=== PATIENT | male | born 1950 | race Caucasian/White ===

== ENCOUNTER 2016-08-09 08:21 | Outpatient (RCR) | payer MEDICARE ==
--- OUTSIDE RECORDS SUMMARY | 2016-05-23 09:03 | XMS REPORT | Continuity of Care Document ---
Author Author [facility] Organization [facility] Address Unknown Phone Unavailable Care Team Providers Care Clinical Rehabilitation Liaison Name Role Phone Pipe Shruthi PCP [phone] Source Comments Some departments are not documenting in the electronic medical record. If you do not see the information that you expected, contact Release of Information in the Health Information Management department at [phone] for further assistance in locating additional records.[facility] Active Allergies and Adverse Reactions No Known Allergies Current Medications Prescription Sig. Disp. Refills Start End Date Status Date fluticasone-salmeterol Inhale 1 Puff by mouth Active (ADVAIR DISKUS) 250-50 every 12 hours. mcg inhalation disk alendronate (FOSAMAX) 70 Take 70 mg by mouth every Active mg tablet 7 days. albuterol (VENTOLIN HFA, Inhale 2 Puffs by mouth Active PROAIR HFA) 90 every 6 hours as needed. mcg/actuation inhaler LORazepam (ATIVAN) 0.5 mg Take 0.5 mg by mouth Active tablet every 4 hours as needed. gabapentin (NEURONTIN) Take 300 mg by mouth four Active 300 mg capsule times daily. aspirin EC 81 mg tablet Take 81 mg by mouth Active daily. atenolol (TENORMIN) 25 mg Take 25 mg by mouth Active tablet daily. levETIRAcetam (KEPPRA) Take 500 mg by mouth Active 500 mg tablet twice daily. simvastatin (ZOCOR) 40 mg Take 40 mg by mouth at Active tablet bedtime daily. esomeprazole DR(+) Take 40 mg by mouth every Active (NEXIUM) 40 mg capsule morning. etodolac SR (LODINE XL) Take 600 mg by mouth Active 600 mg tablet daily. Active Problems Not on file Social History Tobacco Use Types Packs/Day Years Used Date Never Assessed Last Filed Vital Signs Vital Sign Reading Time Taken Blood Pressure 105/72 10/14/2013 1:05 PM PLUCK SEPARATOR Pulse 94 10/14/2013 1:05 PM PLUCK SEPARATOR Temperature - - Respiratory Rate - - Height 1.715 m (5' 7.5") 10/14/2013 1:05 PM PLUCK SEPARATOR Weight 71.85 kg (158 lb 6.4 oz) 10/14/2013 1:05 PM PLUCK SEPARATOR Body Mass Index 24.43 10/14/2013 1:05 PM PLUCK SEPARATOR Oxygen Saturation 100% 10/14/2013 1:05 PM PLUCK SEPARATOR Plan of Care Health Maintenance Due Date Last Done Comments Physical (Comprehensive) 1957 Exam Pertussis Vaccine 1960 Tetanus Vaccine 1966 Colorectal Cancer 1999 Screening Shingles Vaccine 2009 Prevnar/Pneumovax (#1) 2014 Influenza Vaccine 04/21/2016 Results from Last 3 Months Not on file
[2016-05-23 09:19] LABS: BASOPHILS % (AUTO) 1 % (0-10); EOSINOPHILS # (AUTO) 0.1 10^3/uL (0.0-0.3); EOSINOPHILS % (AUTO) 1 % (0-10); LYMPHOCYTES # (AUTO) 2.2 X 10^3 (1.0-4.0); LYMPHOCYTES % (AUTO) 36 % (12-44); MEAN CORPUSCULAR HEMOGLOBIN 26 PG (25-34); MEAN CORPUSCULAR HGB CONC 32 G/DL (32-36); MEAN CORPUSCULAR VOLUME 80 FL (80-99); MEAN PLATELET VOLUME 10.9 FL (7.4-10.4); MONOCYTES # (AUTO) 0.9 X 10^3 (0.0-1.0); MONOCYTES % (AUTO) 15 % (0-12); NEUTROPHILS % (AUTO) 48 % (42-75); PLATELET COUNT 236 10^3/uL (130-400); RED BLOOD COUNT 4.38 10^6/uL (4.35-5.85); RED CELL DISTRIBUTION WIDTH 21.7 % (10.0-14.5); WHITE BLOOD COUNT 6.3 10^3/uL (4.3-11.0)
[2016-05-23 09:47] LABS: ALANINE AMINOTRANSFERASE 15 U/L (0-55); ALBUMIN 3.2 G/DL (3.2-4.5); ANION GAP 12 MMOL/L (5-14); ASPARTATE AMINO TRANSFERASE 23 U/L (5-34); BILIRUBIN,TOTAL 0.4 MG/DL (0.1-1.0); BLOOD UREA NITROGEN 11 MG/DL (7-18); BUN/CREATININE RATIO 15; CALCIUM 8.1 MG/DL (8.5-10.1); CARBON DIOXIDE 18 MMOL/L (21-32); CHLORIDE 108 MMOL/L (98-107); CREATININE SERUM 0.75 MG/DL (0.60-1.30); GFR ESTIMATED > 60; GLUCOSE 99 MG/DL (70-105); MAGNESIUM 1.8 MG/DL (1.8-2.4); POTASSIUM 3.6 MMOL/L (3.6-5.0); SODIUM 138 MMOL/L (135-145); TOTAL PROTEIN 6.1 G/DL (6.4-8.2)
[2016-05-23 10:31] LABS: PROTEIN/CREATININE RATIO 0.17
[2016-05-31 11:05] LABS: BASOPHILS % (AUTO) 1 % (0-10); EOSINOPHILS % (AUTO) 1 % (0-10); LYMPHOCYTES % (AUTO) 34 % (12-44); MEAN CORPUSCULAR HEMOGLOBIN 26 PG (25-34); MEAN CORPUSCULAR HGB CONC 32 G/DL (32-36); MEAN CORPUSCULAR VOLUME 80 FL (80-99); MEAN PLATELET VOLUME 10.6 FL (7.4-10.4); MONOCYTES # (AUTO) 0.9 X 10^3 (0.0-1.0); MONOCYTES % (AUTO) 14 % (0-12); NEUTROPHILS % (AUTO) 51 % (42-75); PLATELET COUNT 216 10^3/uL (130-400); RED BLOOD COUNT 4.36 10^6/uL (4.35-5.85); RED CELL DISTRIBUTION WIDTH 22.1 % (10.0-14.5); WHITE BLOOD COUNT 5.9 10^3/uL (4.3-11.0)
[2016-05-31 11:37] LABS: ANION GAP 11 MMOL/L (5-14); BLOOD UREA NITROGEN 11 MG/DL (7-18); BUN/CREATININE RATIO 15; CALCIUM 8.3 MG/DL (8.5-10.1); CARBON DIOXIDE 20 MMOL/L (21-32); CHLORIDE 109 MMOL/L (98-107); CREATININE SERUM 0.74 MG/DL (0.60-1.30); GFR ESTIMATED > 60; GLUCOSE 102 MG/DL (70-105); POTASSIUM 3.9 MMOL/L (3.6-5.0); SODIUM 140 MMOL/L (135-145)
[2016-06-06 09:21] LABS: BASOPHILS % (AUTO) 0 % (0-10); EOSINOPHILS # (AUTO) 0.1 10^3/uL (0.0-0.3); EOSINOPHILS % (AUTO) 1 % (0-10); LYMPHOCYTES # (AUTO) 1.7 X 10^3 (1.0-4.0); LYMPHOCYTES % (AUTO) 24 % (12-44); MEAN CORPUSCULAR HEMOGLOBIN 26 PG (25-34); MEAN CORPUSCULAR HGB CONC 32 G/DL (32-36); MEAN CORPUSCULAR VOLUME 80 FL (80-99); MEAN PLATELET VOLUME 11.1 FL (7.4-10.4); MONOCYTES % (AUTO) 13 % (0-12); NEUTROPHILS # (AUTO) 4.4 X 10^3 (1.8-7.8); NEUTROPHILS % (AUTO) 62 % (42-75); PLATELET COUNT 200 10^3/uL (130-400); RED BLOOD COUNT 4.43 10^6/uL (4.35-5.85); RED CELL DISTRIBUTION WIDTH 21.5 % (10.0-14.5); WHITE BLOOD COUNT 7.2 10^3/uL (4.3-11.0)
[2016-06-06 09:47] LABS: ALANINE AMINOTRANSFERASE 18 U/L (0-55); ALBUMIN 3.2 G/DL (3.2-4.5); ANION GAP 8 MMOL/L (5-14); ASPARTATE AMINO TRANSFERASE 22 U/L (5-34); BILIRUBIN,TOTAL 0.4 MG/DL (0.1-1.0); BLOOD UREA NITROGEN 8 MG/DL (7-18); BUN/CREATININE RATIO 10; CALCIUM 8.6 MG/DL (8.5-10.1); CARBON DIOXIDE 24 MMOL/L (21-32); CHLORIDE 105 MMOL/L (98-107); CREATININE SERUM 0.77 MG/DL (0.60-1.30); GFR ESTIMATED > 60; GLUCOSE 146 MG/DL (70-105); MAGNESIUM 1.8 MG/DL (1.8-2.4); SODIUM 137 MMOL/L (135-145); TOTAL PROTEIN 6.2 G/DL (6.4-8.2)
[2016-06-06 09:57] LABS: PROTEIN/CREATININE RATIO 0.17
[2016-06-13 09:00] LABS: BASOPHILS % (AUTO) 1 % (0-10); EOSINOPHILS # (AUTO) 0.1 10^3/uL (0.0-0.3); EOSINOPHILS % (AUTO) 1 % (0-10); LYMPHOCYTES # (AUTO) 2.3 X 10^3 (1.0-4.0); LYMPHOCYTES % (AUTO) 43 % (12-44); MEAN CORPUSCULAR HEMOGLOBIN 25 PG (25-34); MEAN CORPUSCULAR HGB CONC 32 G/DL (32-36); MEAN CORPUSCULAR VOLUME 80 FL (80-99); MEAN PLATELET VOLUME 11.4 FL (7.4-10.4); MONOCYTES # (AUTO) 0.9 X 10^3 (0.0-1.0); MONOCYTES % (AUTO) 17 % (0-12); NEUTROPHILS % (AUTO) 38 % (42-75); PLATELET COUNT 204 10^3/uL (130-400); RED BLOOD COUNT 4.34 10^6/uL (4.35-5.85); RED CELL DISTRIBUTION WIDTH 21.3 % (10.0-14.5); WHITE BLOOD COUNT 5.4 10^3/uL (4.3-11.0)
[2016-06-13 09:26] LABS: ANION GAP 10 MMOL/L (5-14); BLOOD UREA NITROGEN 12 MG/DL (7-18); BUN/CREATININE RATIO 16; CALCIUM 8.1 MG/DL (8.5-10.1); CARBON DIOXIDE 21 MMOL/L (21-32); CHLORIDE 106 MMOL/L (98-107); CREATININE SERUM 0.74 MG/DL (0.60-1.30); GFR ESTIMATED > 60; GLUCOSE 140 MG/DL (70-105); POTASSIUM 3.8 MMOL/L (3.6-5.0); SODIUM 137 MMOL/L (135-145)
[2016-06-20 09:32] LABS: BASOPHILS % (AUTO) 0 % (0-10); EOSINOPHILS # (AUTO) 0.1 10^3/uL (0.0-0.3); EOSINOPHILS % (AUTO) 1 % (0-10); LYMPHOCYTES # (AUTO) 2.2 X 10^3 (1.0-4.0); LYMPHOCYTES % (AUTO) 36 % (12-44); MEAN CORPUSCULAR HEMOGLOBIN 26 PG (25-34); MEAN CORPUSCULAR HGB CONC 32 G/DL (32-36); MEAN CORPUSCULAR VOLUME 80 FL (80-99); MEAN PLATELET VOLUME 10.4 FL (7.4-10.4); MONOCYTES # (AUTO) 0.6 X 10^3 (0.0-1.0); MONOCYTES % (AUTO) 9 % (0-12); NEUTROPHILS # (AUTO) 3.2 X 10^3 (1.8-7.8); NEUTROPHILS % (AUTO) 53 % (42-75); PLATELET COUNT 215 10^3/uL (130-400); RED BLOOD COUNT 4.44 10^6/uL (4.35-5.85); RED CELL DISTRIBUTION WIDTH 21.7 % (10.0-14.5); WHITE BLOOD COUNT 6.1 10^3/uL (4.3-11.0)
[2016-06-20 10:42] LABS: ANION GAP 9 MMOL/L (5-14); BLOOD UREA NITROGEN 11 MG/DL (7-18); BUN/CREATININE RATIO 14; CALCIUM 8.3 MG/DL (8.5-10.1); CARBON DIOXIDE 25 MMOL/L (21-32); CHLORIDE 106 MMOL/L (98-107); CREATININE SERUM 0.77 MG/DL (0.60-1.30); GFR ESTIMATED > 60; GLUCOSE 172 MG/DL (70-105); POTASSIUM 4.2 MMOL/L (3.6-5.0); SODIUM 140 MMOL/L (135-145)
[2016-06-27 10:54] LABS: BASOPHILS % (AUTO) 0 % (0-10); EOSINOPHILS % (AUTO) 1 % (0-10); LYMPHOCYTES # (AUTO) 2.1 X 10^3 (1.0-4.0); LYMPHOCYTES % (AUTO) 25 % (12-44); MEAN CORPUSCULAR HEMOGLOBIN 26 PG (25-34); MEAN CORPUSCULAR HGB CONC 32 G/DL (32-36); MEAN CORPUSCULAR VOLUME 81 FL (80-99); MEAN PLATELET VOLUME 11.1 FL (7.4-10.4); MONOCYTES % (AUTO) 11 % (0-12); NEUTROPHILS # (AUTO) 5.3 X 10^3 (1.8-7.8); NEUTROPHILS % (AUTO) 63 % (42-75); PLATELET COUNT 241 10^3/uL (130-400); RED BLOOD COUNT 4.32 10^6/uL (4.35-5.85); RED CELL DISTRIBUTION WIDTH 21.4 % (10.0-14.5); WHITE BLOOD COUNT 8.4 10^3/uL (4.3-11.0)
[2016-06-27 11:26] LABS: ALANINE AMINOTRANSFERASE 19 U/L (0-55); ALBUMIN 3.3 G/DL (3.2-4.5); ANION GAP 9 MMOL/L (5-14); ASPARTATE AMINO TRANSFERASE 23 U/L (5-34); BILIRUBIN,TOTAL 0.6 MG/DL (0.1-1.0); BLOOD UREA NITROGEN 14 MG/DL (7-18); BUN/CREATININE RATIO 18; CALCIUM 8.7 MG/DL (8.5-10.1); CARBON DIOXIDE 23 MMOL/L (21-32); CHLORIDE 104 MMOL/L (98-107); GFR ESTIMATED > 60; GLUCOSE 123 MG/DL (70-105); MAGNESIUM 1.6 MG/DL (1.8-2.4); POTASSIUM 3.9 MMOL/L (3.6-5.0); SODIUM 136 MMOL/L (135-145); TOTAL PROTEIN 6.1 G/DL (6.4-8.2)
[2016-07-25 10:55] LABS: BASOPHILS % (AUTO) 0 % (0-10); EOSINOPHILS # (AUTO) 0.1 10^3/uL (0.0-0.3); EOSINOPHILS % (AUTO) 2 % (0-10); LYMPHOCYTES # (AUTO) 2.1 X 10^3 (1.0-4.0); LYMPHOCYTES % (AUTO) 27 % (12-44); MEAN CORPUSCULAR HEMOGLOBIN 26 PG (25-34); MEAN CORPUSCULAR HGB CONC 32 G/DL (32-36); MEAN CORPUSCULAR VOLUME 81 FL (80-99); MEAN PLATELET VOLUME 10.9 FL (7.4-10.4); MONOCYTES % (AUTO) 12 % (0-12); NEUTROPHILS # (AUTO) 4.7 X 10^3 (1.8-7.8); NEUTROPHILS % (AUTO) 59 % (42-75); PLATELET COUNT 244 10^3/uL (130-400); RED BLOOD COUNT 4.36 10^6/uL (4.35-5.85); RED CELL DISTRIBUTION WIDTH 19.8 % (10.0-14.5); WHITE BLOOD COUNT 7.9 10^3/uL (4.3-11.0)
[2016-07-25 11:32] LABS: ALANINE AMINOTRANSFERASE 15 U/L (0-55); ALBUMIN 3.2 G/DL (3.2-4.5); ANION GAP 9 MMOL/L (5-14); ASPARTATE AMINO TRANSFERASE 22 U/L (5-34); BILIRUBIN,TOTAL 0.4 MG/DL (0.1-1.0); BLOOD UREA NITROGEN 13 MG/DL (7-18); BUN/CREATININE RATIO 17; CALCIUM 8.4 MG/DL (8.5-10.1); CARBON DIOXIDE 22 MMOL/L (21-32); CHLORIDE 108 MMOL/L (98-107); CREATININE SERUM 0.76 MG/DL (0.60-1.30); GFR ESTIMATED > 60; GLUCOSE 72 MG/DL (70-105); POTASSIUM 3.7 MMOL/L (3.6-5.0); SODIUM 139 MMOL/L (135-145)
[~2016-08-09] VITALS: Ht 167.6 cm; Wt 64.4 kg
[~2016-08-09 08:21] MED LIST: ADV1DS IH; ALN70T PO; AMOX500C2 PO; ASPI-875 PO; ATEN-147 PO; BEVACIZUMAB IV SCH; D5W 500 ML IV (CANCER CTR) 500 ML IV SCH; FAMOTIDINE 20MG/2ML IV (CANCER CTR) IV SCH; FOSAPREPITANT DIMEGLUMINE 150 MG in NS (IVPB) CANCER CENTER ONLY 150 ML IV PRN; GABA300C PO; HYDR-3714 PO; LEUCOVORIN CALCIUM 350 MG, LEUCOVORIN CALCIUM 50 MG in D5W 250 ML IVPB (CANCER CTR) 250 ML IV SCH; LEVE500T PO; LORA-794 PO; NF-ESOM40C PO; NS IV SCH; ONDA8TAB6 PO; OXALIPLATIN 100 MG, OXALIPLATIN (GENERIC) 40 MG in D5W 250 ML IVPB (CANCER CTR) 250 ML IV SCH; PALONOSETRON HCL 0.25 MG, DEXAMETHASONE PF INJ (CANCER C 10 MG in NS (IVPB) CANCER CENT... IV PRN; RT-ALBUINH IH; SIMV40TA2 PO; [UNRECOGNIZED DRUG - CODE] PO
[2016-08-09 08:46] LABS: BASOPHILS # (AUTO) 0.1 10^3/uL (0.0-0.1); BASOPHILS % (AUTO) 1 % (0-10); EOSINOPHILS # (AUTO) 0.2 10^3/uL (0.0-0.3); EOSINOPHILS % (AUTO) 2 % (0-10); LYMPHOCYTES # (AUTO) 2.5 X 10^3 (1.0-4.0); LYMPHOCYTES % (AUTO) 32 % (12-44); MEAN CORPUSCULAR HEMOGLOBIN 26 PG (25-34); MEAN CORPUSCULAR HGB CONC 32 G/DL (32-36); MEAN CORPUSCULAR VOLUME 80 FL (80-99); MEAN PLATELET VOLUME 11.2 FL (7.4-10.4); MONOCYTES # (AUTO) 0.8 X 10^3 (0.0-1.0); MONOCYTES % (AUTO) 10 % (0-12); NEUTROPHILS # (AUTO) 4.2 X 10^3 (1.8-7.8); NEUTROPHILS % (AUTO) 55 % (42-75); PLATELET COUNT 269 10^3/uL (130-400); RED BLOOD COUNT 4.39 10^6/uL (4.35-5.85); RED CELL DISTRIBUTION WIDTH 19.1 % (10.0-14.5); WHITE BLOOD COUNT 7.6 10^3/uL (4.3-11.0)
[2016-08-09 09:10] LABS: ALANINE AMINOTRANSFERASE 24 U/L (0-55); ALBUMIN 3.3 G/DL (3.2-4.5); ANION GAP 7 MMOL/L (5-14); ASPARTATE AMINO TRANSFERASE 26 U/L (5-34); BILIRUBIN,TOTAL 0.4 MG/DL (0.1-1.0); BLOOD UREA NITROGEN 15 MG/DL (7-18); BUN/CREATININE RATIO 20; CALCIUM 8.8 MG/DL (8.5-10.1); CARBON DIOXIDE 24 MMOL/L (21-32); CHLORIDE 105 MMOL/L (98-107); CREATININE SERUM 0.74 MG/DL (0.60-1.30); GFR ESTIMATED > 60; GLUCOSE 127 MG/DL (70-105); SODIUM 136 MMOL/L (135-145); TOTAL PROTEIN 6.1 G/DL (6.4-8.2)
== END 2016-08-21 | disposition home or self-care (01) ==
LOC: ONC 08:21
PROVIDERS: ATTEND Internal Medicine Hematology & Oncology
DX: Z51.11 Encounter for antineoplastic chemotherapy (principal); C18.2 Malignant neoplasm of ascending colon; C78.7 Secondary malignant neoplasm of liver and intrahepatic bile duct; R91.8 Other nonspecific abnormal finding of lung field
CPT/HCPCS: 36415; 36591; 80048; 80053; 82378; 82570; 83735; 84156; 85025; 96367; 96368; 96375; 96411; 96413; 96521; 99213

== ENCOUNTER → 2016-11-15 | Outpatient (CLI) | payer MEDICARE ==
[~2016-11-15] MED LIST changes: +BARIUM SUSPENSION 2.1% (VANILLA SILQ) 450 ML PO ONE; -BEVACIZUMAB IV SCH; +CATHETER FLUSH 10 ML SYR IV PRN; -D5W 500 ML IV (CANCER CTR) 500 ML IV SCH; -FAMOTIDINE 20MG/2ML IV (CANCER CTR) IV SCH; -FOSAPREPITANT DIMEGLUMINE 150 MG in NS (IVPB) CANCER CENTER ONLY 150 ML IV PRN; +IOHEXOL 350 MG/ML 100 ML (OMNIPAQUE 350) VIAL IV ONE; -LEUCOVORIN CALCIUM 350 MG, LEUCOVORIN CALCIUM 50 MG in D5W 250 ML IVPB (CANCER CTR) 250 ML IV SCH; +NS 100 ML (IVPB) BAG IV ONE; -NS IV SCH; -OXALIPLATIN 100 MG, OXALIPLATIN (GENERIC) 40 MG in D5W 250 ML IVPB (CANCER CTR) 250 ML IV SCH; -PALONOSETRON HCL 0.25 MG, DEXAMETHASONE PF INJ (CANCER C 10 MG in NS (IVPB) CANCER CENT... IV PRN
--- NOTE | 2016-11-15 11:03 | Diagnostic Imaging Report ---
PROCEDURE: CT chest, abdomen, and pelvis with contrast. TECHNIQUE: Multiple contiguous axial images were obtained through the chest, abdomen, and pelvis after the administration of intravenous contrast. INDICATION: Colon cancer followup. 100 mL of Omnipaque 350 is administered intravenously. COMPARISON: Comparison with 06/21/2016. FINDINGS: CT CHEST: There are multiple subcentimeter pulmonary nodules up to 8 mm in size again seen without significant change from prior exam. These are indeterminate in etiology but could be metastatic. There is background upper lobe predominant emphysema. No significant consolidation or mass. No significant pleural or pericardial effusion. The mediastinum demonstrates no mass or lymphadenopathy. No hilar lymphadenopathy is seen. There is no axillary lymphadenopathy. Osseous structures demonstrate degenerative changes and scoliosis convex to the left in the lumbar spine with compensatory curvature seen in the thoracic spine. CT ABDOMEN AND PELVIS: There is unfortunately significant enlargement and increased in number of liver metastasis. The largest mass at this point is 4.6 x 4.6 cm compared to 2.2 x 2 cm previously. There is suggestion of a few new lesions about 1.5 cm in size mostly in the right hepatic lobe. The gallbladder, the spleen, the pancreas, and the adrenal glands appear unremarkable. The kidneys have symmetric enhancement and contrast excretion. There is no hydronephrosis. The abdominal aorta is normal in caliber. There is a small fat-containing ventral hernia above the umbilicus to the left of the midline. Periaortic significantly enlarged lymph nodes seen. Mesenteric enlarged lymph nodes measuring 1 cm in size seen on axial image 75 is slightly larger compared to the prior exam. There is no iliac lymphadenopathy. No significant free fluid or fluid collection in the abdomen or pelvis. Surgical clips in the right groin and suggestion of a mesh repair of the abdominal wall is seen. IMPRESSION: CT CHEST: Multiple pulmonary nodules up to 8 mm in size stable from prior exams. These remain indeterminate in etiology. CT ABDOMEN AND PELVIS: 1. Interval increase in the number and size of hepatic metastasis. 2. Minimal enlargement in the right mesenteric lymph nodes. 3. Supraumbilical left paramedian ventral hernia containing fat. Dictated by: Dictated on workstation # [id number]
== END ==
LOC: RAD 09:49
PROVIDERS: ATTEND Nurse Practitioner Adult Health
DX: C18.2 Malignant neoplasm of ascending colon (principal)
CPT/HCPCS: 71260; 74177

== ENCOUNTER → 2016-11-21 | Outpatient (RCR) | payer MEDICARE ==
--- OUTSIDE RECORDS SUMMARY | 2016-08-23 10:11 | XMS REPORT | Continuity of Care Document ---
Author Author [facility] Organization [facility] Address Unknown Phone Unavailable Care Team Providers Care Chemical Compounder Helper Name Role Phone Pipe Shruthi PCP [phone] Source Comments Some departments are not documenting in the electronic medical record. If you do not see the information that you expected, contact Release of Information in the Health Information Management department at [phone] for further assistance in locating additional records.[facility] Active Allergies and Adverse Reactions No Known [...] Taken Blood Pressure 105/72 10/14/2013 1:05 PM CRAB FISHERMAN Pulse 94 10/14/2013 1:05 PM CRAB FISHERMAN Temperature - - Respiratory Rate - - Height 1.715 m (5' 7.5") 10/14/2013 1:05 PM CRAB FISHERMAN Weight 71.85 kg (158 lb 6.4 oz) 10/14/2013 1:05 PM CRAB FISHERMAN Body Mass Index 24.43 10/14/2013 1:05 PM CRAB FISHERMAN Oxygen Saturation 100% 10/14/2013 1:05 PM CRAB FISHERMAN Plan of Care Health Maintenance Due Date Last Done Comments Hepatitis C Screening 1949 Physical (Comprehensive) 1956 Exam Pertussis Vaccine 1960 Tetanus Vaccine 1966 Colorectal Cancer 1999 Screening Shingles Vaccine 2009 Prevnar/Pneumovax (#1) 2014 Influenza Vaccine 04/21/2016 Results from Last 3 Months Not on file
[2016-08-23 10:42] LABS: BASOPHILS % (AUTO) 0 % (0-10); EOSINOPHILS # (AUTO) 0.1 10^3/uL (0.0-0.3); EOSINOPHILS % (AUTO) 1 % (0-10); LYMPHOCYTES % (AUTO) 26 % (12-44); MEAN CORPUSCULAR HEMOGLOBIN 25 PG (25-34); MEAN CORPUSCULAR HGB CONC 32 G/DL (32-36); MEAN CORPUSCULAR VOLUME 79 FL (80-99); MEAN PLATELET VOLUME 9.9 FL (7.4-10.4); MONOCYTES # (AUTO) 0.5 X 10^3 (0.0-1.0); MONOCYTES % (AUTO) 6 % (0-12); NEUTROPHILS # (AUTO) 5.2 X 10^3 (1.8-7.8); NEUTROPHILS % (AUTO) 68 % (42-75); PLATELET COUNT 299 10^3/uL (130-400); RED BLOOD COUNT 4.59 10^6/uL (4.35-5.85); RED CELL DISTRIBUTION WIDTH 19.1 % (10.0-14.5); WHITE BLOOD COUNT 7.7 10^3/uL (4.3-11.0)
[2016-08-23 11:43] LABS: ANION GAP 12 MMOL/L (5-14); BLOOD UREA NITROGEN 13 MG/DL (7-18); BUN/CREATININE RATIO 15; CALCIUM 9.3 MG/DL (8.5-10.1); CARBON DIOXIDE 23 MMOL/L (21-32); CHLORIDE 105 MMOL/L (98-107); CREATININE SERUM 0.87 MG/DL (0.60-1.30); GFR ESTIMATED > 60; GLUCOSE 76 MG/DL (70-105); POTASSIUM 4.3 MMOL/L (3.6-5.0); SODIUM 140 MMOL/L (135-145)
[2016-08-30 10:35] LABS: BASOPHILS % (AUTO) 0 % (0-10); EOSINOPHILS # (AUTO) 0.1 10^3/uL (0.0-0.3); EOSINOPHILS % (AUTO) 1 % (0-10); LYMPHOCYTES # (AUTO) 1.1 X 10^3 (1.0-4.0); LYMPHOCYTES % (AUTO) 29 % (12-44); MEAN CORPUSCULAR HEMOGLOBIN 25 PG (25-34); MEAN CORPUSCULAR HGB CONC 32 G/DL (32-36); MEAN CORPUSCULAR VOLUME 79 FL (80-99); MEAN PLATELET VOLUME 10.4 FL (7.4-10.4); MONOCYTES # (AUTO) 0.1 X 10^3 (0.0-1.0); MONOCYTES % (AUTO) 3 % (0-12); NEUTROPHILS # (AUTO) 2.6 X 10^3 (1.8-7.8); NEUTROPHILS % (AUTO) 66 % (42-75); PLATELET COUNT 215 10^3/uL (130-400); RED BLOOD COUNT 4.03 10^6/uL (4.35-5.85); RED CELL DISTRIBUTION WIDTH 18.4 % (10.0-14.5); WHITE BLOOD COUNT 3.9 10^3/uL (4.3-11.0)
[2016-08-30 10:54] LABS: ANION GAP 7 MMOL/L (5-14); BLOOD UREA NITROGEN 15 MG/DL (7-18); BUN/CREATININE RATIO 18; CALCIUM 8.5 MG/DL (8.5-10.1); CARBON DIOXIDE 24 MMOL/L (21-32); CHLORIDE 105 MMOL/L (98-107); CREATININE SERUM 0.84 MG/DL (0.60-1.30); GFR ESTIMATED > 60; GLUCOSE 104 MG/DL (70-105); POTASSIUM 3.6 MMOL/L (3.6-5.0); SODIUM 136 MMOL/L (135-145)
[2016-09-08 09:17] LABS: BASOPHILS % (AUTO) 0 % (0-10); EOSINOPHILS % (AUTO) 1 % (0-10); LYMPHOCYTES # (AUTO) 1.7 X 10^3 (1.0-4.0); LYMPHOCYTES % (AUTO) 60 % (12-44); MEAN CORPUSCULAR HEMOGLOBIN 26 PG (25-34); MEAN CORPUSCULAR HGB CONC 32 G/DL (32-36); MEAN CORPUSCULAR VOLUME 80 FL (80-99); MEAN PLATELET VOLUME 10.1 FL (7.4-10.4); MONOCYTES # (AUTO) 0.4 X 10^3 (0.0-1.0); MONOCYTES % (AUTO) 13 % (0-12); NEUTROPHILS # (AUTO) 0.7 X 10^3 (1.8-7.8); NEUTROPHILS % (AUTO) 26 % (42-75); PLATELET COUNT 271 10^3/uL (130-400); RED BLOOD COUNT 4.09 10^6/uL (4.35-5.85); RED CELL DISTRIBUTION WIDTH 19.9 % (10.0-14.5); WHITE BLOOD COUNT 2.8 10^3/uL (4.3-11.0)
[2016-09-08 10:00] LABS: ALANINE AMINOTRANSFERASE 19 U/L (0-55); ALBUMIN 3.5 G/DL (3.2-4.5); ANION GAP 10 MMOL/L (5-14); ASPARTATE AMINO TRANSFERASE 19 U/L (5-34); BILIRUBIN,TOTAL 0.4 MG/DL (0.1-1.0); BLOOD UREA NITROGEN 18 MG/DL (7-18); BUN/CREATININE RATIO 21; CALCIUM 8.5 MG/DL (8.5-10.1); CARBON DIOXIDE 22 MMOL/L (21-32); CHLORIDE 106 MMOL/L (98-107); CREATININE SERUM 0.86 MG/DL (0.60-1.30); GFR ESTIMATED > 60; GLUCOSE 98 MG/DL (70-105); SODIUM 138 MMOL/L (135-145); TOTAL PROTEIN 6.4 G/DL (6.4-8.2)
[2016-09-15 13:08] LABS: BASOPHILS % (AUTO) 0 % (0-10); EOSINOPHILS % (AUTO) 0 % (0-10); LYMPHOCYTES # (AUTO) 2.5 X 10^3 (1.0-4.0); LYMPHOCYTES % (AUTO) 48 % (12-44); MEAN CORPUSCULAR HEMOGLOBIN 25 PG (25-34); MEAN CORPUSCULAR HGB CONC 31 G/DL (32-36); MEAN CORPUSCULAR VOLUME 81 FL (80-99); MEAN PLATELET VOLUME 9.5 FL (7.4-10.4); MONOCYTES # (AUTO) 0.9 X 10^3 (0.0-1.0); MONOCYTES % (AUTO) 16 % (0-12); NEUTROPHILS # (AUTO) 1.8 X 10^3 (1.8-7.8); NEUTROPHILS % (AUTO) 35 % (42-75); PLATELET COUNT 267 10^3/uL (130-400); RED BLOOD COUNT 4.42 10^6/uL (4.35-5.85); RED CELL DISTRIBUTION WIDTH 20.4 % (10.0-14.5); WHITE BLOOD COUNT 5.2 10^3/uL (4.3-11.0)
[2016-09-15 13:41] LABS: ANION GAP 10 MMOL/L (5-14); BLOOD UREA NITROGEN 16 MG/DL (7-18); BUN/CREATININE RATIO 16; CALCIUM 8.5 MG/DL (8.5-10.1); CARBON DIOXIDE 23 MMOL/L (21-32); CHLORIDE 105 MMOL/L (98-107); CREATININE SERUM 0.97 MG/DL (0.60-1.30); GFR ESTIMATED > 60; POTASSIUM 4.5 MMOL/L (3.6-5.0); SODIUM 138 MMOL/L (135-145)
[2016-09-15 13:43] LABS: GLUCOSE 57 MG/DL (70-105)
[2016-09-21 11:05] LABS: BASOPHILS # (AUTO) 0.1 10^3/uL (0.0-0.1); BASOPHILS % (AUTO) 1 % (0-10); EOSINOPHILS % (AUTO) 0 % (0-10); LYMPHOCYTES # (AUTO) 2.2 X 10^3 (1.0-4.0); LYMPHOCYTES % (AUTO) 32 % (12-44); MEAN CORPUSCULAR HEMOGLOBIN 26 PG (25-34); MEAN CORPUSCULAR HGB CONC 32 G/DL (32-36); MEAN CORPUSCULAR VOLUME 81 FL (80-99); MEAN PLATELET VOLUME 10.4 FL (7.4-10.4); MONOCYTES # (AUTO) 0.8 X 10^3 (0.0-1.0); MONOCYTES % (AUTO) 12 % (0-12); NEUTROPHILS # (AUTO) 3.7 X 10^3 (1.8-7.8); NEUTROPHILS % (AUTO) 55 % (42-75); PLATELET COUNT 220 10^3/uL (130-400); RED BLOOD COUNT 4.31 10^6/uL (4.35-5.85); RED CELL DISTRIBUTION WIDTH 20.4 % (10.0-14.5); WHITE BLOOD COUNT 6.7 10^3/uL (4.3-11.0)
[2016-09-21 11:41] LABS: ANION GAP 9 MMOL/L (5-14); BLOOD UREA NITROGEN 17 MG/DL (7-18); BUN/CREATININE RATIO 18; CALCIUM 8.5 MG/DL (8.5-10.1); CARBON DIOXIDE 24 MMOL/L (21-32); CHLORIDE 105 MMOL/L (98-107); CREATININE SERUM 0.96 MG/DL (0.60-1.30); GFR ESTIMATED > 60; GLUCOSE 74 MG/DL (70-105); POTASSIUM 4.2 MMOL/L (3.6-5.0); SODIUM 138 MMOL/L (135-145)
[2016-09-28 11:02] LABS: BASOPHILS % (AUTO) 0 % (0-10); EOSINOPHILS % (AUTO) 1 % (0-10); LYMPHOCYTES # (AUTO) 1.6 X 10^3 (1.0-4.0); LYMPHOCYTES % (AUTO) 27 % (12-44); MEAN CORPUSCULAR HEMOGLOBIN 26 PG (25-34); MEAN CORPUSCULAR HGB CONC 31 G/DL (32-36); MEAN CORPUSCULAR VOLUME 82 FL (80-99); MEAN PLATELET VOLUME 9.6 FL (7.4-10.4); MONOCYTES # (AUTO) 0.2 X 10^3 (0.0-1.0); MONOCYTES % (AUTO) 4 % (0-12); NEUTROPHILS # (AUTO) 4.1 X 10^3 (1.8-7.8); NEUTROPHILS % (AUTO) 68 % (42-75); PLATELET COUNT 244 10^3/uL (130-400); RED BLOOD COUNT 3.99 10^6/uL (4.35-5.85); RED CELL DISTRIBUTION WIDTH 20.3 % (10.0-14.5)
[2016-09-28 11:46] LABS: ANION GAP 10 MMOL/L (5-14); BLOOD UREA NITROGEN 13 MG/DL (7-18); BUN/CREATININE RATIO 15; CALCIUM 8.7 MG/DL (8.5-10.1); CARBON DIOXIDE 24 MMOL/L (21-32); CHLORIDE 106 MMOL/L (98-107); CREATININE SERUM 0.85 MG/DL (0.60-1.30); GFR ESTIMATED > 60; GLUCOSE 100 MG/DL (70-105); SODIUM 140 MMOL/L (135-145)
[2016-10-05 12:00] LABS: BASOPHILS % (AUTO) 0 % (0-10); EOSINOPHILS % (AUTO) 1 % (0-10); LYMPHOCYTES # (AUTO) 2.3 X 10^3 (1.0-4.0); LYMPHOCYTES % (AUTO) 53 % (12-44); MEAN CORPUSCULAR HEMOGLOBIN 26 PG (25-34); MEAN CORPUSCULAR HGB CONC 32 G/DL (32-36); MEAN CORPUSCULAR VOLUME 81 FL (80-99); MEAN PLATELET VOLUME 9.8 FL (7.4-10.4); MONOCYTES # (AUTO) 0.1 X 10^3 (0.0-1.0); MONOCYTES % (AUTO) 3 % (0-12); NEUTROPHILS # (AUTO) 1.9 X 10^3 (1.8-7.8); NEUTROPHILS % (AUTO) 43 % (42-75); PLATELET COUNT 184 10^3/uL (130-400); RED BLOOD COUNT 3.97 10^6/uL (4.35-5.85); RED CELL DISTRIBUTION WIDTH 19.8 % (10.0-14.5); WHITE BLOOD COUNT 4.4 10^3/uL (4.3-11.0)
[2016-10-05 12:41] LABS: ANION GAP 8 MMOL/L (5-14); BLOOD UREA NITROGEN 13 MG/DL (7-18); BUN/CREATININE RATIO 15; CALCIUM 8.4 MG/DL (8.5-10.1); CARBON DIOXIDE 25 MMOL/L (21-32); CHLORIDE 104 MMOL/L (98-107); CREATININE SERUM 0.88 MG/DL (0.60-1.30); GFR ESTIMATED > 60; GLUCOSE 117 MG/DL (70-105); POTASSIUM 4.2 MMOL/L (3.6-5.0); SODIUM 137 MMOL/L (135-145)
[2016-10-12 11:07] LABS: BASOPHILS % (AUTO) 0 % (0-10); EOSINOPHILS % (AUTO) 1 % (0-10); LYMPHOCYTES # (AUTO) 1.3 X 10^3 (1.0-4.0); LYMPHOCYTES % (AUTO) 66 % (12-44); MEAN CORPUSCULAR HEMOGLOBIN 26 PG (25-34); MEAN CORPUSCULAR HGB CONC 32 G/DL (32-36); MEAN CORPUSCULAR VOLUME 82 FL (80-99); MEAN PLATELET VOLUME 9.6 FL (7.4-10.4); MONOCYTES # (AUTO) 0.2 X 10^3 (0.0-1.0); MONOCYTES % (AUTO) 10 % (0-12); NEUTROPHILS # (AUTO) 0.4 X 10^3 (1.8-7.8); NEUTROPHILS % (AUTO) 23 % (42-75); PLATELET COUNT 219 10^3/uL (130-400); RED BLOOD COUNT 3.79 10^6/uL (4.35-5.85); RED CELL DISTRIBUTION WIDTH 21.4 % (10.0-14.5); WHITE BLOOD COUNT 1.9 10^3/uL (4.3-11.0)
[2016-10-12 12:34] LABS: ALANINE AMINOTRANSFERASE 18 U/L (0-55); ALBUMIN 3.5 G/DL (3.2-4.5); ANION GAP 11 MMOL/L (5-14); ASPARTATE AMINO TRANSFERASE 21 U/L (5-34); BILIRUBIN,TOTAL 0.4 MG/DL (0.1-1.0); BLOOD UREA NITROGEN 10 MG/DL (7-18); BUN/CREATININE RATIO 12; CALCIUM 8.3 MG/DL (8.5-10.1); CARBON DIOXIDE 21 MMOL/L (21-32); CHLORIDE 106 MMOL/L (98-107); CREATININE SERUM 0.83 MG/DL (0.60-1.30); GFR ESTIMATED > 60; GLUCOSE 122 MG/DL (70-105); POTASSIUM 3.7 MMOL/L (3.6-5.0); SODIUM 138 MMOL/L (135-145); TOTAL PROTEIN 6.3 G/DL (6.4-8.2)
[2016-10-19 11:13] LABS: BASOPHILS % (AUTO) 0 % (0-10); EOSINOPHILS % (AUTO) 0 % (0-10); LYMPHOCYTES % (AUTO) 48 % (12-44); MEAN CORPUSCULAR HEMOGLOBIN 26 PG (25-34); MEAN CORPUSCULAR HGB CONC 32 G/DL (32-36); MEAN CORPUSCULAR VOLUME 83 FL (80-99); MEAN PLATELET VOLUME 9.3 FL (7.4-10.4); MONOCYTES # (AUTO) 0.6 X 10^3 (0.0-1.0); MONOCYTES % (AUTO) 14 % (0-12); NEUTROPHILS # (AUTO) 1.5 X 10^3 (1.8-7.8); NEUTROPHILS % (AUTO) 37 % (42-75); PLATELET COUNT 246 10^3/uL (130-400); RED BLOOD COUNT 3.91 10^6/uL (4.35-5.85); RED CELL DISTRIBUTION WIDTH 23.3 % (10.0-14.5)
[2016-10-19 11:57] LABS: ALANINE AMINOTRANSFERASE 18 U/L (0-55); ALBUMIN 3.3 G/DL (3.2-4.5); ANION GAP 11 MMOL/L (5-14); ASPARTATE AMINO TRANSFERASE 26 U/L (5-34); BILIRUBIN,TOTAL 0.4 MG/DL (0.1-1.0); BLOOD UREA NITROGEN 12 MG/DL (7-18); BUN/CREATININE RATIO 14; CALCIUM 8.8 MG/DL (8.5-10.1); CARBON DIOXIDE 23 MMOL/L (21-32); CHLORIDE 102 MMOL/L (98-107); CREATININE SERUM 0.88 MG/DL (0.60-1.30); GFR ESTIMATED > 60; GLUCOSE 118 MG/DL (70-105); POTASSIUM 4.3 MMOL/L (3.6-5.0); SODIUM 136 MMOL/L (135-145); TOTAL PROTEIN 6.2 G/DL (6.4-8.2)
[2016-11-01 10:05] LABS: BASOPHILS % (AUTO) 0 % (0-10); EOSINOPHILS % (AUTO) 1 % (0-10); LYMPHOCYTES # (AUTO) 1.6 X 10^3 (1.0-4.0); LYMPHOCYTES % (AUTO) 23 % (12-44); MEAN CORPUSCULAR HEMOGLOBIN 28 PG (25-34); MEAN CORPUSCULAR HGB CONC 32 G/DL (32-36); MEAN CORPUSCULAR VOLUME 85 FL (80-99); MEAN PLATELET VOLUME 9.8 FL (7.4-10.4); MONOCYTES # (AUTO) 0.3 X 10^3 (0.0-1.0); MONOCYTES % (AUTO) 5 % (0-12); NEUTROPHILS # (AUTO) 4.8 X 10^3 (1.8-7.8); NEUTROPHILS % (AUTO) 71 % (42-75); PLATELET COUNT 271 10^3/uL (130-400); RED CELL DISTRIBUTION WIDTH 23.1 % (10.0-14.5); WHITE BLOOD COUNT 6.7 10^3/uL (4.3-11.0)
[2016-11-01 10:32] LABS: ANION GAP 10 MMOL/L (5-14); BLOOD UREA NITROGEN 18 MG/DL (7-18); BUN/CREATININE RATIO 20; CALCIUM 8.8 MG/DL (8.5-10.1); CARBON DIOXIDE 23 MMOL/L (21-32); CHLORIDE 104 MMOL/L (98-107); CREATININE SERUM 0.92 MG/DL (0.60-1.30); GFR ESTIMATED > 60; GLUCOSE 85 MG/DL (70-105); POTASSIUM 4.4 MMOL/L (3.6-5.0); SODIUM 137 MMOL/L (135-145)
[2016-11-08 10:32] LABS: BASOPHILS % (AUTO) 0 % (0-10); EOSINOPHILS % (AUTO) 1 % (0-10); LYMPHOCYTES # (AUTO) 1.4 X 10^3 (1.0-4.0); LYMPHOCYTES % (AUTO) 38 % (12-44); MEAN CORPUSCULAR HEMOGLOBIN 27 PG (25-34); MEAN CORPUSCULAR HGB CONC 32 G/DL (32-36); MEAN CORPUSCULAR VOLUME 85 FL (80-99); MEAN PLATELET VOLUME 9.5 FL (7.4-10.4); MONOCYTES # (AUTO) 0.2 X 10^3 (0.0-1.0); MONOCYTES % (AUTO) 5 % (0-12); NEUTROPHILS % (AUTO) 56 % (42-75); PLATELET COUNT 155 10^3/uL (130-400); RED BLOOD COUNT 3.49 10^6/uL (4.35-5.85); RED CELL DISTRIBUTION WIDTH 22.5 % (10.0-14.5); WHITE BLOOD COUNT 3.7 10^3/uL (4.3-11.0)
[2016-11-08 11:01] LABS: ANION GAP 9 MMOL/L (5-14); BLOOD UREA NITROGEN 11 MG/DL (7-18); BUN/CREATININE RATIO 13; CALCIUM 8.7 MG/DL (8.5-10.1); CARBON DIOXIDE 24 MMOL/L (21-32); CHLORIDE 106 MMOL/L (98-107); CREATININE SERUM 0.87 MG/DL (0.60-1.30); GFR ESTIMATED > 60; GLUCOSE 109 MG/DL (70-105); POTASSIUM 4.8 MMOL/L (3.6-5.0); SODIUM 139 MMOL/L (135-145)
[2016-11-15 11:13] LABS: BASOPHILS % (AUTO) 0 % (0-10); EOSINOPHILS # (AUTO) 0.1 10^3/uL (0.0-0.3); EOSINOPHILS % (AUTO) 2 % (0-10); LYMPHOCYTES # (AUTO) 1.9 X 10^3 (1.0-4.0); LYMPHOCYTES % (AUTO) 55 % (12-44); MEAN CORPUSCULAR HEMOGLOBIN 28 PG (25-34); MEAN CORPUSCULAR HGB CONC 33 G/DL (32-36); MEAN CORPUSCULAR VOLUME 85 FL (80-99); MEAN PLATELET VOLUME 9.9 FL (7.4-10.4); MONOCYTES # (AUTO) 0.3 X 10^3 (0.0-1.0); MONOCYTES % (AUTO) 9 % (0-12); NEUTROPHILS # (AUTO) 1.2 X 10^3 (1.8-7.8); NEUTROPHILS % (AUTO) 34 % (42-75); PLATELET COUNT 237 10^3/uL (130-400); RED BLOOD COUNT 3.75 10^6/uL (4.35-5.85); RED CELL DISTRIBUTION WIDTH 22.9 % (10.0-14.5); WHITE BLOOD COUNT 3.4 10^3/uL (4.3-11.0)
[2016-11-15 11:47] LABS: ANION GAP 10 MMOL/L (5-14); BLOOD UREA NITROGEN 11 MG/DL (7-18); BUN/CREATININE RATIO 13; CARBON DIOXIDE 24 MMOL/L (21-32); CHLORIDE 102 MMOL/L (98-107); CREATININE SERUM 0.88 MG/DL (0.60-1.30); GFR ESTIMATED > 60; GLUCOSE 101 MG/DL (70-105); SODIUM 136 MMOL/L (135-145)
[~2016-11-21] MED LIST changes: -BARIUM SUSPENSION 2.1% (VANILLA SILQ) 450 ML PO ONE; -CATHETER FLUSH 10 ML SYR IV PRN; -IOHEXOL 350 MG/ML 100 ML (OMNIPAQUE 350) VIAL IV ONE; -NS 100 ML (IVPB) BAG IV ONE
[2016-11-21 09:33] LABS: BASOPHILS % (AUTO) 1 % (0-10); EOSINOPHILS % (AUTO) 1 % (0-10); LYMPHOCYTES # (AUTO) 1.4 X 10^3 (1.0-4.0); LYMPHOCYTES % (AUTO) 51 % (12-44); MEAN CORPUSCULAR HEMOGLOBIN 28 PG (25-34); MEAN CORPUSCULAR HGB CONC 32 G/DL (32-36); MEAN CORPUSCULAR VOLUME 87 FL (80-99); MEAN PLATELET VOLUME 10.2 FL (7.4-10.4); MONOCYTES # (AUTO) 0.5 X 10^3 (0.0-1.0); MONOCYTES % (AUTO) 16 % (0-12); NEUTROPHILS # (AUTO) 0.9 X 10^3 (1.8-7.8); NEUTROPHILS % (AUTO) 31 % (42-75); PLATELET COUNT 273 10^3/uL (130-400); RED CELL DISTRIBUTION WIDTH 22.8 % (10.0-14.5); WHITE BLOOD COUNT 2.8 10^3/uL (4.3-11.0)
[2016-11-21 10:00] LABS: ALANINE AMINOTRANSFERASE 24 U/L (0-55); ALBUMIN 3.4 G/DL (3.2-4.5); ANION GAP 8 MMOL/L (5-14); ASPARTATE AMINO TRANSFERASE 33 U/L (5-34); BILIRUBIN,TOTAL 0.5 MG/DL (0.1-1.0); BLOOD UREA NITROGEN 12 MG/DL (7-18); BUN/CREATININE RATIO 13; CALCIUM 8.3 MG/DL (8.5-10.1); CARBON DIOXIDE 23 MMOL/L (21-32); CHLORIDE 104 MMOL/L (98-107); CREATININE SERUM 0.93 MG/DL (0.60-1.30); GFR ESTIMATED > 60; GLUCOSE 148 MG/DL (70-105); POTASSIUM 4.4 MMOL/L (3.6-5.0); SODIUM 135 MMOL/L (135-145); TOTAL PROTEIN 6.4 G/DL (6.4-8.2)
== END | disposition home or self-care (01) ==
LOC: ONC 08-23 10:08
PROVIDERS: ATTEND Internal Medicine Hematology & Oncology
DX: C18.2 Malignant neoplasm of ascending colon (principal); C78.7 Secondary malignant neoplasm of liver and intrahepatic bile duct; R91.8 Other nonspecific abnormal finding of lung field
CPT/HCPCS: 36415; 36591; 80048; 80053; 82378; 82728; 83540; 85025; 99213

== ENCOUNTER 2017-02-02 09:16 | Outpatient (RCR) | payer MEDICARE ==
[2016-12-06 15:04] LABS: BASOPHILS % (AUTO) 0 % (0-10); EOSINOPHILS # (AUTO) 0.2 10^3/uL (0.0-0.3); EOSINOPHILS % (AUTO) 2 % (0-10); LYMPHOCYTES # (AUTO) 2.2 X 10^3 (1.0-4.0); LYMPHOCYTES % (AUTO) 29 % (12-44); MEAN CORPUSCULAR HEMOGLOBIN 28 PG (25-34); MEAN CORPUSCULAR HGB CONC 32 G/DL (32-36); MEAN CORPUSCULAR VOLUME 88 FL (80-99); MEAN PLATELET VOLUME 10.9 FL (7.4-10.4); MONOCYTES # (AUTO) 0.9 X 10^3 (0.0-1.0); MONOCYTES % (AUTO) 11 % (0-12); NEUTROPHILS # (AUTO) 4.4 X 10^3 (1.8-7.8); NEUTROPHILS % (AUTO) 57 % (42-75); PLATELET COUNT 220 10^3/uL (130-400); RED BLOOD COUNT 3.74 10^6/uL (4.35-5.85); RED CELL DISTRIBUTION WIDTH 20.5 % (10.0-14.5); WHITE BLOOD COUNT 7.7 10^3/uL (4.3-11.0)
[2016-12-06 15:27] LABS: ALANINE AMINOTRANSFERASE 21 U/L (0-55); ALBUMIN 3.5 G/DL (3.2-4.5); ANION GAP 9 MMOL/L (5-14); ASPARTATE AMINO TRANSFERASE 42 U/L (5-34); BILIRUBIN,TOTAL 0.7 MG/DL (0.1-1.0); BLOOD UREA NITROGEN 15 MG/DL (7-18); BUN/CREATININE RATIO 16; CALCIUM 8.6 MG/DL (8.5-10.1); CARBON DIOXIDE 24 MMOL/L (21-32); CHLORIDE 102 MMOL/L (98-107); CREATININE SERUM 0.94 MG/DL (0.60-1.30); GFR ESTIMATED > 60; GLUCOSE 99 MG/DL (70-105); POTASSIUM 4.4 MMOL/L (3.6-5.0); SODIUM 135 MMOL/L (135-145); TOTAL PROTEIN 6.3 G/DL (6.4-8.2)
[2016-12-13 10:16] LABS: BASOPHILS % (AUTO) 0 % (0-10); EOSINOPHILS # (AUTO) 0.3 10^3/uL (0.0-0.3); EOSINOPHILS % (AUTO) 4 % (0-10); LYMPHOCYTES # (AUTO) 1.3 X 10^3 (1.0-4.0); LYMPHOCYTES % (AUTO) 19 % (12-44); MEAN CORPUSCULAR HEMOGLOBIN 29 PG (25-34); MEAN CORPUSCULAR HGB CONC 33 G/DL (32-36); MEAN CORPUSCULAR VOLUME 89 FL (80-99); MEAN PLATELET VOLUME 10.9 FL (7.4-10.4); MONOCYTES # (AUTO) 0.9 X 10^3 (0.0-1.0); MONOCYTES % (AUTO) 14 % (0-12); NEUTROPHILS # (AUTO) 4.4 X 10^3 (1.8-7.8); NEUTROPHILS % (AUTO) 63 % (42-75); PLATELET COUNT 215 10^3/uL (130-400); RED BLOOD COUNT 3.82 10^6/uL (4.35-5.85); RED CELL DISTRIBUTION WIDTH 18.4 % (10.0-14.5)
[2016-12-13 10:34] LABS: ANION GAP 11 MMOL/L (5-14); BLOOD UREA NITROGEN 18 MG/DL (7-18); BUN/CREATININE RATIO 20; CALCIUM 8.8 MG/DL (8.5-10.1); CARBON DIOXIDE 23 MMOL/L (21-32); CHLORIDE 102 MMOL/L (98-107); GFR ESTIMATED > 60; GLUCOSE 120 MG/DL (70-105); POTASSIUM 4.4 MMOL/L (3.6-5.0); SODIUM 136 MMOL/L (135-145)
[2016-12-22 13:02] LABS: BASOPHILS # (AUTO) 0.1 10^3/uL (0.0-0.1); BASOPHILS % (AUTO) 1 % (0-10); EOSINOPHILS # (AUTO) 0.2 10^3/uL (0.0-0.3); EOSINOPHILS % (AUTO) 2 % (0-10); LYMPHOCYTES % (AUTO) 24 % (12-44); MEAN CORPUSCULAR HEMOGLOBIN 28 PG (25-34); MEAN CORPUSCULAR HGB CONC 33 G/DL (32-36); MEAN CORPUSCULAR VOLUME 87 FL (80-99); MEAN PLATELET VOLUME 10.5 FL (7.4-10.4); MONOCYTES # (AUTO) 0.9 X 10^3 (0.0-1.0); MONOCYTES % (AUTO) 11 % (0-12); NEUTROPHILS # (AUTO) 4.9 X 10^3 (1.8-7.8); NEUTROPHILS % (AUTO) 62 % (42-75); PLATELET COUNT 258 10^3/uL (130-400); RED BLOOD COUNT 3.98 10^6/uL (4.35-5.85); RED CELL DISTRIBUTION WIDTH 17.3 % (10.0-14.5)
[2016-12-22 13:43] LABS: ALANINE AMINOTRANSFERASE 23 U/L (0-55); ALBUMIN 3.3 G/DL (3.2-4.5); ANION GAP 8 MMOL/L (5-14); ASPARTATE AMINO TRANSFERASE 47 U/L (5-34); BILIRUBIN,TOTAL 0.7 MG/DL (0.1-1.0); BLOOD UREA NITROGEN 14 MG/DL (7-18); BUN/CREATININE RATIO 17; CALCIUM 8.6 MG/DL (8.5-10.1); CARBON DIOXIDE 26 MMOL/L (21-32); CHLORIDE 105 MMOL/L (98-107); CREATININE SERUM 0.84 MG/DL (0.60-1.30); GFR ESTIMATED > 60; GLUCOSE 114 MG/DL (70-105); MAGNESIUM 1.6 MG/DL (1.8-2.4); POTASSIUM 4.1 MMOL/L (3.6-5.0); SODIUM 139 MMOL/L (135-145); TOTAL PROTEIN 6.6 G/DL (6.4-8.2)
[2016-12-28 11:24] LABS: BASOPHILS # (AUTO) 0.1 10^3/uL (0.0-0.1); BASOPHILS % (AUTO) 1 % (0-10); EOSINOPHILS # (AUTO) 0.3 10^3/uL (0.0-0.3); EOSINOPHILS % (AUTO) 4 % (0-10); LYMPHOCYTES # (AUTO) 2.3 X 10^3 (1.0-4.0); LYMPHOCYTES % (AUTO) 27 % (12-44); MEAN CORPUSCULAR HEMOGLOBIN 28 PG (25-34); MEAN CORPUSCULAR HGB CONC 33 G/DL (32-36); MEAN CORPUSCULAR VOLUME 85 FL (80-99); MEAN PLATELET VOLUME 11.4 FL (7.4-10.4); MONOCYTES % (AUTO) 12 % (0-12); NEUTROPHILS # (AUTO) 4.9 X 10^3 (1.8-7.8); NEUTROPHILS % (AUTO) 57 % (42-75); PLATELET COUNT 260 10^3/uL (130-400); RED CELL DISTRIBUTION WIDTH 16.8 % (10.0-14.5); WHITE BLOOD COUNT 8.6 10^3/uL (4.3-11.0)
[2016-12-28 11:42] LABS: ANION GAP 10 MMOL/L (5-14); BLOOD UREA NITROGEN 12 MG/DL (7-18); BUN/CREATININE RATIO 15; CALCIUM 8.5 MG/DL (8.5-10.1); CARBON DIOXIDE 25 MMOL/L (21-32); CHLORIDE 103 MMOL/L (98-107); CREATININE SERUM 0.81 MG/DL (0.60-1.30); GFR ESTIMATED > 60; GLUCOSE 84 MG/DL (70-105); POTASSIUM 3.7 MMOL/L (3.6-5.0); SODIUM 138 MMOL/L (135-145)
[2017-01-03 10:03] LABS: BASOPHILS % (AUTO) 0 % (0-10); EOSINOPHILS # (AUTO) 0.2 10^3/uL (0.0-0.3); EOSINOPHILS % (AUTO) 2 % (0-10); LYMPHOCYTES # (AUTO) 1.3 X 10^3 (1.0-4.0); LYMPHOCYTES % (AUTO) 14 % (12-44); MEAN CORPUSCULAR HEMOGLOBIN 27 PG (25-34); MEAN CORPUSCULAR HGB CONC 32 G/DL (32-36); MEAN CORPUSCULAR VOLUME 85 FL (80-99); MONOCYTES # (AUTO) 1.1 X 10^3 (0.0-1.0); MONOCYTES % (AUTO) 12 % (0-12); NEUTROPHILS # (AUTO) 6.7 X 10^3 (1.8-7.8); NEUTROPHILS % (AUTO) 72 % (42-75); PLATELET COUNT 287 10^3/uL (130-400); RED BLOOD COUNT 4.25 10^6/uL (4.35-5.85); RED CELL DISTRIBUTION WIDTH 16.9 % (10.0-14.5); WHITE BLOOD COUNT 9.3 10^3/uL (4.3-11.0)
[2017-01-03 10:38] LABS: ALANINE AMINOTRANSFERASE 27 U/L (0-55); ALBUMIN 3.2 G/DL (3.2-4.5); ANION GAP 9 MMOL/L (5-14); ASPARTATE AMINO TRANSFERASE 51 U/L (5-34); BILIRUBIN,TOTAL 0.9 MG/DL (0.1-1.0); BLOOD UREA NITROGEN 12 MG/DL (7-18); BUN/CREATININE RATIO 15; CALCIUM 8.4 MG/DL (8.5-10.1); CARBON DIOXIDE 25 MMOL/L (21-32); CHLORIDE 103 MMOL/L (98-107); CREATININE SERUM 0.79 MG/DL (0.60-1.30); GFR ESTIMATED > 60; GLUCOSE 147 MG/DL (70-105); MAGNESIUM 1.7 MG/DL (1.8-2.4); SODIUM 137 MMOL/L (135-145); TOTAL PROTEIN 6.6 G/DL (6.4-8.2)
[2017-01-10 10:10] LABS: BASOPHILS # (AUTO) 0.1 10^3/uL (0.0-0.1); BASOPHILS % (AUTO) 1 % (0-10); EOSINOPHILS # (AUTO) 0.3 10^3/uL (0.0-0.3); EOSINOPHILS % (AUTO) 3 % (0-10); LYMPHOCYTES # (AUTO) 1.5 X 10^3 (1.0-4.0); LYMPHOCYTES % (AUTO) 18 % (12-44); MEAN CORPUSCULAR HEMOGLOBIN 27 PG (25-34); MEAN CORPUSCULAR HGB CONC 32 G/DL (32-36); MEAN CORPUSCULAR VOLUME 84 FL (80-99); MEAN PLATELET VOLUME 10.5 FL (7.4-10.4); MONOCYTES # (AUTO) 1.3 X 10^3 (0.0-1.0); MONOCYTES % (AUTO) 16 % (0-12); NEUTROPHILS % (AUTO) 62 % (42-75); PLATELET COUNT 278 10^3/uL (130-400); RED BLOOD COUNT 3.97 10^6/uL (4.35-5.85); RED CELL DISTRIBUTION WIDTH 16.9 % (10.0-14.5); WHITE BLOOD COUNT 8.1 10^3/uL (4.3-11.0)
[2017-01-10 10:52] LABS: ANION GAP 10 MMOL/L (5-14); BLOOD UREA NITROGEN 9 MG/DL (7-18); BUN/CREATININE RATIO 12; CALCIUM 8.5 MG/DL (8.5-10.1); CARBON DIOXIDE 26 MMOL/L (21-32); CHLORIDE 103 MMOL/L (98-107); CREATININE SERUM 0.78 MG/DL (0.60-1.30); GFR ESTIMATED > 60; GLUCOSE 95 MG/DL (70-105); POTASSIUM 3.7 MMOL/L (3.6-5.0); SODIUM 139 MMOL/L (135-145)
[2017-01-17 09:59] LABS: BASOPHILS # (AUTO) 0.1 10^3/uL (0.0-0.1); BASOPHILS % (AUTO) 1 % (0-10); EOSINOPHILS # (AUTO) 0.3 10^3/uL (0.0-0.3); EOSINOPHILS % (AUTO) 4 % (0-10); LYMPHOCYTES # (AUTO) 1.4 X 10^3 (1.0-4.0); LYMPHOCYTES % (AUTO) 14 % (12-44); MEAN CORPUSCULAR HEMOGLOBIN 26 PG (25-34); MEAN CORPUSCULAR HGB CONC 31 G/DL (32-36); MEAN CORPUSCULAR VOLUME 83 FL (80-99); MEAN PLATELET VOLUME 10.5 FL (7.4-10.4); MONOCYTES # (AUTO) 0.9 X 10^3 (0.0-1.0); MONOCYTES % (AUTO) 9 % (0-12); NEUTROPHILS # (AUTO) 6.9 X 10^3 (1.8-7.8); NEUTROPHILS % (AUTO) 73 % (42-75); PLATELET COUNT 305 10^3/uL (130-400); RED BLOOD COUNT 4.27 10^6/uL (4.35-5.85); RED CELL DISTRIBUTION WIDTH 16.7 % (10.0-14.5); WHITE BLOOD COUNT 9.5 10^3/uL (4.3-11.0)
[2017-01-17 11:09] LABS: ANION GAP 10 MMOL/L (5-14); BLOOD UREA NITROGEN 13 MG/DL (7-18); BUN/CREATININE RATIO 16; CALCIUM 8.7 MG/DL (8.5-10.1); CARBON DIOXIDE 24 MMOL/L (21-32); CHLORIDE 104 MMOL/L (98-107); CREATININE SERUM 0.82 MG/DL (0.60-1.30); GFR ESTIMATED > 60; GLUCOSE 175 MG/DL (70-105); POTASSIUM 5.5 MMOL/L (3.6-5.0); SODIUM 138 MMOL/L (135-145)
[2017-01-26 09:48] LABS: BASOPHILS # (AUTO) 0.1 10^3/uL (0.0-0.1); BASOPHILS % (AUTO) 1 % (0-10); EOSINOPHILS # (AUTO) 0.4 10^3/uL (0.0-0.3); EOSINOPHILS % (AUTO) 3 % (0-10); LYMPHOCYTES # (AUTO) 1.6 X 10^3 (1.0-4.0); LYMPHOCYTES % (AUTO) 15 % (12-44); MEAN CORPUSCULAR HEMOGLOBIN 25 PG (25-34); MEAN CORPUSCULAR HGB CONC 32 G/DL (32-36); MEAN CORPUSCULAR VOLUME 80 FL (80-99); MEAN PLATELET VOLUME 10.7 FL (7.4-10.4); MONOCYTES # (AUTO) 1.2 X 10^3 (0.0-1.0); MONOCYTES % (AUTO) 11 % (0-12); NEUTROPHILS # (AUTO) 7.1 X 10^3 (1.8-7.8); NEUTROPHILS % (AUTO) 70 % (42-75); PLATELET COUNT 363 10^3/uL (130-400); RED BLOOD COUNT 4.64 10^6/uL (4.35-5.85); RED CELL DISTRIBUTION WIDTH 17.2 % (10.0-14.5); WHITE BLOOD COUNT 10.2 10^3/uL (4.3-11.0)
[2017-01-26 10:23] LABS: ALANINE AMINOTRANSFERASE 29 U/L (0-55); ANION GAP 9 MMOL/L (5-14); ASPARTATE AMINO TRANSFERASE 65 U/L (5-34); BILIRUBIN,TOTAL 1.2 MG/DL (0.1-1.0); BLOOD UREA NITROGEN 14 MG/DL (7-18); BUN/CREATININE RATIO 17; CALCIUM 8.9 MG/DL (8.5-10.1); CARBON DIOXIDE 25 MMOL/L (21-32); CHLORIDE 103 MMOL/L (98-107); CREATININE SERUM 0.81 MG/DL (0.60-1.30); GFR ESTIMATED > 60; GLUCOSE 158 MG/DL (70-105); MAGNESIUM 1.6 MG/DL (1.8-2.4); POTASSIUM 5.4 MMOL/L (3.6-5.0); SODIUM 137 MMOL/L (135-145)
--- NOTE | 2017-01-26 17:13 | Diagnostic Imaging Report ---
EXAMINATION: PA and lateral views of the chest. INDICATION: Shortness of breath and cough. FINDINGS: The lungs are clear. The heart size is normal. No effusion or pneumothorax. The mediastinum and andrea appear unremarkable. There is an infusion port with the tip at the SVC level. IMPRESSION: Unremarkable exam. Dictated by: Dictated on workstation # [id number]
[2017-02-02 09:48] LABS: BASOPHILS # (AUTO) 0.1 10^3/uL (0.0-0.1); BASOPHILS % (AUTO) 1 % (0-10); EOSINOPHILS # (AUTO) 0.3 10^3/uL (0.0-0.3); EOSINOPHILS % (AUTO) 3 % (0-10); LYMPHOCYTES # (AUTO) 1.7 X 10^3 (1.0-4.0); LYMPHOCYTES % (AUTO) 14 % (12-44); MEAN CORPUSCULAR HEMOGLOBIN 25 PG (25-34); MEAN CORPUSCULAR HGB CONC 32 G/DL (32-36); MEAN CORPUSCULAR VOLUME 78 FL (80-99); MONOCYTES # (AUTO) 1.8 X 10^3 (0.0-1.0); MONOCYTES % (AUTO) 16 % (0-12); NEUTROPHILS # (AUTO) 7.9 X 10^3 (1.8-7.8); NEUTROPHILS % (AUTO) 67 % (42-75); PLATELET COUNT 345 10^3/uL (130-400); RED BLOOD COUNT 4.45 10^6/uL (4.35-5.85); RED CELL DISTRIBUTION WIDTH 17.5 % (10.0-14.5); WHITE BLOOD COUNT 11.8 10^3/uL (4.3-11.0)
[2017-02-02 10:07] LABS: ALANINE AMINOTRANSFERASE 33 U/L (0-55); ALBUMIN 2.9 GM/DL (3.2-4.5); ANION GAP 10 MMOL/L (5-14); ASPARTATE AMINO TRANSFERASE 85 U/L (5-34); BLOOD UREA NITROGEN 11 MG/DL (7-18); BUN/CREATININE RATIO 15 (0-20); CALCIUM 8.7 MG/DL (8.5-10.1); CARBON DIOXIDE 23 MMOL/L (21-32); CHLORIDE 103 MMOL/L (98-107); CREATININE SERUM 0.74 MG/DL (0.60-1.30); GFR ESTIMATED > 60; GLUCOSE 96 MG/DL (70-105); POTASSIUM 4.2 MMOL/L (3.6-5.0); SODIUM 136 MMOL/L (135-145); TOTAL PROTEIN 5.8 GM/DL (6.4-8.2)
[2017-02-27] MEDS ORDERED: FLUT1DIS28 IH (15:47)
[2017-02-27] MEDS ORDERED: SENN-1 PO (15:47)
[2017-02-27] MEDS ORDERED: MORP20SY PO (15:47)
[2017-02-27] MEDS ORDERED: IPRA3AMP IH (15:47)
[2017-02-27] MEDS ORDERED: ACYC400T PO (15:47)
[2017-02-27] MEDS ORDERED: HYOS0.1283 SL (15:47)
[2017-02-27] MEDS ORDERED: ASPI-983 PO (15:47)
[2017-02-27] MEDS ORDERED: LEVE10006 PO (15:47)
[2017-02-27] MEDS ORDERED: LORA-404 PO (15:47)
[2017-02-27] MEDS ORDERED: GABA-488 PO (15:47)
[2017-02-27] MEDS ORDERED: LORA10TA7 PO (15:47)
== END 2017-02-27 | disposition home or self-care (01) ==
LOC: ONC 09:16
PROVIDERS: ATTEND Internal Medicine Hematology & Oncology
DX: C18.2 Malignant neoplasm of ascending colon (principal); C78.7 Secondary malignant neoplasm of liver and intrahepatic bile duct; J44.9 Chronic obstructive pulmonary disease, unspecified; I10 Essential (primary) hypertension; D70.9 Neutropenia, unspecified; D64.9 Anemia, unspecified; G40.909 Epilepsy, unspecified, not intractable, without status epilepticus; Z72.0 Tobacco use; Z79.899 Other long term (current) drug therapy
CPT/HCPCS: 36415; 36591; 71020; 80048; 80053; 82378; 83735; 85025; 99213

== ENCOUNTER 2017-02-27 10:50 | Inpatient (IN) | payer OTHER, MEDICARE ==
[~2017-02-27] VITALS: Ht 172.7 cm; Wt 63.7 kg
[2017-02-27] MEDS ORDERED: morphine INJ 10 MG/ML 1ML (SYR OR VIAL) ONE (11:00)
--- NOTE | 2017-02-27 11:14 | ED General ---
General Stated Complaint: LOC PAIN Source of Information: Patient Exam Limitations: No Limitations History of Present Illness Time Seen by Provider: 11:10 Initial Comments To ER from home per EMS after a neighbor found him on his floor unresponsive and he been incontinent of dark stool. Patient's initial blood pressure was found to be 60s over 30s. Patient has known colon cancer with metastasis to the liver. He was placed on [facility] hospice one month ago. Upon arrival to ER he is jaundiced, blood pressure of 80/57, heart rate 110 and he is found to have what looks like coffee-ground emesis on his legs. Timing/Duration: 1-2 Days Severity: Moderate Allergies and Home Medications Allergies Coded Allergies: No Known Drug Allergies (Unverified , 10/18/13) Home Medications Albuterol Sulfate 1 Puff Puff, 2 PUFF IH QID PRN for SHORTNESS OF BREATH, ( Reported) NEEDED FOR SHORTNESS OF BREATH Alendronate Sodium 70 Mg Tab, 70 MG PO WEEKLY, (Reported) Amoxicillin 500 Mg Capsule, 2 EACH PO TID, #84 Prescribed by: CODEY SANCHEZ on 08/05/14 1620 Atenolol 25 Mg Tab, 25 MG PO DAILY, (Reported) Esomeprazole Mag Trihydrate 40 Mg Capsule.dr, 40 MG PO BEFORE EVENING MEAL, ( Reported) Etodolac 600 Mg Tab.sr.24h, 600 MG PO DAILY, (Reported) Etodolac 600 Mg Tab.sr.24h, 300 MG PO HS, (Reported) TAKES 1/2 (600MG) TABLET Fluticasone/Salmeterol 250 Mcg/50 Mcg Inh, 1 PUFF IH BID, (Reported) Gabapentin 300 Mg Capsule, 300 MG PO QID, (Reported) Hydrocodone Bit/Acetaminophen 1 Each Tablet, 1-2 TAB PO EVERY 4-6 HOURS PRN for PAIN, (Reported) NEEDED FOR PAIN 5-325MG TABLET Levetiracetam 500 Mg Tab, 500 MG PO BID for 30 Days, Ref 0 Prescribed by: NGHIA MCELROY on 09/26/13 1443 Lorazepam 0.5 Mg Tablet, 0.5-1 TAB PO Q8H PRN for ANXIETY, (Reported) TAKES 1/2 TO 1 (0.5MG) TABLET NEEDED FOR ANXIETY Ondansetron Hcl 8 Mg Tablet, 8 MG PO Q8H PRN for NAUSEA, (Reported) NEEDED FOR NAUSEA Simvastatin 40 Mg Tablet, 40 MG PO HS, (Reported) Constitutional: see HPI EENTM: see HPI Respiratory: no symptoms reported Cardiovascular: no symptoms reported Genitourinary: no symptoms reported Musculoskeletal: no symptoms reported Skin: no symptoms reported Psychiatric/Neurological: No Symptoms Reported Hematologic/Lymphatic: No Symptoms Reported Immunological/Allergic: no symptoms reported Past Waxepwr-Fqnagf-Xbztev Hx Surgeries HX Surgeries: Yes (INFUSAPORT, COLON) Respiratory Hx Respiratory Disorders: Yes Respiratory Disorders: COPD Cardiovascular Hx Cardiac Disorders: Yes Neurological Hx Neurological Disorders: Yes (SEIZURES) Reproductive System Hx Reproductive Disorders: No Genitourinary Hx Genitourinary Disorders: No Gastrointestinal Hx Gastrointestinal Disorders: Yes (COLON CA) Musculoskeletal Hx Musculoskeletal Disorders: Yes Musculoskeletal Disorders: Arthritis, Chronic Back Pain Endocrine Hx Endocrine Disorders: No HEENT HX ENT Disorders: No Cancer Hx Cancer: Yes Cancer: Colon Integumentary HX Skin/Integumentary Disorder: No Blood Transfusions Hx Blood Disorders: No Family Medical History Family Medial History: Cancer 03 FATHER (TESTICULAR) 09 BROTHER (LIVER) Cancer of colon 09 BROTHER Chest pain 09 BROTHER Congestive heart failure 09 BROTHER Family history: Cardiovascular disease 09 BROTHER Family history: Diabetes mellitus 09 BROTHER Family history: Hypertension 03 MOTHER Hypercholesterolemia 09 BROTHER Myocardial infarction 09 BROTHER No Family History of: Abdominal aortic aneurysm Farhan's disease Alcoholism Aphasia Cataract Congenital heart disease Cystic fibrosis Dementia Dysphagia Family history: Allergy Family history: Alzheimer's disease Family history: Arthritis Family history: Asthma Family history: Breast disease Family history: Coronary thrombosis Family history: Gastrointestinal disease Family history: Glaucoma Family history: Osteoporosis Family history: Thyroid disorder Headache Hearing loss Heart disease Hereditary disease History of - anemia History of - disorder History of - respiratory disease History of drug abuse Human immunodeficiency virus (HIV) seropositivity Infertile Kidney disease Malignant neoplasm of lung Parkinson's disease Prostate cancer Psychotic disorder Seizure disorder Stroke Tuberculosis Visual impairment Physical Exam Vital Signs Vital Sign - Last 12Hours 02/27/17 11:10 Temp 96.9 Pulse 108 Resp 14 B/P (MAP) 81/54 Pulse Ox 100 O2 Delivery Nasal Cannula O2 Flow Rate 4.00 Capillary Refill : General Appearance: No Apparent Distress, WD/WN, Chronically ill, Moderate Distress, Other (dyspneic, hypotensive, tachycardic.) Eyes: Bilateral Eye EOMI, Bilateral Eye Normal Inspection, Bilateral Eye PERRL HEENT: PERRL/EOMI, TMs Normal Neck: Full Range of Motion, Normal Inspection Respiratory: No Accessory Muscle Use, No Respiratory Distress Gastrointestinal: Normal Bowel Sounds, Non Tender, Soft Extremity: Normal Capillary Refill, Normal Inspection, Normal Range of Motion Neurologic/Psychiatric: Alert, Oriented x3, No Motor/Sensory Deficits Skin: Normal Color, Warm/Dry, Jaundice Focused Exam Lactic Acid Level Laboratory Tests Test 02/27/17 11:07 Lactic Acid Level 12.76 MMOL/L (0.50-2.00) *H Progress/Results/Core Measures Results/Orders Lab Results Laboratory Tests Test 02/27/17 11:07 Range/Units White Blood Count 20.5 H 4.3-11.0 10^3/uL Red Blood Count 3.49 L 4.35-5.85 10^6/uL Hemoglobin 8.1 L 13.3-17.7 G/DL Hematocrit 26 L 40-54 % Mean Corpuscular Volume 73 L 80-99 FL Mean Corpuscular Hemoglobin 23 L 25-34 PG Mean Corpuscular Hemoglobin Concent 32 32-36 G/DL Red Cell Distribution Width 19.9 H 10.0-14.5 % Platelet Count 445 H 130-400 10^3/uL Mean Platelet Volume 11.6 H 7.4-10.4 FL Neutrophils (%) (Auto) 89 H 42-75 % Lymphocytes (%) (Auto) 4 L 12-44 % Monocytes (%) (Auto) 8 0-12 % Eosinophils (%) (Auto) 0 0-10 % Basophils (%) (Auto) 0 0-10 % Neutrophils # (Auto) 18.2 H 1.8-7.8 X 10^3 Lymphocytes # (Auto) 0.7 L 1.0-4.0 X 10^3 Monocytes # (Auto) 1.5 H 0.0-1.0 X 10^3 Eosinophils # (Auto) 0.0 0.0-0.3 10^3/uL Basophils # (Auto) 0.0 0.0-0.1 10^3/uL Neutrophils % (Manual) 88 % Lymphocytes % (Manual) 2 % Monocytes % (Manual) 3 % Eosinophils % (Manual) 0 % Basophils % (Manual) 0 % Myelocytes % 2 % Band Neutrophils 5 % Polychromasia SLIGHT Anisocytosis SLIGHT Target Cells MODERATE Prothrombin Time 35.5 H 12.2-14.7 SEC INR Comment 3.5 H 0.8-1.4 Activated Partial Thromboplast Time 60 H 24-35 SEC Sodium Level 131 L 135-145 MMOL/L Potassium Level 6.2 H 3.6-5.0 MMOL/L Chloride Level 98 98-107 MMOL/L Carbon Dioxide Level 10 L 21-32 MMOL/L Anion Gap 23 H 5-14 MMOL/L Blood Urea Nitrogen 74 H 7-18 MG/DL Creatinine 1.80 H 0.60-1.30 MG/DL Estimat Glomerular Filtration Rate 38 BUN/Creatinine Ratio 41 Glucose Level 97 70-105 MG/DL Lactic Acid Level 12.76 *H 0.50-2.00 MMOL/L Calcium Level 8.1 L 8.5-10.1 MG/DL Total Bilirubin 9.0 H 0.1-1.0 MG/DL Aspartate Amino Transf (AST/SGOT) 281 H 5-34 U/L Alanine Aminotransferase (ALT/SGPT) 95 H 0-55 U/L Alkaline Phosphatase 621 H 40-136 U/L Total Protein 4.9 L 6.4-8.2 GM/DL Albumin 2.0 L 3.2-4.5 GM/DL My Orders Orders - TELLY HUMMEL APRN Lactic Acid Analyzer (02/27/17 10:58) Blood Culture (02/27/17 10:58) Type And Screen (02/27/17 10:58) Cbc With Automated Diff (02/27/17 11:08) Comprehensive Metabolic Panel (02/27/17 11:08) Ua Culture If Indicated (02/27/17 11:08) Protime With Inr (02/27/17 11:08) Partial Thromboplastin Time (02/27/17 11:08) Chest 1 View, Ap/Pa Only (02/27/17 11:08) Morphine Injection (Morphine Injection (02/27/17 11:15) Manual Differential (02/27/17 11:07) Morphine Injection (Morphine Injection (02/27/17 12:15) Morphine Injection (Morphine Injection (02/27/17 12:15) Medications Given in ED Current Medications Medications Dose Ordered Sig/Donal Route Start Time Stop Time Status Last Admin Dose Admin Morphine Sulfate 2 mg ONCE ONCE IVP 02/27/17 12:15 02/27/17 12:16 DC 02/27/17 11:24 2 MG Morphine Sulfate 2 mg ONCE ONCE IVP 02/27/17 12:15 02/27/17 12:16 DC 02/27/17 12:32 2 MG Morphine Sulfate 2 mg PRN ONCE IVP 02/27/17 11:15 02/27/17 11:16 DC 02/27/17 10:50 2 MG Vital Signs/I&O Vital Sign - Last 12Hours 02/27/17 02/27/17 11:10 11:10 Temp 96.9 96.9 Pulse 108 108 Resp 14 B/P (MAP) 81/54 81/54 Pulse Ox 100 100 O2 Delivery Nasal Cannula O2 Flow Rate 4.00 4.00 Progress Note : Progress Note 1158-the patient is on [facility] hospice. I do discuss with the family the treatment plan. I offered inpatient admission under GIP status pending hospice approval. Half of the family in the room with preferred this route, the other half would prefer treatment at home. I discussed with the family that I would expect Fuad to pass within the next 24-48 hours, however, if he does not that his care could be transferred to home Departure Communication Progress Notes I did discuss with RN from hospice. They will have the social media specialist from hospice come out to visit with the family to discuss placing him in the hospital versus continuing comfort care measures at home. Impression Impression: Primary Impression: End of life care Additional Impressions: Metastatic colon cancer to liver Hypotension GI bleed Dyspnea Back pain Abdominal pain Disposition: ADMITTED INPATIENT Condition: Critical Decision to Admit Reason: Admit from ER (General) Decision to Admit/Date: Feb 27, 2017 Time/Decision to Admit Time: 11:14 Departure-Patient Inst. Referrals: INDIA STEPHENS MD (PCP) Primary Care Physician CHAYITO ROBLEDO (Family) Primary Care Physician TELLY HUMMEL APRN Feb 27, 2017 11:14
[2017-02-27] MEDS ORDERED: morphine INJ 10 MG/ML 1ML (SYR OR VIAL) IVP ONE ×3 (11:15→12:15)
[2017-02-27 11:25] LABS: BASOPHILS % (AUTO) 0 % (0-10); EOSINOPHILS % (AUTO) 0 % (0-10); LYMPHOCYTES # (AUTO) 0.7 X 10^3 (1.0-4.0); LYMPHOCYTES % (AUTO) 4 % (12-44); MEAN CORPUSCULAR HEMOGLOBIN 23 PG (25-34); MEAN CORPUSCULAR HGB CONC 32 G/DL (32-36); MEAN CORPUSCULAR VOLUME 73 FL (80-99); MEAN PLATELET VOLUME 11.6 FL (7.4-10.4); MONOCYTES # (AUTO) 1.5 X 10^3 (0.0-1.0); MONOCYTES % (AUTO) 8 % (0-12); NEUTROPHILS # (AUTO) 18.2 X 10^3 (1.8-7.8); NEUTROPHILS % (AUTO) 89 % (42-75); PLATELET COUNT 445 10^3/uL (130-400); RED BLOOD COUNT 3.49 10^6/uL (4.35-5.85); RED CELL DISTRIBUTION WIDTH 19.9 % (10.0-14.5); WHITE BLOOD COUNT 20.5 10^3/uL (4.3-11.0)
[2017-02-27 11:42] LABS: CALCIUM 8.1 MG/DL (8.5-10.1); CREATININE SERUM 1.8 MG/DL (0.60-1.30); POTASSIUM 6.2 MMOL/L (3.6-5.0); TOTAL PROTEIN 4.9 GM/DL (6.4-8.2)
--- NOTE | 2017-02-27 11:45 | Diagnostic Imaging Report ---
INDICATION: Patient was found unresponsive. EXAMINATION: Portable chest at 11:31 AM. FINDINGS: The patient has a left subclavian Port-A-Cath which appears to be accessed with a Cates needle. The heart size is normal. There is some faint infiltrate in the left upper lobe. The right lung is clear. There are no effusions or pneumothoraces. IMPRESSION: Faint left upper lobe infiltrate. Dictated by: Dictated on workstation # [id number]
[2017-02-27 11:49] LABS: BAND NEUTROPHILS 5 %; LYMPHOCYTES % (MANUAL) 2 %; NEUTROPHILS % (MANUAL) 88 %
[2017-02-27 11:50] LABS: ANISOCYTOSIS SLIGHT; BASOPHILS % (MANUAL) 0 %; EOSINOPHILS % (MANUAL) 0 %; MYELOCYTES % 2 %; POLYCHROMASIA SLIGHT; TARGET CELLS MODERATE
[2017-02-27 12:30] LABS: INR 3.5 (0.8-1.4); PROTHROMBIN TIME PATIENT 35.5 SEC (12.2-14.7)
[2017-02-27] MEDS ORDERED: ONDANSETRON 4 MG/2 ML (SDV) Z0FRAN IVP ONE (13:15)
[2017-02-27 14:02] VITALS: BP 78/54
[2017-02-27] MEDS ORDERED: SALIVA STIMULANT MOUTH SPRAY (BIOTENE) 1.5 OZ MM PRN (14:45)
[2017-02-27] MEDS ORDERED: ATROPINE 1% OPHTHALMIC SOLN 2 ML SL PRN (14:45)
[2017-02-27] MEDS ORDERED: BISACODYL 10 MG SUPP (DULCOLAX) PR PRN (14:45)
[2017-02-27] MEDS ORDERED: PROMETHAZINE INJ 25 MG/ML (PHENERGAN) AMP IV PRN (14:45)
[2017-02-27] MEDS ORDERED: ACETAMINOPHEN 650 MG SUPP (TYLENOL) PR PRN (14:45)
[2017-02-27] MEDS ORDERED: GLYCOPYRROLATE 0.2 MG/ML (ROBINUL) 2 ML VIAL IV PRN (14:45)
[2017-02-27] MEDS ORDERED: LORazepam INJ 2 MG/ML (ATIVAN) VIAL IV PRN (14:45)
[2017-02-27] MEDS ORDERED: NS IV 1000 ML 1,000 ML IV SCH (14:45)
[2017-02-27] MEDS ORDERED: ONDANSETRON 4 MG/2 ML (SDV) Z0FRAN IV PRN (14:45)
[2017-02-27] MEDS ORDERED: ARTIFICAL TEARS 0.4 ML UNIT DOSE (REFRESH PLUS) OU PRN (15:00)
[2017-02-27] MEDS: CATHETER FLUSH 10 ML SYR IV PRN ×2 (15:12→15:27)
[2017-02-27] MEDS: morphine INJ 4 MG/ML 1 ML (VIAL/SYRINGE) IV PRN ×2 (15:27→16:56)
[2017-02-27] MEDS ORDERED: ASPI-983 PO (15:47)
[2017-02-27] MEDS ORDERED: GABA-488 PO (15:47)
[2017-02-27] MEDS ORDERED: FLUT1DIS28 IH (15:47)
[2017-02-27] MEDS ORDERED: LORA10TA7 PO (15:47)
[2017-02-27] MEDS ORDERED: LEVE10006 PO (15:47)
[2017-02-27] MEDS ORDERED: MORP20SY PO (15:47)
[2017-02-27] MEDS ORDERED: SENN-1 PO (15:47)
[2017-02-27] MEDS ORDERED: HYOS0.1283 SL (15:47)
[2017-02-27] MEDS ORDERED: LORA-404 PO (15:47)
[2017-02-27] MEDS ORDERED: ACYC400T PO (15:47)
[2017-02-27] MEDS ORDERED: IPRA3AMP IH (15:47)
--- NOTE | 2017-02-28 08:04 | HISTORY AND PHYSICAL ---
DATE OF ADMISSION: 02/27/2017 The patient is admitted to room 420. Mr. Cuba is a 66-year-old male with a history of metastatic colon cancer diagnosed in August 2013 and underwent a left hemicolectomy. He has been on palliative chemotherapy with various agents since then. In January 2017, he was noted to have progressive disease with no good treatment options. At this point it was recommended to continue best supportive care with hospice. The patient agreed to this and he was on hospice care on an outpatient basis. Today he was found on the floor of his apartment by a neighbor and EMS service was called who brought him to the emergency room. A work-up was initiated and he was found to be in liver failure with a significantly elevated bilirubin level. Once the emergency room physician realized that the patient was on hospice care, hospice was contacted. The patient was living by himself at an apartment. Because of this, it was decided to admit him to the hospital to [facility] for palliative care. The patient was unresponsive and hypotensive at the time of admission. He did receive a fluid bolus in the emergency room and the fluids were continued at the time of admission. His blood pressure has improved but he continues to be unresponsive. I will decrease the fluids to 30 mL per hour. Continuous palliative care order set. He will be maintained as a DNR. His lab work was reviewed. His white count was elevated at 20.5, hemoglobin 8.1, and platelet count of 445,000 with neutrophil count of 18.2. Chemistry panel had shown BUN of 74 and creatinine of 1.8, potassium was 6.2, total bilirubin was 9.0, AST 281, ALT 95 and alkaline phosphatase 621, with albumin level of 2. Prothrombin time was 35.5 with INR of 3.5. Lactic acid was elevated at 12.76. Chest x-ray showed faint left upper lobe infiltrate. Because of his poor prognosis from the underlying malignancy, which is metastatic to the liver with liver failure, we will proceed with best supportive care. His brothers and the rest of the family members were present in the room at the time of interview. They agree with best supportive care. The patient is considered terminal. Job ID: [id number] Dictated Date: 02/27/2017 17:00:18 Green Prize Packer Date: 02/28/2017 07:53:58/chidi IGLESIAS
--- OUTSIDE RECORDS SUMMARY | 2017-02-28 17:40 | XMS REPORT | Continuity of Care Document ---
Author Author [facility] Organization [facility] Address Unknown Phone Unavailable Care Team Providers Care Currency Machine Operator Name Role Phone Pipe Shruthi PCP [phone] Source Comments Some departments are not documenting in the electronic medical record. If you do not see the information that you expected, contact Release of Information in the Health Information Management department at [phone] for further assistance in locating additional records.[facility] Active Allergies and Adverse Reactions No Known [...] Taken Blood Pressure 105/72 10/14/2013 1:05 PM PAID SEARCH MANAGER Pulse 94 10/14/2013 1:05 PM PAID SEARCH MANAGER Temperature - - Respiratory Rate - - Height 1.715 m (5' 7.5") 10/14/2013 1:05 PM PAID SEARCH MANAGER Weight 71.85 kg (158 lb 6.4 oz) 10/14/2013 1:05 PM PAID SEARCH MANAGER Body Mass Index 24.43 10/14/2013 1:05 PM PAID SEARCH MANAGER Oxygen Saturation 100% 10/14/2013 1:05 PM PAID SEARCH MANAGER Plan of Care Health Maintenance Due Date Last Done Comments Hepatitis C Screening 1949 Physical (Comprehensive) 1956 Exam Pertussis Vaccine 1960 Tetanus Vaccine 1966 Colorectal Cancer 1999 Screening Shingles Vaccine 2009 Prevnar/Pneumovax (#1) 2014 Influenza Vaccine 04/21/2017 Results from Last 3 Months Not on file
--- OUTSIDE RECORDS SUMMARY | 2017-02-28 17:45 | XMS REPORT | Continuity of Care Document ---
Author Author [facility] Organization [facility] Address Unknown Phone Unavailable Allergies Active Description Code Type Severity Reaction Onset Reported/Identified Relationship to Patient Clinical Status Yes No Known Drug Allergies [id number] Drug Allergy Unknown N/ A 09/23/2013 Medications Problems Date Dx Coded Attending Type Code Diagnosis Diagnosed By CHAYITO ROBLEDO Ot C18.2 MALIGNANT NEOPLASM OF ASCENDING COLON CHAYITO ROBLEDO Ot C78.7 SECONDARY MALIG NEOPLASM OF LIVER AND IN CHAYITO ROBLEDO Ot Z51.11 ENCOUNTER FOR ANTINEOPLASTIC CHEMOTHERAP 09/26/2013 Ot 153.9 MALIGNANT HERNÁN COLON NOS 09/26/2013 Ot 197.7 SECOND MALIG HERNÁN LIVER 09/26/2013 Ot 300.00 ANXIETY STATE NOS 09/26/2013 Ot 338.29 OTHER CHRONIC PAIN 09/26/2013 Ot 345.90 EPILEPSY UNSPEC W/O MENTION INTRACTABLE 09/26/2013 Ot 356.9 IDIO PERIPH NEURPTHY NOS 09/26/2013 Ot 496 CHR AIRWAY OBSTRUCT NEC 09/26/2013 Ot 716.90 ARTHROPATHY NOS-UNSPEC 09/26/2013 Ot 724.5 BACKACHE NOS 09/26/2013 Ot 733.90 BONE CARTILAGE DIS NOS 09/26/2013 Ot V15.82 HISTORY OF TOBACCO USE 10/18/2013 Ot 153.9 MALIGNANT HERNÁN COLON NOS 10/18/2013 Ot 197.7 SECOND MALIG HERNÁN LIVER 01/19/2014 CHAYITO ROBLEDO Ot 153.9 MALIGNANT HERNÁN COLON NOS 01/19/2014 CHAYITO ROBLEDO Ot 197.7 SECOND MALIG HERNÁN LIVER 01/19/2014 CHAYITO ROBLEDO Ot 345.90 EPILEPSY UNSPEC W/O MENTION INTRACTABLE 01/19/2014 CHAYITO ROBLEDO Ot V58.11 ENCOUNTER FOR ANTINEOPLASTIC CHEMOTHERAP 01/19/2014 CHAYITO ROBLEDO Ot V58.69 OTH MED,LT,CURRENT USE 04/20/2014 MEENA BOBAN N Ot 153.9 MALIGNANT HERNÁN COLON NOS 04/20/2014 MEENA, BOBAN N Ot 197.7 SECOND MALIG HERNÁN LIVER 04/20/2014 MEENA, BOBAN N Ot 345.90 EPILEPSY UNSPEC W/O MENTION INTRACTABLE 04/20/2014 MEENA, BOBAN N Ot V58.11 ENCOUNTER FOR ANTINEOPLASTIC CHEMOTHERAP 04/20/2014 MEENA BOBAN N Ot V58.69 OTH MED,LT,CURRENT USE 07/03/2014 EDOUARDMADDY S VESSEL OPERATOR Ot 153.9 07/03/2014 EDOUARDWINAH S VESSEL OPERATOR Ot 197.7 07/03/2014 EDOUARD HILAH S VESSEL OPERATOR Ot 345.90 07/03/2014 EDOUARD HILAH S VESSEL OPERATOR Ot V58.69 07/22/2014 MEENA, BOBAN N Ot 153.9 07/22/2014 MEENA, BOBAN N Ot 197.7 07/22/2014 MEENA BOBAN N Ot 345.90 07/22/2014 MEENA BOBAN N Ot V58.11 07/22/2014 MEENA BOBAN N Ot V58.69 07/27/2014 MEENA BOBAN N Ot 153.9 MALIGNANT HERNÁN COLON NOS 07/27/2014 MEENA BOBAN N Ot 197.7 SECOND MALIG HERNÁN LIVER 07/27/2014 MEENA, BOBAN N Ot 345.90 EPILEPSY UNSPEC W/O MENTION INTRACTABLE 07/27/2014 MEENA BOBAN N Ot V58.11 ENCOUNTER FOR ANTINEOPLASTIC CHEMOTHERAP 07/27/2014 MEENA BOBAN N Ot V58.69 OTH MED,LT,CURRENT USE 08/04/2014 EDOUARDMADDY S VESSEL OPERATOR Ot 153.9 08/04/2014 EDOUARDWINAH S VESSEL OPERATOR Ot 197.7 08/04/2014 EDOUARDWINAH S VESSEL OPERATOR Ot 345.90 08/04/2014 EDOUARDWINAH S VESSEL OPERATOR Ot V58.69 08/04/2014 EDOUARDWINAH S VESSEL OPERATOR Ot 786.05 08/04/2014 MADDY EDOUARD S VESSEL OPERATOR Ot 786.2 08/05/2014 CODEY ESCOBAR MD Ot 473.9 CHRONIC SINUSITIS NOS 08/05/2014 BRUEGGEMANN MD, CODEY T Ot 780.2 SYNCOPE AND COLLAPSE 08/08/2014 MADDY EDOUARD S VESSEL OPERATOR Ot 153.9 08/08/2014 EDOUARDMADDY Matthews S VESSEL OPERATOR Ot 197.7 08/08/2014 EDOUARDMADDY Matthews S VESSEL OPERATOR Ot 345.90 08/08/2014 EDOUARDMADDY Matthews S VESSEL OPERATOR Ot 528.9 08/08/2014 EDOUARDMADDY S VESSEL OPERATOR Ot V58.69 08/08/2014 EDOUARDMADDY Matthews S VESSEL OPERATOR Ot V87.41 08/19/2014 MEENA, BOBAN N Ot 153.9 08/19/2014 MEENA, BOBAN N Ot 197.7 08/19/2014 MEENA, BOBAN N Ot 345.90 08/19/2014 MEENA, BOBAN N Ot V58.11 08/19/2014 MEENA, BOBAN N Ot V58.69 08/19/2014 MEENA, BOBAN N Ot 153.9 08/19/2014 MEENA, BOBAN N Ot 197.7 08/19/2014 MEENA, BOBAN N Ot 345.90 08/19/2014 MEENA, BOBAN N Ot V58.11 08/19/2014 MEENA, BOBAN N Ot V58.69 08/19/2014 MEENA, BOBAN N Ot 153.9 08/19/2014 MEENA, BOBAN N Ot 197.7 08/19/2014 MEENA, BOBAN N Ot 345.90 08/19/2014 MEENA, BOBAN N Ot V58.11 08/19/2014 MEENA, BOBAN N Ot V58.69 08/20/2014 MEENA, BOBAN N Ot 153.9 08/20/2014 MEENA, BOBAN N Ot 197.7 08/20/2014 MEENA, BOBAN N Ot 345.90 08/20/2014 MEENA, BOBAN N Ot V58.11 08/20/2014 MEENA, BOBAN N Ot V58.69 09/11/2014 EDOUARDMADDY Matthews S VESSEL OPERATOR Ot 153.9 09/11/2014 SILKE MADDY S VESSEL OPERATOR Ot 197.7 09/11/2014 EDOUARD, MADDY S VESSEL OPERATOR Ot 305.1 09/11/2014 EDOUARD, MADDY S VESSEL OPERATOR Ot 345.90 09/11/2014 EDOUARDMADDY S VESSEL OPERATOR Ot V58.69 09/15/2014 MEENA, CHAYITO N Ot 153.9 09/15/2014 MEENA, BOBAN N Ot 197.7 09/15/2014 MEENA, GAROAN N Ot 345.90 09/15/2014 MEENA, GAROAN N Ot V58.11 09/15/2014 MEENA, CHAYITO N Ot V58.69 09/19/2014 MEENA, GAROAN N Ot 153.9 09/19/2014 MEENA, BOBAN N Ot 197.7 09/19/2014 MEENA, GAROAN N Ot 345.90 09/19/2014 MEENA, CHAYITO N Ot V58.11 09/19/2014 MEENA, CHAYITO N Ot V58.69 09/30/2014 SILKE WINAH S VESSEL OPERATOR Ot 153.9 09/30/2014 EDOUARD, HILAH S VESSEL OPERATOR Ot 197.7 09/30/2014 SILKE HILAH S VESSEL OPERATOR Ot 305.1 09/30/2014 SILKE HILAH S VESSEL OPERATOR Ot 345.90 09/30/2014 EDOUARD HILAH S VESSEL OPERATOR Ot V58.69 10/14/2014 EDOUARD HILAH S VESSEL OPERATOR Ot 153.9 10/14/2014 SILKE HILAH S VESSEL OPERATOR Ot 197.7 10/14/2014 SILKE HILAH S VESSEL OPERATOR Ot 305.1 10/14/2014 EDOUARD, HILAH S VESSEL OPERATOR Ot 345.90 10/14/2014 SILKE HILAH S VESSEL OPERATOR Ot V58.69 11/10/2014 MEENA, GAROAN N Ot 153.9 11/10/2014 MEENA, GAROAN N Ot 197.7 11/10/2014 MEENA, GAROAN N Ot 345.90 11/10/2014 MEENA, GAROAN N Ot V58.11 11/10/2014 MEENA, GAROAN N Ot V58.69 11/10/2014 Ot 787.02 11/10/2014 Ot 787.3 11/10/2014 Ot 787.91 11/10/2014 Ot 153.9 11/10/2014 Ot 197.7 11/10/2014 MEENA, GAROAN N Ot 359.0 11/10/2014 EDOUARD, HILAH S VESSEL OPERATOR Ot 153.9 11/10/2014 EDOUARD, HILAH S VESSEL OPERATOR Ot 197.7 11/10/2014 EDOUARDWINAH S VESSEL OPERATOR Ot 345.90 11/10/2014 EDOUARDMADDY S VESSEL OPERATOR Ot V58.69 11/10/2014 EDOUARDMADDY S VESSEL OPERATOR Ot 153.9 11/10/2014 EDOUARDMADDY Matthews S VESSEL OPERATOR Ot 197.7 11/10/2014 EDOUARDWINAH S VESSEL OPERATOR Ot 345.90 11/10/2014 EDOUARDWIN S VESSEL OPERATOR Ot V58.69 11/10/2014 EDOUARDWIN S VESSEL OPERATOR Ot 153.9 11/10/2014 EDOUARDMADDY S VESSEL OPERATOR Ot 197.7 11/10/2014 EDOUARDMADDY S VESSEL OPERATOR Ot 345.90 11/10/2014 EDOUARDMADDY S VESSEL OPERATOR Ot V58.69 11/10/2014 MEENACHAYITO RAMOS N Ot 153.9 11/10/2014 EDOUARDWIN S VESSEL OPERATOR Ot 153.9 11/10/2014 SILKE WIN S VESSEL OPERATOR Ot 197.7 11/10/2014 EDOUARDMADDY S VESSEL OPERATOR Ot 345.90 11/10/2014 EDOUARDMADDY Matthews S VESSEL OPERATOR Ot V58.69 11/10/2014 EDOUARDMADDY S VESSEL OPERATOR Ot 153.9 11/10/2014 EDOUARDMADDY S VESSEL OPERATOR Ot 197.7 11/10/2014 EDOUARDMADDY S VESSEL OPERATOR Ot 345.90 11/10/2014 EDOUARDMADDY S VESSEL OPERATOR Ot V58.69 11/10/2014 SILKE WIN S VESSEL OPERATOR Ot 153.9 11/10/2014 SILKE WIN S VESSEL OPERATOR Ot 197.7 11/10/2014 EDOUARDWIN S VESSEL OPERATOR Ot 345.90 11/10/2014 EDOUARDWIN S VESSEL OPERATOR Ot V58.69 11/10/2014 SILKE WINAH S VESSEL OPERATOR Ot 153.9 11/10/2014 EDOUARD WINAH S VESSEL OPERATOR Ot 197.7 11/10/2014 EDOUARDWINAH S VESSEL OPERATOR Ot 345.90 11/10/2014 EDOUARD WINAH S VESSEL OPERATOR Ot V58.69 11/10/2014 EDOUARD WIN S VESSEL OPERATOR Ot 153.9 11/10/2014 EDOUARD, MADDY S VESSEL OPERATOR Ot 197.7 11/10/2014 SILKEWIN S VESSEL OPERATOR Ot 345.90 11/10/2014 SILKEMADDY S VESSEL OPERATOR Ot V58.69 11/10/2014 EDOUARDMADDY S VESSEL OPERATOR Ot 153.9 11/10/2014 EDOUARDMADDY S VESSEL OPERATOR Ot 197.7 11/10/2014 EDOUARD, WIN S VESSEL OPERATOR Ot 345.90 11/10/2014 SILKE WIN S VESSEL OPERATOR Ot V58.69 11/10/2014 EDOUARDWIN S VESSEL OPERATOR Ot 153.9 11/10/2014 SILKE WIN S VESSEL OPERATOR Ot 197.7 11/10/2014 SILKE WIN S VESSEL OPERATOR Ot 345.90 11/10/2014 SILKEWIN S VESSEL OPERATOR Ot V58.69 11/10/2014 MEENACHAYITO N Ot 153.9 11/10/2014 SILKE WIN S VESSEL OPERATOR Ot 153.9 11/10/2014 SILKE WIN S VESSEL OPERATOR Ot 197.7 11/10/2014 SILKE WIN S VESSEL OPERATOR Ot 345.90 11/10/2014 SILKE MADDY S VESSEL OPERATOR Ot V58.69 11/10/2014 SILKE WIN S VESSEL OPERATOR Ot 153.9 11/10/2014 SILKE WIN S VESSEL OPERATOR Ot 197.7 11/10/2014 EDOUARDWIN S VESSEL OPERATOR Ot 345.90 11/10/2014 EDOUARDMADDY S VESSEL OPERATOR Ot V58.69 11/10/2014 SILKE WIN S VESSEL OPERATOR Ot 153.9 11/10/2014 SILKE WIN S VESSEL OPERATOR Ot 197.7 11/10/2014 SILKE [facility] S VESSEL OPERATOR Ot 345.90 11/10/2014 SILKE WIN S VESSEL OPERATOR Ot V58.69 11/10/2014 SILKE WIN S VESSEL OPERATOR Ot 153.9 11/10/2014 SILKE WIN S VESSEL OPERATOR Ot 197.7 11/10/2014 EDOUARDWIN S VESSEL OPERATOR Ot 345.90 11/10/2014 EDOUARD, WIN S VESSEL OPERATOR Ot V58.69 11/10/2014 SILKE WIN S VESSEL OPERATOR Ot 153.9 11/10/2014 SILKE WIN S VESSEL OPERATOR Ot 197.7 11/10/2014 EDOUARDMADDY Matthews S VESSEL OPERATOR Ot 345.90 11/10/2014 EDOUARDMADDY Matthews S VESSEL OPERATOR Ot V58.69 11/10/2014 MADDY EDOUARD S VESSEL OPERATOR Ot 786.05 11/10/2014 MADDY EDOUARD S VESSEL OPERATOR Ot 786.2 11/10/2014 EDOUARDMADDY Matthews S VESSEL OPERATOR Ot 153.9 11/10/2014 EDOUARDMADDY Matthews S VESSEL OPERATOR Ot 197.7 11/10/2014 EDOUARDMADDY Matthews S VESSEL OPERATOR Ot 345.90 11/10/2014 EDOUARDMADDY Matthews S VESSEL OPERATOR Ot 528.9 11/10/2014 EDOUARDMADDY Matthews S VESSEL OPERATOR Ot V58.69 11/10/2014 MADDY EDOUARD S VESSEL OPERATOR Ot V87.41 11/10/2014 MEENA, BOBAN N Ot 153.9 11/10/2014 MEENAGARO RAMOSAN N Ot 197.7 11/10/2014 MEENA, GAROAN N Ot 345.90 11/10/2014 MEENA, BOBAN N Ot V58.11 11/10/2014 MEENA, BOBAN N Ot V58.69 11/10/2014 EDOUARDMADDY Matthews S VESSEL OPERATOR Ot 153.9 11/10/2014 EDOUARDMADDY Matthews S VESSEL OPERATOR Ot 197.7 11/10/2014 EDOUARDMADDY Matthews S VESSEL OPERATOR Ot 305.1 11/10/2014 EDOUARDMADDY Matthews S VESSEL OPERATOR Ot 345.90 11/10/2014 EDOUARDMADDY Matthews S VESSEL OPERATOR Ot V58.69 11/10/2014 EDOUARDMADDY Matthews S VESSEL OPERATOR Ot 153.9 11/10/2014 EDOUARDMADDY Matthews S VESSEL OPERATOR Ot 197.7 11/10/2014 EDOUARDMADDY S VESSEL OPERATOR Ot 305.1 11/10/2014 EDOUARDMADDY S VESSEL OPERATOR Ot 345.90 11/10/2014 EDOUARDMADDY S VESSEL OPERATOR Ot V58.69 11/10/2014 EDOUARDMADDY S VESSEL OPERATOR Ot 153.9 11/10/2014 EDOUARDMADDY S VESSEL OPERATOR Ot 197.7 11/10/2014 EDOUARD MADDY S VESSEL OPERATOR Ot 305.1 11/10/2014 EDOUARD MADDY S VESSEL OPERATOR Ot 345.90 11/10/2014 MADDY EDOUARD S VESSEL OPERATOR Ot V58.69 11/10/2014 Ot 787.02 11/10/2014 Ot 787.3 11/10/2014 Ot 787.91 11/10/2014 Ot 153.9 11/10/2014 Ot 197.7 11/10/2014 CHAYITO ROBLEDO N Ot 359.0 11/10/2014 EDOUARDMADDY Matthews S VESSEL OPERATOR Ot 153.9 11/10/2014 EDOUARDWINAH S VESSEL OPERATOR Ot 197.7 11/10/2014 EDOUARDWINAH S VESSEL OPERATOR Ot 345.90 11/10/2014 EDOUARDMADDY S VESSEL OPERATOR Ot V58.69 11/10/2014 EDOUARDWINAH S VESSEL OPERATOR Ot 153.9 11/10/2014 EDOUARD WINAH S VESSEL OPERATOR Ot 197.7 11/10/2014 EDOUARDWINAH S VESSEL OPERATOR Ot 345.90 11/10/2014 EDOUARD IWNAH S VESSEL OPERATOR Ot V58.69 11/10/2014 EDOUARD, MADDY S VESSEL OPERATOR Ot 153.9 11/10/2014 EDOUARD MADDY S VESSEL OPERATOR Ot 197.7 11/10/2014 EDOUARD MADDY S VESSEL OPERATOR Ot 345.90 11/10/2014 SILKE MADDY S VESSEL OPERATOR Ot V58.69 11/10/2014 MEENAGARO RAMOSENRIKE N Ot 153.9 11/10/2014 EDOUARDMADDY Matthews S VESSEL OPERATOR Ot 153.9 11/10/2014 EDOUARD, MADDY S VESSEL OPERATOR Ot 197.7 11/10/2014 EDOUARD, MADDY S VESSEL OPERATOR Ot 345.90 11/10/2014 EDOUARD MADDY S VESSEL OPERATOR Ot V58.69 11/10/2014 EDOUARDWINAH S VESSEL OPERATOR Ot 153.9 11/10/2014 EDOUARD WINAH S VESSEL OPERATOR Ot 197.7 11/10/2014 EDOUARD WINAH S VESSEL OPERATOR Ot 345.90 11/10/2014 EDOUARD WINAH S VESSEL OPERATOR Ot V58.69 11/10/2014 EDOUARD, HILAH S VESSEL OPERATOR Ot 153.9 11/10/2014 EDOUARD WINAH S VESSEL OPERATOR Ot 197.7 11/10/2014 EDOUARD WINAH S VESSEL OPERATOR Ot 345.90 11/10/2014 EDOUARD WINAH S VESSEL OPERATOR Ot V58.69 11/10/2014 SILKEMADDY S VESSEL OPERATOR Ot 153.9 11/10/2014 SILKE MADDY S VESSEL OPERATOR Ot 197.7 11/10/2014 SILKE WINAH S VESSEL OPERATOR Ot 345.90 11/10/2014 EDOUARDWINAH S VESSEL OPERATOR Ot V58.69 11/10/2014 SILKE WINAH S VESSEL OPERATOR Ot 153.9 11/10/2014 SILKE WINAH S VESSEL OPERATOR Ot 197.7 11/10/2014 SILKE WINAH S VESSEL OPERATOR Ot 345.90 11/10/2014 SILKE WINAH S VESSEL OPERATOR Ot V58.69 11/10/2014 SILKE WIN S VESSEL OPERATOR Ot 153.9 11/10/2014 SILKE WINAH S VESSEL OPERATOR Ot 197.7 11/10/2014 SILKE WINAH S VESSEL OPERATOR Ot 345.90 11/10/2014 SILKE MADDY S VESSEL OPERATOR Ot V58.69 11/10/2014 SILKE WIN S VESSEL OPERATOR Ot 153.9 11/10/2014 SILKE WIN S VESSEL OPERATOR Ot 197.7 11/10/2014 SILKE MADDY S VESSEL OPERATOR Ot 345.90 11/10/2014 SILKE WIN S VESSEL OPERATOR Ot V58.69 11/10/2014 CHAYITO ROBLEDO N Ot 153.9 11/10/2014 EDOUARDWIN S VESSEL OPERATOR Ot 153.9 11/10/2014 SILKE MADDY S VESSEL OPERATOR Ot 197.7 11/10/2014 SILKE MADDY S VESSEL OPERATOR Ot 345.90 11/10/2014 SILKE MADDY S VESSEL OPERATOR Ot V58.69 11/10/2014 SILKE WIN S VESSEL OPERATOR Ot 153.9 11/10/2014 SILKE WIN S VESSEL OPERATOR Ot 197.7 11/10/2014 SILKE WIN S VESSEL OPERATOR Ot 345.90 11/10/2014 SILKE MADDY S VESSEL OPERATOR Ot V58.69 11/10/2014 SILKE WINAH S VESSEL OPERATOR Ot 153.9 11/10/2014 SILKE WINAH S VESSEL OPERATOR Ot 197.7 11/10/2014 SILKE WIN S VESSEL OPERATOR Ot 345.90 11/10/2014 SILKE WINAH S VESSEL OPERATOR Ot V58.69 11/10/2014 MADDY EDOUARD S VESSEL OPERATOR Ot 153.9 11/10/2014 EDOUARDMADDY Matthews S VESSEL OPERATOR Ot 197.7 11/10/2014 EDOUARDMADDY Matthews S VESSEL OPERATOR Ot 345.90 11/10/2014 EDOUARDMADDY Matthews S VESSEL OPERATOR Ot V58.69 11/10/2014 EDOUARDMADDY Matthews S VESSEL OPERATOR Ot 153.9 11/10/2014 EDOUARDMADDY Matthews S VESSEL OPERATOR Ot 197.7 11/10/2014 EDOUARDMADDY S VESSEL OPERATOR Ot 345.90 11/10/2014 EDOUARDMADDY S VESSEL OPERATOR Ot V58.69 11/10/2014 EDOUARDMADDY Matthews S VESSEL OPERATOR Ot 786.05 11/10/2014 EDOUARDMADDY S VESSEL OPERATOR Ot 786.2 11/10/2014 EDOUARDMADDY Matthews S VESSEL OPERATOR Ot 153.9 11/10/2014 MADDY EDOUARD S VESSEL OPERATOR Ot 197.7 11/10/2014 EDOUARDMADDY Matthews S VESSEL OPERATOR Ot 345.90 11/10/2014 MADDY EDOUARD S VESSEL OPERATOR Ot 528.9 11/10/2014 MADDY EDOUARD S VESSEL OPERATOR Ot V58.69 11/10/2014 MADDY EDOUARD S VESSEL OPERATOR Ot V87.41 11/10/2014 MEENA, BOBAN N Ot 153.9 11/10/2014 MEENA, BOBAN N Ot 197.7 11/10/2014 MEENA, BOBAN N Ot 345.90 11/10/2014 MEENA, BOBAN N Ot V58.11 11/10/2014 MEENA, BOBAN N Ot V58.69 11/10/2014 MADDY EDOUARD S VESSEL OPERATOR Ot 153.9 11/10/2014 EDOUARDMADDY Matthews S VESSEL OPERATOR Ot 197.7 11/10/2014 EDOUARDMADDY S VESSEL OPERATOR Ot 305.1 11/10/2014 EDOUARDMADDY S VESSEL OPERATOR Ot 345.90 11/10/2014 EDOUARDMADDY Matthews S VESSEL OPERATOR Ot V58.69 11/10/2014 EDOUARDMADDY S VESSEL OPERATOR Ot 153.9 11/10/2014 EDOUARDMADDY S VESSEL OPERATOR Ot 197.7 11/10/2014 EDOUARDMADDY S VESSEL OPERATOR Ot 305.1 11/10/2014 EDOUARDMADDY Matthews S VESSEL OPERATOR Ot 345.90 11/10/2014 EDOUARDMADDY Matthews S VESSEL OPERATOR Ot V58.69 11/10/2014 MADDY EDOUARD S VESSEL OPERATOR Ot 153.9 11/10/2014 MADDY EDOUARD S VESSEL OPERATOR Ot 197.7 11/10/2014 MADDY EDOURAD VESSEL OPERATOR Ot 305.1 11/10/2014 EDOUARDMADDY Matthews S VESSEL OPERATOR Ot 345.90 11/10/2014 EDOUARDMADDY Matthews S VESSEL OPERATOR Ot V58.69 11/10/2014 MEENA, BOBAN N Ot 153.9 11/10/2014 MEENA, BOBAN N Ot 197.7 11/10/2014 MEENA, BOBAN N Ot 345.90 11/10/2014 MEENA, BOBAN N Ot V58.11 11/10/2014 MEENA, BOBAN N Ot V58.69 11/17/2014 MEENA, BOBAN N Ot 153.9 MALIGNANT HERNÁN COLON NOS 11/17/2014 MEENA, BOBAN N Ot 197.7 SECOND MALIG HERNÁN LIVER 11/17/2014 MEENA, BOBAN N Ot 345.90 EPILEPSY UNSPEC W/O MENTION INTRACTABLE 11/17/2014 MEENA, BOBAN N Ot V58.11 ENCOUNTER FOR ANTINEOPLASTIC CHEMOTHERAP 11/17/2014 MEENA, BOBAN N Ot V58.69 OT MED,LT,CURRENT USE 11/20/2014 MEENA, BOBAN N Ot 153.9 11/20/2014 MEENA, BOBAN N Ot 197.7 11/20/2014 MEENA, BOBAN N Ot 345.90 11/20/2014 MEENA, BOBAN N Ot V58.11 11/20/2014 MEENA, BOBAN N Ot V58.69 11/24/2014 MEENA, BOBAN N Ot 153.9 11/24/2014 MEENA, BOBAN N Ot 197.7 11/24/2014 MEENA, BOBAN N Ot 345.90 11/24/2014 MEENA, BOBAN N Ot V58.11 11/24/2014 MEENA, BOBAN N Ot V58.69 11/24/2014 MEENA, BOBAN N Ot 153.9 11/24/2014 MEENA, BOBAN N Ot 197.7 11/24/2014 MEENA, BOBAN N Ot 345.90 11/24/2014 CHAYITO ROBLEDO N Ot V58.11 11/24/2014 CHAYITO ROBLEDO N Ot V58.69 11/25/2014 CHAYITO ROBLEDO N Ot 153.9 11/25/2014 CHAYITO ROBLEDO N Ot 197.7 11/25/2014 CHAYITO ROBLEDO N Ot 345.90 11/25/2014 CHAYITO ROBLEDO N Ot V58.11 11/25/2014 CHAYITO ROBLEDO N Ot V58.69 12/01/2014 Ot 787.02 12/01/2014 Ot 787.3 12/01/2014 Ot 787.91 12/01/2014 Ot 153.9 12/01/2014 Ot 197.7 12/01/2014 CHAYITO ROBLEDO N Ot 359.0 12/01/2014 MADDY EDOUARD S VESSEL OPERATOR Ot 153.9 12/01/2014 WIN EDOUARDAH S VESSEL OPERATOR Ot 197.7 12/01/2014 MADDY EDOUARD S VESSEL OPERATOR Ot 345.90 12/01/2014 WIN EDOUARDAH S VESSEL OPERATOR Ot V58.69 12/01/2014 EDOUARD, HILAH S VESSEL OPERATOR Ot 153.9 12/01/2014 EDOUARD, HILAH S VESSEL OPERATOR Ot 197.7 12/01/2014 EDOUARD, HILAH S VESSEL OPERATOR Ot 345.90 12/01/2014 EDOUARD, HILAH S VESSEL OPERATOR Ot V58.69 12/01/2014 WIN EDOUARDAH S VESSEL OPERATOR Ot 153.9 12/01/2014 WIN EDOUARDAH S VESSEL OPERATOR Ot 197.7 12/01/2014 EDOUARD, HILAH S VESSEL OPERATOR Ot 345.90 12/01/2014 EDOUARD, HILAH S VESSEL OPERATOR Ot V58.69 12/01/2014 CHAYITO ROBLEDO N Ot 153.9 12/01/2014 EDOUARD HILAH S VESSEL OPERATOR Ot 153.9 12/01/2014 SILKE HILAH S VESSEL OPERATOR Ot 197.7 12/01/2014 EDOUARD, HILAH S VESSEL OPERATOR Ot 345.90 12/01/2014 EDOUARD, HILAH S VESSEL OPERATOR Ot V58.69 12/01/2014 WIN EDOUARDAH S VESSEL OPERATOR Ot 153.9 12/01/2014 SILKE HILAH S VESSEL OPERATOR Ot 197.7 12/01/2014 MADDY EDOUARD S VESSEL OPERATOR Ot 345.90 12/01/2014 SILKEMADDY S VESSEL OPERATOR Ot V58.69 12/01/2014 SILKE WINAH S VESSEL OPERATOR Ot 153.9 12/01/2014 EDOUARDWINAH S VESSEL OPERATOR Ot 197.7 12/01/2014 EDOUARDMADDY S VESSEL OPERATOR Ot 345.90 12/01/2014 SILKE MADDY S VESSEL OPERATOR Ot V58.69 12/01/2014 EDOUARDWINAH S VESSEL OPERATOR Ot 153.9 12/01/2014 EDOUARDWINAH S VESSEL OPERATOR Ot 197.7 12/01/2014 EDOUARD, WINAH S VESSEL OPERATOR Ot 345.90 12/01/2014 SILKE WINAH S VESSEL OPERATOR Ot V58.69 12/01/2014 SILKEMADDY S VESSEL OPERATOR Ot 153.9 12/01/2014 SILKE WIN S VESSEL OPERATOR Ot 197.7 12/01/2014 SILKE WIN S VESSEL OPERATOR Ot 345.90 12/01/2014 SILKE WIN S VESSEL OPERATOR Ot V58.69 12/01/2014 SILKE WIN S VESSEL OPERATOR Ot 153.9 12/01/2014 SILKE WIN S VESSEL OPERATOR Ot 197.7 12/01/2014 SILKE WIN S VESSEL OPERATOR Ot 345.90 12/01/2014 SILKEMADDY S VESSEL OPERATOR Ot V58.69 12/01/2014 SILKEMADDY S VESSEL OPERATOR Ot 153.9 12/01/2014 SILKE WIN S VESSEL OPERATOR Ot 197.7 12/01/2014 SILKE WIN S VESSEL OPERATOR Ot 345.90 12/01/2014 SILKE WIN S VESSEL OPERATOR Ot V58.69 12/01/2014 CHAYITO ROBLEDO N Ot 153.9 12/01/2014 EDOUARD, WIN S VESSEL OPERATOR Ot 153.9 12/01/2014 SILKE WIN S VESSEL OPERATOR Ot 197.7 12/01/2014 SILKE MADDY S VESSEL OPERATOR Ot 345.90 12/01/2014 SILKE MADDY S VESSEL OPERATOR Ot V58.69 12/01/2014 SILKE WINAH S VESSEL OPERATOR Ot 153.9 12/01/2014 SILKE WINAH S VESSEL OPERATOR Ot 197.7 12/01/2014 SILKE WINAH S VESSEL OPERATOR Ot 345.90 12/01/2014 EDOUARDMADDY Matthews S VESSEL OPERATOR Ot V58.69 12/01/2014 EDOUARDMADDY Matthews S VESSEL OPERATOR Ot 153.9 12/01/2014 EDOUARDMADDY Matthews S VESSEL OPERATOR Ot 197.7 12/01/2014 EDOUARDMADDY S VESSEL OPERATOR Ot 345.90 12/01/2014 EDOUARDMADDY Matthews S VESSEL OPERATOR Ot V58.69 12/01/2014 EDOUARDMADDY S VESSEL OPERATOR Ot 153.9 12/01/2014 EDOUARD, HIL S VESSEL OPERATOR Ot 197.7 12/01/2014 EDOUARDWIN S VESSEL OPERATOR Ot 345.90 12/01/2014 EDOUARDMADDY S VESSEL OPERATOR Ot V58.69 12/01/2014 EDOUARDMADDY Matthews S VESSEL OPERATOR Ot 153.9 12/01/2014 EDOUARDMADDY S VESSEL OPERATOR Ot 197.7 12/01/2014 SILKE WIN S VESSEL OPERATOR Ot 345.90 12/01/2014 SILKEWIN S VESSEL OPERATOR Ot V58.69 12/01/2014 EDOUARD, HIL S VESSEL OPERATOR Ot 786.05 12/01/2014 EDOUARD, HIL S VESSEL OPERATOR Ot 786.2 12/01/2014 EDOUARD, HIL S VESSEL OPERATOR Ot 153.9 12/01/2014 EDOUARD, HIL S VESSEL OPERATOR Ot 197.7 12/01/2014 EDOUARDWIN S VESSEL OPERATOR Ot 345.90 12/01/2014 EDOUARD, HIL S VESSEL OPERATOR Ot 528.9 12/01/2014 SILKEWIN S VESSEL OPERATOR Ot V58.69 12/01/2014 EDOUARD, [facility] S VESSEL OPERATOR Ot V87.41 12/01/2014 EDOUARDWIN S VESSEL OPERATOR Ot 153.9 12/01/2014 SILKE [facility] S VESSEL OPERATOR Ot 197.7 12/01/2014 SILKE WIN S VESSEL OPERATOR Ot 305.1 12/01/2014 EDOUARDWIN S VESSEL OPERATOR Ot 345.90 12/01/2014 SILKEMADDY S VESSEL OPERATOR Ot V58.69 12/01/2014 SILKE WIN S VESSEL OPERATOR Ot 153.9 12/01/2014 SILKE WIN S VESSEL OPERATOR Ot 197.7 12/01/2014 MADDY EDOUARD VESSEL OPERATOR Ot 305.1 12/01/2014 MADDY EDOUARD VESSEL OPERATOR Ot 345.90 12/01/2014 MADDY EDOUARD VESSEL OPERATOR Ot V58.69 12/01/2014 MADDY EDOUARD VESSEL OPERATOR Ot 153.9 12/01/2014 MADDY EDOUARD VESSEL OPERATOR Ot 197.7 12/01/2014 MADDY EDOUARD VESSEL OPERATOR Ot 305.1 12/01/2014 MADDY EDOUARD VESSEL OPERATOR Ot 345.90 12/01/2014 MADDY EDOUARD VESSEL OPERATOR Ot V58.69 12/01/2014 MEENA, BOBAN N Ot 153.9 12/01/2014 MEENA, BOBAN N Ot 197.7 12/01/2014 MEENA, BOBAN N Ot 345.90 12/01/2014 MEENA, BOBAN N Ot V58.11 12/01/2014 MEENA, BOBAN N Ot V58.69 12/03/2014 MEENA, BOBAN N Ot 153.9 12/30/2014 MENEA, BOBAN N Ot 153.9 12/30/2014 MEENA, BOBAN N Ot 197.7 12/30/2014 MEENA, BOBAN N Ot 345.90 12/30/2014 MEENA, BOBAN N Ot V58.11 12/30/2014 MEENA, BOBAN N Ot V58.69 01/16/2015 MEENA, BOBAN N Ot 153.9 01/16/2015 MEENA, BOBAN N Ot 197.7 01/16/2015 MEENA, BOBAN N Ot 345.90 01/16/2015 MEENA, BOBAN N Ot V58.11 01/16/2015 MEENA, BOBAN N Ot V58.69 02/06/2015 MEENA, BOBAN N Ot 153.9 02/22/2015 MEENA, BOBAN N Ot 153.9 MALIGNANT HERNÁN COLON NOS 02/22/2015 MEENA, BOBAN N Ot 197.7 SECOND MALIG HERNÁN LIVER 02/22/2015 MEENA, BOBAN N Ot 345.90 EPILEPSY UNSPEC W/O MENTION INTRACTABLE 02/22/2015 MEENA, BOBAN N Ot V58.11 ENCOUNTER FOR ANTINEOPLASTIC CHEMOTHERAP 02/22/2015 MEENA BOBAN N Ot V58.69 OT MED,LT,CURRENT USE 02/27/2015 MEENA, BOBAN N Ot 153.9 02/27/2015 MEENA, BOBAN N Ot 197.7 02/27/2015 MEENA, BOBAN N Ot 345.90 02/27/2015 MEENA, BOBAN N Ot V58.11 02/27/2015 MEENA, BOBAN N Ot V58.69 02/27/2015 MEENA, BOBAN N Ot 153.9 02/27/2015 MEENA, BOBAN N Ot 197.7 02/27/2015 MEENA, BOBAN N Ot 345.90 02/27/2015 MEENA, BOBAN N Ot V58.11 02/27/2015 MEENA, BOBAN N Ot V58.69 03/09/2015 MEENA, BOBAN N Ot 153.9 03/09/2015 MEENA, BOBAN N Ot 197.7 03/09/2015 MEENA, BOBAN N Ot 345.90 03/09/2015 MEENA, BOBAN N Ot V58.11 03/09/2015 MEENA, BOBAN N Ot V58.69 03/10/2015 MEENA, BOBAN N Ot 153.9 03/10/2015 MEENA, BOBAN N Ot 197.7 03/10/2015 MEENA, BOBAN N Ot 345.90 03/10/2015 MEENA, BOBAN N Ot V58.11 03/10/2015 MEENA, BOBAN N Ot V58.69 03/20/2015 JOSE BURR, NADJA Ot 153.9 03/20/2015 JOSE BURR, JOALBERTO Ot 197.7 03/20/2015 JOSE BURR, [facility] Ot 345.90 03/20/2015 JOSE BURR, SANDRO-ALBERTO Ot V58.69 04/14/2015 MEENA, BOBAN N Ot 153.9 04/14/2015 MEENA, BOBAN N Ot 197.7 04/14/2015 MEENA, BOBAN N Ot 345.90 04/14/2015 MEENA, BOBAN N Ot V58.11 04/14/2015 MEENA, BOBAN N Ot V58.69 04/14/2015 MEENA, BOBAN N Ot 153.9 04/14/2015 MEENA, BOBAN N Ot 197.7 04/14/2015 MEENA, BOBAN N Ot 345.90 04/14/2015 MEENA, BOBAN N Ot V58.11 04/14/2015 CHAYITO ROBLEDO N Ot V58.69 04/16/2015 EDOUARDMADDY S VESSEL OPERATOR Ot 153.9 04/16/2015 SILKE MADDY S VESSEL OPERATOR Ot 197.7 04/16/2015 SILKE MADDY S VESSEL OPERATOR Ot 345.90 04/16/2015 SILKE MADDY S VESSEL OPERATOR Ot V58.69 04/16/2015 EDOUARD WINAH S VESSEL OPERATOR Ot 153.9 04/16/2015 EDOUARD WINAH S VESSEL OPERATOR Ot 197.7 04/16/2015 EDOUARD WINAH S VESSEL OPERATOR Ot 345.90 04/16/2015 SILKE WINAH S VESSEL OPERATOR Ot V58.69 04/16/2015 EDOUARD WINAH S VESSEL OPERATOR Ot 153.9 04/16/2015 EDOUARD WINAH S VESSEL OPERATOR Ot 197.7 04/16/2015 SILKE WINAH S VESSEL OPERATOR Ot 345.90 04/16/2015 SILKE MADDY S VESSEL OPERATOR Ot V58.69 04/20/2015 EDOUARD WINAH S VESSEL OPERATOR Ot 153.9 04/20/2015 EDOUARD MADDY S VESSEL OPERATOR Ot 197.7 04/20/2015 SILKE MADDY S VESSEL OPERATOR Ot 345.90 04/20/2015 SILKE MADDY S VESSEL OPERATOR Ot V58.69 05/18/2015 EDOUARDWINAH S VESSEL OPERATOR Ot 153.9 05/18/2015 EDOUARD WINAH S VESSEL OPERATOR Ot 197.7 05/18/2015 EDOUARD, WINAH S VESSEL OPERATOR Ot 345.90 05/18/2015 SILKE MADDY S VESSEL OPERATOR Ot V58.69 05/20/2015 CHAYITO ROBLEDO N Ot 153.9 MALIGNANT HERNÁN COLON NOS 05/20/2015 CHAYITO ROBLEDO N Ot 197.7 SECOND MALIG HERNÁN LIVER 05/20/2015 CHAYITO ROBLEDO N Ot 345.90 EPILEPSY UNSPEC W/O MENTION INTRACTABLE 05/20/2015 CHAYITO ROBLEDO N Ot V58.11 ENCOUNTER FOR ANTINEOPLASTIC CHEMOTHERAP 05/20/2015 CHAYITO ROBLEDO N Ot V58.69 OT MED,LT,CURRENT USE 05/22/2015 CHAYITO ROBLEDO N Ot 153.9 05/22/2015 MEENA, BOBAN N Ot 197.7 05/22/2015 MEENA, BOBAN N Ot 345.90 05/22/2015 MEENA, BOBAN N Ot V58.11 05/22/2015 MEENA, BOBAN N Ot V58.69 06/02/2015 MEENA, BOBAN N Ot 153.9 06/02/2015 MEENA, BOBAN N Ot 197.7 06/02/2015 MEENA, BOBAN N Ot 345.90 06/02/2015 MEENA, BOBAN N Ot V58.11 06/02/2015 MEENA, BOBAN N Ot V58.69 06/02/2015 MADDY EDOUARD VESSEL OPERATOR Ot 153.9 06/02/2015 MADDY EDOUARD VESSEL OPERATOR Ot 197.7 06/03/2015 ISAIAS BURR, RENATE Pierson Ot I25.10 06/03/2015 RENATE ESPARZA MD Ot J44.9 06/03/2015 ISAIAS BURR, RENATE Pierson Ot M47.812 06/15/2015 MEENA, BOBAN N Ot 153.9 06/15/2015 MEENA, BOBAN N Ot 197.7 06/15/2015 MEENA, BOBAN N Ot 345.90 06/15/2015 MEENA, BOBAN N Ot V58.11 06/15/2015 MEENA, BOBAN N Ot V58.69 06/23/2015 MADDY EDOUARD VESSEL OPERATOR Ot C18.9 06/23/2015 MADDY EDOUARD VESSEL OPERATOR Ot C78.7 06/23/2015 MADDY EDOUARD VESSEL OPERATOR Ot Z92.21 06/26/2015 INDIA STEPHENS MD Ot M25.511 06/29/2015 MEENA, BOBAN N Ot 153.9 06/29/2015 MEENA, BOBAN N Ot 197.7 06/29/2015 MEENA, BOBAN N Ot 345.90 06/29/2015 MEENA, BOBAN N Ot V58.11 06/29/2015 MEENA, BOBAN N Ot V58.69 06/29/2015 MEENA, BOBAN N Ot 153.9 06/29/2015 MEENA, BOBAN N Ot 197.7 06/29/2015 MEENA, BOBAN N Ot 345.90 06/29/2015 MEENA, BOBAN N Ot V58.11 06/29/2015 MEENA, BOBAN N Ot V58.69 07/06/2015 TOBIN CHAPMAN TUGBOAT MATE Ot M25.511 07/07/2015 MADDY EDOUARD S VESSEL OPERATOR Ot C18.9 07/07/2015 MADDY EDOUARD S VESSEL OPERATOR Ot C78.7 07/07/2015 MADDY EDOUARD S VESSEL OPERATOR Ot Z92.21 07/24/2015 TOBIN CHAPMAN TUGBOAT MATE Ot M25.511 08/11/2015 TOBIN CHAPMAN TUGBOAT MATE Ot M25.511 PAIN IN RIGHT SHOULDER 08/11/2015 MEENA, BOBAN N Ot C18.9 08/11/2015 MEENA, BOBAN N Ot C78.7 08/11/2015 MEENA, BOBAN N Ot Z51.11 08/18/2015 MADDY EDOUARD S VESSEL OPERATOR Ot C18.9 08/18/2015 MADDY EDOUARD S VESSEL OPERATOR Ot C78.7 08/18/2015 MADDY EDOUARD S VESSEL OPERATOR Ot Z92.21 08/23/2015 MEENA, BOBAN N Ot C18.9 MALIGNANT NEOPLASM OF COLON, UNSPECIFIED 08/23/2015 MEENA, BOBAN N Ot C78.7 SECONDARY MALIG NEOPLASM OF LIVER AND IN 08/23/2015 MEENA, BOBAN N Ot Z51.11 ENCOUNTER FOR ANTINEOPLASTIC CHEMOTHERAP 08/24/2015 MEENA, BOBAN N Ot C18.9 08/24/2015 MEENA, BOBAN N Ot C78.7 08/24/2015 MEENA, BOBAN N Ot Z51.11 09/09/2015 MEENA, BOBAN N Ot C18.9 09/09/2015 MEENA, BOBAN N Ot C78.7 09/09/2015 MEENA, BOBAN N Ot Z51.11 09/21/2015 MEENA, BOBAN N Ot C18.9 09/21/2015 MEENA, BOBAN N Ot C78.7 09/21/2015 MEENA, BOBAN N Ot Z51.11 09/29/2015 Ot 153.9 09/29/2015 Ot 197.7 09/29/2015 MEENA, BOBAN N Ot 359.0 09/29/2015 MADDY EDOUARD S VESSEL OPERATOR Ot 153.9 09/29/2015 EDOUARD, HILAH S VESSEL OPERATOR Ot 197.7 09/29/2015 EDOUARD, HIL S VESSEL OPERATOR Ot 345.90 09/29/2015 EDOUARDMADDY S VESSEL OPERATOR Ot V58.69 09/29/2015 EDOUARDMADDY S VESSEL OPERATOR Ot 153.9 09/29/2015 EDOUARDMADDY S VESSEL OPERATOR Ot 197.7 09/29/2015 EDOUARDWINAH S VESSEL OPERATOR Ot 345.90 09/29/2015 EDOUARDWIN S VESSEL OPERATOR Ot V58.69 09/29/2015 EDOUARDWIN S VESSEL OPERATOR Ot 153.9 09/29/2015 EDOUARDWIN S VESSEL OPERATOR Ot 197.7 09/29/2015 EDOUARDWIN S VESSEL OPERATOR Ot 345.90 09/29/2015 EDOUARDWIN S VESSEL OPERATOR Ot V58.69 09/29/2015 MEENACHAYITO RAMOS N Ot 153.9 09/29/2015 EDOUARDWIN S VESSEL OPERATOR Ot 153.9 09/29/2015 EDOUARD, HIL S VESSEL OPERATOR Ot 197.7 09/29/2015 EDOUARD, HIL S VESSEL OPERATOR Ot 345.90 09/29/2015 EDOUARDMADDY S VESSEL OPERATOR Ot V58.69 09/29/2015 EDOUARDWIN S VESSEL OPERATOR Ot 153.9 09/29/2015 EDOUARDWIN S VESSEL OPERATOR Ot 197.7 09/29/2015 EDOUARDWIN S VESSEL OPERATOR Ot 345.90 09/29/2015 EDOUARDMADDY S VESSEL OPERATOR Ot V58.69 09/29/2015 EDOUARDWIN S VESSEL OPERATOR Ot 153.9 09/29/2015 EDOUARDWIN S VESSEL OPERATOR Ot 197.7 09/29/2015 EDOUARDWIN S VESSEL OPERATOR Ot 345.90 09/29/2015 EDOUARDWIN S VESSEL OPERATOR Ot V58.69 09/29/2015 EDOUARDWIN S VESSEL OPERATOR Ot 153.9 09/29/2015 EDOUARD, WIN S VESSEL OPERATOR Ot 197.7 09/29/2015 EDOUARDWINAH S VESSEL OPERATOR Ot 345.90 09/29/2015 EDOUARD, WIN S VESSEL OPERATOR Ot V58.69 09/29/2015 EDOUARD, WIN S VESSEL OPERATOR Ot 153.9 09/29/2015 EDOUARD, [facility] S VESSEL OPERATOR Ot 197.7 09/29/2015 EDOUARD, HIL S VESSEL OPERATOR Ot 345.90 09/29/2015 EDOUARD, HIL S VESSEL OPERATOR Ot V58.69 09/29/2015 EDOUARDMADDY S VESSEL OPERATOR Ot 153.9 09/29/2015 EDOUARDWIN S VESSEL OPERATOR Ot 197.7 09/29/2015 EDOUARDWIN S VESSEL OPERATOR Ot 345.90 09/29/2015 EDOUARD [facility] S VESSEL OPERATOR Ot V58.69 09/29/2015 EDOUARD [facility] S VESSEL OPERATOR Ot 153.9 09/29/2015 EDOUARD [facility] S VESSEL OPERATOR Ot 197.7 09/29/2015 EDOUARD [facility] S VESSEL OPERATOR Ot 345.90 09/29/2015 EDOUARD [facility] S VESSEL OPERATOR Ot V58.69 09/29/2015 MEENACHAYITO RAMOS N Ot 153.9 09/29/2015 EDOUARDWIN S VESSEL OPERATOR Ot 153.9 09/29/2015 EDOUARD [facility] S VESSEL OPERATOR Ot 197.7 09/29/2015 EDOUARD, [facility] S VESSEL OPERATOR Ot 345.90 09/29/2015 EDOUARD, HIL S VESSEL OPERATOR Ot V58.69 09/29/2015 EDOUARDWIN S VESSEL OPERATOR Ot 153.9 09/29/2015 EDOUARD, HIL S VESSEL OPERATOR Ot 197.7 09/29/2015 EDOUARDWIN S VESSEL OPERATOR Ot 345.90 09/29/2015 EDOUARDWIN S VESSEL OPERATOR Ot V58.69 09/29/2015 EDOUARD [facility] S VESSEL OPERATOR Ot 153.9 09/29/2015 EDOUARD [facility] S VESSEL OPERATOR Ot 197.7 09/29/2015 EDOUARD [facility] S VESSEL OPERATOR Ot 345.90 09/29/2015 EDOUARD [facility] S VESSEL OPERATOR Ot V58.69 09/29/2015 EDOUARD [facility] S VESSEL OPERATOR Ot 153.9 09/29/2015 EDOUARD [facility] S VESSEL OPERATOR Ot 197.7 09/29/2015 EDOUARD [facility] S VESSEL OPERATOR Ot 345.90 09/29/2015 EDOUARD [facility] S VESSEL OPERATOR Ot V58.69 09/29/2015 EDOUARD, [facility] S VESSEL OPERATOR Ot 153.9 09/29/2015 EDOUARD [facility] S VESSEL OPERATOR Ot 197.7 09/29/2015 EDOUARDMADDY Matthews S VESSEL OPERATOR Ot 345.90 09/29/2015 EDOUARDMADDY Matthews S VESSEL OPERATOR Ot V58.69 09/29/2015 EDOUARDMADDY Matthews S VESSEL OPERATOR Ot 786.05 09/29/2015 EDOUARDMADDY Matthews S VESSEL OPERATOR Ot 786.2 09/29/2015 EDOUARDMADDY S VESSEL OPERATOR Ot 153.9 09/29/2015 EDOUARDWIN S VESSEL OPERATOR Ot 197.7 09/29/2015 EDOUARDWIN S VESSEL OPERATOR Ot 345.90 09/29/2015 EDOUARDMADDY S VESSEL OPERATOR Ot 528.9 09/29/2015 EDOUARD [facility] S VESSEL OPERATOR Ot V58.69 09/29/2015 MADDY EDOUARD S VESSEL OPERATOR Ot V87.41 09/29/2015 EDOUARDMADDY Matthews S VESSEL OPERATOR Ot 153.9 09/29/2015 EDOUARDWIN S VESSEL OPERATOR Ot 197.7 09/29/2015 EDOUARD, HIL S VESSEL OPERATOR Ot 305.1 09/29/2015 EDOUARDMADDY Matthews S VESSEL OPERATOR Ot 345.90 09/29/2015 EDOUARDMADDY Matthews S VESSEL OPERATOR Ot V58.69 09/29/2015 EDOUARDMADDY Matthews S VESSEL OPERATOR Ot 153.9 09/29/2015 EDOUARDMADDY Matthews S VESSEL OPERATOR Ot 197.7 09/29/2015 EDOUARDMADDY Matthews S VESSEL OPERATOR Ot 305.1 09/29/2015 EDOUARDMADDY S VESSEL OPERATOR Ot 345.90 09/29/2015 EDOUARDMADDY S VESSEL OPERATOR Ot V58.69 09/29/2015 EDOUARDMADYD S VESSEL OPERATOR Ot 153.9 09/29/2015 EDOUARDWIN S VESSEL OPERATOR Ot 197.7 09/29/2015 EDOUARD [facility] S VESSEL OPERATOR Ot 305.1 09/29/2015 EDOUARD [facility] S VESSEL OPERATOR Ot 345.90 09/29/2015 EDOUARDMADDY S VESSEL OPERATOR Ot V58.69 09/29/2015 EDOUARDWIN S VESSEL OPERATOR Ot 153.9 09/29/2015 EDOUARDWIN S VESSEL OPERATOR Ot 197.7 09/29/2015 EDOUARD [facility] S VESSEL OPERATOR Ot 345.90 09/29/2015 EDOUARDMADDY S VESSEL OPERATOR Ot V58.69 09/29/2015 CHAYITO ROBLEDO Ot 153.9 09/29/2015 JOSE BURR, NADJA Ot 153.9 09/29/2015 JOSE BURR, NADJA Ot 197.7 09/29/2015 JOSE BURR, NADJA Ot 345.90 09/29/2015 JOSE BURR, NADJA Ot V58.69 09/29/2015 EDOUARD, HILAH S VESSEL OPERATOR Ot 153.9 09/29/2015 EDOUARD, HILAH S VESSEL OPERATOR Ot 197.7 09/29/2015 EDOUARD, HILAH S VESSEL OPERATOR Ot 345.90 09/29/2015 EDOUARD, HILAH S VESSEL OPERATOR Ot V58.69 09/29/2015 EDOUARD, HILAH S VESSEL OPERATOR Ot 153.9 09/29/2015 EDOUARD, HILAH S VESSEL OPERATOR Ot 197.7 09/29/2015 EDOUARD, HILAH S VESSEL OPERATOR Ot 345.90 09/29/2015 EDOUARD, HILLINH S VESSEL OPERATOR Ot V58.69 09/29/2015 EDOUARD, HILAH S VESSEL OPERATOR Ot 153.9 09/29/2015 EDOUARD, MADDY S VESSEL OPERATOR Ot 197.7 09/29/2015 ISAIAS BURR, RENATE Pierson Ot I25.10 09/29/2015 ISAIAS BURR, RENATE Pierson Ot J44.9 09/29/2015 ISAIAS BURR, RENATE Pierson Ot M47.812 09/29/2015 EDOUARD, MADDY S VESSEL OPERATOR Ot C18.9 09/29/2015 EDOUARD, MADDY S VESSEL OPERATOR Ot C78.7 09/29/2015 EDOUARD, HILLINH S VESSEL OPERATOR Ot Z92.21 09/29/2015 ANGELO BURR, [place] Warner Ot M25.511 09/29/2015 EDOUARD, HILAH S VESSEL OPERATOR Ot C18.9 09/29/2015 EDOUARD, HILAH S VESSEL OPERATOR Ot C78.7 09/29/2015 EDOUARD, HILAH S VESSEL OPERATOR Ot Z92.21 09/29/2015 EDOUARD, HILAH S VESSEL OPERATOR Ot C18.9 09/29/2015 EDOUARD, HILAH S VESSEL OPERATOR Ot C78.7 09/29/2015 EDOUARD, HILAH S VESSEL OPERATOR Ot Z92.21 09/29/2015 EDOUARD, HILAH S VESSEL OPERATOR Ot C18.9 09/29/2015 EDOUARD, HILAH S VESSEL OPERATOR Ot C78.7 09/29/2015 EDOUARD, HILAH S VESSEL OPERATOR Ot Z92.21 09/29/2015 MEENA, BOBAN N Ot C18.9 09/29/2015 MEENA, BOBAN N Ot C78.7 09/29/2015 MEENA, BOBAN N Ot Z51.11 09/29/2015 EDOUARD, HILAH S VESSEL OPERATOR Ot C18.9 09/29/2015 EDOUARD, HILAH S VESSEL OPERATOR Ot C78.7 09/29/2015 EDOUARD, HILAH S VESSEL OPERATOR Ot Z92.21 10/08/2015 MEENA, BOBAN N Ot C18.2 10/08/2015 MEENA, BOBAN N Ot C78.7 10/15/2015 MEENA, BOBAN N Ot C18.9 10/15/2015 MEENA, BOBAN N Ot C78.7 10/15/2015 MEENA, BOBAN N Ot Z51.11 10/19/2015 MEENA, BOBAN N Ot C18.9 10/19/2015 MEENA, BOBAN N Ot C78.7 10/19/2015 MEENA, BOBAN N Ot Z51.11 10/30/2015 MEENA, BOBAN N Ot C18.9 10/30/2015 MEENA, BOBAN N Ot C78.7 10/30/2015 MEENA, BOBAN N Ot Z51.11 11/02/2015 EDOUARD, WINAH S VESSEL OPERATOR Ot C18.2 11/02/2015 EDOUARD, HILAH S VESSEL OPERATOR Ot C78.7 11/03/2015 EDOUARD, HILAH S VESSEL OPERATOR Ot C18.2 11/03/2015 EDOUARD, HILAH S VESSEL OPERATOR Ot C78.7 11/03/2015 MEENA, BOBAN N Ot C18.9 11/03/2015 MEENA, BOBAN N Ot C78.7 11/03/2015 MEENA, BOBAN N Ot Z51.11 11/08/2015 EDOUARD, HILAH S VESSEL OPERATOR Ot C18.2 11/08/2015 EDOUARD, HILAH S VESSEL OPERATOR Ot C78.7 11/12/2015 MEENA, BOBAN N Ot C18.9 11/12/2015 MEENA, BOBAN N Ot C78.7 11/12/2015 MEENA, BOBAN N Ot Z51.11 11/13/2015 MADDY EDOUARD VESSEL OPERATOR Ot R26.9 11/16/2015 MADDY EDOUARD VESSEL OPERATOR Ot C18.2 11/16/2015 MADDY EDOUARD S VESSEL OPERATOR Ot C78.7 11/22/2015 MEENACHAYITO RAMOS N Ot C18.2 MALIGNANT NEOPLASM OF ASCENDING COLON 11/22/2015 MEENACHAYITO RAMOS N Ot C18.9 11/22/2015 MEENACHAYITO RAMOS N Ot C78.7 SECONDARY MALIG NEOPLASM OF LIVER AND IN 11/22/2015 MEENACHAYITO RAMOS N Ot Z51.11 ENCOUNTER FOR ANTINEOPLASTIC CHEMOTHERAP 11/24/2015 MEENA, BOBAN N Ot C18.2 11/24/2015 MEENA, BOBAN N Ot C78.7 11/24/2015 MEENA BOBAN N Ot Z51.11 11/24/2015 MEENA, BOBAN N Ot C18.2 11/24/2015 MEENA BOBAN N Ot C78.7 11/24/2015 MEENA, BOBAN N Ot Z51.11 11/25/2015 MADDY EDOUARD S VESSEL OPERATOR Ot C18.2 11/25/2015 MADDY EDOUARD VESSEL OPERATOR Ot C78.7 11/25/2015 MADDY EDOUARD VESSEL OPERATOR Ot R26.9 12/02/2015 MEENA, BOBAN N Ot C18.9 12/02/2015 MEENA, BOBAN N Ot C78.7 12/02/2015 MEENAGARO RAMOSAN N Ot Z51.11 12/16/2015 MEENACHAYITO RAMOS N Ot C18.9 MALIGNANT NEOPLASM OF COLON, UNSPECIFIED 12/16/2015 MEENACHAYITO RAMOS N Ot C78.7 SECONDARY MALIG NEOPLASM OF LIVER AND IN 12/16/2015 GARO ROBLEDOAN N Ot Z51.11 ENCOUNTER FOR ANTINEOPLASTIC CHEMOTHERAP 12/16/2015 MEENA, GAROAN N Ot C18.9 MALIGNANT NEOPLASM OF COLON, UNSPECIFIED 12/16/2015 MEENA, BOBAN N Ot C78.7 SECONDARY MALIG NEOPLASM OF LIVER AND IN 12/16/2015 MEENAGARO RAMOSAN N Ot Z51.11 ENCOUNTER FOR ANTINEOPLASTIC CHEMOTHERAP 01/07/2016 MADDY EDOUARD S VESSEL OPERATOR Ot C18.2 MALIGNANT NEOPLASM OF ASCENDING COLON 01/07/2016 MADDY EDOUARD S VESSEL OPERATOR Ot C78.7 SECONDARY MALIG NEOPLASM OF LIVER AND IN 01/07/2016 MADDY EDOUARD S VESSEL OPERATOR Ot Z92.21 PERSONAL HISTORY OF ANTINEOPLASTIC CHEMO 01/13/2016 CHAYITO ROBLEDO N Ot C18.9 MALIGNANT NEOPLASM OF COLON, UNSPECIFIED 01/13/2016 MEENA GAROENRIKE N Ot C78.7 SECONDARY MALIG NEOPLASM OF LIVER AND IN 01/13/2016 MEENAGAROENRIKE N Ot Z51.11 ENCOUNTER FOR ANTINEOPLASTIC CHEMOTHERAP 01/14/2016 ANGELO BURR, [place] A Ot E78.5 HYPERLIPIDEMIA, UNSPECIFIED 01/20/2016 MADDY EDOUARD S VESSEL OPERATOR Ot C18.2 MALIGNANT NEOPLASM OF ASCENDING COLON 01/20/2016 MADDY EDOUARD S VESSEL OPERATOR Ot C78.7 SECONDARY MALIG NEOPLASM OF LIVER AND IN 01/20/2016 MADDY EDOUARD S VESSEL OPERATOR Ot Z92.21 PERSONAL HISTORY OF ANTINEOPLASTIC CHEMO 02/05/2016 INDIA STEPHENS MD Ot E78.5 HYPERLIPIDEMIA, UNSPECIFIED 02/08/2016 MADDY EDOUARD S VESSEL OPERATOR Ot C18.2 MALIGNANT NEOPLASM OF ASCENDING COLON 02/08/2016 MADDY EDOUARD VESSEL OPERATOR Ot C78.7 SECONDARY MALIG NEOPLASM OF LIVER AND IN 02/08/2016 MADDY EDOUARD S VESSEL OPERATOR Ot Z92.21 PERSONAL HISTORY OF ANTINEOPLASTIC CHEMO 02/10/2016 MEENA GAROENRIKE N Ot C18.2 MALIGNANT NEOPLASM OF ASCENDING COLON 02/10/2016 MEENA GAROENRIKE N Ot C78.7 SECONDARY MALIG NEOPLASM OF LIVER AND IN 02/10/2016 MEENAGAROENRIKE N Ot Z51.11 ENCOUNTER FOR ANTINEOPLASTIC CHEMOTHERAP 02/15/2016 MEENA GAROENRIKE N Ot C18.2 MALIGNANT NEOPLASM OF ASCENDING COLON 02/15/2016 MEENA GAROENRIKE N Ot C78.7 SECONDARY MALIG NEOPLASM OF LIVER AND IN 02/15/2016 CHAYITO ROBLEDO N Ot Z51.11 ENCOUNTER FOR ANTINEOPLASTIC CHEMOTHERAP 02/16/2016 MADDY EDOUARD S VESSEL OPERATOR Ot C18.2 MALIGNANT NEOPLASM OF ASCENDING COLON 02/16/2016 MADDY EDOUARD S VESSEL OPERATOR Ot C78.7 SECONDARY MALIG NEOPLASM OF LIVER AND IN 02/16/2016 MADDY EDOUARD S VESSEL OPERATOR Ot Z92.21 PERSONAL HISTORY OF ANTINEOPLASTIC CHEMO 02/23/2016 CHAYITO ROBLEDO N Ot C18.2 MALIGNANT NEOPLASM OF ASCENDING COLON 02/23/2016 CHAYITO ROBLEDO N Ot C78.7 SECONDARY MALIG NEOPLASM OF LIVER AND IN 02/23/2016 CHAYITO ROBLEDO N Ot Z51.11 ENCOUNTER FOR ANTINEOPLASTIC CHEMOTHERAP 02/25/2016 CHAYITO ROBLEDO N Ot C18.2 MALIGNANT NEOPLASM OF ASCENDING COLON 02/25/2016 CHAYITO ROBLEDO N Ot C78.7 SECONDARY MALIG NEOPLASM OF LIVER AND IN 02/25/2016 CHAYITO ROBLEDO N Ot Z51.11 ENCOUNTER FOR ANTINEOPLASTIC CHEMOTHERAP 03/03/2016 MADDY EDOUARD S VESSEL OPERATOR Ot 153.9 MALIGNANT HERNÁN COLON NOS 03/03/2016 MADDY EDOUARD S VESSEL OPERATOR Ot 197.7 SECOND MALIG HERNÁN LIVER 03/03/2016 MADDY EDOUARD S VESSEL OPERATOR Ot 345.90 EPILEPSY UNSPEC W/O MENTION INTRACTABLE 03/03/2016 MADDY EDOUARD VESSEL OPERATOR Ot V58.69 OT MED,LT,CURRENT USE 03/03/2016 MADDY EDOUARD S VESSEL OPERATOR Ot C18.2 MALIGNANT NEOPLASM OF ASCENDING COLON 03/03/2016 MADDY EDOUARD S VESSEL OPERATOR Ot C78.7 SECONDARY MALIG NEOPLASM OF LIVER AND IN 03/03/2016 MADDY EDOUARD S VESSEL OPERATOR Ot Z92.21 PERSONAL HISTORY OF ANTINEOPLASTIC CHEMO 03/15/2016 MADDY EDOUARD S VESSEL OPERATOR Ot C18.2 MALIGNANT NEOPLASM OF ASCENDING COLON 03/15/2016 MADDY EDOUARD S VESSEL OPERATOR Ot C78.7 SECONDARY MALIG NEOPLASM OF LIVER AND IN 03/15/2016 MADDY EDOUARD S VESSEL OPERATOR Ot Z92.21 PERSONAL HISTORY OF ANTINEOPLASTIC CHEMO 03/28/2016 CHAYITO ROBLEDO N Ot C18.2 MALIGNANT NEOPLASM OF ASCENDING COLON 03/28/2016 CHAYITO ROBLEDO N Ot C78.7 SECONDARY MALIG NEOPLASM OF LIVER AND IN 03/28/2016 CHAYITO ROBLEDO N Ot Z51.11 ENCOUNTER FOR ANTINEOPLASTIC CHEMOTHERAP 03/29/2016 MADDY EDOUARD S VESSEL OPERATOR Ot C18.2 MALIGNANT NEOPLASM OF ASCENDING COLON 03/29/2016 MADDY EDOUARD S VESSEL OPERATOR Ot C78.7 SECONDARY MALIG NEOPLASM OF LIVER AND IN 03/29/2016 MADDY EDOUARD S VESSEL OPERATOR Ot Z92.21 PERSONAL HISTORY OF ANTINEOPLASTIC CHEMO 04/01/2016 CHAYITO ROBLEDO N Ot C18.2 MALIGNANT NEOPLASM OF ASCENDING COLON 04/01/2016 MEENA GAROENRIKE N Ot C78.7 SECONDARY MALIG NEOPLASM OF LIVER AND IN 04/01/2016 MEENA CHAYITO N Ot Z51.11 ENCOUNTER FOR ANTINEOPLASTIC CHEMOTHERAP 04/11/2016 MADDY EDOUARD S VESSEL OPERATOR Ot C18.2 MALIGNANT NEOPLASM OF ASCENDING COLON 04/11/2016 MADDY EDOUARD S VESSEL OPERATOR Ot C78.7 SECONDARY MALIG NEOPLASM OF LIVER AND IN 04/11/2016 MEENA CHAYITO N Ot C18.2 MALIGNANT NEOPLASM OF ASCENDING COLON 04/11/2016 MEENACHAYITO N Ot C78.7 SECONDARY MALIG NEOPLASM OF LIVER AND IN 04/11/2016 MEENACHAYITO N Ot Z51.11 ENCOUNTER FOR ANTINEOPLASTIC CHEMOTHERAP 04/11/2016 MADDY EDOUARD S VESSEL OPERATOR Ot C18.2 MALIGNANT NEOPLASM OF ASCENDING COLON 04/11/2016 MADDY EDOUARD S VESSEL OPERATOR Ot C78.7 SECONDARY MALIG NEOPLASM OF LIVER AND IN 04/11/2016 MADDY EDOUARD S VESSEL OPERATOR Ot Z92.21 PERSONAL HISTORY OF ANTINEOPLASTIC CHEMO 04/19/2016 MADDY EDOUARD S VESSEL OPERATOR Ot C18.2 MALIGNANT NEOPLASM OF ASCENDING COLON 04/19/2016 MADDY EDOUARD S VESSEL OPERATOR Ot C78.7 SECONDARY MALIG NEOPLASM OF LIVER AND IN 05/18/2016 MEENA CHAYITO N Ot C18.2 MALIGNANT NEOPLASM OF ASCENDING COLON 05/18/2016 MEENACHAYITO N Ot C78.7 SECONDARY MALIG NEOPLASM OF LIVER AND IN 05/18/2016 MEENA, CHAYITO N Ot Z51.11 ENCOUNTER FOR ANTINEOPLASTIC CHEMOTHERAP 05/23/2016 MEENA CHAYITO N Ot C18.2 MALIGNANT NEOPLASM OF ASCENDING COLON 05/23/2016 MEENA, CHAYITO N Ot C78.7 SECONDARY MALIG NEOPLASM OF LIVER AND IN 05/23/2016 MEENACHAYITO N Ot Z51.11 ENCOUNTER FOR ANTINEOPLASTIC CHEMOTHERAP 06/13/2016 MEENA CHAYITO N Ot C18.2 MALIGNANT NEOPLASM OF ASCENDING COLON 06/13/2016 MEENACHAYITO N Ot C78.7 SECONDARY MALIG NEOPLASM OF LIVER AND IN 06/13/2016 CHAYITO ROBLEDO Ot Z51.11 ENCOUNTER FOR ANTINEOPLASTIC CHEMOTHERAP 06/21/2016 Ot 153.9 MALIGNANT HERNÁN COLON NOS 06/21/2016 Ot 197.7 SECOND MALIG HERNÁN LIVER 06/21/2016 CHAYITO ROBLEDO Ot 359.0 CAROLYN HERED MUSC DYSTRPHY 06/21/2016 EDOUARDMADDY Matthews S VESSEL OPERATOR Ot 153.9 MALIGNANT HERNÁN COLON NOS 06/21/2016 EDOUARDWINAH S VESSEL OPERATOR Ot 197.7 SECOND MALIG HERNÁN LIVER 06/21/2016 EDOUARD HILAH S VESSEL OPERATOR Ot 345.90 EPILEPSY UNSPEC W/O MENTION INTRACTABLE 06/21/2016 EDOUARDWINAH S VESSEL OPERATOR Ot V58.69 OTH MED,LT,CURRENT USE 06/21/2016 EDOUARD HILAH S VESSEL OPERATOR Ot 153.9 MALIGNANT HERNÁN COLON NOS 06/21/2016 EDOUARD, HILAH S VESSEL OPERATOR Ot 197.7 SECOND MALIG HERNÁN LIVER 06/21/2016 EDOUARD, HILAH S VESSEL OPERATOR Ot 345.90 EPILEPSY UNSPEC W/O MENTION INTRACTABLE 06/21/2016 EDOUARDWINAH S VESSEL OPERATOR Ot V58.69 OTH MED,LT,CURRENT USE 06/21/2016 EDOUARD HILAH S VESSEL OPERATOR Ot 153.9 MALIGNANT HERNÁN COLON NOS 06/21/2016 EDOUARD HILAH S VESSEL OPERATOR Ot 197.7 SECOND MALIG HERNÁN LIVER 06/21/2016 EDOUARD, HILAH S VESSEL OPERATOR Ot 345.90 EPILEPSY UNSPEC W/O MENTION INTRACTABLE 06/21/2016 EDOUARDWINAH S VESSEL OPERATOR Ot V58.69 OTH MED,LT,CURRENT USE 06/21/2016 CHAYITO ROBLEDO Ot 153.9 MALIGNANT HERNÁN COLON NOS 06/21/2016 EDOUARD HILAH S VESSEL OPERATOR Ot 153.9 MALIGNANT HERNÁN COLON NOS 06/21/2016 EDOUARD HILAH S VESSEL OPERATOR Ot 197.7 SECOND MALIG HERNÁN LIVER 06/21/2016 EDOUARD, HILAH S VESSEL OPERATOR Ot 345.90 EPILEPSY UNSPEC W/O MENTION INTRACTABLE 06/21/2016 EDOUARD, HILAH S VESSEL OPERATOR Ot V58.69 OTH MED,LT,CURRENT USE 06/21/2016 EDOUARD HILAH S VESSEL OPERATOR Ot 153.9 MALIGNANT HERNÁN COLON NOS 06/21/2016 EDOUARD HILAH S VESSEL OPERATOR Ot 197.7 SECOND MALIG HERNÁN LIVER 06/21/2016 MADDY EDOUARD S VESSEL OPERATOR Ot 345.90 EPILEPSY UNSPEC W/O MENTION INTRACTABLE 06/21/2016 MADDY EDOUARD VESSEL OPERATOR Ot V58.69 OTH MED,LT,CURRENT USE 06/21/2016 MADDY EDOUARD S VESSEL OPERATOR Ot 153.9 MALIGNANT HERNÁN COLON NOS 06/21/2016 MADDY EDOUARD S VESSEL OPERATOR Ot 197.7 SECOND MALIG HERNÁN LIVER 06/21/2016 EDOUARDMADDY Matthews S VESSEL OPERATOR Ot 345.90 EPILEPSY UNSPEC W/O MENTION INTRACTABLE 06/21/2016 MADDY EDOUARD S VESSEL OPERATOR Ot V58.69 OTH MED,LT,CURRENT USE 06/21/2016 MADDY EDOUARD S VESSEL OPERATOR Ot 153.9 MALIGNANT HERNÁN COLON NOS 06/21/2016 MADDY EDOUARD S VESSEL OPERATOR Ot 197.7 SECOND MALIG HERNÁN LIVER 06/21/2016 MADDY EDOUARD S VESSEL OPERATOR Ot 345.90 EPILEPSY UNSPEC W/O MENTION INTRACTABLE 06/21/2016 MADDY EDOUARD VESSEL OPERATOR Ot V58.69 OTH MED,LT,CURRENT USE 06/21/2016 MADDY EDOUARD S VESSEL OPERATOR Ot 153.9 MALIGNANT HERNÁN COLON NOS 06/21/2016 MADDY EDOUARD S VESSEL OPERATOR Ot 197.7 SECOND MALIG HERNÁN LIVER 06/21/2016 MADDY EDOUARD S VESSEL OPERATOR Ot 345.90 EPILEPSY UNSPEC W/O MENTION INTRACTABLE 06/21/2016 MADDY EDOUARD VESSEL OPERATOR Ot V58.69 OTH MED,LT,CURRENT USE 06/21/2016 MADDY EDOUARD VESSEL OPERATOR Ot 153.9 MALIGNANT HERNÁN COLON NOS 06/21/2016 MADDY EDOUARD S VESSEL OPERATOR Ot 197.7 SECOND MALIG HERNÁN LIVER 06/21/2016 MADDY EDOUARD S VESSEL OPERATOR Ot 345.90 EPILEPSY UNSPEC W/O MENTION INTRACTABLE 06/21/2016 MADDY EDOUARD S VESSEL OPERATOR Ot V58.69 OTH MED,LT,CURRENT USE 06/21/2016 MADDY EDOUARD S VESSEL OPERATOR Ot 153.9 MALIGNANT HERNÁN COLON NOS 06/21/2016 MADDY EDOUARD S VESSEL OPERATOR Ot 197.7 SECOND MALIG HERNÁN LIVER 06/21/2016 EDOUARDWINAH S VESSEL OPERATOR Ot 345.90 EPILEPSY UNSPEC W/O MENTION INTRACTABLE 06/21/2016 MADDY EDOUARD S VESSEL OPERATOR Ot V58.69 OTH MED,LT,CURRENT USE 06/21/2016 CHAYITO ROBLEDO Ellis Ot 153.9 MALIGNANT HERNÁN COLON NOS 06/21/2016 EDOUARDMADDY Matthews S VESSEL OPERATOR Ot 153.9 MALIGNANT HERNÁN COLON NOS 06/21/2016 MADDY EDOUARD S VESSEL OPERATOR Ot 197.7 SECOND MALIG HERNÁN LIVER 06/21/2016 EDOUARD, HILAH S VESSEL OPERATOR Ot 345.90 EPILEPSY UNSPEC W/O MENTION INTRACTABLE 06/21/2016 MADDY EDOUARD S VESSEL OPERATOR Ot V58.69 OTH MED,LT,CURRENT USE 06/21/2016 MADDY EDOUARD S VESSEL OPERATOR Ot 153.9 MALIGNANT HERNÁN COLON NOS 06/21/2016 EDOUARDMADDY Matthews S VESSEL OPERATOR Ot 197.7 SECOND MALIG HERNÁN LIVER 06/21/2016 MADDY EDOUARD S VESSEL OPERATOR Ot 345.90 EPILEPSY UNSPEC W/O MENTION INTRACTABLE 06/21/2016 MADDY EDOUARD S VESSEL OPERATOR Ot V58.69 OTH MED,LT,CURRENT USE 06/21/2016 MADDY EDOUARD S VESSEL OPERATOR Ot 153.9 MALIGNANT HERNÁN COLON NOS 06/21/2016 MADDY EDOUARD S VESSEL OPERATOR Ot 197.7 SECOND MALIG HERNÁN LIVER 06/21/2016 MADDY EDOUARD S VESSEL OPERATOR Ot 345.90 EPILEPSY UNSPEC W/O MENTION INTRACTABLE 06/21/2016 MADDY EDOUARD VESSEL OPERATOR Ot V58.69 OTH MED,LT,CURRENT USE 06/21/2016 MADDY EDOUARD VESSEL OPERATOR Ot 153.9 MALIGNANT HERNÁN COLON NOS 06/21/2016 MADDY EDOUARD S VESSEL OPERATOR Ot 197.7 SECOND MALIG HERNÁN LIVER 06/21/2016 MADDY EDOUARD S VESSEL OPERATOR Ot 345.90 EPILEPSY UNSPEC W/O MENTION INTRACTABLE 06/21/2016 MADDY EDOUARD S VESSEL OPERATOR Ot V58.69 OTH MED,LT,CURRENT USE 06/21/2016 MADDY EDOUARD S VESSEL OPERATOR Ot 153.9 MALIGNANT HERNÁN COLON NOS 06/21/2016 EDOUARDMADDY Matthews S VESSEL OPERATOR Ot 197.7 SECOND MALIG HERNÁN LIVER 06/21/2016 EDOUARDMADDY Matthews S VESSEL OPERATOR Ot 345.90 EPILEPSY UNSPEC W/O MENTION INTRACTABLE 06/21/2016 MADDY EDOUARD S VESSEL OPERATOR Ot V58.69 OTH MED,LT,CURRENT USE 06/21/2016 MADDY EDOUARD VESSEL OPERATOR Ot 786.05 SHORTNESS OF BREATH 06/21/2016 MADDY EDOUARD VESSEL OPERATOR Ot 786.2 COUGH 06/21/2016 MADDY EDOUARD S VESSEL OPERATOR Ot 153.9 MALIGNANT HERNÁN COLON NOS 06/21/2016 MADDY EDOUARD S VESSEL OPERATOR Ot 197.7 SECOND MALIG HERNÁN LIVER 06/21/2016 MADDY EDOUARD S VESSEL OPERATOR Ot 345.90 EPILEPSY UNSPEC W/O MENTION INTRACTABLE 06/21/2016 MADDY EDOUARD VESSEL OPERATOR Ot 528.9 ORAL SOFT TISSUE DIS NEC 06/21/2016 MADDY EDOUARD VESSEL OPERATOR Ot V58.69 OTH MED,LT,CURRENT USE 06/21/2016 MADDY EDOUARD VESSEL OPERATOR Ot V87.41 PERSONAL HISTORY OF ANTINEOPLASTIC CHEMO 06/21/2016 MADDY EDOUARD S VESSEL OPERATOR Ot 153.9 MALIGNANT HERNÁN COLON NOS 06/21/2016 MADDY EDOUARD S VESSEL OPERATOR Ot 197.7 SECOND MALIG HERNÁN LIVER 06/21/2016 MADDY EDOUARD S VESSEL OPERATOR Ot 305.1 TOBACCO USE DISORDER 06/21/2016 MADDY EDOUARD S VESSEL OPERATOR Ot 345.90 EPILEPSY UNSPEC W/O MENTION INTRACTABLE 06/21/2016 MADDY EDOUARD S VESSEL OPERATOR Ot V58.69 OTH MED,LT,CURRENT USE 06/21/2016 MADDY EDOUARD S VESSEL OPERATOR Ot 153.9 MALIGNANT HERNÁN COLON NOS 06/21/2016 MADDY EDOUARD S VESSEL OPERATOR Ot 197.7 SECOND MALIG HERNÁN LIVER 06/21/2016 MADDY EDOUARD S VESSEL OPERATOR Ot 305.1 TOBACCO USE DISORDER 06/21/2016 MADDY EDOUARD S VESSEL OPERATOR Ot 345.90 EPILEPSY UNSPEC W/O MENTION INTRACTABLE 06/21/2016 MADDY EDOUARD S VESSEL OPERATOR Ot V58.69 OTH MED,LT,CURRENT USE 06/21/2016 MADDY EDOUARD S VESSEL OPERATOR Ot 153.9 MALIGNANT HERNÁN COLON NOS 06/21/2016 MADDY EDOUARD S VESSEL OPERATOR Ot 197.7 SECOND MALIG HERNÁN LIVER 06/21/2016 WIN EDOUARDAH S VESSEL OPERATOR Ot 305.1 TOBACCO USE DISORDER 06/21/2016 MADDY EDOUARD S VESSEL OPERATOR Ot 345.90 EPILEPSY UNSPEC W/O MENTION INTRACTABLE 06/21/2016 EDOUARD, HILAH S VESSEL OPERATOR Ot V58.69 OTH MED,LT,CURRENT USE 06/21/2016 EDOUARDWINAH S VESSEL OPERATOR Ot 153.9 MALIGNANT HERNÁN COLON NOS 06/21/2016 EDOUARDWINAH S VESSEL OPERATOR Ot 197.7 SECOND MALIG HERNÁN LIVER 06/21/2016 EDOUARD HILAH S VESSEL OPERATOR Ot 345.90 EPILEPSY UNSPEC W/O MENTION INTRACTABLE 06/21/2016 EDOUARDMADDY S VESSEL OPERATOR Ot V58.69 OTH MED,LT,CURRENT USE 06/21/2016 CHAYITO ROBLEDO Ot 153.9 MALIGNANT HERNÁN COLON NOS 06/21/2016 JOSE BURR, NADJA Ot 153.9 MALIGNANT HERNÁN COLON NOS 06/21/2016 JOSE BURR, NADJA Ot 197.7 SECOND MALIG HERNÁN LIVER 06/21/2016 JOSE BURR, NADJA Ot 345.90 EPILEPSY UNSPEC W/O MENTION INTRACTABLE 06/21/2016 JOSE BURR, NADJA Ot V58.69 OTH MED,LT,CURRENT USE 06/21/2016 MADDY EDOUARD S VESSEL OPERATOR Ot 153.9 MALIGNANT HERNÁN COLON NOS 06/21/2016 EDOUARDWINAH S VESSEL OPERATOR Ot 197.7 SECOND MALIG HERNÁN LIVER 06/21/2016 EDOUARD HILAH S VESSEL OPERATOR Ot 345.90 EPILEPSY UNSPEC W/O MENTION INTRACTABLE 06/21/2016 EDOUARDMADDY S VESSEL OPERATOR Ot V58.69 OTH MED,LT,CURRENT USE 06/21/2016 EDOUARDMADDY S VESSEL OPERATOR Ot 153.9 MALIGNANT HERNÁN COLON NOS 06/21/2016 EDOUARDWINAH S VESSEL OPERATOR Ot 197.7 SECOND MALIG HERNÁN LIVER 06/21/2016 EDOUARDWINAH S VESSEL OPERATOR Ot 345.90 EPILEPSY UNSPEC W/O MENTION INTRACTABLE 06/21/2016 EDOUARDMADDY S VESSEL OPERATOR Ot V58.69 OTH MED,LT,CURRENT USE 06/21/2016 EDOUARDMADDY S VESSEL OPERATOR Ot 153.9 MALIGNANT HERNÁN COLON NOS 06/21/2016 EDOUARDMADDY Matthews S VESSEL OPERATOR Ot 197.7 SECOND MALIG HERNÁN LIVER 06/21/2016 RENATE ESPARZA MD Ot I25.10 ATHSCL HEART DISEASE OF [place] CORONARY 06/21/2016 RENATE ESPARZA MD Ot J44.9 CHRONIC OBSTRUCTIVE PULMONARY DISEASE, U 06/21/2016 RENATE ESPARZA MD Ot M47.812 SPONDYLOSIS W/O MYELOPATHY OR RADICULOPA 06/21/2016 MADDY EDOUARD VESSEL OPERATOR Ot C18.9 MALIGNANT NEOPLASM OF COLON, UNSPECIFIED 06/21/2016 MADDY EDOUARD S VESSEL OPERATOR Ot C78.7 SECONDARY MALIG NEOPLASM OF LIVER AND IN 06/21/2016 MADDY EDOUARD S VESSEL OPERATOR Ot Z92.21 PERSONAL HISTORY OF ANTINEOPLASTIC CHEMO 06/21/2016 ANGELO BURR, [place] Warner Ot M25.511 PAIN IN RIGHT SHOULDER 06/21/2016 MADDY EDOUARD S VESSEL OPERATOR Ot C18.9 MALIGNANT NEOPLASM OF COLON, UNSPECIFIED 06/21/2016 MADDY EDOUARD S VESSEL OPERATOR Ot C78.7 SECONDARY MALIG NEOPLASM OF LIVER AND IN 06/21/2016 MADDY EDOUARD S VESSEL OPERATOR Ot Z92.21 PERSONAL HISTORY OF ANTINEOPLASTIC CHEMO 06/21/2016 MADDY EDOUARD S VESSEL OPERATOR Ot C18.9 MALIGNANT NEOPLASM OF COLON, UNSPECIFIED 06/21/2016 MADDY EDOUARD S VESSEL OPERATOR Ot C78.7 SECONDARY MALIG NEOPLASM OF LIVER AND IN 06/21/2016 MADDY EDOUARD S VESSEL OPERATOR Ot Z92.21 PERSONAL HISTORY OF ANTINEOPLASTIC CHEMO 06/21/2016 MADDY EDOUARD S VESSEL OPERATOR Ot C18.9 MALIGNANT NEOPLASM OF COLON, UNSPECIFIED 06/21/2016 MADDY EODUARD S VESSEL OPERATOR Ot C78.7 SECONDARY MALIG NEOPLASM OF LIVER AND IN 06/21/2016 MADDY EDOUARD S VESSEL OPERATOR Ot Z92.21 PERSONAL HISTORY OF ANTINEOPLASTIC CHEMO 06/21/2016 MADDY EDOUARD S VESSEL OPERATOR Ot C18.9 MALIGNANT NEOPLASM OF COLON, UNSPECIFIED 06/21/2016 MADDY EDOUARD S VESSEL OPERATOR Ot C78.7 SECONDARY MALIG NEOPLASM OF LIVER AND IN 06/21/2016 MADDY EDOUARD S VESSEL OPERATOR Ot Z92.21 PERSONAL HISTORY OF ANTINEOPLASTIC CHEMO 06/21/2016 CHAYITO ROBLEDO N Ot C18.2 MALIGNANT NEOPLASM OF ASCENDING COLON 06/21/2016 MEENACHAYITO RAMOS N Ot C78.7 SECONDARY MALIG NEOPLASM OF LIVER AND IN 06/21/2016 MADDY EDOUARD S VESSEL OPERATOR Ot C18.2 MALIGNANT NEOPLASM OF ASCENDING COLON 06/21/2016 MADDY EDOUARD S VESSEL OPERATOR Ot C78.7 SECONDARY MALIG NEOPLASM OF LIVER AND IN 06/21/2016 WIN EDOUARDLINH S VESSEL OPERATOR Ot C18.2 MALIGNANT NEOPLASM OF ASCENDING COLON 06/21/2016 WIN EDOUARDLINH S VESSEL OPERATOR Ot C78.7 SECONDARY MALIG NEOPLASM OF LIVER AND IN 06/21/2016 EDOUARD MADDY S VESSEL OPERATOR Ot C18.2 MALIGNANT NEOPLASM OF ASCENDING COLON 06/21/2016 SILKE MADDY S VESSEL OPERATOR Ot C78.7 SECONDARY MALIG NEOPLASM OF LIVER AND IN 06/21/2016 WIN EDOUARDLINH S VESSEL OPERATOR Ot R26.9 UNSPECIFIED ABNORMALITIES OF GAIT AND MO 06/21/2016 WIN EDOUARDLINH S VESSEL OPERATOR Ot C18.2 MALIGNANT NEOPLASM OF ASCENDING COLON 06/21/2016 SILKE MADDY S VESSEL OPERATOR Ot C78.7 SECONDARY MALIG NEOPLASM OF LIVER AND IN 06/21/2016 MADDY EDOUARD S VESSEL OPERATOR Ot Z92.21 PERSONAL HISTORY OF ANTINEOPLASTIC CHEMO 06/21/2016 ANGELO BURR, [place] Ot E78.5 HYPERLIPIDEMIA, UNSPECIFIED 06/21/2016 WIN EDOUARDLINH S VESSEL OPERATOR Ot C18.2 MALIGNANT NEOPLASM OF ASCENDING COLON 06/21/2016 WIN EDOUARDLINH S VESSEL OPERATOR Ot C78.7 SECONDARY MALIG NEOPLASM OF LIVER AND IN 06/21/2016 WIN EDOUARDLINH S VESSEL OPERATOR Ot Z92.21 PERSONAL HISTORY OF ANTINEOPLASTIC CHEMO 06/21/2016 MADDY EDOUARD S VESSEL OPERATOR Ot C18.2 MALIGNANT NEOPLASM OF ASCENDING COLON 06/21/2016 WIN EDOUARDLINH S VESSEL OPERATOR Ot C78.7 SECONDARY MALIG NEOPLASM OF LIVER AND IN 06/21/2016 MADDY EDOUARD S VESSEL OPERATOR Ot Z92.21 PERSONAL HISTORY OF ANTINEOPLASTIC CHEMO 06/21/2016 WIN EDOUARDLINH S VESSEL OPERATOR Ot C18.2 MALIGNANT NEOPLASM OF ASCENDING COLON 06/21/2016 WIN EDOUARDLINH S VESSEL OPERATOR Ot C78.7 SECONDARY MALIG NEOPLASM OF LIVER AND IN 06/21/2016 WIN EDOUARDLINH S VESSEL OPERATOR Ot Z92.21 PERSONAL HISTORY OF ANTINEOPLASTIC CHEMO 06/21/2016 WIN EDOUARDLINH S VESSEL OPERATOR Ot C18.2 MALIGNANT NEOPLASM OF ASCENDING COLON 06/21/2016 MADDY EDOUARD S VESSEL OPERATOR Ot C78.7 SECONDARY MALIG NEOPLASM OF LIVER AND IN 06/21/2016 CHAYITO ROBLEDO Ot C18.2 MALIGNANT NEOPLASM OF ASCENDING COLON 06/21/2016 MEENA CHAYITO N Ot C78.7 SECONDARY MALIG NEOPLASM OF LIVER AND IN 06/21/2016 MEENACHAYITO N Ot Z51.11 ENCOUNTER FOR ANTINEOPLASTIC CHEMOTHERAP 06/22/2016 EDOUARDMADDY S VESSEL OPERATOR Ot C18.9 MALIGNANT NEOPLASM OF COLON, UNSPECIFIED 06/22/2016 EDOUARDMADDY Matthews S VESSEL OPERATOR Ot C78.7 SECONDARY MALIG NEOPLASM OF LIVER AND IN 06/22/2016 EDOUARD HILAH S VESSEL OPERATOR Ot R91.8 OTHER NONSPECIFIC ABNORMAL FINDING OF [place] 06/23/2016 EDOUARD HILAH S VESSEL OPERATOR Ot C18.9 MALIGNANT NEOPLASM OF COLON, UNSPECIFIED 06/23/2016 EDOUARD HILAH S VESSEL OPERATOR Ot C78.7 SECONDARY MALIG NEOPLASM OF LIVER AND IN 06/23/2016 EDOUARD HILAH S VESSEL OPERATOR Ot R91.8 OTHER NONSPECIFIC ABNORMAL FINDING OF [place] 06/27/2016 MEENACHAYITO N Ot C18.2 MALIGNANT NEOPLASM OF ASCENDING COLON 06/27/2016 MEENACHAYITO N Ot C78.7 SECONDARY MALIG NEOPLASM OF LIVER AND IN 06/27/2016 CHAYITO ROBLEDO N Ot Z51.11 ENCOUNTER FOR ANTINEOPLASTIC CHEMOTHERAP 07/05/2016 EDOUARD HILAH S VESSEL OPERATOR Ot C18.9 MALIGNANT NEOPLASM OF COLON, UNSPECIFIED 07/05/2016 EDOUARD HILAH S VESSEL OPERATOR Ot C78.7 SECONDARY MALIG NEOPLASM OF LIVER AND IN 07/05/2016 EDOUARD, HILAH S VESSEL OPERATOR Ot R91.8 OTHER NONSPECIFIC ABNORMAL FINDING OF [place] 07/18/2016 MEENACHAYITO N Ot C18.2 MALIGNANT NEOPLASM OF ASCENDING COLON 07/18/2016 MEENACHAYITO N Ot C78.7 SECONDARY MALIG NEOPLASM OF LIVER AND IN 07/18/2016 MEENACHAYITO N Ot R91.8 OTHER NONSPECIFIC ABNORMAL FINDING OF [place] 07/18/2016 MEENACHAYITO N Ot Z51.11 ENCOUNTER FOR ANTINEOPLASTIC CHEMOTHERAP 08/21/2016 MEENACHAYITO N Ot C18.2 MALIGNANT NEOPLASM OF ASCENDING COLON 08/21/2016 MEENACHAYITO N Ot C78.7 SECONDARY MALIG NEOPLASM OF LIVER AND IN 08/21/2016 CHAYITO ROBLEDO N Ot R91.8 OTHER NONSPECIFIC ABNORMAL FINDING OF [place] 08/21/2016 CHAYITO ROBLEDO N Ot Z51.11 ENCOUNTER FOR ANTINEOPLASTIC CHEMOTHERAP 09/28/2016 CHAYITO ROBLEDO Ot C18.2 MALIGNANT NEOPLASM OF ASCENDING COLON 09/28/2016 CHAYITO ROBLEDO Ot C78.7 SECONDARY MALIG NEOPLASM OF LIVER AND IN 09/28/2016 CHAYITO ROBLEDO Ot R91.8 OTHER NONSPECIFIC ABNORMAL FINDING OF [place] 09/28/2016 CHAYITO ROBLEDO Ot Z51.11 ENCOUNTER FOR ANTINEOPLASTIC CHEMOTHERAP 10/05/2016 CHAYITO ROBLEDO Ot C18.2 MALIGNANT NEOPLASM OF ASCENDING COLON 10/05/2016 CHAYITO ROBLEDO Ot C78.7 SECONDARY MALIG NEOPLASM OF LIVER AND IN 10/05/2016 CHAYITO ROBLEDO Ot R91.8 OTHER NONSPECIFIC ABNORMAL FINDING OF [place] 11/14/2016 Ot 787.02 NAUSEA ALONE 11/14/2016 Ot 787.3 FLATUL/ERUCTAT/GAS PAIN 11/14/2016 Ot 787.91 DIARRHEA 11/14/2016 Ot 153.9 MALIGNANT HERNÁN COLON NOS 11/14/2016 Ot 197.7 SECOND MALIG HERNÁN LIVER 11/14/2016 CHAYITO ROBLEDO Ot 359.0 CAROLYN HERED MUSC DYSTRPHY 11/14/2016 EDOUARDWINAH S VESSEL OPERATOR Ot 153.9 MALIGNANT HERNÁN COLON NOS 11/14/2016 EDOUARDWINAH S VESSEL OPERATOR Ot 197.7 SECOND MALIG HERNÁN LIVER 11/14/2016 EDOUARD HILAH S VESSEL OPERATOR Ot 345.90 EPILEPSY UNSPEC W/O MENTION INTRACTABLE 11/14/2016 EDOUARDWINAH S VESSEL OPERATOR Ot V58.69 OTH MED,LT,CURRENT USE 11/14/2016 EDOUARDWINAH S VESSEL OPERATOR Ot 153.9 MALIGNANT HERNÁN COLON NOS 11/14/2016 EDOUARDWINAH S VESSEL OPERATOR Ot 197.7 SECOND MALIG HERNÁN LIVER 11/14/2016 EDOUARD HILAH S VESSEL OPERATOR Ot 345.90 EPILEPSY UNSPEC W/O MENTION INTRACTABLE 11/14/2016 EDOUARDWINAH S VESSEL OPERATOR Ot V58.69 OTH MED,LT,CURRENT USE 11/14/2016 EDOUARDWINAH S VESSEL OPERATOR Ot 153.9 MALIGNANT HERNÁN COLON NOS 11/14/2016 EDOUARDWINAH S VESSEL OPERATOR Ot 197.7 SECOND MALIG HERNÁN LIVER 11/14/2016 EDOUARD HILAH S VESSEL OPERATOR Ot 345.90 EPILEPSY UNSPEC W/O MENTION INTRACTABLE 11/14/2016 MADDY EDOUARD S VESSEL OPERATOR Ot V58.69 OTH MED,LT,CURRENT USE 11/14/2016 CHAYITO ROBLEDO Ellis Ot 153.9 MALIGNANT HERNÁN COLON NOS 11/14/2016 EDOUARDMADDY Matthews S VESSEL OPERATOR Ot 153.9 MALIGNANT HERNÁN COLON NOS 11/14/2016 WIN EDOUARDAH S VESSEL OPERATOR Ot 197.7 SECOND MALIG HERNÁN LIVER 11/14/2016 MADDY EDOUARD S VESSEL OPERATOR Ot 345.90 EPILEPSY UNSPEC W/O MENTION INTRACTABLE 11/14/2016 MADDY EDOUARD S VESSEL OPERATOR Ot V58.69 OTH MED,LT,CURRENT USE 11/14/2016 MADDY EDOUARD S VESSEL OPERATOR Ot 153.9 MALIGNANT HERNÁN COLON NOS 11/14/2016 MADDY EDOUARD S VESSEL OPERATOR Ot 197.7 SECOND MALIG HERNÁN LIVER 11/14/2016 MADDY EDOUARD S VESSEL OPERATOR Ot 345.90 EPILEPSY UNSPEC W/O MENTION INTRACTABLE 11/14/2016 MADDY EDOUARD S VESSEL OPERATOR Ot V58.69 OTH MED,LT,CURRENT USE 11/14/2016 MADDY EDOUARD S VESSEL OPERATOR Ot 153.9 MALIGNANT HERNÁN COLON NOS 11/14/2016 MADDY EDOUARD S VESSEL OPERATOR Ot 197.7 SECOND MALIG HERNÁN LIVER 11/14/2016 MADDY EDOUARD S VESSEL OPERATOR Ot 345.90 EPILEPSY UNSPEC W/O MENTION INTRACTABLE 11/14/2016 MADDY EDOUARD VESSEL OPERATOR Ot V58.69 OTH MED,LT,CURRENT USE 11/14/2016 MADDY EDOUARD VESSEL OPERATOR Ot 153.9 MALIGNANT HERNÁN COLON NOS 11/14/2016 MADDY EDOUARD S VESSEL OPERATOR Ot 197.7 SECOND MALIG HERNÁN LIVER 11/14/2016 MADDY EDOUARD S VESSEL OPERATOR Ot 345.90 EPILEPSY UNSPEC W/O MENTION INTRACTABLE 11/14/2016 MADDY EDOUARD S VESSEL OPERATOR Ot V58.69 OTH MED,LT,CURRENT USE 11/14/2016 EDOUARDMADDY Matthews S VESSEL OPERATOR Ot 153.9 MALIGNANT HERNÁN COLON NOS 11/14/2016 EDOUARDMADDY Matthews S VESSEL OPERATOR Ot 197.7 SECOND MALIG HERNÁN LIVER 11/14/2016 EDOUARDWINAH S VESSEL OPERATOR Ot 345.90 EPILEPSY UNSPEC W/O MENTION INTRACTABLE 11/14/2016 EDOUARD, HILAH S VESSEL OPERATOR Ot V58.69 OTH MED,LT,CURRENT USE 11/14/2016 EDOUARDMADDY Matthews S VESSEL OPERATOR Ot 153.9 MALIGNANT HERNÁN COLON NOS 11/14/2016 EDOUARDMADDY Matthews S VESSEL OPERATOR Ot 197.7 SECOND MALIG HERNÁN LIVER 11/14/2016 EDOUARD, HILAH S VESSEL OPERATOR Ot 345.90 EPILEPSY UNSPEC W/O MENTION INTRACTABLE 11/14/2016 EDOUARDMADDY Matthews S VESSEL OPERATOR Ot V58.69 OTH MED,LT,CURRENT USE 11/14/2016 EDOUARDMADDY Matthews S VESSEL OPERATOR Ot 153.9 MALIGNANT HERNÁN COLON NOS 11/14/2016 EDOUARD, HILAH S VESSEL OPERATOR Ot 197.7 SECOND MALIG HERNÁN LIVER 11/14/2016 EDOUARDWINAH S VESSEL OPERATOR Ot 345.90 EPILEPSY UNSPEC W/O MENTION INTRACTABLE 11/14/2016 EDOUARDMADDY Matthews S VESSEL OPERATOR Ot V58.69 OTH MED,LT,CURRENT USE 11/14/2016 CHAYITO ROBLEDO Ot 153.9 MALIGNANT HERNÁN COLON NOS 11/14/2016 EDOUARDMADDY Matthews S VESSEL OPERATOR Ot 153.9 MALIGNANT HERNÁN COLON NOS 11/14/2016 MADDY EDOUARD S VESSEL OPERATOR Ot 197.7 SECOND MALIG HERNÁN LIVER 11/14/2016 EDOUARDMADDY Matthews S VESSEL OPERATOR Ot 345.90 EPILEPSY UNSPEC W/O MENTION INTRACTABLE 11/14/2016 MADDY EDOUARD S VESSEL OPERATOR Ot V58.69 OTH MED,LT,CURRENT USE 11/14/2016 MADDY EDOUARD S VESSEL OPERATOR Ot 153.9 MALIGNANT HERNÁN COLON NOS 11/14/2016 MADDY EDOUARD S VESSEL OPERATOR Ot 197.7 SECOND MALIG HERNÁN LIVER 11/14/2016 EDOUARD, HILAH S VESSEL OPERATOR Ot 345.90 EPILEPSY UNSPEC W/O MENTION INTRACTABLE 11/14/2016 EDOUARDWINAH S VESSEL OPERATOR Ot V58.69 OTH MED,LT,CURRENT USE 11/14/2016 EDOUARD, HILAH S VESSEL OPERATOR Ot 153.9 MALIGNANT HERNÁN COLON NOS 11/14/2016 EDOUARDWINAH S VESSEL OPERATOR Ot 197.7 SECOND MALIG HERNÁN LIVER 11/14/2016 EDOUARD HILAH S VESSEL OPERATOR Ot 345.90 EPILEPSY UNSPEC W/O MENTION INTRACTABLE 11/14/2016 EDOUARDWINAH S VESSEL OPERATOR Ot V58.69 OTH MED,LT,CURRENT USE 11/14/2016 MADDY EDOUARD S VESSEL OPERATOR Ot 153.9 MALIGNANT HERNÁN COLON NOS 11/14/2016 MADDY EDOUARD S VESSEL OPERATOR Ot 197.7 SECOND MALIG HERNÁN LIVER 11/14/2016 MADDY EDOUARD S VESSEL OPERATOR Ot 345.90 EPILEPSY UNSPEC W/O MENTION INTRACTABLE 11/14/2016 MADDY EDOUARD S VESSEL OPERATOR Ot V58.69 OTH MED,LT,CURRENT USE 11/14/2016 MADDY EDOUARD S VESSEL OPERATOR Ot 153.9 MALIGNANT HERNÁN COLON NOS 11/14/2016 MADDY EDOUARD S VESSEL OPERATOR Ot 197.7 SECOND MALIG HERNÁN LIVER 11/14/2016 WIN EDOUARDAH S VESSEL OPERATOR Ot 345.90 EPILEPSY UNSPEC W/O MENTION INTRACTABLE 11/14/2016 MADDY EDOUARD VESSEL OPERATOR Ot V58.69 OTH MED,LT,CURRENT USE 11/14/2016 MADDY EDOUARD VESSEL OPERATOR Ot 786.05 SHORTNESS OF BREATH 11/14/2016 MADDY EDOUARD S VESSEL OPERATOR Ot 786.2 COUGH 11/14/2016 MADDY EDOUARD S VESSEL OPERATOR Ot 153.9 MALIGNANT HERNÁN COLON NOS 11/14/2016 MADDY EDOUARD S VESSEL OPERATOR Ot 197.7 SECOND MALIG HERNÁN LIVER 11/14/2016 MADDY EDOUARD S VESSEL OPERATOR Ot 345.90 EPILEPSY UNSPEC W/O MENTION INTRACTABLE 11/14/2016 MADDY EDOUARD S VESSEL OPERATOR Ot 528.9 ORAL SOFT TISSUE DIS NEC 11/14/2016 MADDY EDOUARD S VESSEL OPERATOR Ot V58.69 OTH MED,LT,CURRENT USE 11/14/2016 MADDY EDOUARD S VESSEL OPERATOR Ot V87.41 PERSONAL HISTORY OF ANTINEOPLASTIC CHEMO 11/14/2016 MADDY EDOUARD S VESSEL OPERATOR Ot 153.9 MALIGNANT HERNÁN COLON NOS 11/14/2016 MADDY EDOUARD S VESSEL OPERATOR Ot 197.7 SECOND MALIG HERNÁN LIVER 11/14/2016 MADDY EDOUARD S VESSEL OPERATOR Ot 305.1 TOBACCO USE DISORDER 11/14/2016 MADDY EDOUARD S VESSEL OPERATOR Ot 345.90 EPILEPSY UNSPEC W/O MENTION INTRACTABLE 11/14/2016 MADDY EDOUARD S VESSEL OPERATOR Ot V58.69 OTH MED,LT,CURRENT USE 11/14/2016 MADDY EDOUARD S VESSEL OPERATOR Ot 153.9 MALIGNANT HERNÁN COLON NOS 11/14/2016 MADDY EDOUARD S VESSEL OPERATOR Ot 197.7 SECOND MALIG HERNÁN LIVER 11/14/2016 MADDY EDOUARD S VESSEL OPERATOR Ot 305.1 TOBACCO USE DISORDER 11/14/2016 EDOUARDMADDY Matthews S VESSEL OPERATOR Ot 345.90 EPILEPSY UNSPEC W/O MENTION INTRACTABLE 11/14/2016 MADDY EDOUARD S VESSEL OPERATOR Ot V58.69 OTH MED,LT,CURRENT USE 11/14/2016 MADDY EDOUARD S VESSEL OPERATOR Ot 153.9 MALIGNANT HERNÁN COLON NOS 11/14/2016 WIN EDOUARDAH S VESSEL OPERATOR Ot 197.7 SECOND MALIG HERNÁN LIVER 11/14/2016 EDOUARD, HILAH S VESSEL OPERATOR Ot 305.1 TOBACCO USE DISORDER 11/14/2016 EDOUARD, HILAH S VESSEL OPERATOR Ot 345.90 EPILEPSY UNSPEC W/O MENTION INTRACTABLE 11/14/2016 MADDY EDOUARD S VESSEL OPERATOR Ot V58.69 OTH MED,LT,CURRENT USE 11/14/2016 MADDY EDOUARD S VESSEL OPERATOR Ot 153.9 MALIGNANT HERNÁN COLON NOS 11/14/2016 MADDY EDOUARD S VESSEL OPERATOR Ot 197.7 SECOND MALIG HERNÁN LIVER 11/14/2016 EDOUARDMADDY Matthews S VESSEL OPERATOR Ot 345.90 EPILEPSY UNSPEC W/O MENTION INTRACTABLE 11/14/2016 MADDY EDOUARD S VESSEL OPERATOR Ot V58.69 OTH MED,LT,CURRENT USE 11/14/2016 MEENAGARO RAMOSENRIKE Corral Ot 153.9 MALIGNANT HERNÁN COLON NOS 11/14/2016 JOSE BURR, NADJA Ot 153.9 MALIGNANT HERNÁN COLON NOS 11/14/2016 JOSE BURR, NADJA Ot 197.7 SECOND MALIG HERNÁN LIVER 11/14/2016 NADJA GARCIA MD Ot 345.90 EPILEPSY UNSPEC W/O MENTION INTRACTABLE 11/14/2016 JOSE BURR, NADJA Ot V58.69 OTH MED,LT,CURRENT USE 11/14/2016 EDOUARDMADDY Matthews S VESSEL OPERATOR Ot 153.9 MALIGNANT HERNÁN COLON NOS 11/14/2016 EDOUARD, HILAH S VESSEL OPERATOR Ot 197.7 SECOND MALIG HERNÁN LIVER 11/14/2016 EDOUARDWINAH S VESSEL OPERATOR Ot 345.90 EPILEPSY UNSPEC W/O MENTION INTRACTABLE 11/14/2016 EDOUARDMADDY Matthews S VESSEL OPERATOR Ot V58.69 OTH MED,LT,CURRENT USE 11/14/2016 MADDY EDOUARD S VESSEL OPERATOR Ot 153.9 MALIGNANT HERNÁN COLON NOS 11/14/2016 MADDY EDOUARD S VESSEL OPERATOR Ot 197.7 SECOND MALIG HERNÁN LIVER 11/14/2016 MADDY EDOUARD S VESSEL OPERATOR Ot 345.90 EPILEPSY UNSPEC W/O MENTION INTRACTABLE 11/14/2016 MADDY EDOUARD VESSEL OPERATOR Ot V58.69 OTH MED,LT,CURRENT USE 11/14/2016 MADDY EDOUARD S VESSEL OPERATOR Ot 153.9 MALIGNANT HERNÁN COLON NOS 11/14/2016 MADDY EDOUARD S VESSEL OPERATOR Ot 197.7 SECOND MALIG HERNÁN LIVER 11/14/2016 ISAIAS BURR, RENATE Pierson Ot I25.10 ATHSCL HEART DISEASE OF [place] CORONARY 11/14/2016 RENATE ESPARZA MD Ot J44.9 CHRONIC OBSTRUCTIVE PULMONARY DISEASE, U 11/14/2016 RENATE ESPARZA MD Ot M47.812 SPONDYLOSIS W/O MYELOPATHY OR RADICULOPA 11/14/2016 MADDY EDOUARD S VESSEL OPERATOR Ot C18.9 MALIGNANT NEOPLASM OF COLON, UNSPECIFIED 11/14/2016 MADDY EDOUARD S VESSEL OPERATOR Ot C78.7 SECONDARY MALIG NEOPLASM OF LIVER AND IN 11/14/2016 MADDY EDOUARD S VESSEL OPERATOR Ot Z92.21 PERSONAL HISTORY OF ANTINEOPLASTIC CHEMO 11/14/2016 ANGELO BURR, [place] Warner Ot M25.511 PAIN IN RIGHT SHOULDER 11/14/2016 MADDY EDOUARD S VESSEL OPERATOR Ot C18.9 MALIGNANT NEOPLASM OF COLON, UNSPECIFIED 11/14/2016 MADDY EDOUARD S VESSEL OPERATOR Ot C78.7 SECONDARY MALIG NEOPLASM OF LIVER AND IN 11/14/2016 EDOUARDMADDY Matthews S VESSEL OPERATOR Ot Z92.21 PERSONAL HISTORY OF ANTINEOPLASTIC CHEMO 11/14/2016 MADDY EDOUARD S VESSEL OPERATOR Ot C18.9 MALIGNANT NEOPLASM OF COLON, UNSPECIFIED 11/14/2016 EDOUARDMADDY Matthews S VESSEL OPERATOR Ot C78.7 SECONDARY MALIG NEOPLASM OF LIVER AND IN 11/14/2016 EDOUARD, HILAH S VESSEL OPERATOR Ot Z92.21 PERSONAL HISTORY OF ANTINEOPLASTIC CHEMO 11/14/2016 MADDY EDOUARD S VESSEL OPERATOR Ot C18.9 MALIGNANT NEOPLASM OF COLON, UNSPECIFIED 11/14/2016 EDOUARDMADDY Matthews S VESSEL OPERATOR Ot C78.7 SECONDARY MALIG NEOPLASM OF LIVER AND IN 11/14/2016 MADDY EDOUARD S VESSEL OPERATOR Ot Z92.21 PERSONAL HISTORY OF ANTINEOPLASTIC CHEMO 11/14/2016 MADDY EDOUARD S VESSEL OPERATOR Ot C18.9 MALIGNANT NEOPLASM OF COLON, UNSPECIFIED 11/14/2016 MADDY EDOUARD S VESSEL OPERATOR Ot C78.7 SECONDARY MALIG NEOPLASM OF LIVER AND IN 11/14/2016 MADDY EDOUARD S VESSEL OPERATOR Ot Z92.21 PERSONAL HISTORY OF ANTINEOPLASTIC CHEMO 11/14/2016 CHAYITO ROBLEDO N Ot C18.2 MALIGNANT NEOPLASM OF ASCENDING COLON 11/14/2016 MEENACHAYITO RAMOS N Ot C78.7 SECONDARY MALIG NEOPLASM OF LIVER AND IN 11/14/2016 MADDY EDOUARD S VESSEL OPERATOR Ot C18.2 MALIGNANT NEOPLASM OF ASCENDING COLON 11/14/2016 MADDY EDOUARD S VESSEL OPERATOR Ot C78.7 SECONDARY MALIG NEOPLASM OF LIVER AND IN 11/14/2016 MADDY EDOUARD S VESSEL OPERATOR Ot C18.2 MALIGNANT NEOPLASM OF ASCENDING COLON 11/14/2016 MADDY EDOUARD S VESSEL OPERATOR Ot C78.7 SECONDARY MALIG NEOPLASM OF LIVER AND IN 11/14/2016 MADDY EDOUARD S VESSEL OPERATOR Ot C18.2 MALIGNANT NEOPLASM OF ASCENDING COLON 11/14/2016 MADDY EDOUARD S VESSEL OPERATOR Ot C78.7 SECONDARY MALIG NEOPLASM OF LIVER AND IN 11/14/2016 MADDY EDOUARD S VESSEL OPERATOR Ot R26.9 UNSPECIFIED ABNORMALITIES OF GAIT AND MO 11/14/2016 MADDY EDOUARD S VESSEL OPERATOR Ot C18.2 MALIGNANT NEOPLASM OF ASCENDING COLON 11/14/2016 MADDY EDOUARD S VESSEL OPERATOR Ot C78.7 SECONDARY MALIG NEOPLASM OF LIVER AND IN 11/14/2016 MADDY EDOUARD S VESSEL OPERATOR Ot Z92.21 PERSONAL HISTORY OF ANTINEOPLASTIC CHEMO 11/14/2016 ANGELO BURR, [place] Ot E78.5 HYPERLIPIDEMIA, UNSPECIFIED 11/14/2016 MADDY EDOUARD S VESSEL OPERATOR Ot C18.2 MALIGNANT NEOPLASM OF ASCENDING COLON 11/14/2016 MADDY EDOUARD S VESSEL OPERATOR Ot C78.7 SECONDARY MALIG NEOPLASM OF LIVER AND IN 11/14/2016 MADDY EDOUARD S VESSEL OPERATOR Ot Z92.21 PERSONAL HISTORY OF ANTINEOPLASTIC CHEMO 11/14/2016 MADDY EDOUARD S VESSEL OPERATOR Ot C18.2 MALIGNANT NEOPLASM OF ASCENDING COLON 11/14/2016 MADDY EDOUARD VESSEL OPERATOR Ot C78.7 SECONDARY MALIG NEOPLASM OF LIVER AND IN 11/14/2016 MADDY EDOUARD S VESSEL OPERATOR Ot Z92.21 PERSONAL HISTORY OF ANTINEOPLASTIC CHEMO 11/14/2016 MADDY EDOUARD S VESSEL OPERATOR Ot C18.2 MALIGNANT NEOPLASM OF ASCENDING COLON 11/14/2016 MADDY EDOUARD S VESSEL OPERATOR Ot C78.7 SECONDARY MALIG NEOPLASM OF LIVER AND IN 11/14/2016 EDOUARDMADDY Matthews S VESSEL OPERATOR Ot Z92.21 PERSONAL HISTORY OF ANTINEOPLASTIC CHEMO 11/14/2016 MADDY EDOUARD S VESSEL OPERATOR Ot C18.2 MALIGNANT NEOPLASM OF ASCENDING COLON 11/14/2016 EDOUARDMADDY S VESSEL OPERATOR Ot C78.7 SECONDARY MALIG NEOPLASM OF LIVER AND IN 11/14/2016 MADDY EDOUARD S VESSEL OPERATOR Ot C18.9 MALIGNANT NEOPLASM OF COLON, UNSPECIFIED 11/14/2016 SILKE MADDY S VESSEL OPERATOR Ot C78.7 SECONDARY MALIG NEOPLASM OF LIVER AND IN 11/14/2016 SILKE MADDY S VESSEL OPERATOR Ot R91.8 OTHER NONSPECIFIC ABNORMAL FINDING OF [place] 11/14/2016 GARO ROBLEDOENRIKE N Ot C18.2 MALIGNANT NEOPLASM OF ASCENDING COLON 11/14/2016 MEENACHAYITO N Ot C78.7 SECONDARY MALIG NEOPLASM OF LIVER AND IN 11/14/2016 MEENACHAYITO N Ot R91.8 OTHER NONSPECIFIC ABNORMAL FINDING OF [place] 11/14/2016 MADDY EDOUARD S VESSEL OPERATOR Ot 153.9 MALIGNANT HERNÁN COLON NOS 11/14/2016 MADDY EDOUARD S VESSEL OPERATOR Ot 197.7 SECOND MALIG HERNÁN LIVER 11/14/2016 MADDY EDOUARD S VESSEL OPERATOR Ot 345.90 EPILEPSY UNSPEC W/O MENTION INTRACTABLE 11/14/2016 MADDY EDOUARD S VESSEL OPERATOR Ot V58.69 OTH MED,LT,CURRENT USE 11/14/2016 MADDY EDOUARD S VESSEL OPERATOR Ot 153.9 MALIGNANT HERNÁN COLON NOS 11/14/2016 MADDY EDOUARD S VESSEL OPERATOR Ot 197.7 SECOND MALIG HERNÁN LIVER 11/14/2016 MADDY EDOUARD S VESSEL OPERATOR Ot 345.90 EPILEPSY UNSPEC W/O MENTION INTRACTABLE 11/14/2016 MADDY EDOUARD S VESSEL OPERATOR Ot V58.69 OTH MED,LT,CURRENT USE 11/14/2016 MADDY EDOUARD VESSEL OPERATOR Ot 786.05 SHORTNESS OF BREATH 11/14/2016 MADDY EDOUARD VESSEL OPERATOR Ot 786.2 COUGH 11/14/2016 MADDY EDOUARD S VESSEL OPERATOR Ot 153.9 MALIGNANT HERNÁN COLON NOS 11/14/2016 MADDY EDOUARD S VESSEL OPERATOR Ot 197.7 SECOND MALIG HERNÁN LIVER 11/14/2016 MADDY EDOUARD S VESSEL OPERATOR Ot 345.90 EPILEPSY UNSPEC W/O MENTION INTRACTABLE 11/14/2016 MADDY EDOUARD VESSEL OPERATOR Ot 528.9 ORAL SOFT TISSUE DIS NEC 11/14/2016 MADDY EDOUARD VESSEL OPERATOR Ot V58.69 OTH MED,LT,CURRENT USE 11/14/2016 MADDY EDOUARD VESSEL OPERATOR Ot V87.41 PERSONAL HISTORY OF ANTINEOPLASTIC CHEMO 11/14/2016 MADDY EDOUARD S VESSEL OPERATOR Ot 153.9 MALIGNANT HERNÁN COLON NOS 11/14/2016 MADDY EDOUARD S VESSEL OPERATOR Ot 197.7 SECOND MALIG HERNÁN LIVER 11/14/2016 MADDY EDOUARD S VESSEL OPERATOR Ot 305.1 TOBACCO USE DISORDER 11/14/2016 MADDY EDOUARD S VESSEL OPERATOR Ot 345.90 EPILEPSY UNSPEC W/O MENTION INTRACTABLE 11/14/2016 MADDY EDOUARD S VESSEL OPERATOR Ot V58.69 OTH MED,LT,CURRENT USE 11/14/2016 MADDY EDOUARD S VESSEL OPERATOR Ot 153.9 MALIGNANT HERNÁN COLON NOS 11/14/2016 MADDY EDOUARD S VESSEL OPERATOR Ot 197.7 SECOND MALIG HERNÁN LIVER 11/14/2016 MADDY EDOUARD S VESSEL OPERATOR Ot 305.1 TOBACCO USE DISORDER 11/14/2016 MADDY EDOUARD S VESSEL OPERATOR Ot 345.90 EPILEPSY UNSPEC W/O MENTION INTRACTABLE 11/14/2016 MADDY EDOUARD S VESSEL OPERATOR Ot V58.69 OTH MED,LT,CURRENT USE 11/14/2016 MADDY EDOUARD S VESSEL OPERATOR Ot 153.9 MALIGNANT HERNÁN COLON NOS 11/14/2016 MADDY EDOUARD S VESSEL OPERATOR Ot 197.7 SECOND MALIG HERNÁN LIVER 11/14/2016 WIN EDOUARDAH S VESSEL OPERATOR Ot 305.1 TOBACCO USE DISORDER 11/14/2016 MADDY EDOUARD S VESSEL OPERATOR Ot 345.90 EPILEPSY UNSPEC W/O MENTION INTRACTABLE 11/14/2016 EDOUARD, HILAH S VESSEL OPERATOR Ot V58.69 OTH MED,LT,CURRENT USE 11/14/2016 EDOUARDWINAH S VESSEL OPERATOR Ot 153.9 MALIGNANT HERNÁN COLON NOS 11/14/2016 EDOUARDWINAH S VESSEL OPERATOR Ot 197.7 SECOND MALIG HERNÁN LIVER 11/14/2016 EDOUARD HILAH S VESSEL OPERATOR Ot 345.90 EPILEPSY UNSPEC W/O MENTION INTRACTABLE 11/14/2016 EDOUARDMADDY S VESSEL OPERATOR Ot V58.69 OTH MED,LT,CURRENT USE 11/14/2016 CHAYITO ROBLEDO Ot 153.9 MALIGNANT HERNÁN COLON NOS 11/14/2016 JOSE BURR, NADJA Ot 153.9 MALIGNANT HERNÁN COLON NOS 11/14/2016 JOSE BURR, NADJA Ot 197.7 SECOND MALIG HERNÁN LIVER 11/14/2016 JOSE BURR, NADJA Ot 345.90 EPILEPSY UNSPEC W/O MENTION INTRACTABLE 11/14/2016 JOSE BURR, NADJA Ot V58.69 OTH MED,LT,CURRENT USE 11/14/2016 EDOUARD, HILAH S VESSEL OPERATOR Ot 153.9 MALIGNANT HERNÁN COLON NOS 11/14/2016 EDOUARDWINAH S VESSEL OPERATOR Ot 197.7 SECOND MALIG HERN[place] LIVER 11/14/2016 EDOUARD HILAH S VESSEL OPERATOR Ot 345.90 EPILEPSY UNSPEC W/O MENTION INTRACTABLE 11/14/2016 EDOUARDWINAH S VESSEL OPERATOR Ot V58.69 OTH MED,LT,CURRENT USE 11/14/2016 EDOUARDMADDY S VESSEL OPERATOR Ot 153.9 MALIGNANT HERNÁN COLON NOS 11/14/2016 EDOUARDWINAH S VESSEL OPERATOR Ot 197.7 SECOND MALIG HERN[place] LIVER 11/14/2016 EDOUARDWINAH S VESSEL OPERATOR Ot 345.90 EPILEPSY UNSPEC W/O MENTION INTRACTABLE 11/14/2016 EDOUARDMADDY S VESSEL OPERATOR Ot V58.69 OTH MED,LT,CURRENT USE 11/14/2016 EDOUARDMADDY S VESSEL OPERATOR Ot 153.9 MALIGNANT HERNÁN COLON NOS 11/14/2016 EDOUARDMADDY Matthews S VESSEL OPERATOR Ot 197.7 SECOND MALIG HERNÁN LIVER 11/14/2016 RENATE ESPARZA MD Ot I25.10 ATHSCL HEART DISEASE OF [place] CORONARY 11/14/2016 RENATE ESPARZA MD Ot J44.9 CHRONIC OBSTRUCTIVE PULMONARY DISEASE, U 11/14/2016 RENATE ESPARZA MD Ot M47.812 SPONDYLOSIS W/O MYELOPATHY OR RADICULOPA 11/14/2016 MADDY EDOUARD S VESSEL OPERATOR Ot C18.9 MALIGNANT NEOPLASM OF COLON, UNSPECIFIED 11/14/2016 EDOUARDMADDY Matthews S VESSEL OPERATOR Ot C78.7 SECONDARY MALIG NEOPLASM OF LIVER AND IN 11/14/2016 MADDY EDOUARD S VESSEL OPERATOR Ot Z92.21 PERSONAL HISTORY OF ANTINEOPLASTIC CHEMO 11/14/2016 ANGELO BURR, [place] Warner Ot M25.511 PAIN IN RIGHT SHOULDER 11/14/2016 MADDY EDOUARD S VESSEL OPERATOR Ot C18.9 MALIGNANT NEOPLASM OF COLON, UNSPECIFIED 11/14/2016 EDOUARDMADDY Matthews S VESSEL OPERATOR Ot C78.7 SECONDARY MALIG NEOPLASM OF LIVER AND IN 11/14/2016 EDOUARDMADDY Matthews S VESSEL OPERATOR Ot Z92.21 PERSONAL HISTORY OF ANTINEOPLASTIC CHEMO 11/14/2016 MADDY EDOUARD S VESSEL OPERATOR Ot C18.9 MALIGNANT NEOPLASM OF COLON, UNSPECIFIED 11/14/2016 EDOUARDMADDY Matthews S VESSEL OPERATOR Ot C78.7 SECONDARY MALIG NEOPLASM OF LIVER AND IN 11/14/2016 EDOUARDMADDY Matthews S VESSEL OPERATOR Ot Z92.21 PERSONAL HISTORY OF ANTINEOPLASTIC CHEMO 11/14/2016 MADDY EDOUARD S VESSEL OPERATOR Ot C18.9 MALIGNANT NEOPLASM OF COLON, UNSPECIFIED 11/14/2016 MADDY EDOUARD S VESSEL OPERATOR Ot C78.7 SECONDARY MALIG NEOPLASM OF LIVER AND IN 11/14/2016 MADDY EDOUARD S VESSEL OPERATOR Ot Z92.21 PERSONAL HISTORY OF ANTINEOPLASTIC CHEMO 11/14/2016 MADDY EDOUARD S VESSEL OPERATOR Ot C18.9 MALIGNANT NEOPLASM OF COLON, UNSPECIFIED 11/14/2016 EDOUARDMADDY Matthews S VESSEL OPERATOR Ot C78.7 SECONDARY MALIG NEOPLASM OF LIVER AND IN 11/14/2016 EDOUARDMADDY Matthews S VESSEL OPERATOR Ot Z92.21 PERSONAL HISTORY OF ANTINEOPLASTIC CHEMO 11/14/2016 CHAYITO ROBLEDO N Ot C18.2 MALIGNANT NEOPLASM OF ASCENDING COLON 11/14/2016 MEENACHAYITO RAMOS N Ot C78.7 SECONDARY MALIG NEOPLASM OF LIVER AND IN 11/14/2016 MADDY EDOUARD S VESSEL OPERATOR Ot C18.2 MALIGNANT NEOPLASM OF ASCENDING COLON 11/14/2016 EDOUARDMADDY Matthews S VESSEL OPERATOR Ot C78.7 SECONDARY MALIG NEOPLASM OF LIVER AND IN 11/14/2016 SILKE MADDY S VESSEL OPERATOR Ot C18.2 MALIGNANT NEOPLASM OF ASCENDING COLON 11/14/2016 WIN EDOUARDLINH S VESSEL OPERATOR Ot C78.7 SECONDARY MALIG NEOPLASM OF LIVER AND IN 11/14/2016 EDOUARD MADDY S VESSEL OPERATOR Ot C18.2 MALIGNANT NEOPLASM OF ASCENDING COLON 11/14/2016 SILKE MADDY S VESSEL OPERATOR Ot C78.7 SECONDARY MALIG NEOPLASM OF LIVER AND IN 11/14/2016 SILKE MADDY S VESSEL OPERATOR Ot R26.9 UNSPECIFIED ABNORMALITIES OF GAIT AND MO 11/14/2016 SILKE MADDY S VESSEL OPERATOR Ot C18.2 MALIGNANT NEOPLASM OF ASCENDING COLON 11/14/2016 SILKE MADDY S VESSEL OPERATOR Ot C78.7 SECONDARY MALIG NEOPLASM OF LIVER AND IN 11/14/2016 MADDY EDOUARD S VESSEL OPERATOR Ot Z92.21 PERSONAL HISTORY OF ANTINEOPLASTIC CHEMO 11/14/2016 ANGELO BURR, [place] A Ot E78.5 HYPERLIPIDEMIA, UNSPECIFIED 11/14/2016 WIN EDOUARDLINH S VESSEL OPERATOR Ot C18.2 MALIGNANT NEOPLASM OF ASCENDING COLON 11/14/2016 SILKE MADDY S VESSEL OPERATOR Ot C78.7 SECONDARY MALIG NEOPLASM OF LIVER AND IN 11/14/2016 WIN EDOUARDLINH S VESSEL OPERATOR Ot Z92.21 PERSONAL HISTORY OF ANTINEOPLASTIC CHEMO 11/14/2016 WIN EDOUARDLINH S VESSEL OPERATOR Ot C18.2 MALIGNANT NEOPLASM OF ASCENDING COLON 11/14/2016 WIN EDOUARDLINH S VESSEL OPERATOR Ot C78.7 SECONDARY MALIG NEOPLASM OF LIVER AND IN 11/14/2016 MADDY EDOUARD S VESSEL OPERATOR Ot Z92.21 PERSONAL HISTORY OF ANTINEOPLASTIC CHEMO 11/14/2016 WIN EDOUARDLINH S VESSEL OPERATOR Ot C18.2 MALIGNANT NEOPLASM OF ASCENDING COLON 11/14/2016 WIN EDOUARDLINH S VESSEL OPERATOR Ot C78.7 SECONDARY MALIG NEOPLASM OF LIVER AND IN 11/14/2016 MADDY EDOUARD S VESSEL OPERATOR Ot Z92.21 PERSONAL HISTORY OF ANTINEOPLASTIC CHEMO 11/14/2016 SILKE MADDY S VESSEL OPERATOR Ot C18.2 MALIGNANT NEOPLASM OF ASCENDING COLON 11/14/2016 MADDY EDOUARD S VESSEL OPERATOR Ot C78.7 SECONDARY MALIG NEOPLASM OF LIVER AND IN 11/14/2016 MADDY EDOUARD S VESSEL OPERATOR Ot C18.9 MALIGNANT NEOPLASM OF COLON, UNSPECIFIED 11/14/2016 MADDY EDOUARD S VESSEL OPERATOR Ot C78.7 SECONDARY MALIG NEOPLASM OF LIVER AND IN 11/14/2016 EDOUARDMADDY Matthews S VESSEL OPERATOR Ot R91.8 OTHER NONSPECIFIC ABNORMAL FINDING OF [place] 11/14/2016 CHAYITO ROBLEDO N Ot C18.2 MALIGNANT NEOPLASM OF ASCENDING COLON 11/14/2016 CHAYITO ROBLEDO N Ot C78.7 SECONDARY MALIG NEOPLASM OF LIVER AND IN 11/14/2016 CHAYITO ROBLEDO N Ot R91.8 OTHER NONSPECIFIC ABNORMAL FINDING OF [place] 11/14/2016 Ot 153.9 MALIGNANT HERN[place] COLON NOS 11/14/2016 Ot 197.7 SECOND MALIG [place]ERN[place] LIVER 11/14/2016 CHAYITO ROBLEDO N Ot 359.0 CAROLYN HERED MUSC DYSTRPHY 11/14/2016 MADDY EDOUARD S VESSEL OPERATOR Ot 153.9 MALIGNANT [place]ERN[place] COLON NOS 11/14/2016 MADDY EDOUARD S VESSEL OPERATOR Ot 197.7 SECOND MALIG HERN[place] LIVER 11/14/2016 MADDY EDOUARD S VESSEL OPERATOR Ot 345.90 EPILEPSY UNSPEC W/O MENTION INTRACTABLE 11/14/2016 MADDY EDOUARD S VESSEL OPERATOR Ot V58.69 OTH MED,LT,CURRENT USE 11/14/2016 MADDY EDOUARD S VESSEL OPERATOR Ot 153.9 MALIGNANT HERN[place] COLON NOS 11/14/2016 WIN EDOUARDAH S VESSEL OPERATOR Ot 197.7 SECOND MALIG [place] LIVER 11/14/2016 WIN EDOUARDAH S VESSEL OPERATOR Ot 345.90 EPILEPSY UNSPEC W/O MENTION INTRACTABLE 11/14/2016 MADDY EDOUARD S VESSEL OPERATOR Ot V58.69 OTH MED,LT,CURRENT USE 11/14/2016 MADDY EDOUARD S VESSEL OPERATOR Ot 153.9 MALIGNANT HERNÁ[place] COLON NOS 11/14/2016 EDOUARDMADDY Matthews S VESSEL OPERATOR Ot 197.7 SECOND MALIG [place]ERN[place] LIVER 11/14/2016 EDOUARD, HILAH S VESSEL OPERATOR Ot 345.90 EPILEPSY UNSPEC W/O MENTION INTRACTABLE 11/14/2016 MADDY EDOUARD S VESSEL OPERATOR Ot V58.69 OTH MED,LT,CURRENT USE 11/14/2016 MEENA CHAYITO N Ot 153.9 MALIGNANT HERNÁ[place] COLON NOS 11/14/2016 EDOUARDMADDY S VESSEL OPERATOR Ot 153.9 MALIGNANT HERNÁ[place] COLON NOS 11/14/2016 EDOUARD, HILAH S VESSEL OPERATOR Ot 197.7 SECOND MALIG [place] LIVER 11/14/2016 MADDY EDOUARD S VESSEL OPERATOR Ot 345.90 EPILEPSY UNSPEC W/O MENTION INTRACTABLE 11/14/2016 MADDY EDOUARD S VESSEL OPERATOR Ot V58.69 OTH MED,LT,CURRENT USE 11/14/2016 MADDY EDOUARD S VESSEL OPERATOR Ot 153.9 MALIGNANT HERN[place] COLON NOS 11/14/2016 MADDY EDOUARD S VESSEL OPERATOR Ot 197.7 SECOND MALIG HERN[place] LIVER 11/14/2016 MADDY EDOUARD S VESSEL OPERATOR Ot 345.90 EPILEPSY UNSPEC W/O MENTION INTRACTABLE 11/14/2016 MADDY EDOUARD VESSEL OPERATOR Ot V58.69 OTH MED,LT,CURRENT USE 11/14/2016 MADDY EDOUARD S VESSEL OPERATOR Ot 153.9 MALIGNANT HERN[place] COLON NOS 11/14/2016 MADDY EDOUARD S VESSEL OPERATOR Ot 197.7 SECOND MALIG HERN[place] LIVER 11/14/2016 MADDY EDOUARD S VESSEL OPERATOR Ot 345.90 EPILEPSY UNSPEC W/O MENTION INTRACTABLE 11/14/2016 MADDY EDOUARD VESSEL OPERATOR Ot V58.69 OTH MED,LT,CURRENT USE 11/14/2016 MADDY EDOUARD S VESSEL OPERATOR Ot 153.9 MALIGNANT HERN[place] COLON NOS 11/14/2016 MADDY EDOUARD S VESSEL OPERATOR Ot 197.7 SECOND MALIG [place] LIVER 11/14/2016 MADDY EDOUARD S VESSEL OPERATOR Ot 345.90 EPILEPSY UNSPEC W/O MENTION INTRACTABLE 11/14/2016 MADDY EDOUARD VESSEL OPERATOR Ot V58.69 OTH MED,LT,CURRENT USE 11/14/2016 MADDY EDOUARD S VESSEL OPERATOR Ot 153.9 MALIGNANT HERN[place] COLON NOS 11/14/2016 MADDY EDOUARD S VESSEL OPERATOR Ot 197.7 SECOND MALIG [place] LIVER 11/14/2016 MADDY EDOUARD S VESSEL OPERATOR Ot 345.90 EPILEPSY UNSPEC W/O MENTION INTRACTABLE 11/14/2016 MADDY EDOUARD S VESSEL OPERATOR Ot V58.69 OTH MED,LT,CURRENT USE 11/14/2016 WIN EDOUARDAH S VESSEL OPERATOR Ot 153.9 MALIGNANT HERNÁN COLON NOS 11/14/2016 WIN EDOUARDAH S VESSEL OPERATOR Ot 197.7 SECOND MALIG HERN[place] LIVER 11/14/2016 WIN EDOUARDAH S VESSEL OPERATOR Ot 345.90 EPILEPSY UNSPEC W/O MENTION INTRACTABLE 11/14/2016 MADDY EDOUARD S VESSEL OPERATOR Ot V58.69 OTH MED,LT,CURRENT USE 11/14/2016 MADDY EDOUARD S VESSEL OPERATOR Ot 153.9 MALIGNANT HERNÁ[place] COLON NOS 11/14/2016 EDOUARDMADDY Matthews S VESSEL OPERATOR Ot 197.7 SECOND MALIG HERN[place] LIVER 11/14/2016 EDOUARD, HILAH S VESSEL OPERATOR Ot 345.90 EPILEPSY UNSPEC W/O MENTION INTRACTABLE 11/14/2016 MADDY EDOUARD S VESSEL OPERATOR Ot V58.69 OTH MED,LT,CURRENT USE 11/14/2016 CHAYITO ROBLEDO Ellis Ot 153.9 MALIGNANT HERNÁN COLON NOS 11/14/2016 EDOUARDMADDY Matthews S VESSEL OPERATOR Ot 153.9 MALIGNANT HERNÁ[place] COLON NOS 11/14/2016 EDOUARD, HILAH S VESSEL OPERATOR Ot 197.7 SECOND MALIG HERN[place] LIVER 11/14/2016 EDOUARDWINAH S VESSEL OPERATOR Ot 345.90 EPILEPSY UNSPEC W/O MENTION INTRACTABLE 11/14/2016 MADDY EDOUARD S VESSEL OPERATOR Ot V58.69 OTH MED,LT,CURRENT USE 11/14/2016 MADDY EDOUARD S VESSEL OPERATOR Ot 153.9 MALIGNANT HERNÁ[place] COLON NOS 11/14/2016 MADDY EDOUARD S VESSEL OPERATOR Ot 197.7 SECOND MALIG HERN[place] LIVER 11/14/2016 EDOUARD, HILAH S VESSEL OPERATOR Ot 345.90 EPILEPSY UNSPEC W/O MENTION INTRACTABLE 11/14/2016 MADDY EDOUARD S VESSEL OPERATOR Ot V58.69 OTH MED,LT,CURRENT USE 11/14/2016 MADDY EDOUARD S VESSEL OPERATOR Ot 153.9 MALIGNANT HERNÁ[place] COLON NOS 11/14/2016 MADDY EDOUARD S VESSEL OPERATOR Ot 197.7 SECOND MALIG HERN[place] LIVER 11/14/2016 EDOUARDWINAH S VESSEL OPERATOR Ot 345.90 EPILEPSY UNSPEC W/O MENTION INTRACTABLE 11/14/2016 EDOUARDMADDY S VESSEL OPERATOR Ot V58.69 OTH MED,LT,CURRENT USE 11/14/2016 EDOUARDMADDY Matthews S VESSEL OPERATOR Ot 153.9 MALIGNANT HERNÁN COLON NOS 11/14/2016 EDOUARDWINAH S VESSEL OPERATOR Ot 197.7 SECOND MALIG HERN[place] LIVER 11/14/2016 EDOUARDWINAH S VESSEL OPERATOR Ot 345.90 EPILEPSY UNSPEC W/O MENTION INTRACTABLE 11/14/2016 EDOUARDMADDY S VESSEL OPERATOR Ot V58.69 OTH MED,LT,CURRENT USE 11/14/2016 MADDY EDOUARD S VESSEL OPERATOR Ot 153.9 MALIGNANT HERNÁN COLON NOS 11/14/2016 MADDY EDOUARD S VESSEL OPERATOR Ot 197.7 SECOND MALIG HERN[place] LIVER 11/14/2016 MADDY EDOUARD S VESSEL OPERATOR Ot 345.90 EPILEPSY UNSPEC W/O MENTION INTRACTABLE 11/14/2016 MADDY EDOUARD S VESSEL OPERATOR Ot V58.69 OTH MED,LT,CURRENT USE 11/14/2016 MADDY EDOUARD S VESSEL OPERATOR Ot 786.05 SHORTNESS OF BREATH 11/14/2016 MADDY EDOUARD S VESSEL OPERATOR Ot 786.2 COUGH 11/14/2016 MADDY EDOUARD S VESSEL OPERATOR Ot 153.9 MALIGNANT HERNÁN COLON NOS 11/14/2016 MADDY EDOUARD S VESSEL OPERATOR Ot 197.7 SECOND MALIG HERN[place] LIVER 11/14/2016 MADDY EDOUARD S VESSEL OPERATOR Ot 345.90 EPILEPSY UNSPEC W/O MENTION INTRACTABLE 11/14/2016 MADDY EDOUARD S VESSEL OPERATOR Ot 528.9 ORAL SOFT TISSUE DIS NEC 11/14/2016 MADDY EDOUARD S VESSEL OPERATOR Ot V58.69 OTH MED,LT,CURRENT USE 11/14/2016 MADDY EDOUARD S VESSEL OPERATOR Ot V87.41 PERSONAL HISTORY OF ANTINEOPLASTIC CHEMO 11/14/2016 MADDY EDOUARD S VESSEL OPERATOR Ot 153.9 MALIGNANT HERNÁN COLON NOS 11/14/2016 MADDY EDOUARD S VESSEL OPERATOR Ot 197.7 SECOND MALIG HERN[place] LIVER 11/14/2016 MADDY EDOUARD S VESSEL OPERATOR Ot 305.1 TOBACCO USE DISORDER 11/14/2016 MADDY EDOUARD S VESSEL OPERATOR Ot 345.90 EPILEPSY UNSPEC W/O MENTION INTRACTABLE 11/14/2016 MADDY EDOUARD S VESSEL OPERATOR Ot V58.69 OTH MED,LT,CURRENT USE 11/14/2016 MADDY EDOUARD S VESSEL OPERATOR Ot 153.9 MALIGNANT HERNÁN COLON NOS 11/14/2016 MADDY EDOUARD S VESSEL OPERATOR Ot 197.7 SECOND MALIG HERNÁ[place] LIVER 11/14/2016 WIN EDOUARDAH S VESSEL OPERATOR Ot 305.1 TOBACCO USE DISORDER 11/14/2016 MADDY EDOUARD S VESSEL OPERATOR Ot 345.90 EPILEPSY UNSPEC W/O MENTION INTRACTABLE 11/14/2016 MADDY EDOUARD S VESSEL OPERATOR Ot V58.69 OTH MED,LT,CURRENT USE 11/14/2016 MADDY EDOUARD S VESSEL OPERATOR Ot 153.9 MALIGNANT HERNÁN COLON NOS 11/14/2016 MADDY EDOUARD S VESSEL OPERATOR Ot 197.7 SECOND MALIG HERN[place] LIVER 11/14/2016 MADDY EDOUARD S VESSEL OPERATOR Ot 305.1 TOBACCO USE DISORDER 11/14/2016 MADDY EDOUARD S VESSEL OPERATOR Ot 345.90 EPILEPSY UNSPEC W/O MENTION INTRACTABLE 11/14/2016 MADDY EDOUARD S VESSEL OPERATOR Ot V58.69 OTH MED,LT,CURRENT USE 11/14/2016 MADDY EDOUARD S VESSEL OPERATOR Ot 153.9 MALIGNANT HERNÁN COLON NOS 11/14/2016 EDOUARD, HILAH S VESSEL OPERATOR Ot 197.7 SECOND MALIG HERN[place] LIVER 11/14/2016 EDOUARD, HILAH S VESSEL OPERATOR Ot 345.90 EPILEPSY UNSPEC W/O MENTION INTRACTABLE 11/14/2016 MADDY EDOUARD S VESSEL OPERATOR Ot V58.69 OTH MED,LT,CURRENT USE 11/14/2016 CHAYITO ROBLEDO Ot 153.9 MALIGNANT HERNÁN COLON NOS 11/14/2016 JOSE BURR, NADJA Ot 153.9 MALIGNANT HERNÁN COLON NOS 11/14/2016 JOSE BURR, NADJA Ot 197.7 SECOND MALIG HERN[place] LIVER 11/14/2016 JOSE BURR, NADJA Ot 345.90 EPILEPSY UNSPEC W/O MENTION INTRACTABLE 11/14/2016 JOSE BURR, NADJA Ot V58.69 OTH MED,LT,CURRENT USE 11/14/2016 MADDY EDOUARD S VESSEL OPERATOR Ot 153.9 MALIGNANT HERN[place] COLON NOS 11/14/2016 MADDY EDOUARD S VESSEL OPERATOR Ot 197.7 SECOND MALIG HERN[place] LIVER 11/14/2016 EDOUARDMADDY Matthews S VESSEL OPERATOR Ot 345.90 EPILEPSY UNSPEC W/O MENTION INTRACTABLE 11/14/2016 EDOUARDMADDY Matthews S VESSEL OPERATOR Ot V58.69 OTH MED,LT,CURRENT USE 11/14/2016 MADDY EDOUARD S VESSEL OPERATOR Ot 153.9 MALIGNANT HERNÁN COLON NOS 11/14/2016 EDOUARD, HILAH S VESSEL OPERATOR Ot 197.7 SECOND MALIG HERNÁ[place] LIVER 11/14/2016 EDOUARDWINAH S VESSEL OPERATOR Ot 345.90 EPILEPSY UNSPEC W/O MENTION INTRACTABLE 11/14/2016 EDOUARDMADDY Matthews S VESSEL OPERATOR Ot V58.69 OTH MED,LT,CURRENT USE 11/14/2016 MADDY EDOUARD VESSEL OPERATOR Ot 153.9 MALIGNANT HERNÁN COLON NOS 11/14/2016 MADDY EDOUARD VESSEL OPERATOR Ot 197.7 SECOND MALIG HERNÁN LIVER 11/14/2016 ISAIAS BURR, RENATE Pierson Ot I25.10 ATHSCL HEART DISEASE OF [place] CORONARY 11/14/2016 ISAIAS BURR, RENATE Pierson Ot J44.9 CHRONIC OBSTRUCTIVE PULMONARY DISEASE, U 11/14/2016 ISAIAS BURR, RENATE Pierson Ot M47.812 SPONDYLOSIS W/O MYELOPATHY OR RADICULOPA 11/14/2016 MADDY EDOUARD VESSEL OPERATOR Ot C18.9 MALIGNANT NEOPLASM OF COLON, UNSPECIFIED 11/14/2016 MADDY EDOUARD S VESSEL OPERATOR Ot C78.7 SECONDARY MALIG NEOPLASM OF LIVER AND IN 11/14/2016 MADDY EDOUARD S VESSEL OPERATOR Ot Z92.21 PERSONAL HISTORY OF ANTINEOPLASTIC CHEMO 11/14/2016 ANGELO BURR, [place] Warner Ot M25.511 PAIN IN RIGHT SHOULDER 11/14/2016 MADDY EDOUARD S VESSEL OPERATOR Ot C18.9 MALIGNANT NEOPLASM OF COLON, UNSPECIFIED 11/14/2016 MADDY EDOUARD S VESSEL OPERATOR Ot C78.7 SECONDARY MALIG NEOPLASM OF LIVER AND IN 11/14/2016 MADDY EDOUARD S VESSEL OPERATOR Ot Z92.21 PERSONAL HISTORY OF ANTINEOPLASTIC CHEMO 11/14/2016 MADDY EDOUARD VESSEL OPERATOR Ot C18.9 MALIGNANT NEOPLASM OF COLON, UNSPECIFIED 11/14/2016 MADDY EDOUARD VESSEL OPERATOR Ot C78.7 SECONDARY MALIG NEOPLASM OF LIVER AND IN 11/14/2016 MADDY EDOUARD S VESSEL OPERATOR Ot Z92.21 PERSONAL HISTORY OF ANTINEOPLASTIC CHEMO 11/14/2016 MADDY EDOUARD S VESSEL OPERATOR Ot C18.9 MALIGNANT NEOPLASM OF COLON, UNSPECIFIED 11/14/2016 MADDY EDOUARD S VESSEL OPERATOR Ot C78.7 SECONDARY MALIG NEOPLASM OF LIVER AND IN 11/14/2016 MADDY EDOUARD S VESSEL OPERATOR Ot Z92.21 PERSONAL HISTORY OF ANTINEOPLASTIC CHEMO 11/14/2016 MADDY EDOUARD S VESSEL OPERATOR Ot C18.9 MALIGNANT NEOPLASM OF COLON, UNSPECIFIED 11/14/2016 MADDY EDOUARD S VESSEL OPERATOR Ot C78.7 SECONDARY MALIG NEOPLASM OF LIVER AND IN 11/14/2016 MADDY EDOUARD S VESSEL OPERATOR Ot Z92.21 PERSONAL HISTORY OF ANTINEOPLASTIC CHEMO 11/14/2016 CHAYITO ROBLEDO N Ot C18.2 MALIGNANT NEOPLASM OF ASCENDING COLON 11/14/2016 CHAYITO ROBLEDO N Ot C78.7 SECONDARY MALIG NEOPLASM OF LIVER AND IN 11/14/2016 EDOUARDWINLINH S VESSEL OPERATOR Ot C18.2 MALIGNANT NEOPLASM OF ASCENDING COLON 11/14/2016 MADDY EDOUARD S VESSEL OPERATOR Ot C78.7 SECONDARY MALIG NEOPLASM OF LIVER AND IN 11/14/2016 MADDY EDOUARD S VESSEL OPERATOR Ot C18.2 MALIGNANT NEOPLASM OF ASCENDING COLON 11/14/2016 MADDY EDOUARD S VESSEL OPERATOR Ot C78.7 SECONDARY MALIG NEOPLASM OF LIVER AND IN 11/14/2016 MADDY EDOUARD S VESSEL OPERATOR Ot C18.2 MALIGNANT NEOPLASM OF ASCENDING COLON 11/14/2016 MADDY EDOUARD S VESSEL OPERATOR Ot C78.7 SECONDARY MALIG NEOPLASM OF LIVER AND IN 11/14/2016 MADDY EDOUARD S VESSEL OPERATOR Ot R26.9 UNSPECIFIED ABNORMALITIES OF GAIT AND MO 11/14/2016 MADDY EDOUARD S VESSEL OPERATOR Ot C18.2 MALIGNANT NEOPLASM OF ASCENDING COLON 11/14/2016 MADDY EDOUARD S VESSEL OPERATOR Ot C78.7 SECONDARY MALIG NEOPLASM OF LIVER AND IN 11/14/2016 MADDY EDOUARD S VESSEL OPERATOR Ot Z92.21 PERSONAL HISTORY OF ANTINEOPLASTIC CHEMO 11/14/2016 ANGELO BURR, [place] A Ot E78.5 HYPERLIPIDEMIA, UNSPECIFIED 11/14/2016 MADDY EDOUARD S VESSEL OPERATOR Ot C18.2 MALIGNANT NEOPLASM OF ASCENDING COLON 11/14/2016 MADDY EDOUARD S VESSEL OPERATOR Ot C78.7 SECONDARY MALIG NEOPLASM OF LIVER AND IN 11/14/2016 MADDY EDOUARD S VESSEL OPERATOR Ot Z92.21 PERSONAL HISTORY OF ANTINEOPLASTIC CHEMO 11/14/2016 MADDY EDOUARD S VESSEL OPERATOR Ot C18.2 MALIGNANT NEOPLASM OF ASCENDING COLON 11/14/2016 MADDY EDOUARD S VESSEL OPERATOR Ot C78.7 SECONDARY MALIG NEOPLASM OF LIVER AND IN 11/14/2016 MADDY EDOUARD S VESSEL OPERATOR Ot Z92.21 PERSONAL HISTORY OF ANTINEOPLASTIC CHEMO 11/14/2016 MADDY EDOUARD S VESSEL OPERATOR Ot C18.2 MALIGNANT NEOPLASM OF ASCENDING COLON 11/14/2016 MADDY EDOUARD S VESSEL OPERATOR Ot C78.7 SECONDARY MALIG NEOPLASM OF LIVER AND IN 11/14/2016 EDOUARDMADDY Matthews VESSEL OPERATOR Ot Z92.21 PERSONAL HISTORY OF ANTINEOPLASTIC CHEMO 11/14/2016 EDOUARD, MADDY Csasie VESSEL OPERATOR Ot C18.2 MALIGNANT NEOPLASM OF ASCENDING COLON 11/14/2016 MADDY EDOUARD VESSEL OPERATOR Ot C78.7 SECONDARY MALIG NEOPLASM OF LIVER AND IN 11/14/2016 EDOUARD MADDY S VESSEL OPERATOR Ot C18.9 MALIGNANT NEOPLASM OF COLON, UNSPECIFIED 11/14/2016 MADDY EDOUARD VESSEL OPERATOR Ot C78.7 SECONDARY MALIG NEOPLASM OF LIVER AND IN 11/14/2016 MADDY EDOUARD S VESSEL OPERATOR Ot R91.8 OTHER NONSPECIFIC ABNORMAL FINDING OF [place] 11/14/2016 CHAYITO ROBLEDO N Ot C18.2 MALIGNANT NEOPLASM OF ASCENDING COLON 11/14/2016 CHAYITO ROBLEDO N Ot C78.7 SECONDARY MALIG NEOPLASM OF LIVER AND IN 11/14/2016 CHAYITO ROBLEDO N Ot R91.8 OTHER NONSPECIFIC ABNORMAL FINDING OF [place] 11/15/2016 Ot 153.9 MALIGNANT HERNÁN COLON NOS 11/15/2016 Ot 197.7 SECOND MALIG HERNÁN LIVER 11/15/2016 CHAYITO ROBLEDO N Ot 359.0 CAROLYN HERED MUSC DYSTRPHY 11/15/2016 MADDY EDOUARD S VESSEL OPERATOR Ot 153.9 MALIGNANT HERNÁN COLON NOS 11/15/2016 MADDY EDOUARD S VESSEL OPERATOR Ot 197.7 SECOND MALIG HERNÁ[place] LIVER 11/15/2016 MADDY EDOUARD S VESSEL OPERATOR Ot 345.90 EPILEPSY UNSPEC W/O MENTION INTRACTABLE 11/15/2016 MADDY EDOUARD S VESSEL OPERATOR Ot V58.69 OTH MED,LT,CURRENT USE 11/15/2016 MADDY EDOUARD S VESSEL OPERATOR Ot 153.9 MALIGNANT HERNÁN COLON NOS 11/15/2016 MADDY EDOUARD S VESSEL OPERATOR Ot 197.7 SECOND MALIG HERNÁN LIVER 11/15/2016 MADDY EDOUARD S VESSEL OPERATOR Ot 345.90 EPILEPSY UNSPEC W/O MENTION INTRACTABLE 11/15/2016 MADDY EDOUARD S VESSEL OPERATOR Ot V58.69 OTH MED,LT,CURRENT USE 11/15/2016 EDOUARDMADDY Matthews S VESSEL OPERATOR Ot 153.9 MALIGNANT HERNÁN COLON NOS 11/15/2016 MADDY EDOUARD S VESSEL OPERATOR Ot 197.7 SECOND MALIG HERNÁN LIVER 11/15/2016 EDOUARDMADDY Matthews S VESSEL OPERATOR Ot 345.90 EPILEPSY UNSPEC W/O MENTION INTRACTABLE 11/15/2016 EDOUARDMADDY Matthews S VESSEL OPERATOR Ot V58.69 OTH MED,LT,CURRENT USE 11/15/2016 CHAYITO ROBLEDO Ellis Ot 153.9 MALIGNANT HERNÁN COLON NOS 11/15/2016 EDOUARDMADDY Matthews S VESSEL OPERATOR Ot 153.9 MALIGNANT HERNÁN COLON NOS 11/15/2016 EDOUARD, HILAH S VESSEL OPERATOR Ot 197.7 SECOND MALIG HERNÁN LIVER 11/15/2016 EDOUARDWINAH S VESSEL OPERATOR Ot 345.90 EPILEPSY UNSPEC W/O MENTION INTRACTABLE 11/15/2016 EDOUARDAMDDY Matthews S VESSEL OPERATOR Ot V58.69 OTH MED,LT,CURRENT USE 11/15/2016 MADDY EDOUARD S VESSEL OPERATOR Ot 153.9 MALIGNANT HERNÁN COLON NOS 11/15/2016 EDOUARD, HILAH S VESSEL OPERATOR Ot 197.7 SECOND MALIG HERNÁN LIVER 11/15/2016 EDOUARDMADDY Matthews S VESSEL OPERATOR Ot 345.90 EPILEPSY UNSPEC W/O MENTION INTRACTABLE 11/15/2016 MADDY EDOUARD S VESSEL OPERATOR Ot V58.69 OTH MED,LT,CURRENT USE 11/15/2016 MADDY EDOUARD S VESSEL OPERATOR Ot 153.9 MALIGNANT HERNÁN COLON NOS 11/15/2016 WIN EDOUARDAH S VESSEL OPERATOR Ot 197.7 SECOND MALIG HERNÁN LIVER 11/15/2016 EDOUARDWINAH S VESSEL OPERATOR Ot 345.90 EPILEPSY UNSPEC W/O MENTION INTRACTABLE 11/15/2016 AMDDY EDOUARD S VESSEL OPERATOR Ot V58.69 OTH MED,LT,CURRENT USE 11/15/2016 MADDY EDOUARD S VESSEL OPERATOR Ot 153.9 MALIGNANT HERNÁN COLON NOS 11/15/2016 EDOUARD, HILAH S VESSEL OPERATOR Ot 197.7 SECOND MALIG HERNÁN LIVER 11/15/2016 EDOUARDWINAH S VESSEL OPERATOR Ot 345.90 EPILEPSY UNSPEC W/O MENTION INTRACTABLE 11/15/2016 EDOUARDMADDY S VESSEL OPERATOR Ot V58.69 OTH MED,LT,CURRENT USE 11/15/2016 EDOUARDWINAH S VESSEL OPERATOR Ot 153.9 MALIGNANT HERNÁN COLON NOS 11/15/2016 EDOUARDWINAH S VESSEL OPERATOR Ot 197.7 SECOND MALIG HERNÁN LIVER 11/15/2016 EDOUARDWINAH S VESSEL OPERATOR Ot 345.90 EPILEPSY UNSPEC W/O MENTION INTRACTABLE 11/15/2016 MADDY EDOUARD S VESSEL OPERATOR Ot V58.69 OTH MED,LT,CURRENT USE 11/15/2016 MADDY EDOUARD S VESSEL OPERATOR Ot 153.9 MALIGNANT HERNÁN COLON NOS 11/15/2016 EDOUARD, HILAH S VESSEL OPERATOR Ot 197.7 SECOND MALIG HERNÁN LIVER 11/15/2016 EDOUARD HILAH S VESSEL OPERATOR Ot 345.90 EPILEPSY UNSPEC W/O MENTION INTRACTABLE 11/15/2016 MADDY EDOUARD S VESSEL OPERATOR Ot V58.69 OTH MED,LT,CURRENT USE 11/15/2016 MADDY EDOUARD S VESSEL OPERATOR Ot 153.9 MALIGNANT HERNÁN COLON NOS 11/15/2016 EDOUARD, HILAH S VESSEL OPERATOR Ot 197.7 SECOND MALIG HERNÁN LIVER 11/15/2016 EDOUARD, HILAH S VESSEL OPERATOR Ot 345.90 EPILEPSY UNSPEC W/O MENTION INTRACTABLE 11/15/2016 MADDY EDOUARD S VESSEL OPERATOR Ot V58.69 OTH MED,LT,CURRENT USE 11/15/2016 CHAYITO ROBLEDO Ot 153.9 MALIGNANT HERNÁN COLON NOS 11/15/2016 EDOUARDMADDY Matthews S VESSEL OPERATOR Ot 153.9 MALIGNANT HERNÁN COLON NOS 11/15/2016 WIN EDOUARDAH S VESSEL OPERATOR Ot 197.7 SECOND MALIG HERNÁN LIVER 11/15/2016 MADDY EDOUARD S VESSEL OPERATOR Ot 345.90 EPILEPSY UNSPEC W/O MENTION INTRACTABLE 11/15/2016 MADDY EDOUARD S VESSEL OPERATOR Ot V58.69 OTH MED,LT,CURRENT USE 11/15/2016 MADDY EDOUARD S VESSEL OPERATOR Ot 153.9 MALIGNANT HERNÁN COLON NOS 11/15/2016 EDOUARDMADDY Matthews S VESSEL OPERATOR Ot 197.7 SECOND MALIG HERNÁN LIVER 11/15/2016 EDOUARDMADDY Matthews S VESSEL OPERATOR Ot 345.90 EPILEPSY UNSPEC W/O MENTION INTRACTABLE 11/15/2016 EDOUARDMADDY S VESSEL OPERATOR Ot V58.69 OTH MED,LT,CURRENT USE 11/15/2016 EDOUARD, HILAH S VESSEL OPERATOR Ot 153.9 MALIGNANT HERNÁN COLON NOS 11/15/2016 EDOUARDWINAH S VESSEL OPERATOR Ot 197.7 SECOND MALIG HERNÁN LIVER 11/15/2016 EDOUARDWINAH S VESSEL OPERATOR Ot 345.90 EPILEPSY UNSPEC W/O MENTION INTRACTABLE 11/15/2016 MADDY EDOUARD VESSEL OPERATOR Ot V58.69 OTH MED,LT,CURRENT USE 11/15/2016 MADDY EDOUARD S VESSEL OPERATOR Ot 153.9 MALIGNANT HERNÁN COLON NOS 11/15/2016 MADDY EDOUARD S VESSEL OPERATOR Ot 197.7 SECOND MALIG HERNÁ[place] LIVER 11/15/2016 MADDY EDOUARD S VESSEL OPERATOR Ot 345.90 EPILEPSY UNSPEC W/O MENTION INTRACTABLE 11/15/2016 MADDY EDOUARD S VESSEL OPERATOR Ot V58.69 OTH MED,LT,CURRENT USE 11/15/2016 MADDY EDOUARD S VESSEL OPERATOR Ot 153.9 MALIGNANT [place] COLON NOS 11/15/2016 MADDY EDOUARD S VESSEL OPERATOR Ot 197.7 SECOND MALIG [place] LIVER 11/15/2016 MADDY EDOUARD S VESSEL OPERATOR Ot 345.90 EPILEPSY UNSPEC W/O MENTION INTRACTABLE 11/15/2016 MADDY EDOUARD S VESSEL OPERATOR Ot V58.69 OTH MED,LT,CURRENT USE 11/15/2016 MADDY EDOUARD VESSEL OPERATOR Ot 786.05 SHORTNESS OF BREATH 11/15/2016 MADDY EDOUARD S VESSEL OPERATOR Ot 786.2 COUGH 11/15/2016 MADDY EDOUARD S VESSEL OPERATOR Ot 153.9 MALIGNANT [place] COLON NOS 11/15/2016 MADDY EDOUARD S VESSEL OPERATOR Ot 197.7 SECOND MALIG [place] LIVER 11/15/2016 MADDY EDOUARD VESSEL OPERATOR Ot 345.90 EPILEPSY UNSPEC W/O MENTION INTRACTABLE 11/15/2016 MADDY EDOUARD VESSEL OPERATOR Ot 528.9 ORAL SOFT TISSUE DIS NEC 11/15/2016 MADDY EDOUARD VESSEL OPERATOR Ot V58.69 OTH MED,LT,CURRENT USE 11/15/2016 MADDY EDOUARD S VESSEL OPERATOR Ot V87.41 PERSONAL HISTORY OF ANTINEOPLASTIC CHEMO 11/15/2016 MADDY EDOUARD S VESSEL OPERATOR Ot 153.9 MALIGNANT [place] COLON NOS 11/15/2016 MADDY EDOUARD S VESSEL OPERATOR Ot 197.7 SECOND MALIG [place] LIVER 11/15/2016 MADDY EDOUARD S VESSEL OPERATOR Ot 305.1 TOBACCO USE DISORDER 11/15/2016 MADDY EDOUARD S VESSEL OPERATOR Ot 345.90 EPILEPSY UNSPEC W/O MENTION INTRACTABLE 11/15/2016 MADDY EDOUARD S VESSEL OPERATOR Ot V58.69 OTH MED,LT,CURRENT USE 11/15/2016 MADDY EDOUARD S VESSEL OPERATOR Ot 153.9 MALIGNANT [place] COLON NOS 11/15/2016 EDOUARDMADDY Matthews S VESSEL OPERATOR Ot 197.7 SECOND MALIG HERN[place] LIVER 11/15/2016 EDOUARD, HILAH S VESSEL OPERATOR Ot 305.1 TOBACCO USE DISORDER 11/15/2016 EDOUARDMADDY Matthews S VESSEL OPERATOR Ot 345.90 EPILEPSY UNSPEC W/O MENTION INTRACTABLE 11/15/2016 EDOUARDMADDY Matthews S VESSEL OPERATOR Ot V58.69 OTH MED,LT,CURRENT USE 11/15/2016 MADDY EDOUARD S VESSEL OPERATOR Ot 153.9 MALIGNANT HERN[place] COLON NOS 11/15/2016 EDOUARD, HILAH S VESSEL OPERATOR Ot 197.7 SECOND MALIG HERN[place] LIVER 11/15/2016 MADDY EDOUARD S VESSEL OPERATOR Ot 305.1 TOBACCO USE DISORDER 11/15/2016 EDOUARD, HILAH S VESSEL OPERATOR Ot 345.90 EPILEPSY UNSPEC W/O MENTION INTRACTABLE 11/15/2016 EDOUARDMADDY S VESSEL OPERATOR Ot V58.69 OTH MED,LT,CURRENT USE 11/15/2016 MADDY EDOUARD S VESSEL OPERATOR Ot 153.9 MALIGNANT HERN[place] COLON NOS 11/15/2016 MADDY EDOUARD S VESSEL OPERATOR Ot 197.7 SECOND MALIG HERN[place] LIVER 11/15/2016 EDOUARDMADDY Matthews S VESSEL OPERATOR Ot 345.90 EPILEPSY UNSPEC W/O MENTION INTRACTABLE 11/15/2016 MADDY EDOUARD S VESSEL OPERATOR Ot V58.69 OTH MED,LT,CURRENT USE 11/15/2016 CHAYITO ROBLEDO Ot 153.9 MALIGNANT HERNÁN COLON NOS 11/15/2016 NADJA GARCIA MD Ot 153.9 MALIGNANT HERN[place] COLON NOS 11/15/2016 NADJA GARCIA MD Ot 197.7 SECOND MALIG HERN[place] LIVER 11/15/2016 NADJA GARCIA MD Ot 345.90 EPILEPSY UNSPEC W/O MENTION INTRACTABLE 11/15/2016 NADJA GARCIA MD Ot V58.69 OTH MED,LT,CURRENT USE 11/15/2016 EDOUARDMADDY Matthews S VESSEL OPERATOR Ot 153.9 MALIGNANT HERN[place] COLON NOS 11/15/2016 EDOUARDMADDY Matthews S VESSEL OPERATOR Ot 197.7 SECOND MALIG HERN[place] LIVER 11/15/2016 EDOUARDMADDY S VESSEL OPERATOR Ot 345.90 EPILEPSY UNSPEC W/O MENTION INTRACTABLE 11/15/2016 EDOUARDMADDY Matthews S VESSEL OPERATOR Ot V58.69 OTH MED,LT,CURRENT USE 11/15/2016 EDOUARDMADDY Matthews S VESSEL OPERATOR Ot 153.9 MALIGNANT H[place] COLON NOS 11/15/2016 EDOUARDMADDY Matthews S VESSEL OPERATOR Ot 197.7 SECOND MALIG [place] LIVER 11/15/2016 MADDY EDOUARD S VESSEL OPERATOR Ot 345.90 EPILEPSY UNSPEC W/O MENTION INTRACTABLE 11/15/2016 MADDY EDOUARD S VESSEL OPERATOR Ot V58.69 OTH MED,LT,CURRENT USE 11/15/2016 MADDY EDOUARD S VESSEL OPERATOR Ot 153.9 MALIGNANT HERN[place] COLON NOS 11/15/2016 MADDY EDOUARD S VESSEL OPERATOR Ot 197.7 SECOND MALIG HERN[place] LIVER 11/15/2016 ISAIAS BURR, RENATE Pierson Ot I25.10 ATHSCL HEART DISEASE OF [place] CORONARY 11/15/2016 ISAIAS BURR, RENATE Pierson Ot J44.9 CHRONIC OBSTRUCTIVE PULMONARY DISEASE, U 11/15/2016 ISAIAS BURR, RENATE Pierson Ot M47.812 SPONDYLOSIS W/O MYELOPATHY OR RADICULOPA 11/15/2016 MADDY EDOUARD S VESSEL OPERATOR Ot C18.9 MALIGNANT NEOPLASM OF COLON, UNSPECIFIED 11/15/2016 MADDY EDOUARD S VESSEL OPERATOR Ot C78.7 SECONDARY MALIG NEOPLASM OF LIVER AND IN 11/15/2016 MADDY EDOUARD S VESSEL OPERATOR Ot Z92.21 PERSONAL HISTORY OF ANTINEOPLASTIC CHEMO 11/15/2016 ANGELO BURR, [place] Warner Ot M25.511 PAIN IN RIGHT SHOULDER 11/15/2016 MADDY EDOUARD S VESSEL OPERATOR Ot C18.9 MALIGNANT NEOPLASM OF COLON, UNSPECIFIED 11/15/2016 MADDY EDOUARD S VESSEL OPERATOR Ot C78.7 SECONDARY MALIG NEOPLASM OF LIVER AND IN 11/15/2016 MADDY EDOUARD S VESSEL OPERATOR Ot Z92.21 PERSONAL HISTORY OF ANTINEOPLASTIC CHEMO 11/15/2016 MADDY EDOUARD S VESSEL OPERATOR Ot C18.9 MALIGNANT NEOPLASM OF COLON, UNSPECIFIED 11/15/2016 EDOUARDMADDY S VESSEL OPERATOR Ot C78.7 SECONDARY MALIG NEOPLASM OF LIVER AND IN 11/15/2016 EDOUARD, HILAH S VESSEL OPERATOR Ot Z92.21 PERSONAL HISTORY OF ANTINEOPLASTIC CHEMO 11/15/2016 MADDY EDOUARD S VESSEL OPERATOR Ot C18.9 MALIGNANT NEOPLASM OF COLON, UNSPECIFIED 11/15/2016 MADDY EDOUARD S VESSEL OPERATOR Ot C78.7 SECONDARY MALIG NEOPLASM OF LIVER AND IN 11/15/2016 MADDY EDOUARD S VESSEL OPERATOR Ot Z92.21 PERSONAL HISTORY OF ANTINEOPLASTIC CHEMO 11/15/2016 MADDY EDOUARD VESSEL OPERATOR Ot C18.9 MALIGNANT NEOPLASM OF COLON, UNSPECIFIED 11/15/2016 MADDY EDOUARD S VESSEL OPERATOR Ot C78.7 SECONDARY MALIG NEOPLASM OF LIVER AND IN 11/15/2016 MADDY EDOUARD S VESSEL OPERATOR Ot Z92.21 PERSONAL HISTORY OF ANTINEOPLASTIC CHEMO 11/15/2016 MEENACHAYITO RAMOS N Ot C18.2 MALIGNANT NEOPLASM OF ASCENDING COLON 11/15/2016 MEENAGARO RAMOSAN N Ot C78.7 SECONDARY MALIG NEOPLASM OF LIVER AND IN 11/15/2016 MADDY EDOUARD S VESSEL OPERATOR Ot C18.2 MALIGNANT NEOPLASM OF ASCENDING COLON 11/15/2016 MADDY EDOUARD S VESSEL OPERATOR Ot C78.7 SECONDARY MALIG NEOPLASM OF LIVER AND IN 11/15/2016 MADDY EDOUARD S VESSEL OPERATOR Ot C18.2 MALIGNANT NEOPLASM OF ASCENDING COLON 11/15/2016 MADDY EDOUARD S VESSEL OPERATOR Ot C78.7 SECONDARY MALIG NEOPLASM OF LIVER AND IN 11/15/2016 MADDY EDOUARD S VESSEL OPERATOR Ot C18.2 MALIGNANT NEOPLASM OF ASCENDING COLON 11/15/2016 MADDY EDOUARD S VESSEL OPERATOR Ot C78.7 SECONDARY MALIG NEOPLASM OF LIVER AND IN 11/15/2016 MADDY EDOUARD S VESSEL OPERATOR Ot R26.9 UNSPECIFIED ABNORMALITIES OF [place] AND MO 11/15/2016 MADDY EDOUARD S VESSEL OPERATOR Ot C18.2 MALIGNANT NEOPLASM OF ASCENDING COLON 11/15/2016 MADDY EDOUARD S VESSEL OPERATOR Ot C78.7 SECONDARY MALIG NEOPLASM OF LIVER AND IN 11/15/2016 MADDY EDOUARD S VESSEL OPERATOR Ot Z92.21 PERSONAL HISTORY OF ANTINEOPLASTIC CHEMO 11/15/2016 ANGELO BURR, [place] Ot E78.5 HYPERLIPIDEMIA, UNSPECIFIED 11/15/2016 MADDY EDOUARD S VESSEL OPERATOR Ot C18.2 MALIGNANT NEOPLASM OF ASCENDING COLON 11/15/2016 MADDY EDOUARD S VESSEL OPERATOR Ot C78.7 SECONDARY MALIG NEOPLASM OF LIVER AND IN 11/15/2016 MADDY EDOUARD S VESSEL OPERATOR Ot Z92.21 PERSONAL HISTORY OF ANTINEOPLASTIC CHEMO 11/15/2016 MADDY EDOUARD VESSEL OPERATOR Ot C18.2 MALIGNANT NEOPLASM OF ASCENDING COLON 11/15/2016 MADDY EDOUARD S VESSEL OPERATOR Ot C78.7 SECONDARY MALIG NEOPLASM OF LIVER AND IN 11/15/2016 MADDY EDOUARD VESSEL OPERATOR Ot Z92.21 PERSONAL HISTORY OF ANTINEOPLASTIC CHEMO 11/15/2016 MADDY EDOUARD S VESSEL OPERATOR Ot C18.2 MALIGNANT NEOPLASM OF ASCENDING COLON 11/15/2016 MADDY EDOUARD S VESSEL OPERATOR Ot C78.7 SECONDARY MALIG NEOPLASM OF LIVER AND IN 11/15/2016 MADDY EDOUARD S VESSEL OPERATOR Ot Z92.21 PERSONAL HISTORY OF ANTINEOPLASTIC CHEMO 11/15/2016 MADDY EDOUARD S VESSEL OPERATOR Ot C18.2 MALIGNANT NEOPLASM OF ASCENDING COLON 11/15/2016 EDOUARD MADDY S VESSEL OPERATOR Ot C78.7 SECONDARY MALIG NEOPLASM OF LIVER AND IN 11/15/2016 EDOUARD MADDY S VESSEL OPERATOR Ot C18.9 MALIGNANT NEOPLASM OF COLON, UNSPECIFIED 11/15/2016 SILKE MADDY S VESSEL OPERATOR Ot C78.7 SECONDARY MALIG NEOPLASM OF LIVER AND IN 11/15/2016 MADDY EDOUARD S VESSEL OPERATOR Ot R91.8 OTHER NONSPECIFIC ABNORMAL FINDING OF [place] 11/15/2016 MEENA BOBAN N Ot C18.2 MALIGNANT NEOPLASM OF ASCENDING COLON 11/15/2016 MEENA BOBAN N Ot C78.7 SECONDARY MALIG NEOPLASM OF LIVER AND IN 11/15/2016 MEENA BOBAN N Ot R91.8 OTHER NONSPECIFIC ABNORMAL FINDING OF [place] 11/16/2016 SILKE MADDY S VESSEL OPERATOR Ot C18.2 MALIGNANT NEOPLASM OF ASCENDING COLON 11/21/2016 MEENA BOBAN N Ot C18.2 MALIGNANT NEOPLASM OF ASCENDING COLON 11/21/2016 MEENA BOBAN N Ot C78.7 SECONDARY MALIG NEOPLASM OF LIVER AND IN 11/21/2016 MEENA BOBAN N Ot R91.8 OTHER NONSPECIFIC ABNORMAL FINDING OF [place] 11/21/2016 SILKE MADDY S VESSEL OPERATOR Ot C18.2 MALIGNANT NEOPLASM OF ASCENDING COLON 11/22/2016 MEENA, BOBAN N Ot C18.2 MALIGNANT NEOPLASM OF ASCENDING COLON 11/22/2016 MEENA BOBAN N Ot C78.7 SECONDARY MALIG NEOPLASM OF LIVER AND IN 11/22/2016 MEENA BOBAN N Ot R91.8 OTHER NONSPECIFIC ABNORMAL FINDING OF [place] 11/27/2016 CHAYITO ROBLEDO N Ot C18.2 MALIGNANT NEOPLASM OF ASCENDING COLON 11/27/2016 CHAYITO ROBLEDO N Ot C78.7 SECONDARY MALIG NEOPLASM OF LIVER AND IN 11/27/2016 CHAYITO ROBLEDO N Ot R91.8 OTHER NONSPECIFIC ABNORMAL FINDING OF [place] 12/07/2016 CHAYITO ROBLEDO N Ot C18.2 MALIGNANT NEOPLASM OF ASCENDING COLON 12/07/2016 CHAYITO ROBLEDO N Ot C78.7 SECONDARY MALIG NEOPLASM OF LIVER AND IN 12/07/2016 CHAYITO ROBLEDO N Ot R91.8 OTHER NONSPECIFIC ABNORMAL FINDING OF [place] 12/07/2016 MADDY EDOUARD VESSEL OPERATOR Ot C18.2 MALIGNANT NEOPLASM OF ASCENDING COLON 12/30/2016 CHAYITO ROBLEDO N Ot C18.2 MALIGNANT NEOPLASM OF ASCENDING COLON 12/30/2016 CHAYITO ROBLEDO N Ot C78.7 SECONDARY MALIG NEOPLASM OF LIVER AND IN 12/30/2016 CHAYITO ROBLEDO N Ot D64.9 ANEMIA, UNSPECIFIED 12/30/2016 CHAYITO ROBLEDO N Ot D70.9 NEUTROPENIA, UNSPECIFIED 12/30/2016 CHAYITO ROBLEDO N Ot G40.909 EPILEPSY, UNSP, NOT INTRACTABLE, WITHOUT 12/30/2016 CHAYITO ROBLEDO N Ot I10 ESSENTIAL (PRIMARY) HYPERTENSION 12/30/2016 CHAYITO ROBLEDO N Ot J44.9 CHRONIC OBSTRUCTIVE PULMONARY DISEASE, U 12/30/2016 CHAYITO ROBLEDO N Ot Z72.0 TOBACCO USE 12/30/2016 CHAYITO ROBLEDO N Ot Z79.899 OTHER HALF-WAY (CURRENT) DRUG THERAPY Procedures Results Encounters ACCT No. Visit Date/Time Discharge Status Pt. Type Provider Facility Loc./Unit Complaint [id number] 09/23/2013 10:06:00 2013 08:36:00 DIS Outpatient [id number] 09/25/2013 16:20:00 2013 15:50:00 DIS Inpatient [id number] 09/25/2013 13:32:00 2013 23:59:59 CLS Outpatient [id number] 09/23/2013 10:08:00 2013 23:59:59 CLS Outpatient
--- OUTSIDE RECORDS SUMMARY | 2017-02-28 17:52 | XMS REPORT | Continuity of Care Document ---
Author Author [facility] Organization [facility] Address Unknown Phone Unavailable Care Team Providers Care Explosives Operator Name Role Phone Pipe Shruthi PCP [phone] Source Comments Some departments are not documenting in the electronic medical record. If you do not see the information that you expected, contact Release of Information in the Health Information Management department at [phone] for further assistance in locating additional records.[facility] Active Allergies and Adverse Reactions No [...] Taken Blood Pressure 105/72 10/14/2013 1:05 PM CAREER COUNSELOR Pulse 94 10/14/2013 1:05 PM CAREER COUNSELOR Temperature - - Respiratory Rate - - Height 1.715 m (5' 7.5") 10/14/2013 1:05 PM CAREER COUNSELOR Weight 71.85 kg (158 lb 6.4 oz) 10/14/2013 1:05 PM CAREER COUNSELOR Body Mass Index 24.43 10/14/2013 1:05 PM CAREER COUNSELOR Oxygen Saturation 100% 10/14/2013 1:05 PM CAREER COUNSELOR Plan of Care Health Maintenance Due Date Last Done Comments Hepatitis C Screening 1949 Physical (Comprehensive) 1956 Exam Pertussis Vaccine 1960 Tetanus Vaccine 1966 Colorectal Cancer 1999 Screening Shingles Vaccine 2009 Prevnar/Pneumovax (#1) 2014 Influenza Vaccine 04/21/2017 Results from Last 3 Months Not on file
--- OUTSIDE RECORDS SUMMARY | 2017-02-28 17:56 | XMS REPORT | Continuity of Care Document ---
Author Author [facility] Organization [facility] Address Unknown Phone Unavailable Allergies Active Description Code Type Severity Reaction Onset Reported/Identified Relationship to Patient Clinical Status Yes No Known Drug Allergies [id number] Drug Allergy Unknown N/ A 09/23/2013 Medications [...] V58.69 OTH MED,LT,CURRENT USE 07/03/2014 EDOUARDMADDY S YARD OPERATOR Ot 153.9 07/03/2014 EDOUARDWINAH S YARD OPERATOR Ot 197.7 07/03/2014 EDOUARD HILAH S YARD OPERATOR Ot 345.90 07/03/2014 EDOUARD HILAH S YARD OPERATOR Ot V58.69 07/22/2014 MEENA, BOBAN N [...] V58.69 OTH MED,LT,CURRENT USE 08/04/2014 EDOUARDMADDY S YARD OPERATOR Ot 153.9 08/04/2014 EDOUARDWINAH S YARD OPERATOR Ot 197.7 08/04/2014 EDOUARDIWNAH S YARD OPERATOR Ot 345.90 08/04/2014 EDOUARDWINAH S YARD OPERATOR Ot V58.69 08/04/2014 EDOUARDWINAH S YARD OPERATOR Ot 786.05 08/04/2014 MADDY EDOUARD S YARD OPERATOR Ot 786.2 08/05/2014 CODEY ESCOBAR MD Ot 473.9 CHRONIC SINUSITIS NOS 08/05/2014 BRUEGGEMANN MD, CODEY T Ot 780.2 SYNCOPE AND COLLAPSE 08/08/2014 MADDY EDOUARD S YARD OPERATOR Ot 153.9 08/08/2014 EDOUARDMADDY Matthews S YARD OPERATOR Ot 197.7 08/08/2014 EDOUARDMADDY Matthews S YARD OPERATOR Ot 345.90 08/08/2014 EDOUARDMADDY Matthews S YARD OPERATOR Ot 528.9 08/08/2014 EDOUARDMADDY S YARD OPERATOR Ot V58.69 08/08/2014 EDOUARDMADDY Matthews S YARD OPERATOR Ot V87.41 08/19/2014 MEENA, BOBAN N [...] N Ot V58.69 09/11/2014 EDOUARDMADDY Matthews S YARD OPERATOR Ot 153.9 09/11/2014 SILKE MADDY S YARD OPERATOR Ot 197.7 09/11/2014 EDOUARD, MADDY S YARD OPERATOR Ot 305.1 09/11/2014 EDOUARD, MADDY S YARD OPERATOR Ot 345.90 09/11/2014 EDOUARDMADDY S YARD OPERATOR Ot V58.69 09/15/2014 MEENA, CHAYITO N [...] N Ot V58.69 09/30/2014 SILKE WINAH S YARD OPERATOR Ot 153.9 09/30/2014 EDOUARD, HILAH S YARD OPERATOR Ot 197.7 09/30/2014 SILKE HILAH S YARD OPERATOR Ot 305.1 09/30/2014 SILKE HILAH S YARD OPERATOR Ot 345.90 09/30/2014 EDOUARD HILAH S YARD OPERATOR Ot V58.69 10/14/2014 EDOUARD HILAH S YARD OPERATOR Ot 153.9 10/14/2014 SILKE HILAH S YARD OPERATOR Ot 197.7 10/14/2014 SILKE HILAH S YARD OPERATOR Ot 305.1 10/14/2014 EDOUARD, HILAH S YARD OPERATOR Ot 345.90 10/14/2014 SILKE HILAH S YARD OPERATOR Ot V58.69 11/10/2014 MEENA, GAROAN N Ot 153.9 11/10/2014 MEENA, GAROAN N Ot 197.7 11/10/2014 MEENA, GAROAN N Ot 345.90 11/10/2014 MEENA, GAROAN N Ot V58.11 11/10/2014 MEENA, GAROAN N Ot V58.69 11/10/2014 Ot 787.02 11/10/2014 Ot 787.3 11/10/2014 Ot 787.91 11/10/2014 Ot 153.9 11/10/2014 Ot 197.7 11/10/2014 MEENA, GAROAN N Ot 359.0 11/10/2014 EDOUARD, HILAH S YARD OPERATOR Ot 153.9 11/10/2014 EDOUARD, HILAH S YARD OPERATOR Ot 197.7 11/10/2014 EDOUARDWINAH S YARD OPERATOR Ot 345.90 11/10/2014 EDOUARDMADDY S YARD OPERATOR Ot V58.69 11/10/2014 EDOUARDMADDY S YARD OPERATOR Ot 153.9 11/10/2014 EDOUARDMADDY Matthews S YARD OPERATOR Ot 197.7 11/10/2014 EDOUARDWINAH S YARD OPERATOR Ot 345.90 11/10/2014 EDOUARDWIN S YARD OPERATOR Ot V58.69 11/10/2014 EDOUARDWIN S YARD OPERATOR Ot 153.9 11/10/2014 EDOUARDMADDY S YARD OPERATOR Ot 197.7 11/10/2014 EDOUARDMADDY S YARD OPERATOR Ot 345.90 11/10/2014 EDOUARDMADDY S YARD OPERATOR Ot V58.69 11/10/2014 MEENACHAYITO RAMOS N Ot 153.9 11/10/2014 EDOUARDWIN S YARD OPERATOR Ot 153.9 11/10/2014 SILKE WIN S YARD OPERATOR Ot 197.7 11/10/2014 EDOUARDMADDY S YARD OPERATOR Ot 345.90 11/10/2014 EDOUARDMADDY Matthews S YARD OPERATOR Ot V58.69 11/10/2014 EDOUARDMADDY S YARD OPERATOR Ot 153.9 11/10/2014 EDOUARDMADDY S YARD OPERATOR Ot 197.7 11/10/2014 EDOUARDMADDY S YARD OPERATOR Ot 345.90 11/10/2014 EDOUARDMADDY S YARD OPERATOR Ot V58.69 11/10/2014 SILKE WIN S YARD OPERATOR Ot 153.9 11/10/2014 SILKE WIN S YARD OPERATOR Ot 197.7 11/10/2014 EDOUARDWIN S YARD OPERATOR Ot 345.90 11/10/2014 EDOUARDWIN S YARD OPERATOR Ot V58.69 11/10/2014 SILKE WINAH S YARD OPERATOR Ot 153.9 11/10/2014 EDOUARD WINAH S YARD OPERATOR Ot 197.7 11/10/2014 EDOUARDWINAH S YARD OPERATOR Ot 345.90 11/10/2014 EDOUARD WINAH S YARD OPERATOR Ot V58.69 11/10/2014 EDOUARD WIN S YARD OPERATOR Ot 153.9 11/10/2014 EDOUARD, MADDY S YARD OPERATOR Ot 197.7 11/10/2014 SILKEWIN S YARD OPERATOR Ot 345.90 11/10/2014 SILKEMADDY S YARD OPERATOR Ot V58.69 11/10/2014 EDOUARDMADDY S YARD OPERATOR Ot 153.9 11/10/2014 EDOUARDMADDY S YARD OPERATOR Ot 197.7 11/10/2014 EDOUARD, WIN S YARD OPERATOR Ot 345.90 11/10/2014 SILKE WIN S YARD OPERATOR Ot V58.69 11/10/2014 EDOUARDWIN S YARD OPERATOR Ot 153.9 11/10/2014 SILKE WIN S YARD OPERATOR Ot 197.7 11/10/2014 SILKE WIN S YARD OPERATOR Ot 345.90 11/10/2014 SILKEWIN S YARD OPERATOR Ot V58.69 11/10/2014 MEENACHAYITO N Ot 153.9 11/10/2014 SILKE WIN S YARD OPERATOR Ot 153.9 11/10/2014 SILKE WIN S YARD OPERATOR Ot 197.7 11/10/2014 SILKE WIN S YARD OPERATOR Ot 345.90 11/10/2014 SILKE MADDY S YARD OPERATOR Ot V58.69 11/10/2014 SILKE WIN S YARD OPERATOR Ot 153.9 11/10/2014 SILKE WIN S YARD OPERATOR Ot 197.7 11/10/2014 EDOUARDWIN S YARD OPERATOR Ot 345.90 11/10/2014 EDOUARDMADDY S YARD OPERATOR Ot V58.69 11/10/2014 SILKE WIN S YARD OPERATOR Ot 153.9 11/10/2014 SILKE WIN S YARD OPERATOR Ot 197.7 11/10/2014 SILKE [facility] S YARD OPERATOR Ot 345.90 11/10/2014 SILKE WIN S YARD OPERATOR Ot V58.69 11/10/2014 SILKE WIN S YARD OPERATOR Ot 153.9 11/10/2014 SILKE WIN S YARD OPERATOR Ot 197.7 11/10/2014 EDOUARDWIN S YARD OPERATOR Ot 345.90 11/10/2014 EDOUARD, WIN S YARD OPERATOR Ot V58.69 11/10/2014 SILKE WIN S YARD OPERATOR Ot 153.9 11/10/2014 SILKE WIN S YARD OPERATOR Ot 197.7 11/10/2014 EDOUARDMADDY Matthews S YARD OPERATOR Ot 345.90 11/10/2014 EDOUARDMADDY Matthews S YARD OPERATOR Ot V58.69 11/10/2014 MADDY EDOUARD S YARD OPERATOR Ot 786.05 11/10/2014 MADDY EDOUARD S YARD OPERATOR Ot 786.2 11/10/2014 EDOUARDMADDY Matthews S YARD OPERATOR Ot 153.9 11/10/2014 EDOUARDMADDY Matthews S YARD OPERATOR Ot 197.7 11/10/2014 EDOUARDMADDY Matthews S YARD OPERATOR Ot 345.90 11/10/2014 EDOUARDMADDY Matthews S YARD OPERATOR Ot 528.9 11/10/2014 EDOUARDMADDY Matthews S YARD OPERATOR Ot V58.69 11/10/2014 MADDY EDOUARD S YARD OPERATOR Ot V87.41 11/10/2014 MEENA, BOBAN N Ot 153.9 11/10/2014 MEENAGARO RAMOSAN N Ot 197.7 11/10/2014 MEENA, GAROAN N Ot 345.90 11/10/2014 MEENA, BOBAN N Ot V58.11 11/10/2014 MEENA, BOBAN N Ot V58.69 11/10/2014 EDOUARDMADDY Matthews S YARD OPERATOR Ot 153.9 11/10/2014 EDOUARDMADDY Matthews S YARD OPERATOR Ot 197.7 11/10/2014 EDOUARDMADDY Matthews S YARD OPERATOR Ot 305.1 11/10/2014 EDOUARDMADDY Matthews S YARD OPERATOR Ot 345.90 11/10/2014 EDOUARDMADDY Matthews S YARD OPERATOR Ot V58.69 11/10/2014 EDOUARDMADDY Matthews S YARD OPERATOR Ot 153.9 11/10/2014 EDOUARDMADDY Matthews S YARD OPERATOR Ot 197.7 11/10/2014 EDOUARDMADDY S YARD OPERATOR Ot 305.1 11/10/2014 EDOUARDMADDY S YARD OPERATOR Ot 345.90 11/10/2014 EDOUARDMADDY S YARD OPERATOR Ot V58.69 11/10/2014 EDOUARDMADDY S YARD OPERATOR Ot 153.9 11/10/2014 EDOUARDMADDY S YARD OPERATOR Ot 197.7 11/10/2014 EDOUARD MADDY S YARD OPERATOR Ot 305.1 11/10/2014 EDOUARD MADDY S YARD OPERATOR Ot 345.90 11/10/2014 MADDY EDOUARD S YARD OPERATOR Ot V58.69 11/10/2014 Ot 787.02 11/10/2014 Ot 787.3 11/10/2014 Ot 787.91 11/10/2014 Ot 153.9 11/10/2014 Ot 197.7 11/10/2014 CHAYITO ROBLEDO N Ot 359.0 11/10/2014 EDOUARDMADDY Matthews S YARD OPERATOR Ot 153.9 11/10/2014 EDOUARDWINAH S YARD OPERATOR Ot 197.7 11/10/2014 EDOUARDWINAH S YARD OPERATOR Ot 345.90 11/10/2014 EDOUARDMADDY S YARD OPERATOR Ot V58.69 11/10/2014 EDOUARDWINAH S YARD OPERATOR Ot 153.9 11/10/2014 EDOUARD WINAH S YARD OPERATOR Ot 197.7 11/10/2014 EDOUARDWINAH S YARD OPERATOR Ot 345.90 11/10/2014 EDOUARD WINAH S YARD OPERATOR Ot V58.69 11/10/2014 EDOUARD, MADDY S YARD OPERATOR Ot 153.9 11/10/2014 EDOUARD MADDY S YARD OPERATOR Ot 197.7 11/10/2014 EDOUARD MADDY S YARD OPERATOR Ot 345.90 11/10/2014 SILKE MADDY S YARD OPERATOR Ot V58.69 11/10/2014 MEENAGARO RAMOSENRIKE N Ot 153.9 11/10/2014 EDOUARDMADDY Matthews S YARD OPERATOR Ot 153.9 11/10/2014 EDOUARD, MADDY S YARD OPERATOR Ot 197.7 11/10/2014 EDOUARD, MADDY S YARD OPERATOR Ot 345.90 11/10/2014 EDOUARD MADDY S YARD OPERATOR Ot V58.69 11/10/2014 EDOUARDWINAH S YARD OPERATOR Ot 153.9 11/10/2014 EDOUARD WINAH S YARD OPERATOR Ot 197.7 11/10/2014 EDOUARD WINAH S YARD OPERATOR Ot 345.90 11/10/2014 EDOUARD WINAH S YARD OPERATOR Ot V58.69 11/10/2014 EDOUARD, HILAH S YARD OPERATOR Ot 153.9 11/10/2014 EDOUARD WINAH S YARD OPERATOR Ot 197.7 11/10/2014 EDOUARD WINAH S YARD OPERATOR Ot 345.90 11/10/2014 EDOUARD WINAH S YARD OPERATOR Ot V58.69 11/10/2014 SILKEMADDY S YARD OPERATOR Ot 153.9 11/10/2014 SILKE MADDY S YARD OPERATOR Ot 197.7 11/10/2014 SILKE WINAH S YARD OPERATOR Ot 345.90 11/10/2014 EDOUARDWINAH S YARD OPERATOR Ot V58.69 11/10/2014 SILKE WINAH S YARD OPERATOR Ot 153.9 11/10/2014 SILKE WINAH S YARD OPERATOR Ot 197.7 11/10/2014 SILKE WINAH S YARD OPERATOR Ot 345.90 11/10/2014 SILKE WINAH S YARD OPERATOR Ot V58.69 11/10/2014 SILKE WIN S YARD OPERATOR Ot 153.9 11/10/2014 SILKE WINAH S YARD OPERATOR Ot 197.7 11/10/2014 SILKE WINAH S YARD OPERATOR Ot 345.90 11/10/2014 SILKE MADDY S YARD OPERATOR Ot V58.69 11/10/2014 SILKE WIN S YARD OPERATOR Ot 153.9 11/10/2014 SILKE WIN S YARD OPERATOR Ot 197.7 11/10/2014 SILKE MADDY S YARD OPERATOR Ot 345.90 11/10/2014 SILKE WIN S YARD OPERATOR Ot V58.69 11/10/2014 CHAYITO ROBLEDO N Ot 153.9 11/10/2014 EDOUARDWIN S YARD OPERATOR Ot 153.9 11/10/2014 SILKE MADDY S YARD OPERATOR Ot 197.7 11/10/2014 SILKE MADDY S YARD OPERATOR Ot 345.90 11/10/2014 SILKE MADDY S YARD OPERATOR Ot V58.69 11/10/2014 SILKE WIN S YARD OPERATOR Ot 153.9 11/10/2014 SILKE WIN S YARD OPERATOR Ot 197.7 11/10/2014 SILKE WIN S YARD OPERATOR Ot 345.90 11/10/2014 SILKE MADDY S YARD OPERATOR Ot V58.69 11/10/2014 SILKE WINAH S YARD OPERATOR Ot 153.9 11/10/2014 SILKE WINAH S YARD OPERATOR Ot 197.7 11/10/2014 SILKE WIN S YARD OPERATOR Ot 345.90 11/10/2014 SILKE WINAH S YARD OPERATOR Ot V58.69 11/10/2014 MADDY EDOUARD S YARD OPERATOR Ot 153.9 11/10/2014 EDOUARDMADDY Matthews S YARD OPERATOR Ot 197.7 11/10/2014 EDOUARDMADDY Matthews S YARD OPERATOR Ot 345.90 11/10/2014 EDOUARDMADDY Matthews S YARD OPERATOR Ot V58.69 11/10/2014 EDOUARDMADDY Matthews S YARD OPERATOR Ot 153.9 11/10/2014 EDOUARDMADDY Matthews S YARD OPERATOR Ot 197.7 11/10/2014 EDOUARDMADDY S YARD OPERATOR Ot 345.90 11/10/2014 EDOUARDMADDY S YARD OPERATOR Ot V58.69 11/10/2014 EDOUARDMADDY Matthews S YARD OPERATOR Ot 786.05 11/10/2014 EDOUARDMADDY S YARD OPERATOR Ot 786.2 11/10/2014 EDOUARDMADDY Matthews S YARD OPERATOR Ot 153.9 11/10/2014 MADDY EDOUARD S YARD OPERATOR Ot 197.7 11/10/2014 EDOUARDMADDY Matthews S YARD OPERATOR Ot 345.90 11/10/2014 MADDY EDOUARD S YARD OPERATOR Ot 528.9 11/10/2014 MADDY EDOUARD S YARD OPERATOR Ot V58.69 11/10/2014 MADDY EDOUARD S YARD OPERATOR Ot V87.41 11/10/2014 MEENA, BOBAN N Ot 153.9 11/10/2014 MEENA, BOBAN N Ot 197.7 11/10/2014 MEENA, BOBAN N Ot 345.90 11/10/2014 MENEA, BOBAN N Ot V58.11 11/10/2014 MEENA, BOBAN N Ot V58.69 11/10/2014 MADDY EDOUARD S YARD OPERATOR Ot 153.9 11/10/2014 EDOUARDMADDY Matthews S YARD OPERATOR Ot 197.7 11/10/2014 EDOUARDMADDY S YARD OPERATOR Ot 305.1 11/10/2014 EDOUARDMADDY S YARD OPERATOR Ot 345.90 11/10/2014 EDOUARDMADDY Matthews S YARD OPERATOR Ot V58.69 11/10/2014 EDOUARDMADDY S YARD OPERATOR Ot 153.9 11/10/2014 EDOUARDMADDY S YARD OPERATOR Ot 197.7 11/10/2014 EDOUARDMADDY S YARD OPERATOR Ot 305.1 11/10/2014 EDOUARDMADDY Matthews S YARD OPERATOR Ot 345.90 11/10/2014 EDOUARDMADDY Matthews S YARD OPERATOR Ot V58.69 11/10/2014 MADDY EDOUARD S YARD OPERATOR Ot 153.9 11/10/2014 MADDY EDOUARD S YARD OPERATOR Ot 197.7 11/10/2014 MADDY EDOUARD YARD OPERATOR Ot 305.1 11/10/2014 EDOUARDMADDY Matthews S YARD OPERATOR Ot 345.90 11/10/2014 EDOUARDMADDY Matthews S YARD OPERATOR Ot V58.69 11/10/2014 MEENA, BOBAN N [...] 11/20/2014 MEENA, BOBAN N Ot V58.69 11/24/2014 MEEAN, BOBAN N Ot 153.9 11/24/2014 MEENA, BOBAN [...] N Ot 359.0 12/01/2014 MADDY EDOUARD S YARD OPERATOR Ot 153.9 12/01/2014 WIN EDOUARDAH S YARD OPERATOR Ot 197.7 12/01/2014 MADDY EDOUARD S YARD OPERATOR Ot 345.90 12/01/2014 WIN EDOUARDAH S YARD OPERATOR Ot V58.69 12/01/2014 EDOUARD, HILAH S YARD OPERATOR Ot 153.9 12/01/2014 EDOUARD, HILAH S YARD OPERATOR Ot 197.7 12/01/2014 EDOUARD, HILAH S YARD OPERATOR Ot 345.90 12/01/2014 EDOUARD, HILAH S YARD OPERATOR Ot V58.69 12/01/2014 WIN EDOUARDAH S YARD OPERATOR Ot 153.9 12/01/2014 WIN EDOUARDAH S YARD OPERATOR Ot 197.7 12/01/2014 EDOUARD, HILAH S YARD OPERATOR Ot 345.90 12/01/2014 EDOUARD, HILAH S YARD OPERATOR Ot V58.69 12/01/2014 CHAYITO ROBLEDO N Ot 153.9 12/01/2014 EDOUARD HILAH S YARD OPERATOR Ot 153.9 12/01/2014 SILKE HILAH S YARD OPERATOR Ot 197.7 12/01/2014 EDOUARD, HILAH S YARD OPERATOR Ot 345.90 12/01/2014 EDOUARD, HILAH S YARD OPERATOR Ot V58.69 12/01/2014 WIN EDOUARDAH S YARD OPERATOR Ot 153.9 12/01/2014 SILKE HILAH S YARD OPERATOR Ot 197.7 12/01/2014 MADDY EDOUARD S YARD OPERATOR Ot 345.90 12/01/2014 SILKEMADDY S YARD OPERATOR Ot V58.69 12/01/2014 SILKE WINAH S YARD OPERATOR Ot 153.9 12/01/2014 EDOUARDWINAH S YARD OPERATOR Ot 197.7 12/01/2014 EDOUARDMADDY S YARD OPERATOR Ot 345.90 12/01/2014 SILKE MADDY S YARD OPERATOR Ot V58.69 12/01/2014 EDOUARDWINAH S YARD OPERATOR Ot 153.9 12/01/2014 EDOUARDWINAH S YARD OPERATOR Ot 197.7 12/01/2014 EDOUARD, WINAH S YARD OPERATOR Ot 345.90 12/01/2014 SILKE WINAH S YARD OPERATOR Ot V58.69 12/01/2014 SILKEMADDY S YARD OPERATOR Ot 153.9 12/01/2014 SILKE WIN S YARD OPERATOR Ot 197.7 12/01/2014 SILKE WIN S YARD OPERATOR Ot 345.90 12/01/2014 SILKE WIN S YARD OPERATOR Ot V58.69 12/01/2014 SILKE WIN S YARD OPERATOR Ot 153.9 12/01/2014 SILKE WIN S YARD OPERATOR Ot 197.7 12/01/2014 SILKE WIN S YARD OPERATOR Ot 345.90 12/01/2014 SILKEMADDY S YARD OPERATOR Ot V58.69 12/01/2014 SILKEMADDY S YARD OPERATOR Ot 153.9 12/01/2014 SILKE WIN S YARD OPERATOR Ot 197.7 12/01/2014 SILKE WIN S YARD OPERATOR Ot 345.90 12/01/2014 SILKE WIN S YARD OPERATOR Ot V58.69 12/01/2014 CHAYITO ROBLEDO N Ot 153.9 12/01/2014 EDOUARD, WIN S YARD OPERATOR Ot 153.9 12/01/2014 SILKE WIN S YARD OPERATOR Ot 197.7 12/01/2014 SILKE MADDY S YARD OPERATOR Ot 345.90 12/01/2014 SILKE MADDY S YARD OPERATOR Ot V58.69 12/01/2014 SILKE WINAH S YARD OPERATOR Ot 153.9 12/01/2014 SILKE WINAH S YARD OPERATOR Ot 197.7 12/01/2014 SILKE WINAH S YARD OPERATOR Ot 345.90 12/01/2014 EDOUARDMADDY Matthews S YARD OPERATOR Ot V58.69 12/01/2014 EDOUARDMADDY Matthews S YARD OPERATOR Ot 153.9 12/01/2014 EDOUARDMADDY Matthews S YARD OPERATOR Ot 197.7 12/01/2014 EDOUARDMADDY S YARD OPERATOR Ot 345.90 12/01/2014 EDOUARDMADDY Matthews S YARD OPERATOR Ot V58.69 12/01/2014 EDOUARDMADDY S YARD OPERATOR Ot 153.9 12/01/2014 EDOUARD, HIL S YARD OPERATOR Ot 197.7 12/01/2014 EDOUARDWIN S YARD OPERATOR Ot 345.90 12/01/2014 EDOUARDMADDY S YARD OPERATOR Ot V58.69 12/01/2014 EDOUARDMADDY Matthews S YARD OPERATOR Ot 153.9 12/01/2014 EDOUARDMADDY S YARD OPERATOR Ot 197.7 12/01/2014 SILKE WIN S YARD OPERATOR Ot 345.90 12/01/2014 SILKEWIN S YARD OPERATOR Ot V58.69 12/01/2014 EDOUARD, HIL S YARD OPERATOR Ot 786.05 12/01/2014 EDOUARD, HIL S YARD OPERATOR Ot 786.2 12/01/2014 EDOUARD, HIL S YARD OPERATOR Ot 153.9 12/01/2014 EDOUARD, HIL S YARD OPERATOR Ot 197.7 12/01/2014 EDOUARDWIN S YARD OPERATOR Ot 345.90 12/01/2014 EDOUARD, HIL S YARD OPERATOR Ot 528.9 12/01/2014 SILKEWIN S YARD OPERATOR Ot V58.69 12/01/2014 EDOUARD, [facility] S YARD OPERATOR Ot V87.41 12/01/2014 EDOUARDWIN S YARD OPERATOR Ot 153.9 12/01/2014 SILKE [facility] S YARD OPERATOR Ot 197.7 12/01/2014 SILKE WIN S YARD OPERATOR Ot 305.1 12/01/2014 EDOUARDWIN S YARD OPERATOR Ot 345.90 12/01/2014 SILKEMADDY S YARD OPERATOR Ot V58.69 12/01/2014 SILKE WIN S YARD OPERATOR Ot 153.9 12/01/2014 SILKE WIN S YARD OPERATOR Ot 197.7 12/01/2014 MADDY EDOUARD YARD OPERATOR Ot 305.1 12/01/2014 MADDY EDOUARD YARD OPERATOR Ot 345.90 12/01/2014 MADDY EDOUARD YARD OPERATOR Ot V58.69 12/01/2014 MADDY EDOUARD YARD OPERATOR Ot 153.9 12/01/2014 MADDY EDOUARD YARD OPERATOR Ot 197.7 12/01/2014 MADDY EDOUARD YARD OPERATOR Ot 305.1 12/01/2014 AMDDY EDOUARD YARD OPERATOR Ot 345.90 12/01/2014 MADDY EDOUARD YARD OPERATOR Ot V58.69 12/01/2014 MEENA, BOBAN N Ot 153.9 12/01/2014 MEENA, BOBAN N Ot 197.7 12/01/2014 MEENA, BOBAN N Ot 345.90 12/01/2014 MEENA, BOBAN N Ot V58.11 12/01/2014 MEENA, BOBAN N Ot V58.69 12/03/2014 MEENA, BOBAN N Ot 153.9 12/30/2014 MEENA, BOBAN N Ot 153.9 12/30/2014 MEENA, BOBAN [...] BURR, JOALBERTO Ot 197.7 03/20/2015 [facility] Ot 345.90 03/20/2015 JOSE BURR, SANDRO-ALBERTO Ot [...] ROBLEDO N Ot V58.69 04/16/2015 EDOUARDMADDY S YARD OPERATOR Ot 153.9 04/16/2015 SILKE MADDY S YARD OPERATOR Ot 197.7 04/16/2015 SILKE MADDY S YARD OPERATOR Ot 345.90 04/16/2015 SILKE MADDY S YARD OPERATOR Ot V58.69 04/16/2015 EDOUARD WINAH S YARD OPERATOR Ot 153.9 04/16/2015 EDOUARD WINAH S YARD OPERATOR Ot 197.7 04/16/2015 EDOUARD WINAH S YARD OPERATOR Ot 345.90 04/16/2015 SILKE WINAH S YARD OPERATOR Ot V58.69 04/16/2015 EDOUARD WINAH S YARD OPERATOR Ot 153.9 04/16/2015 EDOUARD WINAH S YARD OPERATOR Ot 197.7 04/16/2015 SILKE WINAH S YARD OPERATOR Ot 345.90 04/16/2015 SILKE MADDY S YARD OPERATOR Ot V58.69 04/20/2015 EDOUARD WINAH S YARD OPERATOR Ot 153.9 04/20/2015 EDOUARD MADDY S YARD OPERATOR Ot 197.7 04/20/2015 SILKE MADDY S YARD OPERATOR Ot 345.90 04/20/2015 SILKE MADDY S YARD OPERATOR Ot V58.69 05/18/2015 EDOUARDWINAH S YARD OPERATOR Ot 153.9 05/18/2015 EDOUARD WINAH S YARD OPERATOR Ot 197.7 05/18/2015 EDOUARD, WINAH S YARD OPERATOR Ot 345.90 05/18/2015 SILKE MADDY S YARD OPERATOR Ot V58.69 05/20/2015 CHAYITO ROBLEDO N [...] BOBAN N Ot V58.69 06/02/2015 MADDY EDOUARD YARD OPERATOR Ot 153.9 06/02/2015 MADDY EDOUARD YARD OPERATOR Ot 197.7 06/03/2015 ISAIAS BURR, RENATE Pierson Ot I25.10 06/03/2015 RENATE ESPARZA MD Ot J44.9 06/03/2015 ISAIAS BURR, RENATE Pierson Ot M47.812 06/15/2015 MEENA, BOBAN N Ot 153.9 06/15/2015 MEENA, BOBAN N Ot 197.7 06/15/2015 MEENA, BOBAN N Ot 345.90 06/15/2015 MEENA, BOBAN N Ot V58.11 06/15/2015 MEENA, BOBAN N Ot V58.69 06/23/2015 MADDY EDOUARD YARD OPERATOR Ot C18.9 06/23/2015 MADDY EDOUARD YARD OPERATOR Ot C78.7 06/23/2015 MADDY EDOUARD YARD OPERATOR Ot Z92.21 06/26/2015 INDIA STEPHENS MD [...] BOBAN N Ot V58.69 07/06/2015 TOBIN CHAPMAN PRIMER WATERPROOFING MACHINE OPERATOR Ot M25.511 07/07/2015 MADDY EDOUARD S YARD OPERATOR Ot C18.9 07/07/2015 MADDY EDOUARD S YARD OPERATOR Ot C78.7 07/07/2015 MADDY EDOUARD S YARD OPERATOR Ot Z92.21 07/24/2015 TOBIN CHAPMAN PRIMER WATERPROOFING MACHINE OPERATOR Ot M25.511 08/11/2015 TOBIN CHAPMAN PRIMER WATERPROOFING MACHINE OPERATOR Ot M25.511 PAIN IN RIGHT SHOULDER 08/11/2015 MEENA, BOBAN N Ot C18.9 08/11/2015 MEENA, BOBAN N Ot C78.7 08/11/2015 MEENA, BOBAN N Ot Z51.11 08/18/2015 MADDY EDOUARD S YARD OPERATOR Ot C18.9 08/18/2015 MADDY EDOUARD S YARD OPERATOR Ot C78.7 08/18/2015 MADDY EDOUARD S YARD OPERATOR Ot Z92.21 08/23/2015 MEENA, BOBAN N [...] N Ot 359.0 09/29/2015 MADDY EDOUARD S YARD OPERATOR Ot 153.9 09/29/2015 EDOUARD, HILAH S YARD OPERATOR Ot 197.7 09/29/2015 EDOUARD, HIL S YARD OPERATOR Ot 345.90 09/29/2015 EDOUARDMADDY S YARD OPERATOR Ot V58.69 09/29/2015 EDOUARDMADDY S YARD OPERATOR Ot 153.9 09/29/2015 EDOUARDMADDY S YARD OPERATOR Ot 197.7 09/29/2015 EDOUARDWINAH S YARD OPERATOR Ot 345.90 09/29/2015 EDOUARDWIN S YARD OPERATOR Ot V58.69 09/29/2015 EDOUARDWIN S YARD OPERATOR Ot 153.9 09/29/2015 EDOUARDWIN S YARD OPERATOR Ot 197.7 09/29/2015 EDOUARDWIN S YARD OPERATOR Ot 345.90 09/29/2015 EDOUARDWIN S YARD OPERATOR Ot V58.69 09/29/2015 MEENACHAYITO RAMOS N Ot 153.9 09/29/2015 EDOUARDWIN S YARD OPERATOR Ot 153.9 09/29/2015 EDOUARD, HIL S YARD OPERATOR Ot 197.7 09/29/2015 EDOUARD, HIL S YARD OPERATOR Ot 345.90 09/29/2015 EDOUARDMADDY S YARD OPERATOR Ot V58.69 09/29/2015 EDOUARDWIN S YARD OPERATOR Ot 153.9 09/29/2015 EDOUARDWIN S YARD OPERATOR Ot 197.7 09/29/2015 EDOUARDWIN S YARD OPERATOR Ot 345.90 09/29/2015 EDOUARDMADDY S YARD OPERATOR Ot V58.69 09/29/2015 EDOUARDWIN S YARD OPERATOR Ot 153.9 09/29/2015 EDOUARDWIN S YARD OPERATOR Ot 197.7 09/29/2015 EDOUARDWIN S YARD OPERATOR Ot 345.90 09/29/2015 EDOUARDWIN S YARD OPERATOR Ot V58.69 09/29/2015 EDOUARDWIN S YARD OPERATOR Ot 153.9 09/29/2015 EDOUARD, WIN S YARD OPERATOR Ot 197.7 09/29/2015 EDOUARDWINAH S YARD OPERATOR Ot 345.90 09/29/2015 EDOUARD, WIN S YARD OPERATOR Ot V58.69 09/29/2015 EDOUARD, WIN S YARD OPERATOR Ot 153.9 09/29/2015 EDOUARD, [facility] S YARD OPERATOR Ot 197.7 09/29/2015 EDOUARD, HIL S YARD OPERATOR Ot 345.90 09/29/2015 EDOUARD, HIL S YARD OPERATOR Ot V58.69 09/29/2015 EODUARDMADDY S YARD OPERATOR Ot 153.9 09/29/2015 EDOUARDWIN S YARD OPERATOR Ot 197.7 09/29/2015 EDOUARDWIN S YARD OPERATOR Ot 345.90 09/29/2015 EDOUARD [facility] S YARD OPERATOR Ot V58.69 09/29/2015 EDOUARD [facility] S YARD OPERATOR Ot 153.9 09/29/2015 EDOUARD [facility] S YARD OPERATOR Ot 197.7 09/29/2015 EDOUARD [facility] S YARD OPERATOR Ot 345.90 09/29/2015 EDOUARD [facility] S YARD OPERATOR Ot V58.69 09/29/2015 MEENACHAYITO RAMOS N Ot 153.9 09/29/2015 EDOUARDWIN S YARD OPERATOR Ot 153.9 09/29/2015 EDOUARD [facility] S YARD OPERATOR Ot 197.7 09/29/2015 EDOUARD, [facility] S YARD OPERATOR Ot 345.90 09/29/2015 EDOUARD, HIL S YARD OPERATOR Ot V58.69 09/29/2015 EDOUARDWIN S YARD OPERATOR Ot 153.9 09/29/2015 EDOUARD, HIL S YARD OPERATOR Ot 197.7 09/29/2015 EDOUARDWIN S YARD OPERATOR Ot 345.90 09/29/2015 EDOUARDWIN S YARD OPERATOR Ot V58.69 09/29/2015 EDOUARD [facility] S YARD OPERATOR Ot 153.9 09/29/2015 EDOUARD [facility] S YARD OPERATOR Ot 197.7 09/29/2015 EDOUARD [facility] S YARD OPERATOR Ot 345.90 09/29/2015 EDOUARD [facility] S YARD OPERATOR Ot V58.69 09/29/2015 EDOUARD [facility] S YARD OPERATOR Ot 153.9 09/29/2015 EDOUARD [facility] S YARD OPERATOR Ot 197.7 09/29/2015 EDOUARD [facility] S YARD OPERATOR Ot 345.90 09/29/2015 EDOUARD [facility] S YARD OPERATOR Ot V58.69 09/29/2015 EDOUARD, [facility] S YARD OPERATOR Ot 153.9 09/29/2015 EDOUARD [facility] S YARD OPERATOR Ot 197.7 09/29/2015 EDOUARDMADDY Matthews S YARD OPERATOR Ot 345.90 09/29/2015 EDOUARDMADDY Matthews S YARD OPERATOR Ot V58.69 09/29/2015 EDOUARDMADDY Matthews S YARD OPERATOR Ot 786.05 09/29/2015 EDOUARDMADDY Matthews S YARD OPERATOR Ot 786.2 09/29/2015 EDOUARDMADDY S YARD OPERATOR Ot 153.9 09/29/2015 EDOUARDWIN S YARD OPERATOR Ot 197.7 09/29/2015 EDOUARDWIN S YARD OPERATOR Ot 345.90 09/29/2015 EDOUARDMADDY S YARD OPERATOR Ot 528.9 09/29/2015 EDOUARD [facility] S YARD OPERATOR Ot V58.69 09/29/2015 MADDY EDOUARD S YARD OPERATOR Ot V87.41 09/29/2015 EDOUARDMADDY Matthews S YARD OPERATOR Ot 153.9 09/29/2015 EDOUARDWIN S YARD OPERATOR Ot 197.7 09/29/2015 EDOUARD, HIL S YARD OPERATOR Ot 305.1 09/29/2015 EDOUARDMADDY Matthews S YARD OPERATOR Ot 345.90 09/29/2015 EDOUARDMADDY Matthews S YARD OPERATOR Ot V58.69 09/29/2015 EDOUARDMADDY Matthews S YARD OPERATOR Ot 153.9 09/29/2015 EDOUARDMADDY Matthews S YARD OPERATOR Ot 197.7 09/29/2015 EDOUARDMADDY Matthews S YARD OPERATOR Ot 305.1 09/29/2015 EDOUARDMADDY S YARD OPERATOR Ot 345.90 09/29/2015 EDOUARDMADDY S YARD OPERATOR Ot V58.69 09/29/2015 EDOUARDMADDY S YARD OPERATOR Ot 153.9 09/29/2015 EDOUARDWIN S YARD OPERATOR Ot 197.7 09/29/2015 EDOUARD [facility] S YARD OPERATOR Ot 305.1 09/29/2015 EDOUARD [facility] S YARD OPERATOR Ot 345.90 09/29/2015 EDOUARDMADDY S YARD OPERATOR Ot V58.69 09/29/2015 EDOUARDWIN S YARD OPERATOR Ot 153.9 09/29/2015 EDOUARDWIN S YARD OPERATOR Ot 197.7 09/29/2015 EDOUARD [facility] S YARD OPERATOR Ot 345.90 09/29/2015 EDOUARDMADDY S YARD OPERATOR Ot V58.69 09/29/2015 CHAYITO ROBLEDO Ot 153.9 09/29/2015 JOSE BURR, NADJA Ot 153.9 09/29/2015 JOSE BURR, NADJA Ot 197.7 09/29/2015 JOSE BURR, NADJA Ot 345.90 09/29/2015 JOSE BURR, NADJA Ot V58.69 09/29/2015 EDOUARD, HILAH S YARD OPERATOR Ot 153.9 09/29/2015 EDOUARD, HILAH S YARD OPERATOR Ot 197.7 09/29/2015 EDOUARD, HILAH S YARD OPERATOR Ot 345.90 09/29/2015 EDOUARD, HILAH S YARD OPERATOR Ot V58.69 09/29/2015 EDOUARD, HILAH S YARD OPERATOR Ot 153.9 09/29/2015 EDOUARD, HILAH S YARD OPERATOR Ot 197.7 09/29/2015 EDOUARD, HILAH S YARD OPERATOR Ot 345.90 09/29/2015 EDOUARD, HILLINH S YARD OPERATOR Ot V58.69 09/29/2015 EDOUARD, HILAH S YARD OPERATOR Ot 153.9 09/29/2015 EDOUARD, MADDY S YARD OPERATOR Ot 197.7 09/29/2015 ISAIAS BURR, RENATE Pierson Ot I25.10 09/29/2015 ISAIAS BURR, RENATE Pierson Ot J44.9 09/29/2015 ISAIAS BURR, RENATE Pierson Ot M47.812 09/29/2015 EDOUARD, MADDY S YARD OPERATOR Ot C18.9 09/29/2015 EDOUARD, MADDY S YARD OPERATOR Ot C78.7 09/29/2015 EDOUARD, HILLIHN S YARD OPERATOR Ot Z92.21 09/29/2015 ANGELO BURR, [place] Warner Ot M25.511 09/29/2015 EDOUARD, HILAH S YARD OPERATOR Ot C18.9 09/29/2015 EDOUARD, HILAH S YARD OPERATOR Ot C78.7 09/29/2015 EDOUARD, HILAH S YARD OPERATOR Ot Z92.21 09/29/2015 EDOUARD, HILAH S YARD OPERATOR Ot C18.9 09/29/2015 EDOUARD, HILAH S YARD OPERATOR Ot C78.7 09/29/2015 EDOUARD, HILAH S YARD OPERATOR Ot Z92.21 09/29/2015 EDOUARD, HILAH S YARD OPERATOR Ot C18.9 09/29/2015 EDOUARD, HILAH S YARD OPERATOR Ot C78.7 09/29/2015 EDOUARD, HILAH S YARD OPERATOR Ot Z92.21 09/29/2015 MEENA, BOBAN N Ot C18.9 09/29/2015 MEENA, BOBAN N Ot C78.7 09/29/2015 MEEAN, BOBAN N Ot Z51.11 09/29/2015 EDOUARD, HILAH S YARD OPERATOR Ot C18.9 09/29/2015 EDOUARD, HILAH S YARD OPERATOR Ot C78.7 09/29/2015 EDOUARD, HILAH S YARD OPERATOR Ot Z92.21 10/08/2015 MEENA, BOBAN N [...] N Ot Z51.11 11/02/2015 EDOUARD, WINAH S YARD OPERATOR Ot C18.2 11/02/2015 EDOUARD, HILAH S YARD OPERATOR Ot C78.7 11/03/2015 EDOUARD, HILAH S YARD OPERATOR Ot C18.2 11/03/2015 EDOUARD, HILAH S YARD OPERATOR Ot C78.7 11/03/2015 MEENA, BOBAN N Ot C18.9 11/03/2015 MEENA, BOBAN N Ot C78.7 11/03/2015 MEENA, BOBAN N Ot Z51.11 11/08/2015 EDOUARD, HILAH S YARD OPERATOR Ot C18.2 11/08/2015 EDOUARD, HILAH S YARD OPERATOR Ot C78.7 11/12/2015 MEENA, BOBAN N Ot C18.9 11/12/2015 MEENA, BOBAN N Ot C78.7 11/12/2015 MEENA, BOBAN N Ot Z51.11 11/13/2015 MADDY EDOUARD YARD OPERATOR Ot R26.9 11/16/2015 MADDY EDOUARD YARD OPERATOR Ot C18.2 11/16/2015 MADDY EDOUARD S YARD OPERATOR Ot C78.7 11/22/2015 MEENACHAYITO RAMOS N [...] N Ot Z51.11 11/25/2015 MADDY EDOUARD S YARD OPERATOR Ot C18.2 11/25/2015 MADDY EDOUARD YARD OPERATOR Ot C78.7 11/25/2015 MADDY EDOUARD YARD OPERATOR Ot R26.9 12/02/2015 MEENA, BOBAN N [...] FOR ANTINEOPLASTIC CHEMOTHERAP 01/07/2016 MADDY EDOUARD S YARD OPERATOR Ot C18.2 MALIGNANT NEOPLASM OF ASCENDING COLON 01/07/2016 MADDY EDOUARD S YARD OPERATOR Ot C78.7 SECONDARY MALIG NEOPLASM OF LIVER AND IN 01/07/2016 MADDY EDOUARD S YARD OPERATOR Ot Z92.21 PERSONAL HISTORY OF ANTINEOPLASTIC CHEMO 01/13/2016 CHAYITO ROBLEDO N Ot C18.9 MALIGNANT NEOPLASM OF COLON, UNSPECIFIED 01/13/2016 MEENA GAROENRIKE N Ot C78.7 SECONDARY MALIG NEOPLASM OF LIVER AND IN 01/13/2016 MEENAGAROENRIKE N Ot Z51.11 ENCOUNTER FOR ANTINEOPLASTIC CHEMOTHERAP 01/14/2016 ANGELO BURR, [place] A Ot E78.5 HYPERLIPIDEMIA, UNSPECIFIED 01/20/2016 MADDY EDOUARD S YARD OPERATOR Ot C18.2 MALIGNANT NEOPLASM OF ASCENDING COLON 01/20/2016 MADDY EDOUARD S YARD OPERATOR Ot C78.7 SECONDARY MALIG NEOPLASM OF LIVER AND IN 01/20/2016 MADDY EDOUARD S YARD OPERATOR Ot Z92.21 PERSONAL HISTORY OF ANTINEOPLASTIC CHEMO 02/05/2016 [place]IA STEPHENS MD Ot E78.5 HYPERLIPIDEMIA, UNSPECIFIED 02/08/2016 MADDY EDOUARD S YARD OPERATOR Ot C18.2 MALIGNANT NEOPLASM OF ASCENDING COLON 02/08/2016 MADDY EDOUARD YARD OPERATOR Ot C78.7 SECONDARY MALIG NEOPLASM OF LIVER AND IN 02/08/2016 MADDY EDOUARD S YARD OPERATOR Ot Z92.21 PERSONAL HISTORY OF ANTINEOPLASTIC [...] FOR ANTINEOPLASTIC CHEMOTHERAP 02/16/2016 MADDY EDOUARD S YARD OPERATOR Ot C18.2 MALIGNANT NEOPLASM OF ASCENDING COLON 02/16/2016 MADDY EDOUARD S YARD OPERATOR Ot C78.7 SECONDARY MALIG NEOPLASM OF LIVER AND IN 02/16/2016 MADDY EDOUARD S YARD OPERATOR Ot Z92.21 PERSONAL HISTORY OF ANTINEOPLASTIC [...] FOR ANTINEOPLASTIC CHEMOTHERAP 03/03/2016 MADDY EDOUARD S YARD OPERATOR Ot 153.9 MALIGNANT HERNÁN COLON NOS 03/03/2016 MADDY EDOUARD S YARD OPERATOR Ot 197.7 SECOND MALIG HERNÁN LIVER 03/03/2016 MADDY EDOUARD S YARD OPERATOR Ot 345.90 EPILEPSY UNSPEC W/O MENTION INTRACTABLE 03/03/2016 MADDY EDOUARD YARD OPERATOR Ot V58.69 OT MED,LT,CURRENT USE 03/03/2016 MADDY EDOUARD S YARD OPERATOR Ot C18.2 MALIGNANT NEOPLASM OF ASCENDING COLON 03/03/2016 MADDY EDOUARD S YARD OPERATOR Ot C78.7 SECONDARY MALIG NEOPLASM OF LIVER AND IN 03/03/2016 MADDY EDOUARD S YARD OPERATOR Ot Z92.21 PERSONAL HISTORY OF ANTINEOPLASTIC CHEMO 03/15/2016 MADDY EDOUARD S YARD OPERATOR Ot C18.2 MALIGNANT NEOPLASM OF ASCENDING COLON 03/15/2016 MADDY EDOUARD S YARD OPERATOR Ot C78.7 SECONDARY MALIG NEOPLASM OF LIVER AND IN 03/15/2016 MADDY EDOUARD S YARD OPERATOR Ot Z92.21 PERSONAL HISTORY OF ANTINEOPLASTIC CHEMO 03/28/2016 CHAYITO ROBLEDO N Ot C18.2 MALIGNANT NEOPLASM OF ASCENDING COLON 03/28/2016 CHAYITO ROBLEDO N Ot C78.7 SECONDARY MALIG NEOPLASM OF LIVER AND IN 03/28/2016 CHAYITO ROBLEDO N Ot Z51.11 ENCOUNTER FOR ANTINEOPLASTIC CHEMOTHERAP 03/29/2016 MADDY EDOUARD S YARD OPERATOR Ot C18.2 MALIGNANT NEOPLASM OF ASCENDING COLON 03/29/2016 MADDY EDOUARD S YARD OPERATOR Ot C78.7 SECONDARY MALIG NEOPLASM OF LIVER AND IN 03/29/2016 MADDY EDOUARD S YARD OPERATOR Ot Z92.21 PERSONAL HISTORY OF ANTINEOPLASTIC CHEMO 04/01/2016 CHAYITO ROBLEDO N Ot C18.2 MALIGNANT NEOPLASM OF ASCENDING COLON 04/01/2016 MEENA GAROENRIKE N Ot C78.7 SECONDARY MALIG NEOPLASM OF LIVER AND IN 04/01/2016 MEENA CHAYITO N Ot Z51.11 ENCOUNTER FOR ANTINEOPLASTIC CHEMOTHERAP 04/11/2016 MADDY EDOUARD S YARD OPERATOR Ot C18.2 MALIGNANT NEOPLASM OF ASCENDING COLON 04/11/2016 MADDY EDOUARD S YARD OPERATOR Ot C78.7 SECONDARY MALIG NEOPLASM OF LIVER AND IN 04/11/2016 MEENA CHAYITO N Ot C18.2 MALIGNANT NEOPLASM OF ASCENDING COLON 04/11/2016 MEENACHAYITO N Ot C78.7 SECONDARY MALIG NEOPLASM OF LIVER AND IN 04/11/2016 MEENACHAYITO N Ot Z51.11 ENCOUNTER FOR ANTINEOPLASTIC CHEMOTHERAP 04/11/2016 MADDY EDOUARD S YARD OPERATOR Ot C18.2 MALIGNANT NEOPLASM OF ASCENDING COLON 04/11/2016 MADDY EDOUARD S YARD OPERATOR Ot C78.7 SECONDARY MALIG NEOPLASM OF LIVER AND IN 04/11/2016 MADDY EDOUARD S YARD OPERATOR Ot Z92.21 PERSONAL HISTORY OF ANTINEOPLASTIC CHEMO 04/19/2016 MADDY EDOUARD S YARD OPERATOR Ot C18.2 MALIGNANT NEOPLASM OF ASCENDING COLON 04/19/2016 MADDY EDOUARD S YARD OPERATOR Ot C78.7 SECONDARY MALIG NEOPLASM OF [...] HERED MUSC DYSTRPHY 06/21/2016 EDOUARDMADDY Matthews S YARD OPERATOR Ot 153.9 MALIGNANT HERNÁN COLON NOS 06/21/2016 EDOUARDWINAH S YARD OPERATOR Ot 197.7 SECOND MALIG HERNÁN LIVER 06/21/2016 EDOUARD HILAH S YARD OPERATOR Ot 345.90 EPILEPSY UNSPEC W/O MENTION INTRACTABLE 06/21/2016 EDOUARDWINAH S YARD OPERATOR Ot V58.69 OTH MED,LT,CURRENT USE 06/21/2016 EDOUARD HILAH S YARD OPERATOR Ot 153.9 MALIGNANT HERNÁN COLON NOS 06/21/2016 EDOUARD, HILAH S YARD OPERATOR Ot 197.7 SECOND MALIG HERNÁN LIVER 06/21/2016 EDOUARD, HILAH S YARD OPERATOR Ot 345.90 EPILEPSY UNSPEC W/O MENTION INTRACTABLE 06/21/2016 EDOUARDWINAH S YARD OPERATOR Ot V58.69 OTH MED,LT,CURRENT USE 06/21/2016 EDOUARD HILAH S YARD OPERATOR Ot 153.9 MALIGNANT HERNÁN COLON NOS 06/21/2016 EDOUARD HILAH S YARD OPERATOR Ot 197.7 SECOND MALIG HERNÁN LIVER 06/21/2016 EDOUARD, HILAH S YARD OPERATOR Ot 345.90 EPILEPSY UNSPEC W/O MENTION INTRACTABLE 06/21/2016 EDOUARDWINAH S YARD OPERATOR Ot V58.69 OTH MED,LT,CURRENT USE 06/21/2016 CHAYITO ROBLEDO Ot 153.9 MALIGNANT HERNÁN COLON NOS 06/21/2016 EDOUARD HILAH S YARD OPERATOR Ot 153.9 MALIGNANT HERNÁN COLON NOS 06/21/2016 EDOUARD HILAH S YARD OPERATOR Ot 197.7 SECOND MALIG HERNÁN LIVER 06/21/2016 EDOUARD, HILAH S YARD OPERATOR Ot 345.90 EPILEPSY UNSPEC W/O MENTION INTRACTABLE 06/21/2016 EDOUARD, HILAH S YARD OPERATOR Ot V58.69 OTH MED,LT,CURRENT USE 06/21/2016 EDOUARD HILAH S YARD OPERATOR Ot 153.9 MALIGNANT HERNÁN COLON NOS 06/21/2016 EDOUARD HILAH S YARD OPERATOR Ot 197.7 SECOND MALIG HERNÁN LIVER 06/21/2016 MADDY EDOUARD S YARD OPERATOR Ot 345.90 EPILEPSY UNSPEC W/O MENTION INTRACTABLE 06/21/2016 MADDY EDOUARD YARD OPERATOR Ot V58.69 OTH MED,LT,CURRENT USE 06/21/2016 MADDY EDOUARD S YARD OPERATOR Ot 153.9 MALIGNANT HERNÁN COLON NOS 06/21/2016 MADDY EDOUARD S YARD OPERATOR Ot 197.7 SECOND MALIG HERNÁN LIVER 06/21/2016 EDOUARDMADDY Matthews S YARD OPERATOR Ot 345.90 EPILEPSY UNSPEC W/O MENTION INTRACTABLE 06/21/2016 MADDY EDOUARD S YARD OPERATOR Ot V58.69 OTH MED,LT,CURRENT USE 06/21/2016 MADDY EDOUARD S YARD OPERATOR Ot 153.9 MALIGNANT HERNÁN COLON NOS 06/21/2016 MADDY EDOUARD S YARD OPERATOR Ot 197.7 SECOND MALIG HERNÁN LIVER 06/21/2016 MADDY EDOUARD S YARD OPERATOR Ot 345.90 EPILEPSY UNSPEC W/O MENTION INTRACTABLE 06/21/2016 MADDY EDOUARD YARD OPERATOR Ot V58.69 OTH MED,LT,CURRENT USE 06/21/2016 MADDY EDOUARD S YARD OPERATOR Ot 153.9 MALIGNANT HERNÁN COLON NOS 06/21/2016 MADDY EDOUARD S YARD OPERATOR Ot 197.7 SECOND MALIG HERNÁN LIVER 06/21/2016 MADDY EDOUARD S YARD OPERATOR Ot 345.90 EPILEPSY UNSPEC W/O MENTION INTRACTABLE 06/21/2016 MADDY EDOUARD YARD OPERATOR Ot V58.69 OTH MED,LT,CURRENT USE 06/21/2016 MADDY EDOUARD YARD OPERATOR Ot 153.9 MALIGNANT HERNÁN COLON NOS 06/21/2016 MADDY EDOUARD S YARD OPERATOR Ot 197.7 SECOND MALIG HERNÁN LIVER 06/21/2016 MADDY EDOUARD S YARD OPERATOR Ot 345.90 EPILEPSY UNSPEC W/O MENTION INTRACTABLE 06/21/2016 MADDY EDOUARD S YARD OPERATOR Ot V58.69 OTH MED,LT,CURRENT USE 06/21/2016 MADDY EDOUARD S YARD OPERATOR Ot 153.9 MALIGNANT HERNÁN COLON NOS 06/21/2016 MADDY EDOUARD S YARD OPERATOR Ot 197.7 SECOND MALIG HERNÁN LIVER 06/21/2016 EDOUARDWINAH S YARD OPERATOR Ot 345.90 EPILEPSY UNSPEC W/O MENTION INTRACTABLE 06/21/2016 MADDY EDOUARD S YARD OPERATOR Ot V58.69 OTH MED,LT,CURRENT USE 06/21/2016 CHAYITO ROBLEDO Ellis Ot 153.9 MALIGNANT HERNÁN COLON NOS 06/21/2016 EDOUARDMADDY Matthews S YARD OPERATOR Ot 153.9 MALIGNANT HERNÁN COLON NOS 06/21/2016 MADDY EDOUARD S YARD OPERATOR Ot 197.7 SECOND MALIG HERNÁN LIVER 06/21/2016 EDOUARD, HILAH S YARD OPERATOR Ot 345.90 EPILEPSY UNSPEC W/O MENTION INTRACTABLE 06/21/2016 MADDY EDOUARD S YARD OPERATOR Ot V58.69 OTH MED,LT,CURRENT USE 06/21/2016 MADDY EDOUARD S YARD OPERATOR Ot 153.9 MALIGNANT HERNÁN COLON NOS 06/21/2016 EDOUARDMADDY Matthews S YARD OPERATOR Ot 197.7 SECOND MALIG HERNÁN LIVER 06/21/2016 MADDY EDOUARD S YARD OPERATOR Ot 345.90 EPILEPSY UNSPEC W/O MENTION INTRACTABLE 06/21/2016 MADDY EDOUARD S YARD OPERATOR Ot V58.69 OTH MED,LT,CURRENT USE 06/21/2016 MADDY EDOUARD S YARD OPERATOR Ot 153.9 MALIGNANT HERNÁN COLON NOS 06/21/2016 MADDY EDOUARD S YARD OPERATOR Ot 197.7 SECOND MALIG HERNÁN LIVER 06/21/2016 MADDY EDOUARD S YARD OPERATOR Ot 345.90 EPILEPSY UNSPEC W/O MENTION INTRACTABLE 06/21/2016 MADDY EDOUARD YARD OPERATOR Ot V58.69 OTH MED,LT,CURRENT USE 06/21/2016 MADDY EDOUARD YARD OPERATOR Ot 153.9 MALIGNANT HERNÁN COLON NOS 06/21/2016 MADDY EDOUARD S YARD OPERATOR Ot 197.7 SECOND MALIG HERNÁN LIVER 06/21/2016 MADDY EDOUARD S YARD OPERATOR Ot 345.90 EPILEPSY UNSPEC W/O MENTION INTRACTABLE 06/21/2016 MADDY EDOUARD S YARD OPERATOR Ot V58.69 OTH MED,LT,CURRENT USE 06/21/2016 MADDY EDOUARD S YARD OPERATOR Ot 153.9 MALIGNANT HERNÁN COLON NOS 06/21/2016 EDOUARDMADDY Matthews S YARD OPERATOR Ot 197.7 SECOND MALIG HERNÁN LIVER 06/21/2016 EDOUARDMADDY Matthews S YARD OPERATOR Ot 345.90 EPILEPSY UNSPEC W/O MENTION INTRACTABLE 06/21/2016 MADDY EDOUARD S YARD OPERATOR Ot V58.69 OTH MED,LT,CURRENT USE 06/21/2016 MADDY EDOUARD YARD OPERATOR Ot 786.05 SHORTNESS OF BREATH 06/21/2016 MADDY EDOUARD YARD OPERATOR Ot 786.2 COUGH 06/21/2016 MADDY EDOUARD S YARD OPERATOR Ot 153.9 MALIGNANT HERNÁN COLON NOS 06/21/2016 MADDY EDOUARD S YARD OPERATOR Ot 197.7 SECOND MALIG HERNÁN LIVER 06/21/2016 MADDY EDOUARD S YARD OPERATOR Ot 345.90 EPILEPSY UNSPEC W/O MENTION INTRACTABLE 06/21/2016 MADDY EDOUARD YARD OPERATOR Ot 528.9 ORAL SOFT TISSUE DIS NEC 06/21/2016 MADDY EDOUARD YARD OPERATOR Ot V58.69 OTH MED,LT,CURRENT USE 06/21/2016 MADDY EDOUARD YARD OPERATOR Ot V87.41 PERSONAL HISTORY OF ANTINEOPLASTIC CHEMO 06/21/2016 MADDY EDOUARD S YARD OPERATOR Ot 153.9 MALIGNANT HERNÁN COLON NOS 06/21/2016 MADDY EDOUARD S YARD OPERATOR Ot 197.7 SECOND MALIG HERNÁN LIVER 06/21/2016 MADDY EDOUARD S YARD OPERATOR Ot 305.1 TOBACCO USE DISORDER 06/21/2016 MADDY EDOUARD S YARD OPERATOR Ot 345.90 EPILEPSY UNSPEC W/O MENTION INTRACTABLE 06/21/2016 MADDY EDOUARD S YARD OPERATOR Ot V58.69 OTH MED,LT,CURRENT USE 06/21/2016 MADDY EDOUARD S YARD OPERATOR Ot 153.9 MALIGNANT HERNÁN COLON NOS 06/21/2016 MADDY EDOUARD S YARD OPERATOR Ot 197.7 SECOND MALIG HERNÁN LIVER 06/21/2016 MADDY EDOUARD S YARD OPERATOR Ot 305.1 TOBACCO USE DISORDER 06/21/2016 MADDY EDOUARD S YARD OPERATOR Ot 345.90 EPILEPSY UNSPEC W/O MENTION INTRACTABLE 06/21/2016 MADDY EDOUARD S YARD OPERATOR Ot V58.69 OTH MED,LT,CURRENT USE 06/21/2016 MADDY EDOUARD S YARD OPERATOR Ot 153.9 MALIGNANT HERNÁN COLON NOS 06/21/2016 MADDY EDOUARD S YARD OPERATOR Ot 197.7 SECOND MALIG HERNÁN LIVER 06/21/2016 WIN EDOUARDAH S YARD OPERATOR Ot 305.1 TOBACCO USE DISORDER 06/21/2016 MADDY EDOUARD S YARD OPERATOR Ot 345.90 EPILEPSY UNSPEC W/O MENTION INTRACTABLE 06/21/2016 EDOUARD, HILAH S YARD OPERATOR Ot V58.69 OTH MED,LT,CURRENT USE 06/21/2016 EDOUARDWINAH S YARD OPERATOR Ot 153.9 MALIGNANT HERNÁN COLON NOS 06/21/2016 EDOUARDWINAH S YARD OPERATOR Ot 197.7 SECOND MALIG HERNÁN LIVER 06/21/2016 EDOUARD HILAH S YARD OPERATOR Ot 345.90 EPILEPSY UNSPEC W/O MENTION INTRACTABLE 06/21/2016 EDOUARDMADDY S YARD OPERATOR Ot V58.69 OTH MED,LT,CURRENT USE 06/21/2016 CHAYIOT ROBLEDO Ot 153.9 MALIGNANT HERNÁN COLON NOS 06/21/2016 JOSE BURR, NADJA Ot 153.9 MALIGNANT HERNÁN COLON NOS 06/21/2016 JOSE BURR, NADJA Ot 197.7 SECOND MALIG HERNÁN LIVER 06/21/2016 JOSE BURR, NADJA Ot 345.90 EPILEPSY UNSPEC W/O MENTION INTRACTABLE 06/21/2016 JOSE BURR, NADJA Ot V58.69 OTH MED,LT,CURRENT USE 06/21/2016 MADDY EDOUARD S YARD OPERATOR Ot 153.9 MALIGNANT HERNÁN COLON NOS 06/21/2016 EDOUARDWINAH S YARD OPERATOR Ot 197.7 SECOND MALIG HERNÁN LIVER 06/21/2016 EDOUARD HILAH S YARD OPERATOR Ot 345.90 EPILEPSY UNSPEC W/O MENTION INTRACTABLE 06/21/2016 EDOUARDMADDY S YARD OPERATOR Ot V58.69 OTH MED,LT,CURRENT USE 06/21/2016 EDOUARDMADDY S YARD OPERATOR Ot 153.9 MALIGNANT HERNÁN COLON NOS 06/21/2016 EDOUARDWINAH S YARD OPERATOR Ot 197.7 SECOND MALIG HERNÁN LIVER 06/21/2016 EDOUARDWINAH S YARD OPERATOR Ot 345.90 EPILEPSY UNSPEC W/O MENTION INTRACTABLE 06/21/2016 EDOUARDMADDY S YARD OPERATOR Ot V58.69 OTH MED,LT,CURRENT USE 06/21/2016 EDOUARDMADDY S YARD OPERATOR Ot 153.9 MALIGNANT HERNÁN COLON NOS 06/21/2016 EDOUARDMADDY Matthews S YARD OPERATOR Ot 197.7 SECOND MALIG HERNÁN LIVER 06/21/2016 RENATE ESPARZA MD Ot I25.10 ATHSCL HEART DISEASE OF [place] CORONARY 06/21/2016 RENATE ESPARZA MD Ot J44.9 CHRONIC OBSTRUCTIVE PULMONARY DISEASE, U 06/21/2016 RENATE ESPARZA MD Ot M47.812 SPONDYLOSIS W/O MYELOPATHY OR RADICULOPA 06/21/2016 MADDY EDOUARD YARD OPERATOR Ot C18.9 MALIGNANT NEOPLASM OF COLON, UNSPECIFIED 06/21/2016 MADDY EDOUARD S YARD OPERATOR Ot C78.7 SECONDARY MALIG NEOPLASM OF LIVER AND IN 06/21/2016 MADDY EDOUARD S YARD OPERATOR Ot Z92.21 PERSONAL HISTORY OF ANTINEOPLASTIC CHEMO 06/21/2016 ANGELO BURR, [place] Warner Ot M25.511 PAIN IN RIGHT SHOULDER 06/21/2016 MADDY EDOUARD S YARD OPERATOR Ot C18.9 MALIGNANT NEOPLASM OF COLON, UNSPECIFIED 06/21/2016 MADDY EDOUARD S YARD OPERATOR Ot C78.7 SECONDARY MALIG NEOPLASM OF LIVER AND IN 06/21/2016 MADDY EDOUARD S YARD OPERATOR Ot Z92.21 PERSONAL HISTORY OF ANTINEOPLASTIC CHEMO 06/21/2016 MADDY EDOUARD S YARD OPERATOR Ot C18.9 MALIGNANT NEOPLASM OF COLON, UNSPECIFIED 06/21/2016 MADDY EDOUARD S YARD OPERATOR Ot C78.7 SECONDARY MALIG NEOPLASM OF LIVER AND IN 06/21/2016 MADDY EDOUARD S YARD OPERATOR Ot Z92.21 PERSONAL HISTORY OF ANTINEOPLASTIC CHEMO 06/21/2016 MADDY EDOUARD S YARD OPERATOR Ot C18.9 MALIGNANT NEOPLASM OF COLON, UNSPECIFIED 06/21/2016 MADDY EDOUARD S YARD OPERATOR Ot C78.7 SECONDARY MALIG NEOPLASM OF LIVER AND IN 06/21/2016 MADDY EDOUARD S YARD OPERATOR Ot Z92.21 PERSONAL HISTORY OF ANTINEOPLASTIC CHEMO 06/21/2016 MADDY EDOUARD S YARD OPERATOR Ot C18.9 MALIGNANT NEOPLASM OF COLON, UNSPECIFIED 06/21/2016 MADDY EDOUARD S YARD OPERATOR Ot C78.7 SECONDARY MALIG NEOPLASM OF LIVER AND IN 06/21/2016 MADDY EDOUARD S YARD OPERATOR Ot Z92.21 PERSONAL HISTORY OF ANTINEOPLASTIC CHEMO 06/21/2016 CHAYITO ROBLEDO N Ot C18.2 MALIGNANT NEOPLASM OF ASCENDING COLON 06/21/2016 MEENACHAYITO RAMOS N Ot C78.7 SECONDARY MALIG NEOPLASM OF LIVER AND IN 06/21/2016 MADDY EDOUARD S YARD OPERATOR Ot C18.2 MALIGNANT NEOPLASM OF ASCENDING COLON 06/21/2016 MADDY EDOUARD S YARD OPERATOR Ot C78.7 SECONDARY MALIG NEOPLASM OF LIVER AND IN 06/21/2016 WIN EDOUARDLINH S YARD OPERATOR Ot C18.2 MALIGNANT NEOPLASM OF ASCENDING COLON 06/21/2016 WIN EDOUARDLINH S YARD OPERATOR Ot C78.7 SECONDARY MALIG NEOPLASM OF LIVER AND IN 06/21/2016 EDOUARD MADDY S YARD OPERATOR Ot C18.2 MALIGNANT NEOPLASM OF ASCENDING COLON 06/21/2016 SILKE MADDY S YARD OPERATOR Ot C78.7 SECONDARY MALIG NEOPLASM OF LIVER AND IN 06/21/2016 WIN EDOUARDLINH S YARD OPERATOR Ot R26.9 UNSPECIFIED ABNORMALITIES OF [place] AND [place] 06/21/2016 WIN EDOUARDLINH S YARD OPERATOR Ot C18.2 MALIGNANT NEOPLASM OF ASCENDING COLON 06/21/2016 SILKE MADDY S YARD OPERATOR Ot C78.7 SECONDARY MALIG NEOPLASM OF LIVER AND IN 06/21/2016 MADDY EDOUARD S YARD OPERATOR Ot Z92.21 PERSONAL HISTORY OF ANTINEOPLASTIC CHEMO 06/21/2016 ANGELO BURR, [place] A Ot E78.5 HYPERLIPIDEMIA, UNSPECIFIED 06/21/2016 WIN EDOUARDLINH S YARD OPERATOR Ot C18.2 MALIGNANT NEOPLASM OF ASCENDING COLON 06/21/2016 WIN EDOUARDLINH S YARD OPERATOR Ot C78.7 SECONDARY MALIG NEOPLASM OF LIVER AND IN 06/21/2016 WIN EDOUARDLINH S YARD OPERATOR Ot Z92.21 PERSONAL HISTORY OF ANTINEOPLASTIC CHEMO 06/21/2016 MADDY EDOUARD S YARD OPERATOR Ot C18.2 MALIGNANT NEOPLASM OF ASCENDING COLON 06/21/2016 WIN EDOUARDLINH S YARD OPERATOR Ot C78.7 SECONDARY MALIG NEOPLASM OF LIVER AND IN 06/21/2016 MADDY EDOUARD S YARD OPERATOR Ot Z92.21 PERSONAL HISTORY OF ANTINEOPLASTIC CHEMO 06/21/2016 WIN EDOUARDLINH S YARD OPERATOR Ot C18.2 MALIGNANT NEOPLASM OF ASCENDING COLON 06/21/2016 WIN EDOUARDLINH S YARD OPERATOR Ot C78.7 SECONDARY MALIG NEOPLASM OF LIVER AND IN 06/21/2016 WIN EDOUARDLINH S YARD OPERATOR Ot Z92.21 PERSONAL HISTORY OF ANTINEOPLASTIC CHEMO 06/21/2016 WIN EDOUARDLINH S YARD OPERATOR Ot C18.2 MALIGNANT NEOPLASM OF ASCENDING COLON 06/21/2016 MADDY EDOUARD S YARD OPERATOR Ot C78.7 SECONDARY MALIG NEOPLASM OF LIVER AND IN 06/21/2016 CHAYITO ROBLEDO Ot C18.2 MALIGNANT NEOPLASM OF ASCENDING COLON 06/21/2016 MEENA CHAYITO N Ot C78.7 SECONDARY MALIG NEOPLASM OF LIVER AND IN 06/21/2016 MEENACHAYITO N Ot Z51.11 ENCOUNTER FOR ANTINEOPLASTIC CHEMOTHERAP 06/22/2016 EDOUARDMADDY S YARD OPERATOR Ot C18.9 MALIGNANT NEOPLASM OF COLON, UNSPECIFIED 06/22/2016 EDOUARDMADDY Matthews S YARD OPERATOR Ot C78.7 SECONDARY MALIG NEOPLASM OF LIVER AND IN 06/22/2016 EDOUARD HILAH S YARD OPERATOR Ot R91.8 OTHER NONSPECIFIC ABNORMAL FINDING OF [place] 06/23/2016 EDOUARD HILAH S YARD OPERATOR Ot C18.9 MALIGNANT NEOPLASM OF COLON, UNSPECIFIED 06/23/2016 EDOUARD HILAH S YARD OPERATOR Ot C78.7 SECONDARY MALIG NEOPLASM OF LIVER AND IN 06/23/2016 EDOUARD HILAH S YARD OPERATOR Ot R91.8 OTHER NONSPECIFIC ABNORMAL FINDING OF [place] 06/27/2016 MEENACHAYITO N Ot C18.2 MALIGNANT NEOPLASM OF ASCENDING COLON 06/27/2016 MEENACHAYITO N Ot C78.7 SECONDARY MALIG NEOPLASM OF LIVER AND IN 06/27/2016 CHAYITO ROBLEDO N Ot Z51.11 ENCOUNTER FOR ANTINEOPLASTIC CHEMOTHERAP 07/05/2016 EDOUARD HILAH S YARD OPERATOR Ot C18.9 MALIGNANT NEOPLASM OF COLON, UNSPECIFIED 07/05/2016 EDOUARD HILAH S YARD OPERATOR Ot C78.7 SECONDARY MALIG NEOPLASM OF LIVER AND IN 07/05/2016 EDOUARD, HILAH S YARD OPERATOR Ot R91.8 OTHER NONSPECIFIC ABNORMAL FINDING [...] 197.7 SECOND MALIG HERNÁN LIVER 11/14/2016 CHAYITO ROBLEOD Ot 359.0 CAROLYN HERED MUSC DYSTRPHY 11/14/2016 EDOUARDWINAH S YARD OPERATOR Ot 153.9 MALIGNANT HERNÁN COLON NOS 11/14/2016 EDOUARDWINAH S YARD OPERATOR Ot 197.7 SECOND MALIG [place] LIVER 11/14/2016 EDOUARD HILAH S YARD OPERATOR Ot 345.90 EPILEPSY UNSPEC W/O MENTION INTRACTABLE 11/14/2016 EDOUARDWINAH S YARD OPERATOR Ot V58.69 OTH MED,LT,CURRENT USE 11/14/2016 EDOUARDWINAH S YARD OPERATOR Ot 153.9 MALIGNANT HERNÁN COLON NOS 11/14/2016 EDOUARDWINAH S YARD OPERATOR Ot 197.7 SECOND MALIG HERNÁ[place] LIVER 11/14/2016 EDOUARD HILAH S YARD OPERATOR Ot 345.90 EPILEPSY UNSPEC W/O MENTION INTRACTABLE 11/14/2016 EDOUARDWINAH S YARD OPERATOR Ot V58.69 OTH MED,LT,CURRENT USE 11/14/2016 EDOUARDWINAH S YARD OPERATOR Ot 153.9 MALIGNANT HERNÁN COLON NOS 11/14/2016 EDOUARDWINAH S YARD OPERATOR Ot 197.7 SECOND MALIG HERNÁN LIVER 11/14/2016 EDOUARD HILAH S YARD OPERATOR Ot 345.90 EPILEPSY UNSPEC W/O MENTION INTRACTABLE 11/14/2016 MADDY EDOUARD S YARD OPERATOR Ot V58.69 OTH MED,LT,CURRENT USE 11/14/2016 CHAYITO ROBLEDO Ellis Ot 153.9 MALIGNANT HERNÁN COLON NOS 11/14/2016 EDOUARDMADDY Matthews S YARD OPERATOR Ot 153.9 MALIGNANT HERNÁN COLON NOS 11/14/2016 WIN EDOUARDAH S YARD OPERATOR Ot 197.7 SECOND MALIG HERNÁN LIVER 11/14/2016 MADDY EDOUARD S YARD OPERATOR Ot 345.90 EPILEPSY UNSPEC W/O MENTION INTRACTABLE 11/14/2016 MADDY EDOUARD S YARD OPERATOR Ot V58.69 OTH MED,LT,CURRENT USE 11/14/2016 MADDY EDOUARD S YARD OPERATOR Ot 153.9 MALIGNANT HERNÁN COLON NOS 11/14/2016 MADDY EDOUARD S YARD OPERATOR Ot 197.7 SECOND MALIG HERNÁ[place] LIVER 11/14/2016 MADDY EDOUARD S YARD OPERATOR Ot 345.90 EPILEPSY UNSPEC W/O MENTION INTRACTABLE 11/14/2016 MADDY EDOUARD S YARD OPERATOR Ot V58.69 OTH MED,LT,CURRENT USE 11/14/2016 MADDY EDOUARD S YARD OPERATOR Ot 153.9 MALIGNANT HERNÁN COLON NOS 11/14/2016 MADDY EDOUARD S YARD OPERATOR Ot 197.7 SECOND MALIG HERNÁ[place] LIVER 11/14/2016 MADDY EDOUARD S YARD OPERATOR Ot 345.90 EPILEPSY UNSPEC W/O MENTION INTRACTABLE 11/14/2016 MADDY EDOUARD YARD OPERATOR Ot V58.69 OTH MED,LT,CURRENT USE 11/14/2016 MADDY EDOUARD YARD OPERATOR Ot 153.9 MALIGNANT HERNÁN COLON NOS 11/14/2016 MADDY EDOUARD S YARD OPERATOR Ot 197.7 SECOND MALIG HERNÁ[place] LIVER 11/14/2016 MADDY EDOUARD S YARD OPERATOR Ot 345.90 EPILEPSY UNSPEC W/O MENTION INTRACTABLE 11/14/2016 MADDY EDOUARD S YARD OPERATOR Ot V58.69 OTH MED,LT,CURRENT USE 11/14/2016 EDOUARDMADDY Matthews S YARD OPERATOR Ot 153.9 MALIGNANT HERNÁN COLON NOS 11/14/2016 EDOUARDMADDY Matthews S YARD OPERATOR Ot 197.7 SECOND MALIG HERNÁ[place] LIVER 11/14/2016 EDOUARDWINAH S YARD OPERATOR Ot 345.90 EPILEPSY UNSPEC W/O MENTION INTRACTABLE 11/14/2016 EDOUARD, HILAH S YARD OPERATOR Ot V58.69 OTH MED,LT,CURRENT USE 11/14/2016 EDOUARDMADDY Matthews S YARD OPERATOR Ot 153.9 MALIGNANT HERNÁN COLON NOS 11/14/2016 EDOUARDMADDY Matthews S YARD OPERATOR Ot 197.7 SECOND MALIG HERNÁ[place] LIVER 11/14/2016 EDOUARD, HILAH S YARD OPERATOR Ot 345.90 EPILEPSY UNSPEC W/O MENTION INTRACTABLE 11/14/2016 EDOUARDMADDY Matthews S YARD OPERATOR Ot V58.69 OTH MED,LT,CURRENT USE 11/14/2016 EDOUARDMADDY Matthews S YARD OPERATOR Ot 153.9 MALIGNANT HERNÁN COLON NOS 11/14/2016 EDOUARD, HILAH S YARD OPERATOR Ot 197.7 SECOND MALIG HERNÁ[place] LIVER 11/14/2016 EDOUARDWINAH S YARD OPERATOR Ot 345.90 EPILEPSY UNSPEC W/O MENTION INTRACTABLE 11/14/2016 EDOUARDMADDY Matthews S YARD OPERATOR Ot V58.69 OTH MED,LT,CURRENT USE 11/14/2016 CHAYITO ROBLEDO Ot 153.9 MALIGNANT HERNÁN COLON NOS 11/14/2016 EDOUARDMADDY Matthews S YARD OPERATOR Ot 153.9 MALIGNANT HERNÁN COLON NOS 11/14/2016 MADDY EDOUARD S YARD OPERATOR Ot 197.7 SECOND MALIG HERNÁ[place] LIVER 11/14/2016 EDOUARDMADDY Matthews S YARD OPERATOR Ot 345.90 EPILEPSY UNSPEC W/O MENTION INTRACTABLE 11/14/2016 MADDY EDOUARD S YARD OPERATOR Ot V58.69 OTH MED,LT,CURRENT USE 11/14/2016 MADDY EDOUARD S YARD OPERATOR Ot 153.9 MALIGNANT HERNÁN COLON NOS 11/14/2016 MADDY EDOUARD S YARD OPERATOR Ot 197.7 SECOND MALIG HERNÁ[place] LIVER 11/14/2016 EDOUARD, HILAH S YARD OPERATOR Ot 345.90 EPILEPSY UNSPEC W/O MENTION INTRACTABLE 11/14/2016 EDOUARDWINAH S YARD OPERATOR Ot V58.69 OTH MED,LT,CURRENT USE 11/14/2016 EDOUARD, HILAH S YARD OPERATOR Ot 153.9 MALIGNANT HERNÁN COLON NOS 11/14/2016 EDOUARDWINAH S YARD OPERATOR Ot 197.7 SECOND MALIG HERNÁN LIVER 11/14/2016 EDOUARD HILAH S YARD OPERATOR Ot 345.90 EPILEPSY UNSPEC W/O MENTION INTRACTABLE 11/14/2016 EDOUARDWINAH S YARD OPERATOR Ot V58.69 OTH MED,LT,CURRENT USE 11/14/2016 MADDY EDOUARD S YARD OPERATOR Ot 153.9 MALIGNANT HERNÁN COLON NOS 11/14/2016 MADDY EDOUARD S YARD OPERATOR Ot 197.7 SECOND MALIG HERNÁN LIVER 11/14/2016 MADDY EDOUARD S YARD OPERATOR Ot 345.90 EPILEPSY UNSPEC W/O MENTION INTRACTABLE 11/14/2016 MADDY EDOUARD S YARD OPERATOR Ot V58.69 OTH MED,LT,CURRENT USE 11/14/2016 MADDY EDOUARD S YARD OPERATOR Ot 153.9 MALIGNANT HERNÁN COLON NOS 11/14/2016 MADDY EDOUARD S YARD OPERATOR Ot 197.7 SECOND MALIG [place]ERN[place] LIVER 11/14/2016 WIN EDOUARDAH S YARD OPERATOR Ot 345.90 EPILEPSY UNSPEC W/O MENTION INTRACTABLE 11/14/2016 MADDY EDOUARD YARD OPERATOR Ot V58.69 OTH MED,LT,CURRENT USE 11/14/2016 MADDY EDOUARD YARD OPERATOR Ot 786.05 SHORTNESS OF BREATH 11/14/2016 MADDY EDOUARD S YARD OPERATOR Ot 786.2 COUGH 11/14/2016 MADDY EDOUARD S YARD OPERATOR Ot 153.9 MALIGNANT HERNÁN COLON NOS 11/14/2016 MADDY EDOUARD S YARD OPERATOR Ot 197.7 SECOND MALIG [place]ERN[place] LIVER 11/14/2016 MADDY EDOUARD S YARD OPERATOR Ot 345.90 EPILEPSY UNSPEC W/O MENTION INTRACTABLE 11/14/2016 MADDY EDOUARD S YARD OPERATOR Ot 528.9 ORAL SOFT TISSUE DIS NEC 11/14/2016 MADDY EDOUARD S YARD OPERATOR Ot V58.69 OTH MED,LT,CURRENT USE 11/14/2016 MADDY EDOUARD S YARD OPERATOR Ot V87.41 PERSONAL HISTORY OF ANTINEOPLASTIC CHEMO 11/14/2016 MADDY EDOUARD S YARD OPERATOR Ot 153.9 MALIGNANT HERNÁN COLON NOS 11/14/2016 MADDY EDOUARD S YARD OPERATOR Ot 197.7 SECOND MALIG HERNÁN LIVER 11/14/2016 MADDY EDOUARD S YARD OPERATOR Ot 305.1 TOBACCO USE DISORDER 11/14/2016 MADDY EDOUARD S YARD OPERATOR Ot 345.90 EPILEPSY UNSPEC W/O MENTION INTRACTABLE 11/14/2016 MADDY EDOUARD S YARD OPERATOR Ot V58.69 OTH MED,LT,CURRENT USE 11/14/2016 MADDY EDOUARD S YARD OPERATOR Ot 153.9 MALIGNANT HERNÁN COLON NOS 11/14/2016 MADDY EDOUARD S YARD OPERATOR Ot 197.7 SECOND MALIG HERNÁN LIVER 11/14/2016 MADDY EDOUARD S YARD OPERATOR Ot 305.1 TOBACCO USE DISORDER 11/14/2016 EDOUARDMADDY Matthews S YARD OPERATOR Ot 345.90 EPILEPSY UNSPEC W/O MENTION INTRACTABLE 11/14/2016 MADDY EDOUARD S YARD OPERATOR Ot V58.69 OTH MED,LT,CURRENT USE 11/14/2016 MADDY EDOUARD S YARD OPERATOR Ot 153.9 MALIGNANT HERNÁN COLON NOS 11/14/2016 WIN EDOUARDAH S YARD OPERATOR Ot 197.7 SECOND MALIG HERN[place]N LIVER 11/14/2016 EDOUARD, HILAH S YARD OPERATOR Ot 305.1 TOBACCO USE DISORDER 11/14/2016 EDOUARD, HILAH S YARD OPERATOR Ot 345.90 EPILEPSY UNSPEC W/O MENTION INTRACTABLE 11/14/2016 MADDY EDOUARD S YARD OPERATOR Ot V58.69 OTH MED,LT,CURRENT USE 11/14/2016 MADDY EDOUARD S YARD OPERATOR Ot 153.9 MALIGNANT HERNÁN COLON NOS 11/14/2016 MADDY EDOUARD S YARD OPERATOR Ot 197.7 SECOND MALIG HERNÁN LIVER 11/14/2016 EDOUARDMADDY Matthews S YARD OPERATOR Ot 345.90 EPILEPSY UNSPEC W/O MENTION INTRACTABLE 11/14/2016 MADDY EDOUARD S YARD OPERATOR Ot V58.69 OTH MED,LT,CURRENT USE 11/14/2016 MEENAGARO RAMOSENRIKE Corral Ot 153.9 MALIGNANT HERNÁN COLON NOS 11/14/2016 JOSE BURR, NADJA Ot 153.9 MALIGNANT HERNÁN COLON NOS 11/14/2016 JOSE BURR, NADJA Ot 197.7 SECOND MALIG HERNÁN LIVER 11/14/2016 NADJA GARCIA MD Ot 345.90 EPILEPSY UNSPEC W/O MENTION INTRACTABLE 11/14/2016 JOSE BURR, NADJA Ot V58.69 OTH MED,LT,CURRENT USE 11/14/2016 EDOUARDMADDY Matthews S YARD OPERATOR Ot 153.9 MALIGNANT HERNÁN COLON NOS 11/14/2016 EDOUARD, HILAH S YARD OPERATOR Ot 197.7 SECOND MALIG HERNÁN LIVER 11/14/2016 EDOUARDWINAH S YARD OPERATOR Ot 345.90 EPILEPSY UNSPEC W/O MENTION INTRACTABLE 11/14/2016 EDOUARDMADDY Matthews S YARD OPERATOR Ot V58.69 OTH MED,LT,CURRENT USE 11/14/2016 MADDY EDOUARD S YARD OPERATOR Ot 153.9 MALIGNANT HERNÁN COLON NOS 11/14/2016 MADDY EDOUARD S YARD OPERATOR Ot 197.7 SECOND MALIG HERNÁ[place] LIVER 11/14/2016 MADDY EDOUARD S YARD OPERATOR Ot 345.90 EPILEPSY UNSPEC W/O MENTION INTRACTABLE 11/14/2016 MADDY EDOUARD YARD OPERATOR Ot V58.69 OTH MED,LT,CURRENT USE 11/14/2016 MADDY EDOUARD S YARD OPERATOR Ot 153.9 MALIGNANT HERNÁN COLON NOS 11/14/2016 MADDY EDOUARD S YARD OPERATOR Ot 197.7 SECOND MALIG HERNÁN LIVER 11/14/2016 ISAIAS BURR, RENATE Pierson Ot I25.10 ATHSCL HEART DISEASE OF [place] CORONARY 11/14/2016 RENATE ESPARZA MD Ot J44.9 CHRONIC OBSTRUCTIVE PULMONARY DISEASE, U 11/14/2016 RENATE ESPARZA MD Ot M47.812 SPONDYLOSIS W/O MYELOPATHY OR RADICULOPA 11/14/2016 MADDY EDOUARD S YARD OPERATOR Ot C18.9 MALIGNANT NEOPLASM OF COLON, UNSPECIFIED 11/14/2016 MADDY EDOUARD S YARD OPERATOR Ot C78.7 SECONDARY MALIG NEOPLASM OF LIVER AND IN 11/14/2016 MADDY EDOUARD S YARD OPERATOR Ot Z92.21 PERSONAL HISTORY OF ANTINEOPLASTIC CHEMO 11/14/2016 ANGELO BURR, [place] Warner Ot M25.511 PAIN IN RIGHT SHOULDER 11/14/2016 MADDY EDOUARD S YARD OPERATOR Ot C18.9 MALIGNANT NEOPLASM OF COLON, UNSPECIFIED 11/14/2016 MADDY EDOUARD S YARD OPERATOR Ot C78.7 SECONDARY MALIG NEOPLASM OF LIVER AND IN 11/14/2016 EDOUARDMADDY Matthews S YARD OPERATOR Ot Z92.21 PERSONAL HISTORY OF ANTINEOPLASTIC CHEMO 11/14/2016 MADDY EDOUARD S YARD OPERATOR Ot C18.9 MALIGNANT NEOPLASM OF COLON, UNSPECIFIED 11/14/2016 EDOUARDMADDY Matthews S YARD OPERATOR Ot C78.7 SECONDARY MALIG NEOPLASM OF LIVER AND IN 11/14/2016 EDOUARD, HILAH S YARD OPERATOR Ot Z92.21 PERSONAL HISTORY OF ANTINEOPLASTIC CHEMO 11/14/2016 MADDY EDOUARD S YARD OPERATOR Ot C18.9 MALIGNANT NEOPLASM OF COLON, UNSPECIFIED 11/14/2016 EDOUARDMADDY Matthews S YARD OPERATOR Ot C78.7 SECONDARY MALIG NEOPLASM OF LIVER AND IN 11/14/2016 MADDY EDOUARD S YARD OPERATOR Ot Z92.21 PERSONAL HISTORY OF ANTINEOPLASTIC CHEMO 11/14/2016 MADDY EDOUARD S YARD OPERATOR Ot C18.9 MALIGNANT NEOPLASM OF COLON, UNSPECIFIED 11/14/2016 MADDY EDOUARD S YARD OPERATOR Ot C78.7 SECONDARY MALIG NEOPLASM OF LIVER AND IN 11/14/2016 MADDY EDOUARD S YARD OPERATOR Ot Z92.21 PERSONAL HISTORY OF ANTINEOPLASTIC CHEMO 11/14/2016 CHAYITO ROBLEDO N Ot C18.2 MALIGNANT NEOPLASM OF ASCENDING COLON 11/14/2016 MEENACHAYITO RAMOS N Ot C78.7 SECONDARY MALIG NEOPLASM OF LIVER AND IN 11/14/2016 MADDY EDOUARD S YARD OPERATOR Ot C18.2 MALIGNANT NEOPLASM OF ASCENDING COLON 11/14/2016 MADDY EDOUARD S YARD OPERATOR Ot C78.7 SECONDARY MALIG NEOPLASM OF LIVER AND IN 11/14/2016 MADDY EDOUARD S YARD OPERATOR Ot C18.2 MALIGNANT NEOPLASM OF ASCENDING COLON 11/14/2016 MADDY EDOUARD S YARD OPERATOR Ot C78.7 SECONDARY MALIG NEOPLASM OF LIVER AND IN 11/14/2016 MADDY EDOUARD S YARD OPERATOR Ot C18.2 MALIGNANT NEOPLASM OF ASCENDING COLON 11/14/2016 MADDY EDOUARD S YARD OPERATOR Ot C78.7 SECONDARY MALIG NEOPLASM OF LIVER AND IN 11/14/2016 MADDY EDOUARD S YARD OPERATOR Ot R26.9 UNSPECIFIED ABNORMALITIES OF GAIT AND MO 11/14/2016 MADDY EDOUARD S YARD OPERATOR Ot C18.2 MALIGNANT NEOPLASM OF ASCENDING COLON 11/14/2016 MADDY EDOUARD S YARD OPERATOR Ot C78.7 SECONDARY MALIG NEOPLASM OF LIVER AND IN 11/14/2016 MADDY EDOUARD S YARD OPERATOR Ot Z92.21 PERSONAL HISTORY OF ANTINEOPLASTIC CHEMO 11/14/2016 ANEGLO BURR, [place] A Ot E78.5 HYPERLIPIDEMIA, UNSPECIFIED 11/14/2016 MADDY EDOUARD S YARD OPERATOR Ot C18.2 MALIGNANT NEOPLASM OF ASCENDING COLON 11/14/2016 MADDY EDOUARD S YARD OPERATOR Ot C78.7 SECONDARY MALIG NEOPLASM OF LIVER AND IN 11/14/2016 MADDY EDOUARD S YARD OPERATOR Ot Z92.21 PERSONAL HISTORY OF ANTINEOPLASTIC CHEMO 11/14/2016 MADDY EDOUARD S YARD OPERATOR Ot C18.2 MALIGNANT NEOPLASM OF ASCENDING COLON 11/14/2016 MADDY EDOUARD YARD OPERATOR Ot C78.7 SECONDARY MALIG NEOPLASM OF LIVER AND IN 11/14/2016 MADDY EDOUARD S YARD OPERATOR Ot Z92.21 PERSONAL HISTORY OF ANTINEOPLASTIC CHEMO 11/14/2016 MADDY EDOUARD S YARD OPERATOR Ot C18.2 MALIGNANT NEOPLASM OF ASCENDING COLON 11/14/2016 MADDY EDOUARD S YARD OPERATOR Ot C78.7 SECONDARY MALIG NEOPLASM OF LIVER AND IN 11/14/2016 EDOUARDMADDY Matthews S YARD OPERATOR Ot Z92.21 PERSONAL HISTORY OF ANTINEOPLASTIC CHEMO 11/14/2016 MADDY EDOUARD S YARD OPERATOR Ot C18.2 MALIGNANT NEOPLASM OF ASCENDING COLON 11/14/2016 EDOUARDMADDY S YARD OPERATOR Ot C78.7 SECONDARY MALIG NEOPLASM OF LIVER AND IN 11/14/2016 MADDY EDOUARD S YARD OPERATOR Ot C18.9 MALIGNANT NEOPLASM OF COLON, UNSPECIFIED 11/14/2016 SILKE MADDY S YARD OPERATOR Ot C78.7 SECONDARY MALIG NEOPLASM OF LIVER AND IN 11/14/2016 SILKE MADDY S YARD OPERATOR Ot R91.8 OTHER NONSPECIFIC ABNORMAL FINDING OF [place] 11/14/2016 GARO ROBLEDOENRIKE N Ot C18.2 MALIGNANT NEOPLASM OF ASCENDING COLON 11/14/2016 MEENACHAYITO N Ot C78.7 SECONDARY MALIG NEOPLASM OF LIVER AND IN 11/14/2016 MEENACHAYITO N Ot R91.8 OTHER NONSPECIFIC ABNORMAL FINDING OF [place] 11/14/2016 MADDY EDOUARD S YARD OPERATOR Ot 153.9 MALIGNANT HERNÁN COLON NOS 11/14/2016 MADDY EDOUARD S YARD OPERATOR Ot 197.7 SECOND MALIG HERNÁ[place] LIVER 11/14/2016 MADDY EDOUARD S YARD OPERATOR Ot 345.90 EPILEPSY UNSPEC W/O MENTION INTRACTABLE 11/14/2016 MADDY EDOUARD S YARD OPERATOR Ot V58.69 OTH MED,LT,CURRENT USE 11/14/2016 MADDY EDOUARD S YARD OPERATOR Ot 153.9 MALIGNANT HERNÁN COLON NOS 11/14/2016 MADDY EDOUARD S YARD OPERATOR Ot 197.7 SECOND MALIG HERNÁN LIVER 11/14/2016 MADDY EDOUARD S YARD OPERATOR Ot 345.90 EPILEPSY UNSPEC W/O MENTION INTRACTABLE 11/14/2016 MADDY EDOUARD S YARD OPERATOR Ot V58.69 OTH MED,LT,CURRENT USE 11/14/2016 MADDY EDOUARD YARD OPERATOR Ot 786.05 SHORTNESS OF BREATH 11/14/2016 MADDY EDOUARD YARD OPERATOR Ot 786.2 COUGH 11/14/2016 MADDY EDOUARD S YARD OPERATOR Ot 153.9 MALIGNANT HERNÁN COLON NOS 11/14/2016 MADDY EDOUARD S YARD OPERATOR Ot 197.7 SECOND MALIG HERNÁ[place] LIVER 11/14/2016 MADDY EDOUARD S YARD OPERATOR Ot 345.90 EPILEPSY UNSPEC W/O MENTION INTRACTABLE 11/14/2016 MADDY EDOUARD YARD OPERATOR Ot 528.9 ORAL SOFT TISSUE DIS NEC 11/14/2016 MADDY EDOUARD YARD OPERATOR Ot V58.69 OTH MED,LT,CURRENT USE 11/14/2016 MADDY EDOUARD YARD OPERATOR Ot V87.41 PERSONAL HISTORY OF ANTINEOPLASTIC CHEMO 11/14/2016 MADDY EDOUARD S YARD OPERATOR Ot 153.9 MALIGNANT HERNÁN COLON NOS 11/14/2016 MADDY EDOUARD S YARD OPERATOR Ot 197.7 SECOND MALIG HERNÁN LIVER 11/14/2016 MADDY EDOUARD S YARD OPERATOR Ot 305.1 TOBACCO USE DISORDER 11/14/2016 MADDY EDOUARD S YARD OPERATOR Ot 345.90 EPILEPSY UNSPEC W/O MENTION INTRACTABLE 11/14/2016 MADDY EDOUARD S YARD OPERATOR Ot V58.69 OTH MED,LT,CURRENT USE 11/14/2016 MADDY EDOUARD S YARD OPERATOR Ot 153.9 MALIGNANT HERNÁN COLON NOS 11/14/2016 MADDY EDOUARD S YARD OPERATOR Ot 197.7 SECOND MALIG HERNÁN LIVER 11/14/2016 MADDY EDOUARD S YARD OPERATOR Ot 305.1 TOBACCO USE DISORDER 11/14/2016 MADDY EDOUARD S YARD OPERATOR Ot 345.90 EPILEPSY UNSPEC W/O MENTION INTRACTABLE 11/14/2016 MADDY EDOUARD S YARD OPERATOR Ot V58.69 OTH MED,LT,CURRENT USE 11/14/2016 MADDY EDOUARD S YARD OPERATOR Ot 153.9 MALIGNANT HERNÁN COLON NOS 11/14/2016 MADDY EDOUARD S YARD OPERATOR Ot 197.7 SECOND MALIG HERNÁN LIVER 11/14/2016 WIN EDOUARDAH S YARD OPERATOR Ot 305.1 TOBACCO USE DISORDER 11/14/2016 MADDY EDOUARD S YARD OPERATOR Ot 345.90 EPILEPSY UNSPEC W/O MENTION INTRACTABLE 11/14/2016 EDOUARD, HILAH S YARD OPERATOR Ot V58.69 OTH MED,LT,CURRENT USE 11/14/2016 EDOUARDWINAH S YARD OPERATOR Ot 153.9 MALIGNANT HERNÁN COLON NOS 11/14/2016 EDOUARDWINAH S YARD OPERATOR Ot 197.7 SECOND MALIG HERNÁN LIVER 11/14/2016 EDOUARD HILAH S YARD OPERATOR Ot 345.90 EPILEPSY UNSPEC W/O MENTION INTRACTABLE 11/14/2016 EDOUARDMADDY S YARD OPERATOR Ot V58.69 OTH MED,LT,CURRENT USE 11/14/2016 CHAYITO ROBLEDO Ot 153.9 MALIGNANT HERNÁN COLON NOS 11/14/2016 JOSE BURR, NADJA Ot 153.9 MALIGNANT HERNÁN COLON NOS 11/14/2016 JOSE BURR, NADJA Ot 197.7 SECOND MALIG HERNÁN LIVER 11/14/2016 JOSE BURR, NADJA Ot 345.90 EPILEPSY UNSPEC W/O MENTION INTRACTABLE 11/14/2016 JOSE BURR, NADJA Ot V58.69 OTH MED,LT,CURRENT USE 11/14/2016 EDOUARD, HILAH S YARD OPERATOR Ot 153.9 MALIGNANT HERNÁN COLON NOS 11/14/2016 EDOUARDWINAH S YARD OPERATOR Ot 197.7 SECOND MALIG HERNÁN LIVER 11/14/2016 EDOUARD HILAH S YARD OPERATOR Ot 345.90 EPILEPSY UNSPEC W/O MENTION INTRACTABLE 11/14/2016 EDOUARDWINAH S YARD OPERATOR Ot V58.69 OTH MED,LT,CURRENT USE 11/14/2016 EDOUARDMADDY S YARD OPERATOR Ot 153.9 MALIGNANT HERNÁN COLON NOS 11/14/2016 EDOUARDWINAH S YARD OPERATOR Ot 197.7 SECOND MALIG HERNÁN LIVER 11/14/2016 EDOUARDWINAH S YARD OPERATOR Ot 345.90 EPILEPSY UNSPEC W/O MENTION INTRACTABLE 11/14/2016 EDOUARDMADDY S YARD OPERATOR Ot V58.69 OTH MED,LT,CURRENT USE 11/14/2016 EDOUARDMADDY S YARD OPERATOR Ot 153.9 MALIGNANT HERNÁN COLON NOS 11/14/2016 EDOUARDMADDY Matthews S YARD OPERATOR Ot 197.7 SECOND MALIG HERNÁN LIVER 11/14/2016 RENATE ESPARZA MD Ot I25.10 ATHSCL HEART DISEASE OF [place] CORONARY 11/14/2016 RENATE ESPARZA MD Ot J44.9 CHRONIC OBSTRUCTIVE PULMONARY DISEASE, U 11/14/2016 RENATE ESPARZA MD Ot M47.812 SPONDYLOSIS W/O MYELOPATHY OR RADICULOPA 11/14/2016 MADDY EDOUARD S YARD OPERATOR Ot C18.9 MALIGNANT NEOPLASM OF COLON, UNSPECIFIED 11/14/2016 EDOUARDMADDY Matthews S YARD OPERATOR Ot C78.7 SECONDARY MALIG NEOPLASM OF LIVER AND IN 11/14/2016 MADDY EDOUARD S YARD OPERATOR Ot Z92.21 PERSONAL HISTORY OF ANTINEOPLASTIC CHEMO 11/14/2016 ANGELO BURR, [place] Warner Ot M25.511 PAIN IN RIGHT SHOULDER 11/14/2016 MADDY EDOUARD S YARD OPERATOR Ot C18.9 MALIGNANT NEOPLASM OF COLON, UNSPECIFIED 11/14/2016 EDOUARDMADDY Matthews S YARD OPERATOR Ot C78.7 SECONDARY MALIG NEOPLASM OF LIVER AND IN 11/14/2016 EDOUARDMADDY Matthews S YARD OPERATOR Ot Z92.21 PERSONAL HISTORY OF ANTINEOPLASTIC CHEMO 11/14/2016 MADDY EDOUARD S YARD OPERATOR Ot C18.9 MALIGNANT NEOPLASM OF COLON, UNSPECIFIED 11/14/2016 EDOUARDMADDY Matthews S YARD OPERATOR Ot C78.7 SECONDARY MALIG NEOPLASM OF LIVER AND IN 11/14/2016 EDOUARDMADDY Matthews S YARD OPERATOR Ot Z92.21 PERSONAL HISTORY OF ANTINEOPLASTIC CHEMO 11/14/2016 MADDY EDOUARD S YARD OPERATOR Ot C18.9 MALIGNANT NEOPLASM OF COLON, UNSPECIFIED 11/14/2016 MADDY EDOUARD S YARD OPERATOR Ot C78.7 SECONDARY MALIG NEOPLASM OF LIVER AND IN 11/14/2016 MADDY EDOUARD S YARD OPERATOR Ot Z92.21 PERSONAL HISTORY OF ANTINEOPLASTIC CHEMO 11/14/2016 MADDY EDOUARD S YARD OPERATOR Ot C18.9 MALIGNANT NEOPLASM OF COLON, UNSPECIFIED 11/14/2016 EDOUARDMADDY Matthews S YARD OPERATOR Ot C78.7 SECONDARY MALIG NEOPLASM OF LIVER AND IN 11/14/2016 EDOUARDMADDY Matthews S YARD OPERATOR Ot Z92.21 PERSONAL HISTORY OF ANTINEOPLASTIC CHEMO 11/14/2016 CHAYITO ROBLEDO N Ot C18.2 MALIGNANT NEOPLASM OF ASCENDING COLON 11/14/2016 MEENACHAYITO RAMOS N Ot C78.7 SECONDARY MALIG NEOPLASM OF LIVER AND IN 11/14/2016 MADDY EDOUARD S YARD OPERATOR Ot C18.2 MALIGNANT NEOPLASM OF ASCENDING COLON 11/14/2016 EDOUARDMADDY Matthews S YARD OPERATOR Ot C78.7 SECONDARY MALIG NEOPLASM OF LIVER AND IN 11/14/2016 SILKE MADDY S YARD OPERATOR Ot C18.2 MALIGNANT NEOPLASM OF ASCENDING COLON 11/14/2016 WIN EDOUARDLINH S YARD OPERATOR Ot C78.7 SECONDARY MALIG NEOPLASM OF LIVER AND IN 11/14/2016 EDOUARD MADDY S YARD OPERATOR Ot C18.2 MALIGNANT NEOPLASM OF ASCENDING COLON 11/14/2016 SILKE MADDY S YARD OPERATOR Ot C78.7 SECONDARY MALIG NEOPLASM OF LIVER AND IN 11/14/2016 SILKE MADDY S YARD OPERATOR Ot R26.9 UNSPECIFIED ABNORMALITIES OF GAIT AND MO 11/14/2016 SILKE MADDY S YARD OPERATOR Ot C18.2 MALIGNANT NEOPLASM OF ASCENDING COLON 11/14/2016 SILKE MADDY S YARD OPERATOR Ot C78.7 SECONDARY MALIG NEOPLASM OF LIVER AND IN 11/14/2016 MADDY EDOUARD S YARD OPERATOR Ot Z92.21 PERSONAL HISTORY OF ANTINEOPLASTIC CHEMO 11/14/2016 ANGELO BURR, [place] A Ot E78.5 HYPERLIPIDEMIA, UNSPECIFIED 11/14/2016 WIN EDOUARDLINH S YARD OPERATOR Ot C18.2 MALIGNANT NEOPLASM OF ASCENDING COLON 11/14/2016 SILKE MADDY S YARD OPERATOR Ot C78.7 SECONDARY MALIG NEOPLASM OF LIVER AND IN 11/14/2016 WIN EDOUARDLINH S YARD OPERATOR Ot Z92.21 PERSONAL HISTORY OF ANTINEOPLASTIC CHEMO 11/14/2016 IWN EDOUARDLINH S YARD OPERATOR Ot C18.2 MALIGNANT NEOPLASM OF ASCENDING COLON 11/14/2016 WIN EDOUARDLINH S YARD OPERATOR Ot C78.7 SECONDARY MALIG NEOPLASM OF LIVER AND IN 11/14/2016 MADDY EDOUARD S YARD OPERATOR Ot Z92.21 PERSONAL HISTORY OF ANTINEOPLASTIC CHEMO 11/14/2016 WIN EDOUARDLINH S YARD OPERATOR Ot C18.2 MALIGNANT NEOPLASM OF ASCENDING COLON 11/14/2016 WIN EDOUARDLINH S YARD OPERATOR Ot C78.7 SECONDARY MALIG NEOPLASM OF LIVER AND IN 11/14/2016 MADDY EDOUARD S YARD OPERATOR Ot Z92.21 PERSONAL HISTORY OF ANTINEOPLASTIC CHEMO 11/14/2016 SILKE MADDY S YARD OPERATOR Ot C18.2 MALIGNANT NEOPLASM OF ASCENDING COLON 11/14/2016 MADDY EDOUARD S YARD OPERATOR Ot C78.7 SECONDARY MALIG NEOPLASM OF LIVER AND IN 11/14/2016 MADDY EDOUARD S YARD OPERATOR Ot C18.9 MALIGNANT NEOPLASM OF COLON, UNSPECIFIED 11/14/2016 MADDY EDOUARD S YARD OPERATOR Ot C78.7 SECONDARY MALIG NEOPLASM OF LIVER AND IN 11/14/2016 EDOUARDMADDY Matthews S YARD OPERATOR Ot R91.8 OTHER NONSPECIFIC ABNORMAL FINDING [...] HERED MUSC DYSTRPHY 11/14/2016 MADDY EDOUARD S YARD OPERATOR Ot 153.9 MALIGNANT HERNÁN COLON NOS 11/14/2016 MADDY EDOUARD S YARD OPERATOR Ot 197.7 SECOND MALIG HERNÁN LIVER 11/14/2016 MADDY EDOUARD S YARD OPERATOR Ot 345.90 EPILEPSY UNSPEC W/O MENTION INTRACTABLE 11/14/2016 MADDY EDOUARD S YARD OPERATOR Ot V58.69 OTH MED,LT,CURRENT USE 11/14/2016 MADDY EDOUARD S YARD OPERATOR Ot 153.9 MALIGNANT HERNÁN COLON NOS 11/14/2016 WIN EDOUARDAH S YARD OPERATOR Ot 197.7 SECOND MALIG HERNÁN LIVER 11/14/2016 WIN EDOUARDAH S YARD OPERATOR Ot 345.90 EPILEPSY UNSPEC W/O MENTION INTRACTABLE 11/14/2016 MADDY EDOUARD S YARD OPERATOR Ot V58.69 OTH MED,LT,CURRENT USE 11/14/2016 MADDY EDOUARD S YARD OPERATOR Ot 153.9 MALIGNANT HERNÁN COLON NOS 11/14/2016 EDOUARDMADDY Matthews S YARD OPERATOR Ot 197.7 SECOND MALIG HERNÁN LIVER 11/14/2016 EDOUARD, HILAH S YARD OPERATOR Ot 345.90 EPILEPSY UNSPEC W/O MENTION INTRACTABLE 11/14/2016 MADDY EDOUARD S YARD OPERATOR Ot V58.69 OTH MED,LT,CURRENT USE 11/14/2016 MEENA CHAYITO N Ot 153.9 MALIGNANT HERNÁN COLON NOS 11/14/2016 EDOUARDMADDY S YARD OPERATOR Ot 153.9 MALIGNANT HERNÁN COLON NOS 11/14/2016 EDOUARD, HILAH S YARD OPERATOR Ot 197.7 SECOND MALIG HERNÁN LIVER 11/14/2016 MADDY EDOUARD S YARD OPERATOR Ot 345.90 EPILEPSY UNSPEC W/O MENTION INTRACTABLE 11/14/2016 MADDY EDOUARD S YARD OPERATOR Ot V58.69 OTH MED,LT,CURRENT USE 11/14/2016 MADDY EDOUARD S YARD OPERATOR Ot 153.9 MALIGNANT HERNÁN COLON NOS 11/14/2016 MADDY EDOUARD S YARD OPERATOR Ot 197.7 SECOND MALIG HERNÁN LIVER 11/14/2016 MADDY EDOUARD S YARD OPERATOR Ot 345.90 EPILEPSY UNSPEC W/O MENTION INTRACTABLE 11/14/2016 MADDY EDOUARD YARD OPERATOR Ot V58.69 OTH MED,LT,CURRENT USE 11/14/2016 MADDY EDOUARD S YARD OPERATOR Ot 153.9 MALIGNANT HERNÁN COLON NOS 11/14/2016 MADDY EDOUARD S YARD OPERATOR Ot 197.7 SECOND MALIG HERNÁN LIVER 11/14/2016 MADDY EDOUARD S YARD OPERATOR Ot 345.90 EPILEPSY UNSPEC W/O MENTION INTRACTABLE 11/14/2016 MADDY EDOUARD YARD OPERATOR Ot V58.69 OTH MED,LT,CURRENT USE 11/14/2016 MADDY EDOUARD S YARD OPERATOR Ot 153.9 MALIGNANT HERNÁN COLON NOS 11/14/2016 MADDY EDOUARD S YARD OPERATOR Ot 197.7 SECOND MALIG HERNÁN LIVER 11/14/2016 MADDY EDOUARD S YARD OPERATOR Ot 345.90 EPILEPSY UNSPEC W/O MENTION INTRACTABLE 11/14/2016 MADDY EDOUARD YARD OPERATOR Ot V58.69 OTH MED,LT,CURRENT USE 11/14/2016 MADDY EDOUARD S YARD OPERATOR Ot 153.9 MALIGNANT HERNÁN COLON NOS 11/14/2016 MADDY EDOUARD S YARD OPERATOR Ot 197.7 SECOND MALIG HERNÁN LIVER 11/14/2016 MADDY EDOUARD S YARD OPERATOR Ot 345.90 EPILEPSY UNSPEC W/O MENTION INTRACTABLE 11/14/2016 MADDY EDOUARD S YARD OPERATOR Ot V58.69 OTH MED,LT,CURRENT USE 11/14/2016 WIN EDOUARDAH S YARD OPERATOR Ot 153.9 MALIGNANT HERNÁN COLON NOS 11/14/2016 WIN EDOUARDAH S YARD OPERATOR Ot 197.7 SECOND MALIG HERNÁN LIVER 11/14/2016 WIN EDOUARDAH S YARD OPERATOR Ot 345.90 EPILEPSY UNSPEC W/O MENTION INTRACTABLE 11/14/2016 MADDY EDOUARD S YARD OPERATOR Ot V58.69 OTH MED,LT,CURRENT USE 11/14/2016 MADDY EDOUARD S YARD OPERATOR Ot 153.9 MALIGNANT HERNÁN COLON NOS 11/14/2016 EDOUARDMADDY Matthews S YARD OPERATOR Ot 197.7 SECOND MALIG HERNÁN LIVER 11/14/2016 EDOUARD, HILAH S YARD OPERATOR Ot 345.90 EPILEPSY UNSPEC W/O MENTION INTRACTABLE 11/14/2016 MADDY EDOUARD S YARD OPERATOR Ot V58.69 OTH MED,LT,CURRENT USE 11/14/2016 CHAYITO ROBLEDO Ellis Ot 153.9 MALIGNANT HERÁNN COLON NOS 11/14/2016 EDOUARDMADDY Matthews S YARD OPERATOR Ot 153.9 MALIGNANT HERNÁN COLON NOS 11/14/2016 EDOUARD, HILAH S YARD OPERATOR Ot 197.7 SECOND MALIG HERNÁN LIVER 11/14/2016 EDOUARDWINAH S YARD OPERATOR Ot 345.90 EPILEPSY UNSPEC W/O MENTION INTRACTABLE 11/14/2016 MADDY EDOUARD S YARD OPERATOR Ot V58.69 OTH MED,LT,CURRENT USE 11/14/2016 MADDY EDOUARD S YARD OPERATOR Ot 153.9 MALIGNANT HERNÁN COLON NOS 11/14/2016 MADDY EDOUARD S YARD OPERATOR Ot 197.7 SECOND MALIG HERNÁN LIVER 11/14/2016 EDOUARD, HILAH S YARD OPERATOR Ot 345.90 EPILEPSY UNSPEC W/O MENTION INTRACTABLE 11/14/2016 MADDY EDOUARD S YARD OPERATOR Ot V58.69 OTH MED,LT,CURRENT USE 11/14/2016 MADDY EDOUARD S YARD OPERATOR Ot 153.9 MALIGNANT HERNÁN COLON NOS 11/14/2016 MADDY EDOUARD S YARD OPERATOR Ot 197.7 SECOND MALIG HERNÁN LIVER 11/14/2016 EDOUARDWINAH S YARD OPERATOR Ot 345.90 EPILEPSY UNSPEC W/O MENTION INTRACTABLE 11/14/2016 EDOUARDMADDY S YARD OPERATOR Ot V58.69 OTH MED,LT,CURRENT USE 11/14/2016 EDOUARDMADDY Matthews S YARD OPERATOR Ot 153.9 MALIGNANT HERNÁN COLON NOS 11/14/2016 EDOUARDWINAH S YARD OPERATOR Ot 197.7 SECOND MALIG HERNÁN LIVER 11/14/2016 EDOUARDWINAH S YARD OPERATOR Ot 345.90 EPILEPSY UNSPEC W/O MENTION INTRACTABLE 11/14/2016 EDOUARDMADDY S YARD OPERATOR Ot V58.69 OTH MED,LT,CURRENT USE 11/14/2016 MADDY EDOUARD S YARD OPERATOR Ot 153.9 MALIGNANT HERNÁN COLON NOS 11/14/2016 MADDY EDOUARD S YARD OPERATOR Ot 197.7 SECOND MALIG HERNÁN LIVER 11/14/2016 MADDY EDOUARD S YARD OPERATOR Ot 345.90 EPILEPSY UNSPEC W/O MENTION INTRACTABLE 11/14/2016 MADDY EDOUARD S YARD OPERATOR Ot V58.69 OTH MED,LT,CURRENT USE 11/14/2016 MADDY EDOUARD S YARD OPERATOR Ot 786.05 SHORTNESS OF BREATH 11/14/2016 MADDY EDOUARD S YARD OPERATOR Ot 786.2 COUGH 11/14/2016 MADDY EDOUARD S YARD OPERATOR Ot 153.9 MALIGNANT HERNÁN COLON NOS 11/14/2016 MADDY EDOUARD S YARD OPERATOR Ot 197.7 SECOND MALIG HERNÁN LIVER 11/14/2016 MADDY EDOUARD S YARD OPERATOR Ot 345.90 EPILEPSY UNSPEC W/O MENTION INTRACTABLE 11/14/2016 MADDY EDOUARD S YARD OPERATOR Ot 528.9 ORAL SOFT TISSUE DIS NEC 11/14/2016 MADDY EDOUARD S YARD OPERATOR Ot V58.69 OTH MED,LT,CURRENT USE 11/14/2016 MADDY EDOUARD S YARD OPERATOR Ot V87.41 PERSONAL HISTORY OF ANTINEOPLASTIC CHEMO 11/14/2016 MADDY EDOUARD S YARD OPERATOR Ot 153.9 MALIGNANT HERNÁN COLON NOS 11/14/2016 MADDY EDOUARD S YARD OPERATOR Ot 197.7 SECOND MALIG HERNÁN LIVER 11/14/2016 MADDY EDOUARD S YARD OPERATOR Ot 305.1 TOBACCO USE DISORDER 11/14/2016 MADDY EDOUARD S YARD OPERATOR Ot 345.90 EPILEPSY UNSPEC W/O MENTION INTRACTABLE 11/14/2016 MADDY EDOUARD S YARD OPERATOR Ot V58.69 OTH MED,LT,CURRENT USE 11/14/2016 MADDY EDOUARD S YARD OPERATOR Ot 153.9 MALIGNANT HERNÁN COLON NOS 11/14/2016 MADDY EDOUARD S YARD OPERATOR Ot 197.7 SECOND MALIG HERNÁN LIVER 11/14/2016 WIN EDOUARDAH S YARD OPERATOR Ot 305.1 TOBACCO USE DISORDER 11/14/2016 MADDY EDOUARD S YARD OPERATOR Ot 345.90 EPILEPSY UNSPEC W/O MENTION INTRACTABLE 11/14/2016 MADDY EDOUARD S YARD OPERATOR Ot V58.69 OTH MED,LT,CURRENT USE 11/14/2016 MADDY EDOUARD S YARD OPERATOR Ot 153.9 MALIGNANT HERNÁN COLON NOS 11/14/2016 MADDY EDOUARD S YARD OPERATOR Ot 197.7 SECOND MALIG HERNÁN LIVER 11/14/2016 MADDY EDOUARD S YARD OPERATOR Ot 305.1 TOBACCO USE DISORDER 11/14/2016 MADDY EDOUARD S YARD OPERATOR Ot 345.90 EPILEPSY UNSPEC W/O MENTION INTRACTABLE 11/14/2016 MADDY EDOUARD S YARD OPERATOR Ot V58.69 OTH MED,LT,CURRENT USE 11/14/2016 MADDY EDOUARD S YARD OPERATOR Ot 153.9 MALIGNANT HERNÁN COLON NOS 11/14/2016 EDOUARD, HILAH S YARD OPERATOR Ot 197.7 SECOND MALIG HERNÁN LIVER 11/14/2016 EDOUARD, HILAH S YARD OPERATOR Ot 345.90 EPILEPSY UNSPEC W/O MENTION INTRACTABLE 11/14/2016 MADDY EDOUARD S YARD OPERATOR Ot V58.69 OTH MED,LT,CURRENT USE 11/14/2016 CHAYITO ROBLEDO Ot 153.9 MALIGNANT HERNÁN COLON NOS 11/14/2016 JOSE BURR, NADJA Ot 153.9 MALIGNANT HERNÁN COLON NOS 11/14/2016 JOSE BURR, NADJA Ot 197.7 SECOND MALIG HERNÁN LIVER 11/14/2016 JOSE BURR, NADJA Ot 345.90 EPILEPSY UNSPEC W/O MENTION INTRACTABLE 11/14/2016 JOSE BURR, NADJA Ot V58.69 OTH MED,LT,CURRENT USE 11/14/2016 MADDY EDOUARD S YARD OPERATOR Ot 153.9 MALIGNANT HERNÁN COLON NOS 11/14/2016 MADDY EDOUARD S YARD OPERATOR Ot 197.7 SECOND MALIG HERNÁN LIVER 11/14/2016 EDOUARDMADDY Matthews S YARD OPERATOR Ot 345.90 EPILEPSY UNSPEC W/O MENTION INTRACTABLE 11/14/2016 EDOUARDMADDY Matthews S YARD OPERATOR Ot V58.69 OTH MED,LT,CURRENT USE 11/14/2016 MADDY EDOUARD S YARD OPERATOR Ot 153.9 MALIGNANT HERNÁN COLON NOS 11/14/2016 EDOUARD, HILAH S YARD OPERATOR Ot 197.7 SECOND MALIG HERNÁN LIVER 11/14/2016 EDOUARDWINAH S YARD OPERATOR Ot 345.90 EPILEPSY UNSPEC W/O MENTION INTRACTABLE 11/14/2016 EDOUARDMADDY Matthews S YARD OPERATOR Ot V58.69 OTH MED,LT,CURRENT USE 11/14/2016 MADDY EDOUARD YARD OPERATOR Ot 153.9 MALIGNANT HERNÁN COLON NOS 11/14/2016 MADDY EDOUARD YARD OPERATOR Ot 197.7 SECOND MALIG HERNÁN LIVER 11/14/2016 ISAIAS BURR, RENATE Pierson Ot I25.10 ATHSCL HEART DISEASE OF [place] CORONARY 11/14/2016 ISAIAS BURR, RENATE Pierson Ot J44.9 CHRONIC OBSTRUCTIVE PULMONARY DISEASE, U 11/14/2016 ISAIAS BURR, RENATE Pierson Ot M47.812 SPONDYLOSIS W/O MYELOPATHY OR RADICULOPA 11/14/2016 MADDY EDOUARD YARD OPERATOR Ot C18.9 MALIGNANT NEOPLASM OF COLON, UNSPECIFIED 11/14/2016 MADDY EDOUARD S YARD OPERATOR Ot C78.7 SECONDARY MALIG NEOPLASM OF LIVER AND IN 11/14/2016 MADDY EDOUARD S YARD OPERATOR Ot Z92.21 PERSONAL HISTORY OF ANTINEOPLASTIC CHEMO 11/14/2016 ANGELO BURR, [place] Warner Ot M25.511 PAIN IN RIGHT SHOULDER 11/14/2016 MADDY EDOUARD S YARD OPERATOR Ot C18.9 MALIGNANT NEOPLASM OF COLON, UNSPECIFIED 11/14/2016 MADDY EDOUARD S YARD OPERATOR Ot C78.7 SECONDARY MALIG NEOPLASM OF LIVER AND IN 11/14/2016 MADDY EDOUARD S YARD OPERATOR Ot Z92.21 PERSONAL HISTORY OF ANTINEOPLASTIC CHEMO 11/14/2016 MADDY EDOUARD YARD OPERATOR Ot C18.9 MALIGNANT NEOPLASM OF COLON, UNSPECIFIED 11/14/2016 MADDY EDOUARD YARD OPERATOR Ot C78.7 SECONDARY MALIG NEOPLASM OF LIVER AND IN 11/14/2016 MADDY EDOUARD S YARD OPERATOR Ot Z92.21 PERSONAL HISTORY OF ANTINEOPLASTIC CHEMO 11/14/2016 MADDY EDOUARD S YARD OPERATOR Ot C18.9 MALIGNANT NEOPLASM OF COLON, UNSPECIFIED 11/14/2016 MADDY EDOUARD S YARD OPERATOR Ot C78.7 SECONDARY MALIG NEOPLASM OF LIVER AND IN 11/14/2016 MADDY EDOUARD S YARD OPERATOR Ot Z92.21 PERSONAL HISTORY OF ANTINEOPLASTIC CHEMO 11/14/2016 MADDY EDOUARD S YARD OPERATOR Ot C18.9 MALIGNANT NEOPLASM OF COLON, UNSPECIFIED 11/14/2016 MADDY EDOUARD S YARD OPERATOR Ot C78.7 SECONDARY MALIG NEOPLASM OF LIVER AND IN 11/14/2016 MADDY EDOAURD S YARD OPERATOR Ot Z92.21 PERSONAL HISTORY OF ANTINEOPLASTIC CHEMO 11/14/2016 CHAYITO ROBLEDO N Ot C18.2 MALIGNANT NEOPLASM OF ASCENDING COLON 11/14/2016 CHAYITO ROBLEDO N Ot C78.7 SECONDARY MALIG NEOPLASM OF LIVER AND IN 11/14/2016 EDOUARDWINLINH S YARD OPERATOR Ot C18.2 MALIGNANT NEOPLASM OF ASCENDING COLON 11/14/2016 MADDY EDOUARD S YARD OPERATOR Ot C78.7 SECONDARY MALIG NEOPLASM OF LIVER AND IN 11/14/2016 MADDY EDOUARD S YARD OPERATOR Ot C18.2 MALIGNANT NEOPLASM OF ASCENDING COLON 11/14/2016 MADDY EDOUARD S YARD OPERATOR Ot C78.7 SECONDARY MALIG NEOPLASM OF LIVER AND IN 11/14/2016 MADDY EDOUARD S YARD OPERATOR Ot C18.2 MALIGNANT NEOPLASM OF ASCENDING COLON 11/14/2016 MADDY EDOUARD S YARD OPERATOR Ot C78.7 SECONDARY MALIG NEOPLASM OF LIVER AND IN 11/14/2016 MADDY EDOUARD S YARD OPERATOR Ot R26.9 UNSPECIFIED ABNORMALITIES OF GAIT AND MO 11/14/2016 MADDY EDOUARD S YARD OPERATOR Ot C18.2 MALIGNANT NEOPLASM OF ASCENDING COLON 11/14/2016 MADDY EDOUARD S YARD OPERATOR Ot C78.7 SECONDARY MALIG NEOPLASM OF LIVER AND IN 11/14/2016 MADDY EDOUARD S YARD OPERATOR Ot Z92.21 PERSONAL HISTORY OF ANTINEOPLASTIC CHEMO 11/14/2016 ANGELO BURR, [place] A Ot E78.5 HYPERLIPIDEMIA, UNSPECIFIED 11/14/2016 MADDY EDOUARD S YARD OPERATOR Ot C18.2 MALIGNANT NEOPLASM OF ASCENDING COLON 11/14/2016 MADDY EDOUARD S YARD OPERATOR Ot C78.7 SECONDARY MALIG NEOPLASM OF LIVER AND IN 11/14/2016 MADDY EDOUARD S YARD OPERATOR Ot Z92.21 PERSONAL HISTORY OF ANTINEOPLASTIC CHEMO 11/14/2016 MADDY EDOUARD S YARD OPERATOR Ot C18.2 MALIGNANT NEOPLASM OF ASCENDING COLON 11/14/2016 MADDY EDOUARD S YARD OPERATOR Ot C78.7 SECONDARY MALIG NEOPLASM OF LIVER AND IN 11/14/2016 MADDY EDOUARD S YARD OPERATOR Ot Z92.21 PERSONAL HISTORY OF ANTINEOPLASTIC CHEMO 11/14/2016 MADDY EDOUARD S YARD OPERATOR Ot C18.2 MALIGNANT NEOPLASM OF ASCENDING COLON 11/14/2016 MADDY EDOUARD S YARD OPERATOR Ot C78.7 SECONDARY MALIG NEOPLASM OF LIVER AND IN 11/14/2016 EDOUARDMADDY Matthews YARD OPERATOR Ot Z92.21 PERSONAL HISTORY OF ANTINEOPLASTIC CHEMO 11/14/2016 EDOUARD, MADDY Cassie YARD OPERATOR Ot C18.2 MALIGNANT NEOPLASM OF ASCENDING COLON 11/14/2016 MADDY EDOUARD YARD OPERATOR Ot C78.7 SECONDARY MALIG NEOPLASM OF LIVER AND IN 11/14/2016 EDOUARD MADDY S YARD OPERATOR Ot C18.9 MALIGNANT NEOPLASM OF COLON, UNSPECIFIED 11/14/2016 MADDY EDOUARD YARD OPERATOR Ot C78.7 SECONDARY MALIG NEOPLASM OF LIVER AND IN 11/14/2016 MADDY EDOUARD S YARD OPERATOR Ot R91.8 OTHER NONSPECIFIC ABNORMAL FINDING [...] HERED MUSC DYSTRPHY 11/15/2016 MADDY EDOUARD S YARD OPERATOR Ot 153.9 MALIGNANT HERNÁN COLON NOS 11/15/2016 MADDY EDOUARD S YARD OPERATOR Ot 197.7 SECOND MALIG HERNÁN LIVER 11/15/2016 MADDY EDOUARD S YARD OPERATOR Ot 345.90 EPILEPSY UNSPEC W/O MENTION INTRACTABLE 11/15/2016 MADDY EDOUARD S YARD OPERATOR Ot V58.69 OTH MED,LT,CURRENT USE 11/15/2016 MADDY EDOUARD S YARD OPERATOR Ot 153.9 MALIGNANT HERNÁN COLON NOS 11/15/2016 MADDY EDOUARD S YARD OPERATOR Ot 197.7 SECOND MALIG HERNÁN LIVER 11/15/2016 MADDY EDOUARD S YARD OPERATOR Ot 345.90 EPILEPSY UNSPEC W/O MENTION INTRACTABLE 11/15/2016 MADDY EDOUARD S YARD OPERATOR Ot V58.69 OTH MED,LT,CURRENT USE 11/15/2016 EDOUARDMADDY Matthews S YARD OPERATOR Ot 153.9 MALIGNANT HERNÁN COLON NOS 11/15/2016 MADDY EDOUARD S YARD OPERATOR Ot 197.7 SECOND MALIG HERNÁN LIVER 11/15/2016 EDOUARDMADDY Matthews S YARD OPERATOR Ot 345.90 EPILEPSY UNSPEC W/O MENTION INTRACTABLE 11/15/2016 EDOUARDMADDY Matthews S YARD OPERATOR Ot V58.69 OTH MED,LT,CURRENT USE 11/15/2016 CHAYITO ROBLEDO Ellis Ot 153.9 MALIGNANT HERNÁN COLON NOS 11/15/2016 EDOUARDMADDY Matthews S YARD OPERATOR Ot 153.9 MALIGNANT HERNÁN COLON NOS 11/15/2016 EDOUARD, HILAH S YARD OPERATOR Ot 197.7 SECOND MALIG HERNÁN LIVER 11/15/2016 EDOUARDWINAH S YARD OPERATOR Ot 345.90 EPILEPSY UNSPEC W/O MENTION INTRACTABLE 11/15/2016 EDOUARDMADDY Matthews S YARD OPERATOR Ot V58.69 OTH MED,LT,CURRENT USE 11/15/2016 MADDY EDOUARD S YARD OPERATOR Ot 153.9 MALIGNANT HERNÁN COLON NOS 11/15/2016 EDOUARD, HILAH S YARD OPERATOR Ot 197.7 SECOND MALIG HERNÁN LIVER 11/15/2016 EDOUARDMADDY Matthews S YARD OPERATOR Ot 345.90 EPILEPSY UNSPEC W/O MENTION INTRACTABLE 11/15/2016 MADDY EDOUARD S YARD OPERATOR Ot V58.69 OTH MED,LT,CURRENT USE 11/15/2016 MADDY EDOUARD S YARD OPERATOR Ot 153.9 MALIGNANT HERNÁN COLON NOS 11/15/2016 WIN EDOUARDAH S YARD OPERATOR Ot 197.7 SECOND MALIG HERNÁN LIVER 11/15/2016 EDOUARDWINAH S YARD OPERATOR Ot 345.90 EPILEPSY UNSPEC W/O MENTION INTRACTABLE 11/15/2016 MDADY EDOUARD S YARD OPERATOR Ot V58.69 OTH MED,LT,CURRENT USE 11/15/2016 MADDY EDOUARD S YARD OPERATOR Ot 153.9 MALIGNANT HERNÁN COLON NOS 11/15/2016 EDOUARD, HILAH S YARD OPERATOR Ot 197.7 SECOND MALIG HERNÁN LIVER 11/15/2016 EDOUARDWINAH S YARD OPERATOR Ot 345.90 EPILEPSY UNSPEC W/O MENTION INTRACTABLE 11/15/2016 EDOUARDMADDY S YARD OPERATOR Ot V58.69 OTH MED,LT,CURRENT USE 11/15/2016 EDOUARDWINAH S YARD OPERATOR Ot 153.9 MALIGNANT HERNÁN COLON NOS 11/15/2016 EDOUARDWINAH S YARD OPERATOR Ot 197.7 SECOND MALIG HERNÁN LIVER 11/15/2016 EDOUARDWINAH S YARD OPERATOR Ot 345.90 EPILEPSY UNSPEC W/O MENTION INTRACTABLE 11/15/2016 MADDY EDOUARD S YARD OPERATOR Ot V58.69 OTH MED,LT,CURRENT USE 11/15/2016 MADDY EDOUARD S YARD OPERATOR Ot 153.9 MALIGNANT HERNÁN COLON NOS 11/15/2016 EDOUARD, HILAH S YARD OPERATOR Ot 197.7 SECOND MALIG HERNÁN LIVER 11/15/2016 EDOUARD HILAH S YARD OPERATOR Ot 345.90 EPILEPSY UNSPEC W/O MENTION INTRACTABLE 11/15/2016 MADDY EDOUARD S YARD OPERATOR Ot V58.69 OTH MED,LT,CURRENT USE 11/15/2016 MADDY EDOUARD S YARD OPERATOR Ot 153.9 MALIGNANT HERNÁN COLON NOS 11/15/2016 EDOUARD, HILAH S YARD OPERATOR Ot 197.7 SECOND MALIG HENRÁN LIVER 11/15/2016 EDOUARD, HILAH S YARD OPERATOR Ot 345.90 EPILEPSY UNSPEC W/O MENTION INTRACTABLE 11/15/2016 MADDY EDOUARD S YARD OPERATOR Ot V58.69 OTH MED,LT,CURRENT USE 11/15/2016 CHAYITO ROBLEDO Ot 153.9 MALIGNANT HERNÁN COLON NOS 11/15/2016 EDOUARDMADDY Matthews S YARD OPERATOR Ot 153.9 MALIGNANT HERNÁN COLON NOS 11/15/2016 WIN EDOUARDAH S YARD OPERATOR Ot 197.7 SECOND MALIG HERNÁN LIVER 11/15/2016 MADDY EDOUARD S YARD OPERATOR Ot 345.90 EPILEPSY UNSPEC W/O MENTION INTRACTABLE 11/15/2016 MADDY EDOUARD S YARD OPERATOR Ot V58.69 OTH MED,LT,CURRENT USE 11/15/2016 MADDY EDOUARD S YARD OPERATOR Ot 153.9 MALIGNANT HERNÁN COLON NOS 11/15/2016 EDOUARDMADDY Matthews S YARD OPERATOR Ot 197.7 SECOND MALIG HERNÁN LIVER 11/15/2016 EDOUARDMADDY Matthews S YARD OPERATOR Ot 345.90 EPILEPSY UNSPEC W/O MENTION INTRACTABLE 11/15/2016 EDOUARDMADDY S YARD OPERATOR Ot V58.69 OTH MED,LT,CURRENT USE 11/15/2016 EDOUARD, HILAH S YARD OPERATOR Ot 153.9 MALIGNANT HERNÁN COLON NOS 11/15/2016 EDOUARDWINAH S YARD OPERATOR Ot 197.7 SECOND MALIG HERNÁN LIVER 11/15/2016 EDOUARDWINAH S YARD OPERATOR Ot 345.90 EPILEPSY UNSPEC W/O MENTION INTRACTABLE 11/15/2016 MADDY EDOUARD YARD OPERATOR Ot V58.69 OTH MED,LT,CURRENT USE 11/15/2016 MADDY EDOUARD S YARD OPERATOR Ot 153.9 MALIGNANT HERNÁN COLON NOS 11/15/2016 MADDY EDOUARD S YARD OPERATOR Ot 197.7 SECOND MALIG HERNÁN LIVER 11/15/2016 MADDY EDOUARD S YARD OPERATOR Ot 345.90 EPILEPSY UNSPEC W/O MENTION INTRACTABLE 11/15/2016 MADDY EDOUARD S YARD OPERATOR Ot V58.69 OTH MED,LT,CURRENT USE 11/15/2016 MADDY EDOUARD S YARD OPERATOR Ot 153.9 MALIGNANT HERNÁN COLON NOS 11/15/2016 MADDY EDOUARD S YARD OPERATOR Ot 197.7 SECOND MALIG HERNÁN LIVER 11/15/2016 MADDY EDOUARD S YARD OPERATOR Ot 345.90 EPILEPSY UNSPEC W/O MENTION INTRACTABLE 11/15/2016 MADDY EDOUARD S YARD OPERATOR Ot V58.69 OTH MED,LT,CURRENT USE 11/15/2016 MADDY EDOUARD YARD OPERATOR Ot 786.05 SHORTNESS OF BREATH 11/15/2016 MADDY EDOUARD S YARD OPERATOR Ot 786.2 COUGH 11/15/2016 MADDY EDOUARD S YARD OPERATOR Ot 153.9 MALIGNANT HERNÁN COLON NOS 11/15/2016 MADDY EDOUARD S YARD OPERATOR Ot 197.7 SECOND MALIG HERNÁN LIVER 11/15/2016 MADDY EDOUARD YARD OPERATOR Ot 345.90 EPILEPSY UNSPEC W/O MENTION INTRACTABLE 11/15/2016 MADDY EDOUARD YARD OPERATOR Ot 528.9 ORAL SOFT TISSUE DIS NEC 11/15/2016 MADDY EDOUARD YARD OPERATOR Ot V58.69 OTH MED,LT,CURRENT USE 11/15/2016 MADDY EDOUARD S YARD OPERATOR Ot V87.41 PERSONAL HISTORY OF ANTINEOPLASTIC CHEMO 11/15/2016 MADDY EDOUARD S YARD OPERATOR Ot 153.9 MALIGNANT HERNÁN COLON NOS 11/15/2016 MADDY EDOUARD S YARD OPERATOR Ot 197.7 SECOND MALIG HERNÁN LIVER 11/15/2016 MADDY EDOUARD S YARD OPERATOR Ot 305.1 TOBACCO USE DISORDER 11/15/2016 MADDY EDOUARD S YARD OPERATOR Ot 345.90 EPILEPSY UNSPEC W/O MENTION INTRACTABLE 11/15/2016 MADDY EDOUARD S YARD OPERATOR Ot V58.69 OTH MED,LT,CURRENT USE 11/15/2016 MADDY EDOUARD S YARD OPERATOR Ot 153.9 MALIGNANT HERNÁN COLON NOS 11/15/2016 EDOUARDMADDY Matthews S YARD OPERATOR Ot 197.7 SECOND MALIG HERNÁN LIVER 11/15/2016 EDOUARD, HILAH S YARD OPERATOR Ot 305.1 TOBACCO USE DISORDER 11/15/2016 EDOUARDMADDY Matthews S YARD OPERATOR Ot 345.90 EPILEPSY UNSPEC W/O MENTION INTRACTABLE 11/15/2016 EDOUARDMADDY Matthews S YARD OPERATOR Ot V58.69 OTH MED,LT,CURRENT USE 11/15/2016 MADDY EDOUARD S YARD OPERATOR Ot 153.9 MALIGNANT HERNÁN COLON NOS 11/15/2016 EDOUARD, HILAH S YARD OPERATOR Ot 197.7 SECOND MALIG HERNÁN LIVER 11/15/2016 MADDY EDOUARD S YARD OPERATOR Ot 305.1 TOBACCO USE DISORDER 11/15/2016 EDOUARD, HILAH S YARD OPERATOR Ot 345.90 EPILEPSY UNSPEC W/O MENTION INTRACTABLE 11/15/2016 EDOUARDMADDY S YARD OPERATOR Ot V58.69 OTH MED,LT,CURRENT USE 11/15/2016 MADDY EDOUARD S YARD OPERATOR Ot 153.9 MALIGNANT HERNÁN COLON NOS 11/15/2016 MADDY EDOUARD S YARD OPERATOR Ot 197.7 SECOND MALIG HERNÁN LIVER 11/15/2016 EDOUARDMADDY Matthews S YARD OPERATOR Ot 345.90 EPILEPSY UNSPEC W/O MENTION INTRACTABLE 11/15/2016 MADDY EDOUARD S YARD OPERATOR Ot V58.69 OTH MED,LT,CURRENT USE 11/15/2016 CHAYITO ROBLEDO Ot 153.9 MALIGNANT HERNÁN COLON NOS 11/15/2016 NADJA GARCIA MD Ot 153.9 MALIGNANT HERNÁN COLON NOS 11/15/2016 NADJA GARCIA MD Ot 197.7 SECOND MALIG HERNÁN LIVER 11/15/2016 NADJA GARCIA MD Ot 345.90 EPILEPSY UNSPEC W/O MENTION INTRACTABLE 11/15/2016 NADJA GARCIA MD Ot V58.69 OTH MED,LT,CURRENT USE 11/15/2016 EDOUARDMADDY Matthews S YARD OPERATOR Ot 153.9 MALIGNANT HERNÁN COLON NOS 11/15/2016 EDOUARDMADDY Matthews S YARD OPERATOR Ot 197.7 SECOND MALIG HERNÁN LIVER 11/15/2016 EDOUARDMADDY S YARD OPERATOR Ot 345.90 EPILEPSY UNSPEC W/O MENTION INTRACTABLE 11/15/2016 EDOUARDMADDY Matthews S YARD OPERATOR Ot V58.69 OTH MED,LT,CURRENT USE 11/15/2016 EDOUARDMADDY Matthews S YARD OPERATOR Ot 153.9 MALIGNANT HERNÁN COLON NOS 11/15/2016 EDOUARDMADDY Matthews S YARD OPERATOR Ot 197.7 SECOND MALIG HERNÁN LIVER 11/15/2016 MADDY EDOUARD S YARD OPERATOR Ot 345.90 EPILEPSY UNSPEC W/O MENTION INTRACTABLE 11/15/2016 MADDY EDOUARD S YARD OPERATOR Ot V58.69 OTH MED,LT,CURRENT USE 11/15/2016 MADDY EDOUARD S YARD OPERATOR Ot 153.9 MALIGNANT HERNÁN COLON NOS 11/15/2016 MADDY EDOUARD S YARD OPERATOR Ot 197.7 SECOND MALIG HERNÁN LIVER 11/15/2016 ISAIAS BURR, RENATE Pierson Ot I25.10 ATHSCL HEART DISEASE OF [place] CORONARY 11/15/2016 ISAIAS BURR, RENATE Pierson Ot J44.9 CHRONIC OBSTRUCTIVE PULMONARY DISEASE, U 11/15/2016 ISAIAS BURR, RENATE Pierson Ot M47.812 SPONDYLOSIS W/O MYELOPATHY OR RADICULOPA 11/15/2016 MADDY EDOUARD S YARD OPERATOR Ot C18.9 MALIGNANT NEOPLASM OF COLON, UNSPECIFIED 11/15/2016 MADDY EDOUARD S YARD OPERATOR Ot C78.7 SECONDARY MALIG NEOPLASM OF LIVER AND IN 11/15/2016 MADDY EDOUARD S YARD OPERATOR Ot Z92.21 PERSONAL HISTORY OF ANTINEOPLASTIC CHEMO 11/15/2016 ANGELO BURR, [place] Warner Ot M25.511 PAIN IN RIGHT SHOULDER 11/15/2016 MADDY EDOUARD S YARD OPERATOR Ot C18.9 MALIGNANT NEOPLASM OF COLON, UNSPECIFIED 11/15/2016 MADDY EDOUARD S YARD OPERATOR Ot C78.7 SECONDARY MALIG NEOPLASM OF LIVER AND IN 11/15/2016 MADDY EDOUARD S YARD OPERATOR Ot Z92.21 PERSONAL HISTORY OF ANTINEOPLASTIC CHEMO 11/15/2016 MADDY EDOUARD S YARD OPERATOR Ot C18.9 MALIGNANT NEOPLASM OF COLON, UNSPECIFIED 11/15/2016 EDOUARDMADDY S YARD OPERATOR Ot C78.7 SECONDARY MALIG NEOPLASM OF LIVER AND IN 11/15/2016 EDOUARD, HILAH S YARD OPERATOR Ot Z92.21 PERSONAL HISTORY OF ANTINEOPLASTIC CHEMO 11/15/2016 MADDY EDOUARD S YARD OPERATOR Ot C18.9 MALIGNANT NEOPLASM OF COLON, UNSPECIFIED 11/15/2016 MADDY EDOUARD S YARD OPERATOR Ot C78.7 SECONDARY MALIG NEOPLASM OF LIVER AND IN 11/15/2016 MADDY EDOUARD S YARD OPERATOR Ot Z92.21 PERSONAL HISTORY OF ANTINEOPLASTIC CHEMO 11/15/2016 MADDY EDOUARD YARD OPERATOR Ot C18.9 MALIGNANT NEOPLASM OF COLON, UNSPECIFIED 11/15/2016 MADDY EDOUARD S YARD OPERATOR Ot C78.7 SECONDARY MALIG NEOPLASM OF LIVER AND IN 11/15/2016 MADDY EDOUARD S YARD OPERATOR Ot Z92.21 PERSONAL HISTORY OF ANTINEOPLASTIC CHEMO 11/15/2016 MEENACHAYITO RAMOS N Ot C18.2 MALIGNANT NEOPLASM OF ASCENDING COLON 11/15/2016 MEENAGARO RAMOSAN N Ot C78.7 SECONDARY MALIG NEOPLASM OF LIVER AND IN 11/15/2016 MADDY EDOUARD S YARD OPERATOR Ot C18.2 MALIGNANT NEOPLASM OF ASCENDING COLON 11/15/2016 MADDY EDOUARD S YARD OPERATOR Ot C78.7 SECONDARY MALIG NEOPLASM OF LIVER AND IN 11/15/2016 MADDY EDOUARD S YARD OPERATOR Ot C18.2 MALIGNANT NEOPLASM OF ASCENDING COLON 11/15/2016 MADDY EDOUARD S YARD OPERATOR Ot C78.7 SECONDARY MALIG NEOPLASM OF LIVER AND IN 11/15/2016 MADDY EDOUARD S YARD OPERATOR Ot C18.2 MALIGNANT NEOPLASM OF ASCENDING COLON 11/15/2016 MADDY EDOUARD S YARD OPERATOR Ot C78.7 SECONDARY MALIG NEOPLASM OF LIVER AND IN 11/15/2016 MADDY EDOUARD S YARD OPERATOR Ot R26.9 UNSPECIFIED ABNORMALITIES OF GAIT AND [place] 11/15/2016 MADDY EDOUARD S YARD OPERATOR Ot C18.2 MALIGNANT NEOPLASM OF ASCENDING COLON 11/15/2016 MADDY EDOUARD S YARD OPERATOR Ot C78.7 SECONDARY MALIG NEOPLASM OF LIVER AND IN 11/15/2016 MADDY EDOUARD S YARD OPERATOR Ot Z92.21 PERSONAL HISTORY OF ANTINEOPLASTIC CHEMO 11/15/2016 ANGELO BURR, [place] A Ot E78.5 HYPERLIPIDEMIA, UNSPECIFIED 11/15/2016 MADDY EDOUARD S YARD OPERATOR Ot C18.2 MALIGNANT NEOPLASM OF ASCENDING COLON 11/15/2016 MADDY EDOUARD S YARD OPERATOR Ot C78.7 SECONDARY MALIG NEOPLASM OF LIVER AND IN 11/15/2016 MADDY EDOUARD S YARD OPERATOR Ot Z92.21 PERSONAL HISTORY OF ANTINEOPLASTIC CHEMO 11/15/2016 MADDY EDOUARD YARD OPERATOR Ot C18.2 MALIGNANT NEOPLASM OF ASCENDING COLON 11/15/2016 MADDY EDOUARD S YARD OPERATOR Ot C78.7 SECONDARY MALIG NEOPLASM OF LIVER AND IN 11/15/2016 MADDY EDOUARD YARD OPERATOR Ot Z92.21 PERSONAL HISTORY OF ANTINEOPLASTIC CHEMO 11/15/2016 MADDY EDOUARD S YARD OPERATOR Ot C18.2 MALIGNANT NEOPLASM OF ASCENDING COLON 11/15/2016 MADDY EDOUARD S YARD OPERATOR Ot C78.7 SECONDARY MALIG NEOPLASM OF LIVER AND IN 11/15/2016 MADDY EDOUARD S YARD OPERATOR Ot Z92.21 PERSONAL HISTORY OF ANTINEOPLASTIC CHEMO 11/15/2016 MADDY EDOUARD S YARD OPERATOR Ot C18.2 MALIGNANT NEOPLASM OF ASCENDING COLON 11/15/2016 EDOUARD MADDY S YARD OPERATOR Ot C78.7 SECONDARY MALIG NEOPLASM OF LIVER AND IN 11/15/2016 EDOUARD MADDY S YARD OPERATOR Ot C18.9 MALIGNANT NEOPLASM OF COLON, UNSPECIFIED 11/15/2016 SILKE MADDY S YARD OPERATOR Ot C78.7 SECONDARY MALIG NEOPLASM OF LIVER AND IN 11/15/2016 MADDY EDOUARD S YARD OPERATOR Ot R91.8 OTHER NONSPECIFIC ABNORMAL FINDING OF [place] 11/15/2016 MEENA BOBAN N Ot C18.2 MALIGNANT NEOPLASM OF ASCENDING COLON 11/15/2016 MEENA BOBAN N Ot C78.7 SECONDARY MALIG NEOPLASM OF LIVER AND IN 11/15/2016 MEENA BOBAN N Ot R91.8 OTHER NONSPECIFIC ABNORMAL FINDING OF [place] 11/16/2016 SILKE MADDY S YARD OPERATOR Ot C18.2 MALIGNANT NEOPLASM OF ASCENDING COLON 11/21/2016 MEENA BOBAN N Ot C18.2 MALIGNANT NEOPLASM OF ASCENDING COLON 11/21/2016 MEENA BOBAN N Ot C78.7 SECONDARY MALIG NEOPLASM OF LIVER AND IN 11/21/2016 MEENA BOBAN N Ot R91.8 OTHER NONSPECIFIC ABNORMAL FINDING OF [place] 11/21/2016 SILKE MADDY S YARD OPERATOR Ot C18.2 MALIGNANT NEOPLASM OF ASCENDING [...] ABNORMAL FINDING OF [place] 12/07/2016 MADDY EDOUARD YARD OPERATOR Ot C18.2 MALIGNANT NEOPLASM OF ASCENDING [...] 12/30/2016 CHAYITO ROBLEDO N Ot Z79.899 OTHER [facility] (CURRENT) DRUG THERAPY Procedures Results Encounters ACCT No. Visit Date/Time Discharge Status Pt. Type Provider Facility Loc./Unit Complaint [id number] 09/23/2013 10:06:00 2013 08:36:00 DIS Outpatient [id number] 09/25/2013 16:20:00 2013 15:50:00 DIS Inpatient [id number] 09/25/2013 13:32:00 2013 23:59:59 CLS Outpatient [id number] 09/23/2013 10:08:00 2013 23:59:59 CLS Outpatient
--- NOTE | 2017-03-16 10:07 | DISCHARGE SUMMARY ---
DISCHARGE/ SUMMARY: DATE OF ADMISSION to inpatient GIP: 02/27/2017. DATE OF : 02/27/2017. FINAL DIAGNOSES: 1. Metastatic colon cancer to the liver. 2. Jaundice with liver failure due to progressive metastatic disease. 3. Acute on chronic renal failure. 4. Altered mental status because of liver failure and hypotension. BRIEF HISTORY: Mr. Go is a 66-year-old male with metastatic colon cancer to the liver diagnosed in August 2013 and has been on palliative chemotherapy since then. He signed up with hospice in January 2017 and was on best supportive care at home. He was noted on the floor by a neighbor and EMS services were called and the patient was brought to the emergency room. During evaluation, he was found to be unresponsive and hypotensive and fluid boluses were given. Hospice was contacted and it was decided to admit the patient to the hospital for palliative care. He was maintained on IV fluids with pain medications as needed. The patient was unresponsive and did not regain consciousness. All of his family members were present at the hospital and were aware of the palliative nature of care. He the same evening and the was expected. The family refused an autopsy. Job ID: [id number] Dictated Date: 03/15/2017 19:48:27 Dampener Date: 03/16/2017 09:58:40/bhakti IGLESIAS
== END 2017-02-27 19:59 | disposition expired | DRG 442 ==
LOC: EDUNIT# 10:50 → ER 10:52 → 4TH 12:00
PROVIDERS: ADMIT Internal Medicine Hematology & Oncology; ATTEND Internal Medicine Hematology & Oncology
DX: K72.90 Hepatic failure, unspecified without coma; J44.9 Chronic obstructive pulmonary disease, unspecified; K92.2 Gastrointestinal hemorrhage, unspecified; Z51.5 Encounter for palliative care; I95.9 Hypotension, unspecified; R06.00 Dyspnea, unspecified; C78.7 Secondary malignant neoplasm of liver and intrahepatic bile duct; G40.909 Epilepsy, unspecified, not intractable, without status epilepticus; Z85.038 Personal history of other malignant neoplasm of large intestine
CPT/HCPCS: 36415; 71010; 80053; 83605; 85007; 85027; 85610; 85730; 86850; 86900; 86901; 87040; 96374; 96375; 96376